=== PATIENT | female | born 1990 | race Caucasian/White ===

== ENCOUNTER 2024-06-03 18:56 | Emergency (ER) | payer OTHER, SELFPAY ==
--- NOTE | 2024-06-03 | US_ITS ---
PROCEDURE: Right upper quadrant ultrasound REASON FOR EXAM: Pain, nausea PROCEDURE: Homogeneous hepatic echotexture. No discrete intrinsic hepatic mass, contour nodularity or perihepatic ascites. Normal appearing gallbladder without calculi, wall thickening or pericholecystic fluid. Normal caliber common bile duct measuring 2.9 mm. Limited views of the pancreas are within normal limits. Right kidney measures 11.2 x 5.2 x 4.8 cm. No significant hydronephrosis or sizable shadowing renal calculi. US/Abdomen Limited IMPRESSION: No acute process. Reading Location: [facility]
[2024-06-03 18:58] VITALS: BP 117/82; PULSE 99; RESP 16; TEMP 36.6; O2SAT 100; BMI 27.8
--- NOTE | 2024-06-03 19:13 | EX.ED.DYSGE1 ---
HPI <ED Montano - Last Filed: 06/03/24 21:51> History of Present Illness Chief Complaint: Abd Pain Narrative Narrative: 33-year-old female is approximately 14 weeks and over the last 4 days has had RUQ abdominal pain. Over the last 2 days she has been scared to eat or drink anything and feels nauseated and has acid regurgitation. She was started on famotidine twice daily earlier in her . She has IBS-C with bowel movements every 2 to 3 days. She took Ex-Lax this morning and did have a large bowel movement but it did not help the pain. She has no urinary symptoms. No fever or chills. She denies vaginal bleeding or discharge. PFSH <ED Montano - Last Filed: 06/03/24 21:51> PFSH Home Medications ?Medication ?Instructions ?Recorded ?Last Taken ?Type cetirizine 10 mg capsule (Zyrtec) 10 mg PO QDAY PRN 03/17/24 Unknown History Allergy/AdvReac Type Severity Reaction Status Date / Time Environmental Allergies: Allergy Other Verified 06/03/24 19:03 Uncoded (seasonal) Social History (Updated 03/17/24 @ 13:36 by Moriah Garcia) Smoking Status: Never smoker alcohol intake: never ROS <ED Montano - Last Filed: 06/03/24 21:51> ROS ED ROS Narrative Constitutional: Negative for fever, chills, malaise. CVS: Negative for chest pain. Respiratory: Negative for shortness of breath, cough. GI: Positive for abdominal pain, nausea. Negative for vomiting, diarrhea, melena, hematochezia. EXAM <ED Montano - Last Filed: 06/03/24 21:51> Physical Exam Narrative Exam Narrative: CONST: Patient sitting in no acute distress. EYES: Normal inspection. NECK: Normal inspection. RESP: No respiratory distress, CTAB. CVS: Regular rate and rhythm, no murmur, no gallop. ABD: Soft with mild RUQ and epigastric tenderness, no guarding or rebound, nondistended, no hepatosplenomegaly. Negative Yoon sign. SKIN: Color normal, no rash, warm, dry, intact. EXTREMITIES: Normal appearance, no pedal edema. NEURO: Alert and answering questions appropriately. PSYCH: Normal affect. Const Vital Signs: 06/03/24 18:58 06/03/24 21:00 06/03/24 21:54 Temperature 97.9 F 98.4 F Temperature Source Temporal Pulse Rate 99 80 80 Respiratory Rate 16 18 18 Blood Pressure 117/82 H 111/78 111/78 Blood Pressure Mean 93 89 89 Pulse Ox 100 100 100 Oxygen Delivery Method Room Air Room Air <Dr. Arturo Donnelly DO - Last Filed: 06/03/24 22:03> Physical Exam Const Vital Signs: 06/03/24 18:58 06/03/24 21:00 06/03/24 21:54 Temperature 97.9 F 98.4 F Temperature Source Temporal Pulse Rate 99 80 80 Respiratory Rate 16 18 18 Blood Pressure 117/82 H 111/78 111/78 Blood Pressure Mean 93 89 89 Pulse Ox 100 100 100 Oxygen Delivery Method Room Air Room Air MDM <ED Montano - Last Filed: 06/03/24 21:51> [facility] MDM Narrative Medical decision making narrative: History gathered from: Patient and her mom Differential includes but not limited to biliary colic, cholecystitis, pancreatitis, GERD/gastritis 33-year-old female approximately 14 weeks presents with 4 days of RUQ abdominal pain. She reports nausea and also acid reflux. She appears well and nontoxic. She is afebrile and hemodynamically stable. Normal cardiopulmonary exam. She has mild RUQ tenderness with negative Yoon signs. There is no abdominal distention. No peritoneal signs. CBC, CMP, and lipase are within normal limits. Abdominal ultrasound shows no acute findings. There is no gallbladder thickening or stones. Since she is reporting symptoms of acid regurgitation I think this could be more GERD/gastritis related. She had IV fluids, Protonix, and Zofran on initial examination and after the results were normal I ordered p.o. Tylenol and a GI cocktail. She is already on famotidine twice daily. I recommended adding omeprazole and discussed dietary changes. She has follow-up scheduled with her [facility] [employer] [facility] this week and was discharged in stable condition. ED attending note: I evaluated the patient in conjunction with the CHRISTIANA. I agree with his/her statements and above findings. I have personally performed a face to face assessment of the patient and have reviewed the [facility]STIANA Note. I performed a substantive portion of the visit including all aspects of the following. I personally saw the patient performed chart review, physical exam, reviewed labs, imaging (if obtained), and formulated a treatment and management plan. This note was generated with [email or web address] dictation software. It may contain incorrect words, spelling, and punctuation that were not noted in review of the chart prior to signing. Lab Data Attestation: I reviewed the patient's lab results. Labs: Laboratory Results - last 24 hr 06/03/24 06/03/24 19:18 20:00 WBC 8.5 RBC 4.60 Hgb 12.9 Hct 38.0 MCV 82.6 MCH 28.0 MCHC 33.9 RDW Std Deviation 37.2 RDW Coeff of Martha 12.5 Plt Count 266 MPV 10.1 Immature Gran % (Auto) 0.400 Neut % (Auto) 62.0 Lymph % (Auto) 29.9 [place] % (Auto) 6.6 Eos % (Auto) 0.6 Baso % (Auto) 0.5 Absolute Neuts (auto) 5.3 Absolute Lymphs (auto) 2.55 Nucleated RBC % 0 Sodium 137 Potassium 3.7 Chloride 106 Carbon Dioxide 24.0 Anion Gap 6 BUN 5 L Creatinine 0.55 Estim Creat Clear Calc 132.38 Est GFR (MDRD) Af Amer 164 Est GFR (MDRD) Non-Af 135 BUN/Creatinine Ratio 9.1 L Glucose 87 Calcium 9.3 Total Bilirubin 0.10 L AST 18 ALT 21 Alkaline Phosphatase 63 Total Protein 7.3 Albumin 3.1 L Globulin 4.2 Albumin/Globulin Ratio 0.7 L Lipase 44 L Urine Color Yellow Urine Clarity Clear Urine pH 6.0 Ur Specific Hazard 1.025 Urine Protein Negative Urine Glucose (UA) Normal Urine Ketones 150 A* Urine Occult Blood Negative Urine Nitrite Negative Urine Bilirubin Negative Urine Urobilinogen Normal Ur Leukocyte Esterase Negative Urine RBC 0 SEEN Urine WBC 0 SEEN Ur Squamous Epith Cells 0-5 SEEN Urine Bacteria RARE Urine Mucus 0 SEEN Radiography Diagnostic Testing: Clinical Impression(s) from Imaging Studies Abdomen Ultrasound 06/03/24 00:00 IMPRESSION: No acute process. Reading Location: [facility] <Dr. Arturo Donnelly, DO - Last Filed: 06/03/24 22:03> [facility] MDM Narrative Medical decision making narrative: History gathered from: Patient and her mom Differential includes but not limited to biliary colic, cholecystitis, pancreatitis, GERD 33-year-old female approximately 14 weeks presents with 4 days of RUQ abdominal pain. She reports nausea and also acid reflux. She appears well and nontoxic. She is afebrile and hemodynamically stable. Normal cardiopulmonary exam. She has mild RUQ tenderness with negative Yoon signs. There is no abdominal distention. No peritoneal signs. CBC, CMP, and lipase are within normal limits. ED attending note: I evaluated the patient in conjunction with the CHRISTIANA. I agree with his/her statements and above findings. I have personally performed a face to face assessment of the patient and have reviewed the [facility]IA[facility] Note. I performed a substantive portion of the visit including all aspects of the following. I personally saw the patient performed chart review, physical exam, reviewed labs, imaging (if obtained), and formulated a treatment and management plan. This note was generated with [email or web address] dictation software. It may contain incorrect words, spelling, and punctuation that were not noted in review of the chart prior to signing. Lab Data Labs: Laboratory Results - last 24 hr 06/03/24 06/03/24 19:18 20:00 WBC 8.5 RBC 4.60 Hgb 12.9 Hct 38.0 MCV 82.6 MCH 28.0 MCHC 33.9 RDW Std Deviation 37.2 RDW Coeff of Martha 12.5 Plt Count 266 MPV 10.1 Immature Gran % (Auto) 0.400 Neut % (Auto) 62.0 Lymph % (Auto) 29.9 [place] % (Auto) 6.6 Eos % (Auto) 0.6 Baso % (Auto) 0.5 Absolute Neuts (auto) 5.3 Absolute Lymphs (auto) 2.55 Nucleated RBC % 0 Sodium 137 Potassium 3.7 Chloride 106 Carbon Dioxide 24.0 Anion Gap 6 BUN 5 L Creatinine 0.55 Estim Creat Clear Calc 132.38 Est GFR (MDRD) Af Amer 164 Est GFR (MDRD) Non-Af 135 BUN/Creatinine Ratio 9.1 L Glucose 87 Calcium 9.3 Total Bilirubin 0.10 L AST 18 ALT 21 Alkaline Phosphatase 63 Total Protein 7.3 Albumin 3.1 L Globulin 4.2 Albumin/Globulin Ratio 0.7 L Lipase 44 L Urine Color Yellow Urine Clarity Clear Urine pH 6.0 Ur Specific Hazard 1.025 Urine Protein Negative Urine Glucose (UA) Normal Urine Ketones 150 A* Urine Occult Blood Negative Urine Nitrite Negative Urine Bilirubin Negative Urine Urobilinogen Normal Ur Leukocyte Esterase Negative Urine RBC 0 SEEN Urine WBC 0 SEEN Ur Squamous Epith Cells 0-5 SEEN Urine Bacteria RARE Urine Mucus 0 SEEN Radiography Diagnostic Testing: Clinical Impression(s) from Imaging Studies Abdomen Ultrasound 06/03/24 00:00 IMPRESSION: No acute process. Reading Location: [facility] Discharge Plan Triage Chief Complaint: Abd Pain ED Midlevel Provider: Sandie Mae ED Provider: Arturo Donnelly Dx/Rx/DC Orders Clinical Impression: Abdominal pain, RUQ, Second trimester , GERD (gastroesophageal reflux disease) Instructions: Abdominal Pain Prescriptions: No Action Zyrtec 10 mg capsule 10 mg PO QDAY PRN Primary Care Provider: Dwaine Russell Referrals: Dwaine Russell MD [Primary Care Provider] - Activity Restrictions/Additional Instructions: Your blood work and ultrasound are normal. You could have -induced GERD/gastritis. Continue your famotidine twice daily and you can take [id number] Tums as needed or start omeprazole every day as well. Avoid spicy or fried foods as this could also potentially be gallbladder issue. Follow-up with your [facility] [employer] [facility] Print Language: Malian Disposition Disposition: Home, Self Care
[2024-06-03] MEDS: 0.9% Normal Saline (1000mL) 1,000 ML 999 ML IV (19:22)
[2024-06-03] MEDS: Ondansetron 4 MG/2 ML Vial IV (19:22)
[2024-06-03] MEDS: Pantoprazole Sodium 40 MG in 0.9% Normal Saline (100mL MB+) 100 ML 330 MG IV (19:23)
[2024-06-03 19:26] LABS: Absolute Lymphocyte Count 2.55 X10^3/uL (0.83-4.51); Absolute Neutrophil Count 5.3 X10^3/uL (2.0-7.7); Basophil# 0.04 X10^3/uL; Basophil% 0.5 % (0-1); Eosinophil# 0.05 X10^3/uL; Eosinophils% 0.6 % (0-5); Hemoglobin 12.9 g/dL (12.0-15.0); Lymphocyte # 2.55 X10^3/ul (0.83-4.51); Lymphocyte % 29.9 % (19-41); Mean Corp Hgb Conc 33.9 g/dL (32-36); Mean Corpuscular Volume 82.6 fL (81-99); Mean Platelet Vol. 10.1 fl (6.2-12.0); Monocyte# 0.56 X10^3/uL; Monocyte% 6.6 % (0-10); NRBC Flagged by Analyzer 0 % (0-5); Neutrophil # 5.31 X10^3/uL (2.7-7.7); Platelet Count 266 K/mm3 (150-450); RBC Distribution Width CV 12.5 % (11.6-14.6); RBC Distribution Width SD 37.2 fl (35.1-43.9); White Blood Count 8.5 K/mm3 (4.4-11.0)
[2024-06-03 20:10] LABS: Mucous, Urine 0 SEEN /hpf (<or=2+)
[2024-06-03 20:11] LABS: Color, Urine Yellow (Yellow); Glucose, Dipstick Normal (Normal); Leukocyte Esterase-Dipstick Negative /ul (Negative); Nitrite-Dipstick Negative (Negative); Occult Blood-Urine Negative /ul (Negative); Protein-Dipstick Negative (Negative); Specific Gravity, Urine 1.025 (1.002-1.030); Urine Bilirubin Dipstick Negative (Negative); Urine Clarity Clear (Clear); Urine Urobilinogen Normal (Normal)
[2024-06-03 20:12] LABS: ALB/GLOB Ratio 0.7 RATIO (0.9-2.4); AST(SGOT) 18 U/L (15-37); Alanine Aminotransfer ALT/SGPT 21 U/L (13-56); Albumin, Serum 3.1 g/dL (3.2-5.0); Alkaline Phosphatase 63 U/L (45-117); Anion Gap 6 (5-15); BUN 5 mg/dL (7-18); BUN/Creat Ratio 9.1 RATIO (10-20); Calcium,Total 9.3 mg/dL (8.5-10.1); Chloride 106 mmol/L (98-107); Creatinine, Serum 0.55 mg/dL (0.55-1.02); EST Glomerular Filtration Rate 135 mL/min (>60); Est Glom Filt Rate - Afr Amer 164 mL/min (>60); Estimated Creatinine Clearance 132.38 ml/min; Globulin 4.2 g/dL (2.2-4.2); Glucose 87 mg/dL (74-106); Lipase 44 U/L (73-393); Potassium 3.7 mmol/L (3.5-5.1); Protein, Total 7.3 g/dL (6.4-8.2); Sodium Level 137 mmol/L (136-145)
[2024-06-03 20:13] LABS: Ketone-Dipstick 150 mg/dl (Negative)
[2024-06-03 20:35] LABS: Bacteria RARE /hpf (None Seen); Red Blood Cells-Urine 0 SEEN /hpf (0-5); Squamous Epithelial Cells - UA 0-5 SEEN /hpf (5-10); White Blood Cells 0 SEEN /hpf (0-5)
[2024-06-03 21:00] VITALS: BP 111/78; PULSE 80; RESP 18; O2SAT 100
[2024-06-03] MEDS: Acetaminophen 500 MG Tablet 1000 MG PO (21:44)
[2024-06-03] MEDS: Mag Hydrox/Al Hydrox/Simeth 30 ML UDC PO (21:48)
[2024-06-03] MEDS: Lidocaine 2% Viscous15 ML UDC 15 ML PO (21:48)
[2024-06-03 21:54] VITALS: BP 111/78; PULSE 80; RESP 18; TEMP 36.9; O2SAT 100
== END 2024-06-03 22:24 | disposition home or self-care (01) ==
PROVIDERS: Physician Assistant; Emergency Provider Emergency Medicine; PCP Family Medicine; Referring Provider Emergency Medicine; Visit Provider Emergency Medicine
DX: O99.612 Diseases of the digestive system complicating pregnancy, second trimester (principal); K21.9 Gastro-esophageal reflux disease without esophagitis; Z3A.14 14 weeks gestation of pregnancy
CPT/HCPCS: 76705; 80053; 81001; 83690; 85025; 96365; 96375; 99282; A4216; J2405

== ENCOUNTER 2024-11-10 07:05 | Inpatient (IN) | payer OTHER, SELFPAY ==
[2024-11-10] VITALS (51 sets, daily range): BP systolic 83–133; BP diastolic 51–83; PULSE 71–109; RESP 16; TEMP 36.2–36.9; O2SAT 82–100; BMI 31.4
--- OUTSIDE RECORDS SUMMARY | 2024-11-10 07:20 | XMS RPT_ITS | CCD ---
Author Organization [facility] Care Team Providers Care Manager Trainee Name Role Phone Unavailable Primary Care Provider Unavailabl e Anika Moore PA-C Primary Care Provider Anika Moore PA-C Primary Care Provider [phone] Rosario Maldonado PA-C Primary Care Provider MARISEL YATES, ISMAEL Admitting Unavailable MARISEL YATES, ISMAEL Referring Unavailable ROSARIO MALDONADO Primary Care Unavailable MARISEL YATES, ISMAEL Attending Unavailable ROSARIO MALDONADO Primary Care Unavailable MARISEL YATES, ISMAEL Admitting Unavailable ROSARIO MALDONADO Primary Care Unavailable JULIET DOWNEY Attending Unavailable JULIET DOWNEY Attending Unavailable MARISEL YATES, ISMAEL Admitting Unavailable ROSARIO MALDONADO Primary Care Unavailable Anika Moore PA-C Primary Care Provider DANIELA CARO DPColleen Admitting Unavailable DAINELA CARO DPM Attending Unavailable DANIELA CARO DPM Primary Care Unavailable ROSARIO MALDONADO Consulting Unavailable PROVIDER, UNKNOWN Consulting Unavailable Rosario Maldonado PA-C J Unavailable Rosario Maldonado PA-C Unavailable Carolyn Nation LPN Unavailable Unavailable Anika Moore PA-C Unavailable Bunny HODGENVee Unavailable Unavailable Eber AIR SHOVEL OPERATOR, Vidya Macias Unavailable Unavailab tc Alicea AIR SHOVEL OPERATOR, Ann Cherry Unavailable Unavailab Vee Aguilar MA Unavailable Unavailable Vess AIR SHOVEL OPERATOR, Linda Monsivais Unavailable Unavailable Wengerd AIR SHOVEL OPERATOR, Dena Unavailable Unavailabl e Unavailable Unavailable Maldonado, Rosario J Primary Care Provider [phone] MALDONADO, ROSARIO J Primary Care Unavailable HAURY, PAT Referring Unavailable ALEX SCHOFIELD Attending Unavailable MALDONADO, ROSARIO J Primary Care Unavailable HAURY, PAT Referring Unavailable MALDONADO, ROSARIO J Primary Care Unavailable HAURY, PAT Referring Unavailable TRUDY ZAPATA Attending Unavailable MALDONADO, ROSARIO J Primary Care Unavailable HAURY, PAT Referring Unavailable DENA CARTER Attending Unavailable MALDONADO, ROSARIO J Primary Care Unavailable HAURY, PAT Referring Unavailable MALDONADO, ROSARIO J Primary Care Unavailable DENA CARTER Attending Unavailable MALDONADO, ROSARIO J Primary Care Unavailable KATRIN CLARK Attending Unavailable MALDONADO, ROSARIO J Primary Care Unavailable DENA CARTER Referring Unavailable MALDONADO, ROSARIO J Primary Care Unavailable DENA CARTER Attending Unavailable MALDONADO, ROSARIO J Primary Care Unavailable DENA CARTER Attending Unavailable MALDONADO, ROSARIO J Primary Care Unavailable HAURY, PAT Referring Unavailable MALDONADO, ROSARIO J Primary Care Unavailable RAQUEL FRENCH Referring Unavailable [facility] Primary Care Unavailable ANABELLE GOLDMAN Attending Unavailable MALDONADO, ROSARIO J Primary Care Unavailable DENA CARTER Attending Unavailable MALDONADO, ROSARIO J Primary Care Unavailable ALEX SCHOFIELD Attending Unavailable MALDONADO, ROSARIO J Primary Care Unavailable FRENCH RAQUEL Attending Unavailable MALDONADO, ROSARIO J Primary Care Unavailable AULTMAN, ANIKA D Primary Care Unavailable ANABELLE GOLDMAN Attending Unavailable [facility] Primary Care Unavailable ANABELLE GOLDMAN Attending Unavailable MALDONADO, ROSARIO J Primary Care Unavailable HAURY, PAT Referring Unavailable MALDONADO, ROSARIO J Primary Care Unavailable SELF Referring Unavailable HAURY, PAT Attending Unavailable MALDONADO, ROSARIO J Primary Care Unavailable TORCHIA, ZULLY Referring Unavailable MALDONADO, ROSARIO J Primary Care Unavailable DENA CARTER Attending Unavailable MALDONADO, ROSARIO J Primary Care Unavailable HAURY, PAT Referring Unavailable KENYATTA GUZMAN Attending Unavailable MALDONADO, ROSARIO J Primary Care Unavailable TORCHIA, ZULLY Referring Unavailable MALDONADO, ROSARIO J Primary Care Unavailable HAURY, PAT Referring Unavailable MALDONADO, ROSARIO J Primary Care Unavailable TORCHIA, ZULLY Referring Unavailable MALDONADO, ROSARIO J Primary Care Unavailable DENA CARTER Attending Unavailable ROSARIO MALDONADO Primary Care Unavailable JENNIFER HADDADILY Referring Unavailable ROSARIO MALDONADO Primary Care Unavailable RAQUEL FRENCH Referring Unavailable Dwaine Russell Primary Care Unavailable Dwaine Russell Referring Unavailable Giovany Thakur Attending Unavailable Farida Kim Admitting Unavail able NeAnna Kim Attending Unavail able Farida, Kim Referring Unavail able Dwaine Russell Primary Care Unavailable Arturo Donnelly Attending Unavailable Arturo Donnelly Referring Unavailable Dwaine Russell Primary Care Unavailable Dwaine Russell Primary Care Unavailable Merlin Moreno Attending Unavailable Allergies Allergy Classification Reported Allergen(s) Allergy Type Date of Onset Reaction(s) Facility (1 source) Environmental Allergies: Uncoded; Translations: [Environmental Allergies: Uncoded] Propensity to adverse reactions (disorder) [facility] Repository Medications Current Medications Medication Drug Class(es) Dates Sig (Normalized) Sig (Original) ascorbic acid 500 mg oral tablet (20 sources) Vitamin C Start: 08-28-2024 take 1 tablet by mouth every other day ascorbic acid, vitamin C, (VITAMIN C) 500 mg tablet Take 1 tablet by mouth every other day. 30 tablet 3 08/28/2024 Active aspirin 81 mg delayed release oral tablet (20 sources) Platelet Aggregation Inhibitor, Nonsteroidal Anti-inflammatory Drug Start: 04-14-2024 take 1 tablet by mouth once daily aspirin, enteric coated (ECOTRIN LOW STRENGTH) 81 mg EC tablet Indications: Encounter for supervision of normal first in first trimester ([facility]) , with uncertain dates in first trimester ([facility]) , History of depression Take 1 tablet by mouth once daily. 90 tablet 3 04/14/2024 Active escitalopram 10 mg oral tablet (8 sources) Serotonin Reuptake Inhibitor Start: 08-17-2022 take 1 tablet by mouth once daily Lexapro 10 MG Oral Tablet ; 1 (one) Tablet daily for 0 days Quantity: 90 {Tablet} Refills: 1 Ordered: 17-Aug-2022 FELIPE Maldonado Start: 17-Aug-2022 famotidine 20 mg oral tablet (20 sources) Histamine-2 Receptor Antagonist Start: 04-14-2024 take 1 tablet by mouth twice daily famotidine (PEPCID) 20 mg tablet Take 1 tablet by mouth two times a day. 60 tablet 4 04/14/2024 Active ferrous sulfate 325 mg oral tablet (20 sources) Start: 08-28-2024 take 1 tablet by mouth every other day ferrous sulfate 325 mg (65 mg iron) tablet Take 1 tablet by mouth every other day. 30 tablet 3 08/28/2024 Active isopropyl alcohol 0.7 ml/ml medicated pad (20 sources) Start: 09-01-2024 alcohol swabs (ALCOHOL PREP PADS) Indications: Diet controlled gestational diabetes mellitus (GDM) in third trimester (HCC) Use as directed to check glucose levels up to seven times daily. 200 each 8 09/01/2024 Active meloxicam 15 mg oral tablet (1 source) Nonsteroidal Anti-inflammatory Drug Start: 06-30-2023 End: 07-10-2023 take 1 tablet by mouth once daily meloxicam (MOBIC) 15 MG tablet Take 1 (one) tablet (15 mg total) by mouth daily for 10 days . 10 tablet 0 06/30/2023 07/10/2023 Active omeprazole 40 mg delayed release oral capsule (20 sources) Proton Pump Inhibitor Start: 08-25-2024 take 1 capsule by mouth once daily omeprazole (PRILOSEC) 40 mg capsule Take 1 capsule by mouth once daily. 30 capsule 3 08/25/2024 Active End: 08-25-2024 OMEPRAZOLE ORAL Take by mout h. 08/25/2024 Discontinued (Course of therapy completed) OMEPRAZOLE ORAL Take by mouth. Active oseltamivir 75 mg oral capsule (9 sources) Neuraminidase Inhibitor Start: 05-29-2024 End: 06-03-2024 take 1 capsule by mouth twice daily oseltamivir (TAMIFLU) 75 mg capsule Take 1 capsule by mouth two times a day for 5 days. 10 capsule 05/29/2024 06/03/2024 Active Start: 06-12-2013 End: 06-01-2014 take 1 capsule by mouth once daily TAMIFLU, 75MG (Oral Capsule) ; 1 (one) Capsule daily for 0 days Quantity: 10 {Capsule} Refills: 0 Ordered: 01-Jun-2014 ESTELA Ovalle Start: 12-Jun-2013 End: 01-Jun-2014 Status: Inactive PNV no.95/ferrous fum/folic ac ( ORAL) (20 sources) PNV no.95/ferrou s fum/folic ac ( ORAL) Take by mouth. Active Completed/Discontinued Medications Medication Drug Class(es) Dates Sig (Normalized) Sig (Original) ALPRAZolam 0.25 mg oral tablet (8 sources) Benzodiazepine Start: 09-06-2019 End: 10-06-2019 take 1 tablet by mouth every eight hours as needed for anxiety Xanax 0.25 MG Oral Tablet ; 1 (one) Tablet every 8 hours as needed for anxiety for 30 days Quantity: 15 {Tablet} Refills: 0 Ordered: 06-Sep-2019 FELIPE Maldonado Start: 06-Sep-2019 End: 06-Oct-2019 Status: Inactive Comments: [facility] Comment on above: Medication taken as needed. [facility] doxycycline hyclate 100 mg oral tablet (8 sources) Tetracycline-class Drug Start: 02-24-2021 End: 03-06-2021 take 1 tablet by mouth twice daily Doxycycline Hyclate 100 MG Oral Tablet ; 1 (one) Tablet BID for 10 days Quantity: 20 {Tablet} Refills: 0 Ordered: 24-Feb-2021 FELIPE Maldonado Start: 24-Feb-2021 End: 06-Mar-2021 Status: Inactive Ethinyl Estradiol / Levonorgestrel (8 sources) Progestin, Estrogen, Progestin-containing Intrauterine Device Start: 08-08-2021 End: 09-08-2022 take 1 tablet by mouth once daily Altavera 0.15-30 MG-MCG Oral Tablet ; 1 (one) Tablet daily for 0 days Quantity: 3 {Packet} Refills: 4 Ordered: 08-Sep-2022 Start: 08-Aug-2021 End: 08-Sep-2022 Status: Inactive Comments: Please confirm that this is what she is currently taking. Comment on above: Please confirm that this is what she is currently taking. 10 ml iron sucrose 20 mg/ml injection (3 sources) Parenteral Iron Replacement Start: 09-18-2024 End: 09-18-2024 200 mg, INTRAVENOUS, DIRECTED, Starting on Wed09/18/24 at 1530, Until Wed09/18/24 at 1753, May administer up to 200 mg via IV push over 5-10 minutes. Start: 09-15-2024 End: 09-15-2024 200 mg, INTRAVENOUS, DIRE CTED, Starting on Wed09/15/24 at 1430, Until Wed09/15/24 at 1652, May administer up to 200 mg via IV push over 5-10 minutes. Start: 09-11-2024 End: 09-11-2024 200 mg, INTRAVENOUS, DIRE CTED, Starting on Wed09/11/24 at 1030, Until Wed09/11/24 at 1302, May administer up to 200 mg via IV push over 5-10 minutes. permethrin 50 mg/ml topical cream (1 source) Pyrethroid Start: 06-10-2006 ELIMITE 5 % TOPICAL CREAM use as per instruction sheet, repeat in 1 week 2 doses 0 06/10/2006 Active Comment on above: use as per instructi on sheet, repeat in 1 week phentermine hydrochloride 37.5 mg oral capsule (16 sources) Sympathomimetic Amine Anorectic Start: 02-29-2024 End: 05-29-2024 take 1 capsule by mouth once daily before breakfast Phentermine HCl 37.5 mg capsule Indications: Low serum HDL , Malaise and fatigue , History of obesity Take 1 capsule by mouth daily before breakfast for 90 days. 90 capsule 02/29/2024 04/14/2024 Discontinued Start: 11-24-2023 End: 02-22-2024 take 1 capsule by mouth once daily before breakfast Phentermine HCl 37.5 mg capsule Indications: Low serum HDL , Malaise and fatigue , History of obesity Take 1 capsule by mouth daily before breakfast for 90 days. 90 capsule 0 11/24/2023 02/22/2024 Active Start: 08-19-2023 End: 11-17-2023 take 1 capsule by mouth once daily before breakfast Phentermine HCl 37.5 mg capsule Indications: Low serum HDL , Malaise and fatigue , History of obesity Take 1 capsule by mouth daily before breakfast for 90 days. 90 capsule 0 08/19/2023 11/17/2023 Active Start: 03-23-2023 End: 08-17-2023 take 1 capsule by mouth once daily before breakfast phentermine 37.5 MG capsule Take 1 (one) capsule (37.5 mg total) by mouth every morning before breakfast . 0 05/19/2023 08/17/2023 Active Start: 03-03-2023 End: 03-23-2023 take 30-30.9 tablets by mouth once daily before breakfast Phentermine HCl 37.5 mg tablet Indications: Low serum HDL , Malaise and fatigue , Class 1 obesity without serious comorbidity with body mass index (BMI) of 30.0 to 30.9 in adult, unspecified obesity type Take 1 tablet by mouth daily before breakfast for 60 days. 30 tablet 1 03/03/2023 03/23/2023 Discontinued Start: 01-05-2023 End: 03-06-2023 take 30-30.9 capsules by mouth once daily before breakfast Phentermine HCl 15 mg capsule Indications: Class 1 obesity without serious comorbidity with body mass index (BMI) of 30.0 to 30.9 in adult, unspecified obesity type Take 1 capsule by mouth daily before breakfast for 30 days. 30 capsule 0 02/04/2023 03/06/2023 Active Comment on above: Take 1 capsule by mo [facility] daily before breakfast for 30 days. Take 1 tablet by [facility] daily before breakfast for 60 days. Take 1 capsule by mo [facility] daily before breakfast for 60 days. Take 1 capsule by mo [facility] daily before breakfast for 90 days. sulfacetamide sodium 100 mg/ml ophthalmic solution (8 sources) Sulfonamide Antibacterial Start: 12-24-19 End: 02-20-20 take 1-2 drop(s) into the eye(s) four times daily Bleph-10 10 % Ophthalmic Solution ; 1-2 drops four times daily for 0 days Quantity: 5 {Milliliter} Refills: 0 Ordered: 23-Dec-2020 ERICA Girard Start: 23-Dec-2020 End: 19-Feb-2022 Status: Discontinued Comments: This order discontinued per [facility]. Comment on above: This order discontin ued per [facility]. Problems Active Problems Problem Classification Problem Date Documented Da te Episodic/Chronic Anxiety disorders (20 sources) Anxiety; Translations: [Anxiety disorder, unspecified] 02-19-2022 Chronic Bacterial infection; unspecified site (8 sources) Bacteria present; Translations: [Streptococcus, group B, as the cause of diseases classified elsewhere] Onset: 10-23-2024 10-27-2024 Episodic Cardiac dysrhythmias (3 sources) Tachycardia; Translations: [Tachycardia, unspecified] Onset: 08-25-2024 08-28-2024 Episodic Conditions associated with dizziness or vertigo (5 sources) Lightheadedness; Translations: [Dizziness and giddiness] Onset: 08-15-2024 08-15-2024 Episodic Contraceptive and procreative management (20 sources) Patient encounter status; Translations: [Encounter for contraceptive management, unspecified] 02-19-2022 Episodic Diabetes or abnormal glucose tolerance complicating ; childbirth; or the puerperium (20 sources) Impaired glucose tolerance in ; Translations: [Abnormal glucose complicating ] Onset: 08-28-2024 08-28-2024 Episodic Diseases of mouth; excluding dental (16 sources) Angular cheilitis; Translations: [Diseases of lips] 09-06-2019 Episodic Immunizations and screening for infectious disease (20 sources) Contact with and (suspected) exposure to other viral communicable diseases; Translations: [Contact with or exposure to other viral diseases] Onset: 08-25-2024 09-06-2019 Episodic Inflammation; infection of eye (except that caused by tuberculosis or sexually transmitteddisease) (16 sources) Conjunctivitis; Translations: [Unspecified conjunctivitis] 12-23-2020 Episodic Other circulatory disease (20 sources) Raynaud's disease; Translations: [Raynaud's syndrome without gangrene] Onset: 08-25-2024 08-25-2024 Chronic Other circulatory disease (1 source) Raynaud's syndrome without gangrene; Translations: [Raynaud's disease without gangrene] Onset: 08-25-2024 Chronic Other complications of (20 sources) Anemia of ; Translations: [Anemia complicating , unspecified trimester] Onset: 08-28-2024 08-28-2024 Chronic Other complications of (1 source) Anemia in mother complicating , childbirth AND/OR puerperium; Translations: [Anemia complicating , third trimester] 09-05-2024 Chronic Other complications of (1 source) Anemia complicating , third trimester; Translations: [Anemia during in third trimester (HCC)] Onset: 08-28-2024 Chronic Other complications of (2 sources) High risk ; Translations: [Supervision of high risk , unspecified, third trimester] 10-27-2024 Episodic Other complications of (1 source) Supervision of high risk , unspecified, third trimester; Translations: [Supervision of high risk in third trimester (HCC)] Onset: 10-27-2024 Episodic Other connective tissue disease (2 sources) Pain in right foot; Translations: [Pain in right foot] Onset: 06-30-2023 Episodic Other connective tissue disease (4 sources) Plantar fascial fibromatosis; Translations: [Plantar fascial fibromatosis] Onset: 06-30-2023 Episodic Other gastrointestinal disorders (20 sources) Malabsorption syndrome; Translations: [Malabsorption due to intolerance, not elsewhere classified] Onset: 09-05-2024 09-05-2024 Chronic Other gastrointestinal disorders (1 source) Malabsorption due to intolerance, not elsewhere classified; Translations: [Malabsorption due to intolerance, not elsewhere classified] Onset: 09-05-2024 Chronic Other gastrointestinal disorders (16 sources) Constipation; Translations: [Constipation, unspecified] 09-06-2019 Episodic Other nutritional; endocrine; and metabolic disorders (9 sources) Obesity; Translations: [Obesity, unspecified] Onset: 08-19-2023 01-29-2023 Chronic Other nutritional; endocrine; and metabolic disorders (3 sources) Body mass index 25-29 - overweight; Translations: [Overweight] 08-19-2023 Episodic Other screening for suspected conditions (not mental disorders or infectious disease) (2 sources) Encounter for other specified screening; Translations: [Encounter for screening for diabetes mellitus] Onset: 08-25-2024 Episodic Other skin disorders (16 sources) Mass of axilla; Translations: [Localized swelling, mass and lump, unspecified upper limb] 09-06-2019 Episodic Residual codes; unclassified (1 source) Gestation period, 9 weeks; Translations: [9 weeks gestation of ] 04-14-2024 Episodic Residual codes; unclassified (2 sources) Gestation period, 12 weeks; Translations: [12 weeks gestation of ] 05-05-2024 Episodic Residual codes; unclassified (1 source) Gestation period, 16 weeks; Translations: [16 weeks gestation of ] 06-08-2024 Episodic Residual codes; unclassified (1 source) Gestation period, 20 weeks; Translations: [20 weeks gestation of ] 06-30-2024 Episodic Residual codes; unclassified (1 source) Gestation period, 24 weeks; Translations: [24 weeks gestation of ] 07-28-2024 Episodic Residual codes; unclassified (1 source) Gestation period, 26 weeks; Translations: [26 weeks gestation of ] 08-15-2024 Episodic Residual codes; unclassified (1 source) Gestation period, 28 weeks; Translations: [28 weeks gestation of ] 08-25-2024 Episodic Residual codes; unclassified (1 source) Gestation period, 30 weeks; Translations: [30 weeks gestation of ] 09-08-2024 Episodic Residual codes; unclassified (1 source) Gestation period, 32 weeks; Translations: [32 weeks gestation of ] 09-22-2024 Episodic Residual codes; unclassified (1 source) Gestation period, 34 weeks; Translations: [34 weeks gestation of ] 10-06-2024 Episodic Residual codes; unclassified (1 source) Gestation period, 36 weeks; Translations: [36 weeks gestation of ] 10-20-2024 Episodic Residual codes; unclassified (2 sources) Gestation period, 37 weeks; Translations: [37 weeks gestation of ] 10-27-2024 Episodic Residual codes; unclassified (1 source) 37 weeks gestation of ; Translations: [37 weeks gestation of (HCC)] Onset: 10-27-2024 Episodic Residual codes; unclassified (1 source) 36 weeks gestation of ; Translations: [36 weeks gestation of (HCC)] Onset: 10-20-2024 Episodic Residual codes; unclassified (1 source) 34 weeks gestation of ; Translations: [34 weeks gestation of (HCC)] Onset: 10-06-2024 Episodic Residual codes; unclassified (1 source) 32 weeks gestation of ; Translations: [32 weeks gestation of (HCC)] Onset: 09-22-2024 Episodic Residual codes; unclassified (1 source) 30 weeks gestation of ; Translations: [30 weeks gestation of (HCC)] Onset: 09-08-2024 Episodic Residual codes; unclassified (1 source) 29 weeks gestation of ; Translations: [29 weeks gestation of (HCC)] Onset: 09-01-2024 Episodic Residual codes; unclassified (1 source) 28 weeks gestation of ; Translations: [28 weeks gestation of (HCC)] Onset: 08-25-2024 Episodic Residual codes; unclassified (1 source) 26 weeks gestation of ; Translations: [26 weeks gestation of (HCC)] Onset: 08-15-2024 Episodic Skin and subcutaneous tissue infections (16 sources) Cellulitis of lower limb; Translations: [Cellulitis of unspecified part of limb] 02-19-2022 Episodic Spondylosis; intervertebral disc disorders; other back problems (16 sources) Low back pain; Translations: [Lumbago] 09-06-2019 Episodic Thyroid disorders (20 sources) Goiter; Translations: [Nontoxic goiter, unspecified] Onset: 04-14-2024 02-19-2022 Chronic Unclassified (8 sources) Follow up for chronic condition - The patient is here for follow-up of anxiety. The patient always takes the prescribed medications. No side effects noted. The patient engages in regular exercise program 1-3 times per week. Note for Chronic condition follow-up: Doing well. Decreased dose of lexapro in the spring and has done well with this. 02-19-2022 Unclassified (8 sources) Follow up for chronic condition - The patient is here for follow-up of anxiety. The patient always takes the prescribed medications. No side effects noted (would like to discuss decreasing Lexapro.). The patient has low activity level and no regular exercise program. The patient states that there is no recent angina or dyspnea, there are no vision changes or weakness and weight has increased (11 pounds). Note for Chronic condition follow-up: Bought a house. 08-08-2021 Unclassified (8 sources) Follow up for chronic condition - The patient is here for follow-up of anxiety. The patient always takes the prescribed medications. No side effects noted. The patient has an active lifestyle but no regular exercise program. The patient states that weight has increased and mood is unchanged (Pt is doing well on her meds). The patient states that the disease has no overall impact. Note for Chronic condition follow-up: Had previously broken up with boyfriend but over the past year they got back together and then got engaged in the fall and then broke up again. Feels she still has stress through circumstances but is handling things better on the medication.Weight is back to her normal range - had lost a lot in the spring of last year before starting medication.She would like to continue the lexapro.Only took benzo once in February. 07-19-2020 Unclassified (8 sources) Follow up for chronic condition - The patient is here for follow-up of anxiety. The patient always takes the prescribed medications. No side effects noted. The patient has an active lifestyle but no regular exercise program. The patient states that weight has decreased (5#), in general mood has improved (has relief from some of her anxiety but continues to have very anxious mornings and sometimes before bed on the 10mg lexapro dose) and they are still having trouble sleeping. 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 09-06-2019 Unclassified (8 sources) Form completion physical - The patient feels well with minor complaints (low back pain that has been intermittent for weeks; no significant change in pain with movements; some days is pain free; no history of injury; really sharp pain at times; no urinary symptoms), has good energy level and is sleeping well. Current symptoms include back pain. The patient exercises weekly. The patient has an appropriate balanced diet and sleeps on average 7 hours per night. Habits include caffeine use. Safety measures include appropriate use of safety belts. There are no behavioral problems. Note for Form completion physical: Last period 07/12/2015 states are regular. Is sexually active. 08-09-2015 Unclassified (20 sources) [facility] Onset: 04-14-2024 04-14-2024 Unclassified (20 sources) Education - [place] Onset: 04-14-2024 04-14-2024 Unclassified (1 source) Low back pain, unspecified; Translations: [Low back pain, unspecified] Onset: 03-17-2024 Past or Other Problems Problem Classification Problem Date Documented Da te Episodic/Chronic Malaise and fatigue (10 sources) Malaise and fatigue; Translations: [Other malaise] Onset: 11-24-2023 01-29-2023 Episodic Other complications of (20 sources) Vomiting of , unspecified; Translations: [Unspecified vomiting of , unspecified as to episode of care or not applicable] Onset: 04-14-2024 04-14-2024 Episodic Other complications of (20 sources) Heartburn; Translations: [Other specified related conditions, first trimester] Onset: 04-14-2024 04-14-2024 Episodic Other complications of (1 source) Other specified related conditions, first trimester; Translations: [Heartburn during in first trimester (HCC)] Onset: 04-14-2024 Episodic Other complications of (1 source) Other specified related conditions, second trimester; Translations: [Other specified related conditions, second trimester] Onset: 06-15-2024 Episodic Other connective tissue disease (20 sources) Plantar fasciitis; Translations: [Plantar fascial fibromatosis] Onset: 07-13-2023 06-30-2023 Episodic Other gastrointestinal disorders (1 source) Heartburn; Translations: [Heartburn during in first trimester (HCC)] Onset: 04-14-2024 Episodic Other liver diseases (20 sources) Decreased lipoprotein; Translations: [Abnormal levels of other serum enzymes] Onset: 08-19-2023 01-29-2023 Episodic Other liver diseases (1 source) Abnormal levels of other serum enzymes; Translations: [Low serum HDL] Onset: 08-19-2023 Episodic Other nutritional; endocrine; and metabolic disorders (20 sources) H/O: obesity; Translations: [Personal history of other endocrine, nutritional and metabolic disease] Onset: 11-24-2023 08-19-2023 Episodic Other nutritional; endocrine; and metabolic disorders (1 source) Personal history of other endocrine, nutritional and metabolic disease; Translations: [History of obesity] Onset: 11-24-2023 Episodic Other nutritional; endocrine; and metabolic disorders (1 source) Overweight; Translations: [Overweight (BMI 25.0-29.9)] Onset: 11-24-2023 Episodic Other and delivery including normal (20 sources) Normal ; Translations: [Encounter for supervision of normal first , first trimester] Onset: 04-14-2024 04-14-2024 Episodic Residual codes; unclassified (1 source) 24 weeks gestation of ; Translations: [24 weeks gestation of (HCC)] Onset: 04-18-2025 Episodic Screening and history of mental health and substance abuse codes (20 sources) H/O: depression; Translations: [Personal history of other mental and behavioral disorders] Onset: 04-14-2024 04-14-2024 Episodic Unclassified (8 sources) infected spot - she thought she had an infected hair on right braxton - started picking it at-- it has now quadrupled in size, red, warm to touch, draining.clear puss coming out, she is squeezing itthen the last 2 days she started with red eyes, crusty, mainly the left one -- wonders if she touched her eye and is spreading it also has a spot on her forehead -- says it feels more like a boil and not like a zit-- she picks it - hurts really bad did take amoxicillin this morning she was cleaning it everyday and triple antibiotic ointment, and hydrogen peroxide No fever. 12-23-2020 Unclassified (8 sources) Depression, Initial - The onset of the depression has been variable and has been occurring in an intermittent pattern for years. The course has been increasing. The depression is described as feeling nervous. The symptoms include loss of interest, depressed mood, trouble concentrating, indecisiveness, loss of appetite, weight loss (7 pounds), insomnia, irritability and anxiety, while the symptoms do not include suicidal thoughts, suicidal attempts, fatigue, sense of failure, increased appetite, excessive sleeping or headaches. Pertinent family history includes depression in first degree relative (mother). Note for Depression: Has had anxiety for a long time but it has been worse x weeks (recent break-up, moving home with parents, off work due to pandemic). Mind racing at bedtime. Sleeps about 5 hours at night. Has a panic feeling at times but says it doesn't develop into a full panic attack. Denies suicidal thoughts. 08-07-2019 Unclassified (8 sources) Mouth pain - Symptoms include mouth lesions (In the cornder of her lips; right side is worse than the left. Seems some better today. Now cracking so painful when opens mouth completely. No history of cold sores. No prodromal symptoms. Has been using hydrogen peroxide on it. ). Onset was day(s) ago. 06-01-2014 Unclassified (8 sources) Form Completion Physicals - The patient feels well with no complaints. There are no current symptoms. The patient exercises 3 - 4 times per week. The patient has an appropriate balanced diet (does not eat breakfast) and takes no supplemental vitamins or iron and sleeps on average 9 hours per night. Habits include caffeine use. Safety measures include appropriate use of car seats/safety belts, appropriate use of safety belts and avoiding exposure to passive smoke. There are no behavioral problems. Note for Form completion physical: needs form completed for [facility] [employer] 08-23-2013 Unclassified (8 sources) Abdominal pain - The onset of the abdominal pain has been gradual and has been occurring in an intermittent pattern for 6 days. The course has been decreasing. The pain is described as a moderate pressure sensation and fullness. The pain is located in the upper abdomen and does not radiate. The symptoms are aggravated by meals (1/2 to 1 hour after eating) but have no relieving factors. The symptoms have been associated with bloating, constipation, dysuria, fever (possibly) and nausea, while the symptoms have not been associated with anorexia, diarrhea (loose stools on Wednesday s/p ex lax) or vomiting. Note for Abdominal pain: Pt has h/o constipation with b.m's q 3-4 days. Pt took ex-lax last Wednesday with good results, but has not had a b.m.since than. Pt. generally does not eat very healthy and drinks lots of soda, per pt. Pt does not drink very much water routinely. Pt has regular menses with no c/o increased cramping or bleeding. LMP-03/23/13 No previous testing has been done concerning abd discomfort. 04-20-2013 NEGATED: Highlighted row has been ruled out!Unclassified (8 sources) No Known / History Onset: 08-09-2015 08-09-2015 Results Test Name Value Interpretation Reference Range Facility Examination level ultrasound on 10-31-2024 [facility] Radiology Study observation (narrative) [facility] URINE OB DIP B/OOrdered By: Kalyan Hi on 10-31-2024 Glucose Ql (U) Negative Neg mg/dL [facility] Work Phone: Interpretation and review of laboratory results Normal [facility] Work Phone: Protein.monoclonal (U) [Mass/Vol] Negative Neg mg/dL [facility] Work Phone: [facility] Work Phone: URINE OB DIP B/Oon Glucose Ql (U) Negative Neg mg/dL [facility] Interpretation and review of laboratory results Normal [facility] Protein.monoclonal (U) [Mass/Vol] Negative Neg mg/dL [facility] CBC W Auto Differential pane l (Bld)on 10-20-2024 Basophils (Bld) [#/Vol] 0.04 10*3/uL Normal <0.11 [facility] Comment on above: Order Comment: Speci men Type: BLOOD SPECIMEN Ordering Facility: [facility] Address: [address] [place] [address] Performed By: #### 5 7021-8 #### [facility] CLIA [id number] [address] [place] [address] [place] Basophils/100 WBC (Bld) 0.3 % Normal [facility] Comment on above: Order Comment: Speci men Type: BLOOD SPECIMEN Ordering Facility: [facility] Address: [address] [place] [address] Performed By: #### 5 7021-8 #### [facility] CLIA [id number] [address] [place] [address] [place] Differential cell count method Nom (Bld) Auto Normal [facility] Comment on above: Order Comment: Speci men Type: BLOOD SPECIMEN Ordering Facility: [facility] Address: [address] [place] [address] Performed By: #### 5 7021-8 #### [facility] CLIA [id number] [address] [place] [address] [place] Eosinophils (Bld) [#/Vol] 0.11 10*3/uL Normal <0.46 [facility] Comment on above: Order Comment: Speci men Type: BLOOD SPECIMEN Ordering Facility: [facility] Address: [address] [place] [address] Performed By: #### 5 7021-8 #### [facility] CLIA [id number] [address] [place] [address] [place] Eosinophils/100 WBC (Bld) 0.8 % Normal [facility] Comment on above: Order Comment: Speci men Type: BLOOD SPECIMEN Ordering Facility: [facility] Address: [address] [place] [address] Performed By: #### 5 7021-8 #### [facility] CLIA [id number] [address] [place] [address] [place] Erythrocyte distribution width (RBC) [Ratio] 15.2 % High 11.5-15.0 [facility] Comment on above: Order Comment: Speci men Type: BLOOD SPECIMEN Ordering Facility: [facility] Address: [address] [place] [address] Performed By: #### 5 7021-8 #### [facility] CLIA [id number] [address] [place] [address] [place] Hematocrit (Bld) [Volume fraction] 36.6 % Normal 36.0-46.0 [facility] Comment on above: Order Comment: Speci men Type: BLOOD SPECIMEN Ordering Facility: [facility] Address: [address] [place] [address] Performed By: #### 5 7021-8 #### [facility] CLIA [id number] [address] [place] [address] [place] Hemoglobin (Bld) [Mass/Vol] 12.2 g/dL Normal 11.5-15.5 [facility] Comment on above: Order Comment: Speci men Type: BLOOD SPECIMEN Ordering Facility: [facility] Address: [address] [place] [address] Performed By: #### 5 7021-8 #### [facility] CLIA [id number] [address] [place] [address] [place] Immature granulocytes (Bld) [#/Vol] 0.14 10*3/uL High <0.10 [facility] Comment on above: Order Comment: Speci men Type: BLOOD SPECIMEN Ordering Facility: [facility] Address: [address] [place] [address] Performed By: #### 5 7021-8 #### [facility] CLIA [id number] [address] [place] [address] [place] Immature granulocytes/100 WBC (Bld) 1.0 % Normal [facility] Comment on above: Order Comment: Speci men Type: BLOOD SPECIMEN Ordering Facility: [facility] Address: [address] [place] [address] Performed By: #### 5 7021-8 #### [facility] CLIA [id number] [address] [place] [address] [place] Lymphocytes (Bld) [#/Vol] 2.17 10*3/uL Normal 1.00-4.00 [facility] Comment on above: Order Comment: Speci men Type: BLOOD SPECIMEN Ordering Facility: [facility] Address: [address] [place] [address] Performed By: #### 5 7021-8 #### [facility] CLIA [id number] [address] [place] [address] [place] Lymphocytes/100 WBC (Bld) 15.8 % Normal [facility] Comment on above: Order Comment: Speci men Type: BLOOD SPECIMEN Ordering Facility: [facility] Address: [address] [place] [address] Performed By: #### 5 7021-8 #### [id number] [address] [place] [address] [place] MCH (RBC) [Entitic mass] 28.1 pg Normal 26.0-34.0 [facility] Comment on above: Order Comment: Speci men Type: BLOOD SPECIMEN Ordering Facility: [facility] Address: [address] [place] [address] Performed By: #### 5 7021-8 #### [facility] CLIA [id number] [address] [place] [address] [place] MCHC (RBC) [Mass/Vol] 33.3 g/dL Normal 30.5-36.0 [facility] Comment on above: Order Comment: Speci men Type: BLOOD SPECIMEN Ordering Facility: [facility] Address: [address] [place] [address] Performed By: #### 5 7021-8 #### [facility] CLIA [id number] [address] [place] [address] [place] MCV (RBC) [Entitic vol] 84.3 fL Normal 80.0-100.0 [facility] Comment on above: Order Comment: Speci men Type: BLOOD SPECIMEN Ordering Facility: [facility] Address: [address] [place] [address] Performed By: #### 5 7021-8 #### [facility] CLIA [id number] [address] [place] [address] [place] Monocytes (Bld) [#/Vol] 1.01 10*3/uL High <0.87 [facility] Comment on above: Order Comment: Speci men Type: BLOOD SPECIMEN Ordering Facility: [facility] Address: [address] [place] [address] Performed By: #### 5 7021-8 #### [facility] CLIA [id number] [address] [place] [address] [place] Monocytes/100 WBC (Bld) 7.4 % Normal [facility] Comment on above: Order Comment: Speci men Type: BLOOD SPECIMEN Ordering Facility: [facility] Address: [address] [place] [address] Performed By: #### 5 7021-8 #### [facility] CLIA [id number] [address] [place], [place] [address] [place] Neutrophils (Bld) [#/Vol] 10.26 10*3/uL High 1.45-7.50 [facility] Comment on above: Order Comment: Speci men Type: BLOOD SPECIMEN Ordering Facility: [facility] Address: [address] [place] [address] Performed By: #### 5 7021-8 #### [facility] CLIA [id number] [address] [place] [address] [place] Neutrophils/100 WBC (Bld) 74.7 % Normal [facility] Comment on above: Order Comment: Speci men Type: BLOOD SPECIMEN Ordering Facility: [facility] Address: [address] [place] [address] Performed By: #### 5 7021-8 #### [facility] CLIA [id number] [address] [place] [address] [place] Nucleated RBC (Bld) [#/Vol] 10*3/uL Normal <0.01 [facility] Comment on above: Order Comment: Speci men Type: BLOOD SPECIMEN Ordering Facility: [facility] Address: [address] [place] [address] Performed By: #### 5 7021-8 #### [facility] CLIA [id number] [address] [place] [address] [place] Nucleated RBC/100 WBC (Bld) [Ratio] 0.0 /100 WBC Normal [facility] Comment on above: Order Comment: Speci men Type: BLOOD SPECIMEN Ordering Facility: [facility] Address: [address] [place] [address] Performed By: #### 5 7021-8 #### [facility] CLIA [id number] [address] [place] [address] [place] Platelet mean volume (Bld) [Entitic vol] 10.3 fL Normal 9.0-12.7 [facility] Comment on above: Order Comment: Speci men Type: BLOOD SPECIMEN Ordering Facility: [facility] Address: [address] [place] [address] Performed By: #### 5 7021-8 #### [facility] CLIA [id number] [address] [place] [address] [place] Platelets (Bld) [#/Vol] 206 10*3/uL Normal 150-400 [facility] Comment on above: Order Comment: Speci men Type: BLOOD SPECIMEN Ordering Facility: [facility] Address: [address] [place], [place] [address] Performed By: #### 5 7021-8 #### [facility] CLIA [id number] [address] [place] [address] [place] RBC (Bld) [#/Vol] 4.34 10*6/uL Normal 3.90-5.20 [facility] Comment on above: Order Comment: Speci men Type: BLOOD SPECIMEN Ordering Facility: [facility] Address: [address] [place] [address] Performed By: #### 5 7021-8 #### [facility] CLIA [id number] [address] [place] [address] [place] WBC (Bld) [#/Vol] 13.73 10*3/uL High 3.70-11.00 [facility] Comment on above: Order Comment: Speci men Type: BLOOD SPECIMEN Ordering Facility: [facility] Address: [address] [place], [place] [address] Performed By: #### 5 7021-8 #### [facility] CLIA [id number] [address] [place] [address] [place] ROUTINE, GROUP B ST REPTOCOCCUS BY PCRon 10-20-2024 ROUTINE, GROUP B STREPTOCOCCUS BY PCR Detected Abnormal [facility] Comment on above: Performed By: #### G BPCR ####[facility] LABCLIA [id number] [place] [address] [place] URINE OB DIP B/Oon 5 Glucose Ql (U) Negative Neg mg/dL [facility] Interpretation and review of laboratory results Normal [facility] Protein.monoclonal (U) [Mass/Vol] Negative Neg mg/dL [facility] URINE OB DIP B/Oon 5 Glucose Ql (U) Negative Neg mg/dL [facility] Interpretation and review of laboratory results Normal [facility] Protein.monoclonal (U) [Mass/Vol] Negative Neg mg/dL [facility] URINE OB DIP B/Oon 5 Glucose Ql (U) Negative Neg mg/dL [facility] Interpretation and review of laboratory results Normal [facility] Protein.monoclonal (U) [Mass/Vol] Negative Neg mg/dL [facility] CNNURSEon 09-13-2024 CNNURSE Nurse Visit (ENDIMT) GEENA PEDRO ([id number]) 1990 F Date Time Provider Department 09/13/24 2:00 PM JODY RODRIGUEZ During your visit today, we recorded the following information about you: Jody Rodriguez RN 09/13/2024 2:20 PM Signed DIABETES CARE AND EDUCATION VISIT Location: [place] Type of visit: In person individual PATIENT'S MAIN CONCERN TODAY: GDM Support person present for education today: none Cognitive ability: Alert and oriented Motivation to learn: Interested Learning barriers identified by educator: none Method of instruction: written, verbal, and demonstration DIABETES FINDINGS: GDM Monitoring: Checking fasting and 1-2 hours post - reports fasting has been in lower 80s and post meal been consistently in target range Meal Plannin g of carb diet reviewed Medications: discussed insulin as possible treatment in if needed Physical Activity: benefits of activity for blood sugars reviewed HANDOUTS: Healthy You: Diabetes and LEARNING RESPONSE: Diabetes pathophysiology: Demonstrated understanding/compet ency today or at previous visit Healthy eating: Demonstrated understanding/compet ency today or at previous visit Being active: Demonstrated understanding/compet ency today or at previous visit Monitoring glucose: Demonstrated understanding/compet ency today or at previous visit POSSIBLE FUTURE TOPICS: 1. DIABETES CARE AND EDUCATION PLAN: Education completed and annual diabetes education follow-up visit recommended Time Spent (Minutes): 30 This visit note will be communicated to the healthcare provider via access to shared medical record. SIGNATURE: Jody Rodriguez RN PATIENT NAME: Geena Pedro DATE: September 13, 2024 TIME: 2:17 PM Referring Provider: PAT HADDAD [[id number]] Allergies As of Date: 09/13/2024 (No Known Allergies) Date Reviewed: 09/11/2024 Reviewed by: Viki Rodríguez RN - Fully Assessed Visit Diagnosis:Diet controlled gestational diabetes mellitus (GDM) in third trimester (HCC) [O24.410] Order(s):CONSULT TO DIABETES EDUCATION DSME [[id number]] Order #: [id number]: 2 Prescriptions as of 09/13/2024 - blood sugar diagnostic test strip Use as directed to check glucose levels up to seven times daily. - Lancets Use as directed to check glucose levels up to seven times daily. - alcohol swabs (ALCOHOL PREP PADS) Use as directed to check glucose levels up to seven times daily. - ascorbic acid, vitamin C, (VITAMIN C) 500 mg tablet Take 1 tablet by mouth every other day. - ferrous sulfate 325 mg (65 mg iron) tablet Take 1 tablet by mouth every other day. - omeprazole (PRILOSEC) 40 mg capsule Take 1 capsule by mouth once daily. - aspirin, enteric coated (ECOTRIN LOW STRENGTH) 81 mg EC tablet Take 1 tablet by mouth once daily. - PNV no.95/ferrous fum/folic ac ( ORAL) Take by mouth. - famotidine (PEPCID) 20 mg tablet Take 1 tablet by mouth two times a day. Problem List As Of Date 09/13/2024 Noted Resolved Plantar fasciitis [M72.2] 07/13/2023 Low serum HDL [R74.8] 08/19/2023 History of obesity [Z86.39] 11/24/2023 Encounter for supervision of normal first pregn*04/14/2024 Nausea and vomiting during [O21.9] 04/14/2024 History of depression [Z86.59] 04/14/2024 Thyroid nodule [E04.1] Heartburn during in first trimester [*04/14/2024 Raynaud's syndrome [I73.00] 08/25/2024 Abnormal glucose in , antepartum (HCC)*08/28/2024 Anemia in (HCC) [O99.019] 08/28/2024 Diet controlled gestational diabetes mellitus (*09/01/2024 Malabsorption due to intolerance, not elsewhere*09/05/2024 Encounter Status:Closed by JODY RODRIGUEZ on 09/13/24 [facility] 09-11-2024 CNPN Telephone ([facility]) GEENA PEDRO ([id number]) 1990 F Date Time Provider Department 09/11/24 ROSARIO TAYLOR During your visit today, we recorded the following information about you: Allergies As of Date: 09/11/2024 (No Known Allergies) Date Reviewed: 09/08/2024 Reviewed by: Dena Carter MD - Fully Assessed Prescriptions as of 09/11/2024 - blood sugar diagnostic test strip Use as directed to check glucose levels up to seven times daily. - Lancets Use as directed to check glucose levels up to seven times daily. - alcohol swabs (ALCOHOL PREP PADS) Use as directed to check glucose levels up to seven times daily. - ascorbic acid, vitamin C, (VITAMIN C) 500 mg tablet Take 1 tablet by mouth every other day. - ferrous sulfate 325 mg (65 mg iron) tablet Take 1 tablet by mouth every other day. - omeprazole (PRILOSEC) 40 mg capsule Take 1 capsule by mouth once daily. - aspirin, enteric coated (ECOTRIN LOW STRENGTH) 81 mg EC tablet Take 1 tablet by mouth once daily. - PNV no.95/ferrous fum/folic ac ( ORAL) Take by mouth. - famotidine (PEPCID) 20 mg tablet Take 1 tablet by mouth two times a day. Problem List As Of Date 09/11/2024 Noted Resolved Plantar fasciitis [M72.2] 07/13/2023 Low serum HDL [R74.8] 08/19/2023 History of obesity [Z86.39] 11/24/2023 Encounter for supervision of normal first pregn*04/14/2024 Nausea and vomiting during [O21.9] 04/14/2024 History of depression [Z86.59] 04/14/2024 Thyroid nodule [E04.1] Heartburn during in first trimester [*04/14/2024 Raynaud's syndrome [I73.00] 08/25/2024 Abnormal glucose in , antepartum (HCC)*08/28/2024 Anemia in (HCC) [O99.019] 08/28/2024 Diet controlled gestational diabetes mellitus (*09/01/2024 Malabsorption due to intolerance, not elsewhere*09/05/2024 Encounter Status:Closed by ROSARIO TAYLOR on 09/11/24 Normal [facility] URINE OB DIP B/Oon Glucose Ql (U) Negative Neg mg/dL [facility] Interpretation and review of laboratory results Normal [facility] Protein.monoclonal (U) [Mass/Vol] Negative Neg mg/dL [facility] CNPI[facility]ona 09-06-2024 CNPN Telephone ([facility]) GEENA PEDRO ([id number]) 1990 F Date Time Provider Department 09/06/24 ERNESTINA GALVEZ During your visit today, we recorded the following information about you: Ernestina Galvez, CARMELITA 09/06/2024 12:15 PM Signed Signed treatment plan for Florencio - PA is pending. Janet Hamm LPN 09/07/2024 11:29 AM Addendum PSS- patient needs to speak with a financial navigator to sign an ABN [place] or we need to get her precert pushed through STAT. Per Erin, if she signs an ABN or we can get her precert pushed through STAT, she can be scheduled 09/11/2024, to start her iron infusions. ESTELA Salas Angela 09/07/2024 12:04 PM Signed Sent email to . Zully Matthew Allergies As of Date: 09/06/2024 (No Known Allergies) Date Reviewed: 09/05/2024 Reviewed by: Zully Mcclure PA-C - Fully Assessed Reason for Visit: Hematology [Other] Prescriptions as of 09/21/2024 - blood sugar diagnostic test strip Use as directed to check glucose levels up to seven times daily. - Lancets Use as directed to check glucose levels up to seven times daily. - alcohol swabs (ALCOHOL PREP PADS) Use as directed to check glucose levels up to seven times daily. - ascorbic acid, vitamin C, (VITAMIN C) 500 mg tablet Take 1 tablet by mouth every other day. - ferrous sulfate 325 mg (65 mg iron) tablet Take 1 tablet by mouth every other day. - omeprazole (PRILOSEC) 40 mg capsule Take 1 capsule by mouth once daily. - aspirin, enteric coated (ECOTRIN LOW STRENGTH) 81 mg EC tablet Take 1 tablet by mouth once daily. - PNV no.95/ferrous fum/folic ac ( ORAL) Take by mouth. - famotidine (PEPCID) 20 mg tablet Take 1 tablet by mouth two times a day. Problem List As Of Date 09/06/2024 Noted Resolved Plantar fasciitis [M72.2] 07/13/2023 Low serum HDL [R74.8] 08/19/2023 History of obesity [Z86.39] 11/24/2023 Encounter for supervision of normal first pregn*04/14/2024 Nausea and vomiting during [O21.9] 04/14/2024 History of depression [Z86.59] 04/14/2024 Thyroid nodule [E04.1] Heartburn during in first trimester [*04/14/2024 Raynaud's syndrome [I73.00] 08/25/2024 Abnormal glucose in , antepartum (HCC)*08/28/2024 Anemia in (HCC) [O99.019] 08/28/2024 Diet controlled gestational diabetes mellitus (*09/01/2024 Malabsorption due to intolerance, not elsewhere*09/05/2024 Encounter Status:Closed by ERNESTINA REYES on 09/06/24 [facility] 09-01-2024 CNPN Telephone (OBGYWM) GEENA PEDRO ([id number]) 1990 F Date Time Provider Department 09/01/24 RAQUEL FRENCH OBFLORECITA During your visit today, we recorded the following information about you: Divya Katz RN 09/01/2024 11:41 AM Signed Patient stopped at supervisor front regarding IV iron. Called lab client services because iron studies were not done as reflex with 08/25/24 Anemia reflex panel when they should have been. Please file orders so patient can get blood work drawn for iron studies if lab until to add them on still (waiting for call back from lab client services). GDM supplies also pended because she had 2 elevated glucose levels already of 3 hour GTT done today. Will notify patient of results when I talk to her too. CARMELITA Chavarria Trisha, RN 09/01/2024 12:11 PM Signed Patient notified. She is getting the blood drawn for iron studies today since she is in office now. Lab client services notified. Divya Katz RN Allergies As of Date: 09/01/2024 (No Known Allergies) Date Reviewed: 08/25/2024 Reviewed by: Fabricio Gallardo MA - Fully Assessed Reason for Visit: Orders [681] Primary Visit Diagnosis:Anemia during in third trimester ([facility]) [O99.013] Other Visit Diagnosis:Diet controlled gestational diabetes mellitus (GDM) in third trimester ([facility]) [O24.410] Order(s):blood sugar diagnostic test stripUse as directed to check glucose levels up to seven times daily.Disp: 200 stripRfl: 8 LancetsUse as directed to check glucose levels up to seven times daily.Disp: 200 eachRfl: 8 alcohol swabs (ALCOHOL PREP PADS)Use as directed to check glucose levels up to seven times daily.Disp: 200 eachRfl: 8 OBSTETRIC ULTRASOUND [facility] [[id number]] Order #: [id number]: 1 STANDING CONSULT TO NUTRITION THERAPY [9020] Order #: [id number]: 4 FUTURE CONSULT TO DIABETES EDUCATION DSME [[id number]] Order #: [id number]: 2 FUTURE IRON AND TIBC [SQIRON] Order #: [id number] FUTURE FERRITIN [SQFERR] Order #: [id number] FUTURE Blood-Glucose Meter (FREESTYLE FREEDOM) monitoring kit1 each as needed for up to 1 day.Disp: 1 kitRfl: 0 Prescriptions as of 09/01/2024 - blood sugar diagnostic test strip Use as directed to check glucose levels up to seven times daily. - Lancets Use as directed to check glucose levels up to seven times daily. - alcohol swabs (ALCOHOL PREP PADS) Use as directed to check glucose levels up to seven times daily. - Blood-Glucose Meter (FREESTYLE FREEDOM) monitoring kit 1 each as needed for up to 1 day. - ascorbic acid, vitamin C, (VITAMIN C) 500 mg tablet Take 1 tablet by mouth every other day. - ferrous sulfate 325 mg (65 mg iron) tablet Take 1 tablet by mouth every other day. - omeprazole (PRILOSEC) 40 mg capsule Take 1 capsule by mouth once daily. - aspirin, enteric coated (ECOTRIN LOW STRENGTH) 81 mg EC tablet Take 1 tablet by mouth once daily. - PNV no.95/ferrous fum/folic ac ( ORAL) Take by mouth. - famotidine (PEPCID) 20 mg tablet Take 1 tablet by mouth two times a day. Problem List As Of Date 09/01/2024 Noted Resolved Plantar fasciitis [M72.2] 07/13/2023 Low serum HDL [R74.8] 08/19/2023 History of obesity [Z86.39] 11/24/2023 Encounter for supervision of normal first pregn*04/14/2024 Nausea and vomiting during [O21.9] 04/14/2024 History of depression [Z86.59] 04/14/2024 Thyroid nodule [E04.1] Heartburn during in first trimester [*04/14/2024 Raynaud's syndrome [I73.00] 08/25/2024 Abnormal glucose in , antepartum (HCC)*08/28/2024 Anemia in (HCC) [O99.019] 08/28/2024 Prescriptions ordered this encounter Disp Refills Start End BLOOD SUGAR DIAGNOSTIC STRIPS 200 * 8 09/01/2024 Cmt: Per Insurance Coverage Sig: Use as directed to check glucose levels up to seven times daily. LANCETS 200 * 8 09/01/2024 Cmt: Per Insurance Coverage Sig: Use as directed to check glucose levels up to seven times daily. ALCOHOL SWABS 200 * 8 09/01/2024 Cmt: Per Insurance Coverage Sig: Use as directed to check glucose levels up to seven times daily. BLOOD-GLUCOSE METER KIT 1 kit 0 09/01/2024 09/02/2024 Route: [facility] each as needed for up to 1 day. Encounter Status:Closed by DIVYA KATZ on 09/01/24 Normal [facility] Ferritin SerPl-mCncon 2024 Ferritin [Mass/Vol] 15.5 ng/mL Normal 14.7-205.1 [facility] Comment on above: Order Comment: Tray lang Type: BLOOD SPECIMEN Ordering Facility: [facility] Address: [address] [place] [address] Performed By: #### 2 276-4, 77258-2 #### [facility] CLIA [id number] [address] [place] [address] [place] GLUCOSE GESTATIONAL, 1 HOURo n 09-01-2024 Glucose 1 Hr post Unsp challenge [Mass/Vol] 181 mg/dL High 74-179 [facility] Comment on above: Order Comment: Tray lang Type: BLOOD SPECIMENOrdering Facility: [facility] Address: [address] [place] [address] Result Comment: [facility] Congress of Obstetricians and Gynecologists (Dane/Irene) guidelines state gestational diabetes mellitus is present when 2 or more of the plasma glucose concentrations meet or exceed the following levels: fastin mg/dl, 1 hr: 180 mg/dl, 2 hr: 155 mg/dl, and 3 hr: 140 mg/dl. Performed By: #### G TGST1 ####[facility] [id number] [place] [address] [place] GLUCOSE GESTATIONAL, 2 HOURo n 09-01-2024 Glucose 2 Hr post Unsp challenge [Mass/Vol] 157 mg/dL High 74-154 [facility] Comment on above: Order Comment: Tray lang Type: BLOOD SPECIMEN Ordering Facility: [facility] Address: [address] [place] [address] Result Comment: [facility] Congress of Obstetricians and Gynecologists (Dane/Irene) guidelines state gestational diabetes mellitus is present when 2 or more of the plasma glucose concentrations meet or exceed the following levels: fastin mg/dl, 1 hr: 180 mg/dl, 2 hr: 155 mg/dl, and 3 hr: 140 mg/dl. Performed By: #### 2 276-4, 65014-2 #### [facility] CLIA [id number] [address] [place] [address] [place] GLUCOSE GESTATIONAL, 3 HOURo n 09-01-2024 Glucose 3 Hr post Unsp challenge [Mass/Vol] 130 mg/dL Normal 74-139 [facility] Comment on above: Order Comment: Tray [facility] Type: BLOOD SPECIMEN Ordering Facility: [facility] Address: [address] [place] [address] Result Comment: [facility] Congress of Obstetricians and Gynecologists (Dane/Irene) guidelines state gestational diabetes mellitus is present when 2 or more of the plasma glucose concentrations meet or exceed the following levels: fastin mg/dl, 1 hr: 180 mg/dl, 2 hr: 155 mg/dl, and 3 hr: 140 mg/dl. Performed By: #### 2 276-4, 09604-9 #### [facility] CLIA [id number] [address] [place] [address] [place] GLUCOSE GESTATIONAL, FASTING on 09-01-2024 Glucose post fast [Mass/Vol] 79 mg/dL Normal 74-94 [facility] Comment on above: Order Comment: Speci men Type: BLOOD SPECIMEN Ordering Facility: [facility] Address: [address] [place] [address] Result Comment: [facility] Congress of Obstetricians and Gynecologists (Dane/Irene) guidelines state gestational diabetes mellitus is present when 2 or more of the plasma glucose concentrations meet or exceed the following levels: fastin mg/dl, 1 hr: 180 mg/dl, 2 hr: 155 mg/dl, and 3 hr: 140 mg/dl. Performed By: #### 2 276-4, 92861-9 #### [facility] CLIA [id number] [address] [place] [address] [place] Iron and Iron binding capaci ty panelon 09-01-2024 Iron [Mass/Vol] 67 ug/dL Normal 41-186 [facility] Comment on above: Order Comment: Tray lang Type: BLOOD SPECIMEN Ordering Facility: [facility] Address: [address] [place] [address] Performed By: #### 2 276-4, 27950-1 #### [facility] CLIA [id number] [address] [place] [address] [place] Iron binding capacity [Mass/Vol] >567 High 232-386 [facility] Comment on above: Order Comment: Tray men Type: BLOOD SPECIMEN Ordering Facility: [facility] Address: [address] [place] [address] Performed By: #### 2 276-4, 69754-0 #### [facility] CLIA [id number] [address] [place] [address] [place] Iron/TIBC [Molar ratio] <11.8 Low 15.0-57.0 [facility] Comment on above: Order Comment: Tray lang Type: BLOOD SPECIMEN Ordering Facility: [facility] Address: [address] [place] [address] Performed By: #### 2 276-4, 43062-4 #### [facility] CLIA [id number] [address] [place] [address] [place] Reagin and Treponema pallidu m IgG and IgM [Interp]on 08-26-2024 T. pallidum IgG+IgM IA Ql (S) Non-Reactive Nonreactive [facility] SYPHILIS TREPONEMAL W/REFLEX on 08-26-2024 Reagin and Treponema pallidum IgG and IgM [Interp] Cannot exclude recent Treponemal infection if specimen collected within 7-10 days after appearance of suspect lesions or 2-3 weeks after an exposure. Clinical correlation is required. [facility] THYROID STIMULATING HORMONEo n 08-26-2024 TSH Qn 0.793 m[IU]/L [facility] Comment on above: If the patient is pr egnant, TSH reference range varies by gestational period: First Trimester (weeks 9-12): 0.180-2.990 mIU/L Second Trimester: 0.110-3.980 mIU/L Third Trimester: 0.480-4.710 mIU/L Mynor Monsivais et al. A Practical Approach for the Verifications and Determination of Site- and Trimester-Specific Reference Intervals for Thyroid Function tests in . Thyroid, 2019:29:3:412-420. Earl Gallardo, et al. 2017 Guidelines of the [place] Thyroid Association for the Diagnosis and Management of Thyroid Disease during and the . Thyroid, 2017:27:3:315-389. TSH Qnon 08-26-2024 Interpretation and review of laboratory results Normal [facility] CBC W Auto Differential pane l (Bld)on 08-25-2024 Basophils (Bld) [#/Vol] 10*3/uL Normal <0.11 [facility] Comment on above: Order Comment: Tray lang Type: BLOOD SPECIMEN Ordering Facility: [facility] Address: [address] [place] [address] Performed By: #### 2 276-4, 32525-5 #### [facility] CLIA [id number] [address] [place] [address] [place] Basophils/100 WBC (Bld) 0.2 % Normal [facility] Comment on above: Order Comment: Speci men Type: BLOOD SPECIMEN Ordering Facility: [facility] Address: [address] [place] [address] Performed By: #### 2 276-4, 53760-9 #### [facility] CLIA [id number] [address] [place] [address] [place] Differential cell count method Nom (Bld) Auto Normal [facility] Comment on above: Order Comment: Speci men Type: BLOOD SPECIMEN Ordering Facility: [facility] Address: [address] [place] [address] Performed By: #### 2 276-4, 68051-0 #### [facility] CLIA [id number] [address] [place] [address] [place] Eosinophils (Bld) [#/Vol] 0.12 10*3/uL Normal <0.46 [facility] Comment on above: Order Comment: Speci men Type: BLOOD SPECIMEN Ordering Facility: [facility] Address: [address] [place] [address] Performed By: #### 2 276-4, 38805-0 #### [facility] CLIA [id number] [address] [place] [address] [place] Eosinophils/100 WBC (Bld) 1.0 % Normal [facility] Comment on above: Order Comment: Speci men Type: BLOOD SPECIMEN Ordering Facility: [facility] Address: [address] [place] [address] Performed By: #### 2 276-4, 71417-7 #### [facility] CLIA [id number] [address] [place] [address] [place] Erythrocyte distribution width (RBC) [Ratio] 12.2 % Normal 11.5-15.0 [facility] Comment on above: Order Comment: Speci men Type: BLOOD SPECIMEN Ordering Facility: [facility] Address: [address] [place] [address] Performed By: #### 2 276-4, 33533-1 #### [facility] CLIA [id number] [address] [place] [address] [place] Hematocrit (Bld) [Volume fraction] 30.5 % Low 36.0-46.0 [facility] Comment on above: Order Comment: Speci men Type: BLOOD SPECIMEN Ordering Facility: [facility] Address: [address] [place] [address] Performed By: #### 2 276-4, 17167-6 #### [facility] CLIA [id number] [address] [place] [address] [place] Hemoglobin (Bld) [Mass/Vol] 9.9 g/dL Low 11.5-15.5 [facility] Comment on above: Order Comment: Speci men Type: BLOOD SPECIMEN Ordering Facility: [facility] Address: [address] [place] [address] Performed By: #### 2 276-4, 81955-3 #### [facility] CLIA [id number] [address] [place] [address] [place] Immature granulocytes (Bld) [#/Vol] 0.04 10*3/uL Normal <0.10 [facility] Comment on above: Order Comment: Speci men Type: BLOOD SPECIMEN Ordering Facility: [facility] Address: [address] [place] [address] Performed By: #### 2 276-4, 56444-1 #### [facility] CLIA [id number] [address] [place] [address] [place] Immature granulocytes/100 WBC (Bld) 0.3 % Normal [facility] Comment on above: Order Comment: Speci men Type: BLOOD SPECIMEN Ordering Facility: [facility] Address: [address] [place] [address] Performed By: #### 2 276-4, 20879-5 #### [facility] CLIA [id number] [address] [place] [address] [place] Lymphocytes (Bld) [#/Vol] 2.14 10*3/uL Normal 1.00-4.00 [facility] Comment on above: Order Comment: Speci men Type: BLOOD SPECIMEN Ordering Facility: [facility] Address: [address] [place] [address] Performed By: #### 2 276-4, 97298-6 #### [facility] CLIA [id number] [address] [place] [address] [place] Lymphocytes/100 WBC (Bld) 18.4 % Normal [facility] Comment on above: Order Comment: Speci men Type: BLOOD SPECIMEN Ordering Facility: [facility] Address: [address] [place] [address] Performed By: #### 2 276-4, 65693-3 #### [facility] CLIA [id number] [address] [place] [address] [place] MCH (RBC) [Entitic mass] 27.3 pg Normal 26.0-34.0 [facility] Comment on above: Order Comment: Speci men Type: BLOOD SPECIMEN Ordering Facility: [facility] Address: [address] [place] [address] Performed By: #### 2 276-4, 46623-2 #### [facility] CLIA [id number] [address] [place] [address] [place] MCHC (RBC) [Mass/Vol] 32.5 g/dL Normal 30.5-36.0 [facility] Comment on above: Order Comment: Speci men Type: BLOOD SPECIMEN Ordering Facility: [facility] Address: [address] [place] [address] Performed By: #### 2 276-4, 73295-9 #### [facility] CLIA [id number] [address] [place] [address] [place] MCV (RBC) [Entitic vol] 84.3 fL Normal 80.0-100.0 [facility] Comment on above: Order Comment: Speci men Type: BLOOD SPECIMEN Ordering Facility: [facility] Address: [address] [place] [address] Performed By: #### 2 276-4, 32122-4 #### [facility] CLIA [id number] [address] [place] [address] [place] Monocytes (Bld) [#/Vol] 0.80 10*3/uL Normal <0.87 [facility] Comment on above: Order Comment: Speci men Type: BLOOD SPECIMEN Ordering Facility: [facility] Address: [address] [place] [address] Performed By: #### 2 276-4, 81610-2 #### [facility] CLIA [id number] [address] [place] [address] [place] Monocytes/100 WBC (Bld) 6.9 % Normal [facility] Comment on above: Order Comment: Speci men Type: BLOOD SPECIMEN Ordering Facility: [facility] Address: [address] [place] [address] Performed By: #### 2 276-4, 15188-8 #### [facility] CLIA [id number] [address] [place] [address] [place] Neutrophils (Bld) [#/Vol] 8.53 10*3/uL High 1.45-7.50 [facility] Comment on above: Order Comment: Speci men Type: BLOOD SPECIMEN Ordering Facility: [facility] Address: [address] [place] [address] Performed By: #### 2 276-4, 96208-9 #### [facility] CLIA [id number] [address] [place] [address] [place] Neutrophils/100 WBC (Bld) 73.2 % Normal [facility] Comment on above: Order Comment: Speci men Type: BLOOD SPECIMEN Ordering Facility: [facility] Address: [address] [place] [address] Performed By: #### 2 276-4, 01178-2 #### [facility] CLIA [id number] [address] [place] [address] [place] Nucleated RBC (Bld) [#/Vol] 10*3/uL Normal <0.01 [facility] Comment on above: Order Comment: Speci men Type: BLOOD SPECIMEN Ordering Facility: [facility] Address: [address] [place] [address] Performed By: #### 2 276-4, 46778-5 #### [facility] CLIA [id number] [address] [place] [address] [place] Nucleated RBC/100 WBC (Bld) [Ratio] 0.0 /100 WBC Normal [facility] Comment on above: Order Comment: Speci men Type: BLOOD SPECIMEN Ordering Facility: [facility] Address: [address] [place] [address] Performed By: #### 2 276-4, 73394-4 #### [facility] CLIA [id number] [address] [place] [address] [place] Platelet mean volume (Bld) [Entitic vol] 11.4 fL Normal 9.0-12.7 [facility] Comment on above: Order Comment: Speci men Type: BLOOD SPECIMEN Ordering Facility: [facility] Address: [address] [place] [address] Performed By: #### 2 276-4, 09271-4 #### [facility] CLIA [id number] [address] [place] [address] [place] Platelets (Bld) [#/Vol] 264 10*3/uL Normal 150-400 [facility] Comment on above: Order Comment: Speci men Type: BLOOD SPECIMEN Ordering Facility: [facility] Address: [address] [place] [address] Performed By: #### 2 276-4, 35275-8 #### [facility] CLIA [id number] [address] [place] [address] [place] RBC (Bld) [#/Vol] 3.62 10*6/uL Low 3.90-5.20 [facility] Comment on above: Order Comment: Speci men Type: BLOOD SPECIMEN Ordering Facility: [facility] Address: [address] [place] [address] Performed By: #### 2 276-4, 90483-8 #### [facility] CLIA [id number] [address] [place] [address] [place] WBC (Bld) [#/Vol] 11.65 10*3/uL High 3.70-11.00 [facility] Comment on above: Order Comment: Speci men Type: BLOOD SPECIMEN Ordering Facility: [facility] Address: [address] [place] [address] Performed By: #### 2 276-4, 76119-4 #### [facility] CLIA [id number] [address] [place] [address] [place] [id number] 08-25-2024 ECG01 Ventricular Rate : 100 BPM Atrial Rate : 100 BPM P-R Interval : 126 ms QRS Duration : 88 ms Q-T Interval : 322 ms QTC Calculation(Bazett) : 415 ms Calculated P [place] : 71 degrees Calculated R [place] : 49 degrees Calculated T [place] : 32 degrees NORMAL SINUS RHYTHM NORMAL ECG Confirmed by MD JOYCELYN, QAB ([id number]) on 08/28/2024 12:01:11 PM NAME : GEENA PEDRO PID : [id number] : 1990 Gender : Female Race : ORD : Procedure Date : Aug 25 2024 16:23:43 Edit Date : Aug 28 2024 12:01:13 Diagnosis: NORMAL SINUS RHYTHM NORMAL ECG Confirmed by MD HIRSCH QARAB ([id number]) on 08/28/2024 12:01:11 PM Test Reason : Location : 636 : [facility] Overread By : MD HIRSCH QARAB Edited By : MD HIRSCH QARAB Referred By : , Acquired by : , Normal [facility] GESTATIONAL GLUCOSE SCREEN, 1-HOUR, 50 GRAM, NON-FASTINGOrdered By: Daniela Golden on 08-25-2024 Glucose [Mass/Vol] 155 mg/dL High 74 - 134 mg/dL [facility] Comment on above: [place] Congress of Obstetricians and Gynecologists (Vela/Margostan) guidelines state a gestational diabetes mellitus positive screen is made, in women not previously diagnosed with overt diabetes, when the 1 hr plasma glucose level is equal to or above 140 mg/dL. [facility] recommends a 135 mg/dL cutoff. Interpretation and review of laboratory results Abnormal [facility] GESTATIONAL GLUCOSE SCREEN, 1-HOUR, 50 GRAM, NON-FASTINGon 08-25-2024 Glucose [Mass/Vol] 155 mg/dL High 74-134 [facility] Comment on above: Order Comment: Speci rickey Type: BLOOD SPECIMEN Ordering Facility: [facility] Address: [address] [place] [address] Result Comment: [facility] Congress of Obstetricians and Gynecologists (Dane/Irene) guidelines state a gestational diabetes mellitus positive screen is made, in women not previously diagnosed with overt diabetes, when the 1 hr plasma glucose level is equal to or above 140 mg/dL. [facility] [place] recommends a 135 mg/dL cutoff. Performed By: #### 2 276-4, 19695-6 #### [facility] CLIA [id number] [address] [place] [address] [place] Reagin and Treponema pallidu m IgG and IgM [Interp]on 08-25-2024 T. pallidum IgG+IgM IA Ql (S) Non-Reactive Normal Nonreactive [facility] Comment on above: Order Comment: Speci men Type: BLOOD SPECIMEN Ordering Facility: [facility] Address: [address] [place] [address] Performed By: #### 2 276-4, 62418-5 #### [facility] CLIA [id number] [address] [place] [address] [place] Reagin+T pallidum IgG+IgM Se rPl-Impon 08-25-2024 Reagin and Treponema pallidum IgG and IgM [Interp] Cannot exclude recent Treponemal infection if specimen collected within 7-10 days after appearance of suspect lesions or 2-3 weeks after an exposure. Clinical correlation is required. Normal [facility] Comment on above: Order Comment: Tray lang Type: BLOOD SPECIMEN Ordering Facility: [facility] Address: [address] [place] [address] Performed By: #### 2 276-4, 04105-6 #### [facility] CLIA [id number] [address] [place] [address] [place] TSH SerPl-aCncon 08-25-2024 TSH Qn 0.793 m[IU]/L Normal 0.270-4.200 [facility] Comment on above: Order Comment: Tray lang Type: BLOOD SPECIMEN Ordering Facility: [facility] Address: [address] [place] [address] Result Comment: If t he patient is , TSH reference range varies by gestational period: First Trimester (weeks 9-12): 0.180-2.990 mIU/L Second Trimester: 0.110-3.980 mIU/L Third Trimester: 0.480-4.710 mIU/L Mynor Monsivais et al. A Practical Approach for the Verifications and Determination of Site- and Trimester-Specific Reference Intervals for Thyroid Function tests in . Thyroid, 2019:29:3:412-420. Earl Gallardo, et al. 2017 Guidelines of the [place] Thy[employer] for the Diagnosis and Management of Thyroid Disease during and the . Thyroid, 2017:27:3:315-389. Performed By: #### 2 276-4, 56254-2 #### [facility] CLIA [id number] [address] [place] [address] [place] Lashay 07-24-2024 CNPN Telephone (OBGYWM) BATSHEVAGEENA Yodit ([id number]) 1990 F Date Time Provider Department 07/24/24 KENYATTA GUZMAN OBGYWM During your visit today, we recorded the following information about you: Dena Lomeli RN 07/24/2024 9:01 AM Signed Received breast pump RX from [employer] To RR to sign. CARMELITA Phillips Lindsey, RN 07/24/2024 11:21 AM Signed Order signed and faxed. Dea Putnam RN Allergies As of Date: 07/24/2024 (No Known Allergies) Date Reviewed: 06/30/2024 Reviewed by: Dena Carter MD - Fully Assessed Reason for Visit: Breast Pump [Other] Prescriptions as of 07/24/2024 - OMEPRAZOLE ORAL Take by mouth. - aspirin, enteric coated (ECOTRIN LOW STRENGTH) 81 mg EC tablet Take 1 tablet by mouth once daily. - PNV no.95/ferrous fum/folic ac ( ORAL) Take by mouth. - famotidine (PEPCID) 20 mg tablet Take 1 tablet by mouth two times a day. Problem List As Of Date 07/24/2024 Noted Resolved Plantar fasciitis [M72.2] 07/13/2023 Low serum HDL [R74.8] 08/19/2023 History of obesity [Z86.39] 11/24/2023 Encounter for supervision of normal first pregn*04/14/2024 Nausea and vomiting during [O21.9] 04/14/2024 History of depression [Z86.59] 04/14/2024 Thyroid nodule [E04.1] Heartburn during in first trimester [*04/14/2024 Encounter Status:Closed by DEA PUTNAM on 07/24/24 [facility] (OBGYWM) GEENA PEDRO ([id number]) 1990 F Date Time Provider Department 07/05/24 KENYATTA GUZMAN OBGYWM During your visit today, we recorded the following information about you: Dena Lomeli RN 07/05/2024 8:29 AM Signed 20w5d Patient had her anatomy US and OB visit on 06/30. JG mentioned to patient that her cervix was a little short and that she may need to have a f/u US. The US report does not state that she needs CL checks. Patient wanting to make sure so that she doesn't for piece of mind. Thank you. CARMELITA Phillips Rebecca L, MD 07/05/2024 8:36 AM Signed Over 25 is normal. Under 20 is when we get the most concerned. Hers is 29 so that is not considered high risk. MD Armani Leon Jennifer, RN 07/05/2024 8:37 AM Signed Left message for patient to call office. CARMELITA Phillips Jennifer, CARMELITA 07/05/2024 8:43 AM Signed Patient notified. Dena Lomeli RN Allergies As of Date: 07/05/2024 (No Known Allergies) Date Reviewed: 06/30/2024 Reviewed by: Dena Carter MD - Fully Assessed Reason for Visit: Patient Question [0727] Prescriptions as of 07/05/2024 - OMEPRAZOLE ORAL Take by mouth. - aspirin, enteric coated (ECOTRIN LOW STRENGTH) 81 mg EC tablet Take 1 tablet by mouth once daily. - PNV no.95/ferrous fum/folic ac ( ORAL) Take by mouth. - famotidine (PEPCID) 20 mg tablet Take 1 tablet by mouth two times a day. Problem List As Of Date 07/05/2024 Noted Resolved Plantar fasciitis [M72.2] 07/13/2023 Low serum HDL [R74.8] 08/19/2023 History of obesity [Z86.39] 11/24/2023 Encounter for supervision of normal first pregn*04/14/2024 Nausea and vomiting during [O21.9] 04/14/2024 History of depression [Z86.59] 04/14/2024 Thyroid nodule [E04.1] Heartburn during in first trimester [*04/14/2024 Encounter Status:Closed by DENA LOMELI on 07/05/24 Normal [facility] Examination level ultrasound on 07-04-2024 Indication Standard anatomic survey Impression REMOTE READ The patient is referred for a detailed anatomic survey. - Single, live, intrauterine . - biometry is consistent with the established gestational age. - No malformations were visualized on a complete detailed anatomic survey. - The amniotic fluid volume is normal amount. - The placenta is posterior, fundal. - The Transvaginal cervical length measures 29.3 mm with no evidence of funneling or other dynamic changes. - Not all structural malformations can be detected by ultrasound examination. Recommendations Additional follow-up as clinically indicated. Maternal Assessment Height 160 cm Height (ft) 5 ft Height (in) 3 in Physical Exam Initial weight (lb) 153 lb Initial BMI 27.10 kg/m Maternal assessment other: 1 Para 0 Method Transabdominal and transvaginal ultrasound examination. View: Adequate visualization Hernandez . Number of fetuses: 1 Dating LMP on: 02/11/2024 GA by LMP 20 w + 0 d DIANE by LMP: 11/17/2024 GA by prior assessment 20 w + 0 d DIANE by prior assessment: 11/17/2024 Ultrasound examination on: 06/30/2024 GA by U/S based upon: AC, BPD, Femur, HC GA by U/S 21 w + 2 d DIANE by U/S: 11/08/2024 Assigned: based on stated DIANE, selected on 06/30/2024 Assigned GA 20 w + 0 d Assigned DIANE: 11/17/2024 General Evaluation Cardiac activity present. FHR 143 bpm. movements: present. Presentation: cephalic Placenta: Placental site: posterior, fundal Umbilical cord: Cord vessels: 3 vessel cord Amniotic fluid: Amount of AF: normal amount. MVP 7.3 cm Growth Overview Exam date GA BPD (mm) HC (mm) AC (mm) FL (mm) HL (mm) EFW (g) 06/30/2024 20w 0d 51.5 96% 187.3 80% 163.6 86% 33.8 82% 32.6 86% 395 93% Biometry Standard BPD 51.5 mm 21w 4d 96% Hadlock OFD 65.0 mm 20w 4d 93% Nicolaides HC 187.3 mm 21w 0d 80% Hill Cerebellum tr 20.6 mm 19w 5d 66% Hill Nuchal fold 4.4 mm AC 163.6 mm 21w 3d 86% Hadlock Femur 33.8 mm 20w 6d 82% Hill Humerus 32.6 mm 21w 0d 86% Hill EFW 395 g 21w 0d 93% Hadlock EFW (lb) 0 lb EFW (oz) 14 oz EFW by: Hadlock (HC-AC-FL) Extended Docketing Specialist 9.3 mm CM 4.7 mm 41% Nicolaides Extremities / Bony Struc FL / HC 0.18 26% Hadlock Other Structures FHR 143 bpm Anatomy Cranium: normal Lateral ventricles: normal Choroid plexus: normal Midline falx: normal Cavum septi pellucidi: normal Cerebellum: normal Cisterna magna: normal Head / Neck Vermis: Normal but not required for a standard anatomy exam Neck: Normal but not required for a standard anatomy exam Nuchal fold: Normal but not required for a standard anatomy exam Lips: normal Profile: Normal but not required for a standard anatomy exam Nose: Normal but not required for a standard anatomy exam Face Maxilla: Normal but not required for a standard anatomy exam Mandible: Normal but not required for a standard anatomy exam Orbits: Normal but not required for a standard anatomy exam Lens: Normal but not required for a standard anatomy exam 4-chamber view: normal RVOT view: normal LVOT view: normal 3-vessel view: normal [id number]-htwcoaq view: normal Heart / Thorax Situs: situs solitus (normal) Aortic arch view: Normal but not required for a standard anatomy exam SVC: Normal but not required for a standard anatomy exam IVC: Normal but not required for a standard anatomy exam Cardiac axis: normal Rt lung: Normal but not required for a standard anatomy exam Lt lung: Normal but not required for a standard anatomy exam Diaphragm: Normal but not required for a standard anatomy exam Cord insertion: normal Stomach: normal Kidneys: normal Bladder: normal Genitals: normal Abdomen Abdom. wall: normal Cervical spine: normal Thoracic spine: normal Lumbar spine: normal Sacral spine: normal Arms: normal Legs: normal Rt upper arm: normal Rt forearm: normal Rt hand: normal Rt fingers: normal Lt upper arm: normal Lt forearm: normal Lt hand: normal Lt fingers: normal Rt upper leg: normal Rt lower leg: normal Rt foot: normal Lt upper leg: normal Lt lower leg: normal Lt foot: normal sex: male Wants to know sex: yes Maternal Structures Uterus / Cervix Uterus: Visualized Cervix: Visualized Approach: Transvaginal Cervical length 29.3 mm Ovaries / Tubes / Adnexa Rt ovary: Visualized Lt ovary: Visualized Performed By: Dea Montes De Oca RDMS, RVT Read By: Maury Mendiola M.D. MATERNAL MEDICINE [facility] Examination level ultrasound on 06-30-2024 Radiology Study observation (narrative) [facility] Abdomen Limitedon 06-03-2024 Abdomen Limited [facility] Imaging Services [address] [place] [id number] Abdomen Limited MR#: [id number] Acct: [id number] Name: GEENA PEDRO Rep #: [id number] : 1990 F 33 From: Gregorio Benjamin PCP: Dr. Dwaine Russell MD Status: REG ER Study: Abdomen Limited Date of Exam: 06/03/24 Exam# [id number] Ordering Dr: Sandie Mae PROCEDURE: Right upper quadrant ultrasound REASON FOR EXAM: Pain, nausea PROCEDURE: Homogeneous hepatic echotexture. No discrete intrinsic hepatic mass, contour nodularity or perihepatic ascites. Normal appearing gallbladder without calculi, wall thickening or pericholecystic fluid. Normal caliber common bile duct measuring 2.9 mm. Limited views of the pancreas are within normal limits. Right kidney measures 11.2 x 5.2 x 4.8 cm. No significant hydronephrosis or sizable shadowing renal calculi. US/Abdomen Limited IMPRESSION: No acute process. Reading Location: [facility] CC: Dr. Dwaine Russell MD; ED [facility] Accounts Receivable Collector: Signed Normal [facility] CBC W/Diff, Automatedon 05-14 Absolute Lymph 2.55 X10 3/uL Normal 0.83-4.51 [facility] Comment on above: Performed By: #### L 100.0100, L501.2450, L500.4050 #### [facility] [address] [place], [address] Absolute Neut 5.3 X10 3/uL Normal 2.0-7.7 [facility] Comment on above: Performed By: #### L 100.0100, L501.2450, L500.4050 #### [facility] [address] [place], [address] Basophils/100 WBC (Bld) 0.5 % Normal 0-1 [facility] Comment on above: Performed By: #### L 100.0100, L501.2450, L500.4050 #### [facility] [address] [place], [address] Eosinophils/100 WBC (Bld) 0.6 % Normal 0-5 [facility] Comment on above: Performed By: #### L 100.0100, L501.2450, L500.4050 #### [facility] [address] [place], [address] Erythrocyte distribution width (RBC) [Ratio] 12.5 % Normal 11.6-14.6 [facility] Comment on above: Performed By: #### L 100.0100, L501.2450, L500.4050 #### [facility] [address] [place], [address] Hematocrit (Bld) [Volume fraction] 38.0 % Normal 37-47 [facility] Comment on above: Performed By: #### L 100.0100, L501.2450, L500.4050 #### [facility] [address] [place], [address] Hemoglobin (Bld) [Mass/Vol] 12.9 g/dL Normal 12.0-15.0 [facility] Comment on above: Performed By: #### L 100.0100, L501.2450, L500.4050 #### [facility] [address] [place], [address] IG% 0.400 Normal 0.0-0.9 [facility] Comment on above: Result Comment: IG% - Immature Granulocytes (promyelocytes, myelocytes and metamyelocytes) > 1% indicates that a LEFT SHIFT is Present. Performed By: #### L 100.0100, L501.2450, L500.4050 #### [facility] [address] [place], [address] Lymphocytes/100 WBC (Bld) 29.9 % Normal 19-41 [facility] Comment on above: Performed By: #### L 100.0100, L501.2450, L500.4050 #### [facility] [address] [place], [address] MCH (RBC) [Entitic mass] 28.0 pg Normal 27.0-32.0 [facility] Comment on above: Performed By: #### L 100.0100, L501.2450, L500.4050 #### [facility] [address] [place], [address] MCHC (RBC) [Mass/Vol] 33.9 g/dL Normal 32-36 [facility] Comment on above: Performed By: #### L 100.0100, L501.2450, L500.4050 #### [facility] [address] [place], [address] MCV (RBC) [Entitic vol] 82.6 fL Normal 81-99 [facility] Comment on above: Performed By: #### L 100.0100, L501.2450, L500.4050 #### [facility] [address] [place], [address] Monocytes/100 WBC (Bld) 6.6 % Normal 0-10 [facility] Comment on above: Performed By: #### L 100.0100, L501.2450, L500.4050 #### [facility] [address] [place], [address] Neutrophils/100 WBC (Bld) 62.0 % Normal 47-70 [facility] Comment on above: Performed By: #### L 100.0100, L501.2450, L500.4050 #### [facility] [address] [place], [address] Nucleated RBC (Bld) [#/Vol] 0 10*3/uL Normal 0-5 [facility] Comment on above: Performed By: #### L 100.0100, L501.2450, L500.4050 #### [facility] [address] [place], [address] Platelet mean volume (Bld) [Entitic vol] 10.1 fL Normal 6.2-12.0 [facility] Comment on above: Performed By: #### L 100.0100, L501.2450, L500.4050 #### [facility] [address] [place], [address] Platelets (Bld) [#/Vol] 266 10*3/uL Normal 150-450 [facility] Comment on above: Performed By: #### L 100.0100, L501.2450, L500.4050 #### [facility] [address] [place], [address] RBC (Bld) [#/Vol] 4.60 10*6/uL Normal 4.2-5.4 [facility] Comment on above: Performed By: #### L 100.0100, L501.2450, L500.4050 #### [facility] [address] [place], [address] RDW SD 37.2 fl Normal 35.1-43.9 [facility] Comment on above: Performed By: #### L 100.0100, L501.2450, L500.4050 #### [facility] [address] [place], [address] WBC (Bld) [#/Vol] 8.5 10*3/uL Normal 4.4-11.0 [facility] Comment on above: Performed By: #### L 100.0100, L501.2450, L500.4050 #### [facility] [address] [place], [address] Comprehensive Metabolic Prof [facility] 06-03-2024 Albumin [Mass/Vol] 3.1 g/dL Low 3.2-5.0 [facility] Comment on above: Performed By: #### L 100.0100, L501.2450, L500.4050 #### [facility] [address] [place], [address] Albumin/Globulin [Mass ratio] 0.7 {ratio} Low 0.9-2.4 [facility] Comment on above: Performed By: #### L 100.0100, L501.2450, L500.4050 #### [facility] [address] [place], [address] ALK P 63 U/L Normal 45-117 [facility] Comment on above: Performed By: #### L 100.0100, L501.2450, L500.4050 #### [facility] [address] [place], [address] ALT [Catalytic activity/Vol] 21 U/L Normal 13-56 [facility] Comment on above: Performed By: #### L 100.0100, L501.2450, L500.4050 #### [facility] [address] [place], [address] AST [Catalytic activity/Vol] 18 U/L Normal 15-37 [facility] Comment on above: Performed By: #### L 100.0100, L501.2450, L500.4050 #### [facility] [address] [place], [address] Bilirubin [Mass/Vol] 0.10 mg/dL Low 0.20-1.00 [facility] Comment on above: Result Comment: For patients on eltrombopag therapy, use of Dimension [place] TBIL is not recommended. Performed By: #### L 100.0100, L501.2450, L500.4050 #### [facility] [address] [place], [address] BUN/CRE 9.1 RATIO Low 10-20 [facility] Comment on above: Performed By: #### L 100.0100, L501.2450, L500.4050 #### [facility] [address] [place], [address] CA,Total 9.3 mg/dL Normal 8.5-10.1 [facility] Comment on above: Performed By: #### L 100.0100, L501.2450, L500.4050 #### [facility] [address] [place], [address] Chloride [Moles/Vol] 106 mmol/L Normal 98-107 [facility] Comment on above: Performed By: #### L 100.0100, L501.2450, L500.4050 #### [facility] [address] [place], [address] CO2 [Moles/Vol] 24.0 mmol/L Normal 21.0-32.0 [facility] Comment on above: Performed By: #### L 100.0100, L501.2450, L500.4050 #### [facility] [address] [place], [address] Creatinine [Mass/Vol] 0.55 mg/dL Normal 0.55-1.02 [facility] Comment on above: Result Comment: The validity of the calculated GFR GFRAA in patients over 70 years has not been determined. Clinical correlation is essential. Performed By: #### L 100.0100, L501.2450, L500.4050 #### [facility] [address] [place], [address] ECRCL 132.38 ml/min Normal [facility] Comment on above: Performed By: #### L 100.0100, L501.2450, L500.4050 #### [facility] [address] [place], [address] EST GFR - AA 164 mL/min Normal >60 [facility] Comment on above: Result Comment: Afri can [place] GFR Calc Performed By: #### L 100.0100, L501.2450, L500.4050 #### [facility] [address] [place], [address] GAP 6 Normal 5-15 [facility] Comment on above: Performed By: #### L 100.0100, L501.2450, L500.4050 #### [facility] [address] [place], [address] GFR/1.73 sq M.predicted among non-blacks MDRD (S/P/Bld) [Vol rate/Area] 135 mL/min/{1.73_m2} Normal >60 [facility] Comment on above: Result Comment: Non- GFR Calc Performed By: #### L 100.0100, L501.2450, L500.4050 #### [facility] [address] [place], [address] Globulin (S) [Mass/Vol] 4.2 g/dL Normal 2.2-4.2 [facility] Comment on above: Performed By: #### L 100.0100, L501.2450, L500.4050 #### [facility] [address] [place], [address] Glucose [Mass/Vol] 87 mg/dL Normal 74-106 [facility] Comment on above: Performed By: #### L 100.0100, L501.2450, L500.4050 #### [facility] [address] [place], [address] Potassium [Moles/Vol] 3.7 mmol/L Normal 3.5-5.1 [facility] Comment on above: Performed By: #### L 100.0100, L501.2450, L500.4050 #### [facility] [address] [place], [address] Sodium [Moles/Vol] 137 mmol/L Normal 136-145 [facility] Comment on above: Performed By: #### L 100.0100, L501.2450, L500.4050 #### [facility] [address] [place], [address] T PROT 7.3 g/dL Normal 6.4-8.2 [facility] Comment on above: Performed By: #### L 100.0100, L501.2450, L500.4050 #### [facility] [address] [place], [address] Urea nitrogen [Mass/Vol] 5 mg/dL Low 7-18 [facility] Comment on above: Performed By: #### L 100.0100, L501.2450, L500.4050 #### [facility] [address] [place], [address] Emergency Department Summary on 06-03-2024 Emergency Department Summary [facility] Medical Records Department [address] [place] [address] Emergency Department Summary 06/03/24 MR#: [id number] Acct: [id number] Name: GEENA PEDRO Rep #: [id number] : 1990 33 From: Sandie WARD PCP: Dr. Dwaine Russell MD Status:REG ER Location: ED HPI History of Present Illness Chief Complaint: Abd Pain Narrative Narrative: 33-year-old female is approximately 14 weeks and over the last 4 days has had RUQ abdominal pain. Over the last 2 days she has been scared to eat or drink anything and feels nauseated and has acid regurgitation. She was started on famotidine twice daily earlier in her . She has IBS-C with bowel movements every 2 to 3 days. She took Ex-Lax this morning and did have a large bowel movement but it did not help the pain. She has no urinary symptoms. No fever or chills. She denies vaginal bleeding or discharge. PFSH PFSH Home Medications ???Medication ???Instructions ???Recorded ???Last Taken ???Type cetirizine 10 mg capsule (Zyrtec) 10 mg PO QDAY PRN 03/17/24 Unknow n History Allergy/AdvReac Type Severity Reaction Status Date / Time Environmental Allergies: Allergy Other Verified 06/03/24 19:03 Uncoded (seasonal) Social History (Updated 03/17/24 @ 13:36 by Moriah Garcia) Smoking Status: Never smoker alcohol intake: never ROS ROS ED ROS Narrative Constitutional: Negative for fever, chills, malaise. CVS: Negative for chest pain. Respiratory: Negative for shortness of breath, cough. GI: Positive for abdominal pain, nausea. Negative for vomiting, diarrhea, melena, hematochezia. EXAM Physical Exam Narrative Exam Narrative: CONST: Patient sitting in no acute distress. EYES: Normal inspection. NECK: Normal inspection. RESP: No respiratory distress, CTAB. CVS: Regular rate and rhythm, no murmur, no gallop. ABD: Soft with mild RUQ and epigastric tenderness, no guarding or rebound, nondistended, no hepatosplenomegaly. Negative Yoon sign. SKIN: Color normal, no rash, warm, dry, intact. EXTREMITIES: Normal appearance, no pedal edema. NEURO: Alert and answering questions appropriately. PSYCH: Normal affect. Const Vital Signs: 06/03/24 18:58 06/03/24 21:00 06/03/24 21:54 Temperature 97.9 F 98.4 F Temperature Source Temporal Pulse Rate 99 80 80 Respiratory Rate 16 18 18 Blood Pressure 117/82 H 111/78 111/78 Blood Pressure Mean 93 89 89 Pulse Ox 100 100 100 Oxygen Delivery Method Room Air Room Air Physical Exam Const Vital Signs: 06/03/24 18:58 06/03/24 21:00 06/03/24 21:54 Temperature 97.9 F 98.4 F Temperature Source Temporal Pulse Rate 99 80 80 Respiratory Rate 16 18 18 Blood Pressure 117/82 H 111/78 111/78 Blood Pressure Mean 93 89 89 Pulse Ox 100 100 100 Oxygen Delivery Method Room Air Room Air MDM MDM MDM Narrative Medical decision making narrative: History gathered from: Patient and her mom Differential includes but not limited to biliary colic, cholecystitis, pancreatitis, GERD/gastritis 33-year-old female approximately 14 weeks presents with 4 days of RUQ abdominal pain. She reports nausea and also acid reflux. She appears well and nontoxic. She is afebrile and hemodynamically stable. Normal cardiopulmonary exam. She has mild RUQ tenderness with negative Yoon signs. There is no abdominal distention. No peritoneal signs. CBC, CMP, and lipase are within normal limits. Abdominal ultrasound shows no acute findings. There is no gallbladder thickening or stones. Since she is reporting symptoms of acid regurgitation I think this could be more GERD/gastritis related. She had IV fluids, Protonix, and Zofran on initial examination and after the results were normal I ordered p.o. Tylenol and a GI cocktail. She is already on famotidine twice daily. I recommended adding omeprazole and discussed dietary changes. 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 ED attending note: I evaluated the patient in conjunction with the CHRISTIANA. I agree with his/her statements and above findings. I have personally performed a face to face assessment of the patient and have reviewed the CHRISTIANA Note. I performed a substantive portion of the visit including all aspects of the following. I personally saw the patient performed chart review, physical exam, reviewed labs, imaging (if obtained), and formulated a treatment and management plan. This note was generated with [employer] dictation software. It may contain incorrect words, spelling, and punctuation that were not noted in review of the chart prior to signing. Lab Data Attestation: I reviewed the patient's lab results. Labs: Laboratory Results - last 24 hr 06/03/24 06/03/24 (more content not included)... Normal [facility] Lipaseon 06-03-2024 Lipase [Catalytic activity/Vol] 44 U/L Low 73-393 [facility] Comment on above: Performed By: #### L 100.0100, L501.2450, L500.4050 #### [facility] [address] [place], [address] Urinalysis, Completeon 06-03 BACTERIA RARE Normal None Seen [facility] Comment on above: Order Comment: CLEAN CATCH Performed By: #### L 400.0001 #### [facility] [address] [place], [address] EPI,SQUAMOUS 0-5 SEEN Normal 5-10 [facility] Comment on above: Order Comment: CLEAN CATCH Performed By: #### L 400.0001 #### [facility] [address] [place], [address] RBC 0 SEEN Normal 0-5 [facility] Comment on above: Order Comment: CLEAN CATCH Performed By: #### L 400.0001 #### [facility] [address] [place], [address] WBC 0 SEEN Normal 0-5 [facility] Comment on above: Order Comment: CLEAN CATCH Performed By: #### L 400.0001 #### [facility] [address] [place], [address] Mucus Ql (Urine sed) 0 SEEN Normal [facility] Comment on above: Order Comment: CLEAN CATCH Performed By: #### L 400.0001 #### [facility] [address] [place], [address] MJIwona 05-29-2024 CNPN Telephone (OBGYWM) TABITHAGEENA SU ([id number]) 1990 F Date Time Provider Department 05/29/24 RAQUEL FRENCH During your visit today, we recorded the following information about you: Benja Reddy RN 05/29/2024 12:26 PM Signed 15w3d Pt's mother calling as Pt took at home test for Flu and tested positive for Flu A+. Sx-fatigue, fever (highest 100.1), chills, headache. Pt's mother went to [facility]-advised on safe medications to take during and Pt has healthy guide. Staying hydrated. Pt's mother asking if Pt should be prescribed Tamiflu since Pt is just feeling miserable? Please advise. Pt has upcoming appt on 06/02/[address] CARMELITA Hopkins Jessica, APRN.CNM 05/29/2024 1:08 PM Signed Can prescribe tamiflu if symptoms started in last 5 days. Let me know and I can send prescription. This will be billed as a visit. ZULEYMA Mcguire Jennifer, RN 05/29/2024 4:49 PM Signed Yes, see [employer] message sent today. She would like Tamiflu sent to [facility] in [place]. Patient has an OB visit on Wednesday. Can she keep this visit? Only need to call patient back if she needs to reschedule her appointment. CARMELITA Phillips Jessica, APRN.CNM 05/29/2024 5:05 PM Signed Prescription sent. If she is ok, please reschedule for next week. Thank you, Raquel French APRN.CNBenja Grove RN 05/29/2024 5:13 PM Signed Pt notified and appt rescheduled to next week. Benja Reddy RN Allergies As of Date: 05/29/2024 (No Known Allergies) Date Reviewed: 05/05/2024 Reviewed by: Alex Schofield MD - Fully Assessed Order(s):oseltamivir (TAMIFLU) 75 mg capsuleTake 1 capsule by mouth two times a day for 5 days.Disp: 10 capsuleRfl: 0 Prescriptions as of 05/29/2024 - oseltamivir (TAMIFLU) 75 mg capsule Take 1 capsule by mouth two times a day for 5 days. - aspirin, enteric coated (ECOTRIN LOW STRENGTH) 81 mg EC tablet Take 1 tablet by mouth once daily. - PNV no.95/ferrous fum/folic ac ( ORAL) Take by mouth. - famotidine (PEPCID) 20 mg tablet Take 1 tablet by mouth two times a day. Problem List As Of Date 05/29/2024 Noted Resolved Plantar fasciitis [M72.2] 07/13/2023 Low serum HDL [R74.8] 08/19/2023 History of obesity [Z86.39] 11/24/2023 Encounter for supervision of normal first pregn*04/14/2024 Nausea and vomiting during [O21.9] 04/14/2024 History of depression [Z86.59] 04/14/2024 Thyroid nodule [E04.1] Heartburn during in first trimester [*04/14/2024 Prescriptions ordered this encounter Disp Refills Start End OSELTAMIVIR 75 MG CAPSULE 10 c* 0 05/29/2024 06/03/2024 Route: ORAL Sig: Take 1 capsule by mouth two times a day for 5 days. Encounter Status:Closed by BENJA REDDY on 05/29/24 [facility] Tele[facility] (WOOB) GEENA PEDRO ([id number]) 1990 F Date Time Provider Department 05/12/24 KATRIN CLARK During your visit today, we recorded the following information about you: Tricia Benitez 05/12/2024 10:12 AM Signed Patient called requesting to speak to nurse about constipation Please advise Divya Katz, CARMELITA 05/12/2024 11:41 AM Signed Left message for patient to call office or check [employer] (ABAM) message for medication list. CARMELITA Chavarria Jennifer, RN 05/12/2024 2:04 PM Signed Patient called in to the office. Advised that a list of medications was sent to her [employer]. States that Wednesday at work she had upper abdominal pressure. Has been constipated and has IBS. Last BM was a small amount today. Was several days without a BM before this. Took a stool softener the last several days. Patient asking is she needs to be concerned because it occurred again today. Feels like everything is getting squished. Denies pelvic pressure, cramping, or vaginal bleeding. Reassurance given. Patient seen on 05/05/24. Patient plans to take Miralax. Recommended she call and schedule if it continues or contact her PCP who manages her IBS. Dena Lomeli RN Allergies As of Date: 05/12/2024 (No Known Allergies) Date Reviewed: 05/05/2024 Reviewed by: Alex Schofield MD - Fully Assessed Reason for Visit: Patient Question [2534] Cmt: constipation Prescriptions as of 05/12/2024 - aspirin, enteric coated (ECOTRIN LOW STRENGTH) 81 mg EC tablet Take 1 tablet by mouth once daily. - PNV no.95/ferrous fum/folic ac ( ORAL) Take by mouth. - famotidine (PEPCID) 20 mg tablet Take 1 tablet by mouth two times a day. Problem List As Of Date 05/12/2024 Noted Resolved Plantar fasciitis [M72.2] 07/13/2023 Low serum HDL [R74.8] 08/19/2023 History of obesity [Z86.39] 11/24/2023 Encounter for supervision of normal first pregn*04/14/2024 Nausea and vomiting during [O21.9] 04/14/2024 History of depression [Z86.59] 04/14/2024 Thyroid nodule [E04.1] Heartburn during in first trimester [*04/14/2024 Encounter Status:Closed by DENA LOMELI on 05/12/24 Normal [facility] nuchal translucency me asured by Carlos 05-05-2024 Indication First trimester anatomic survey Impression REMOTE READ The patient is referred for a first trimester anatomy scan including nuchal translucency measurement as clinically indicated. - Single, live, intrauterine . - Simpson rump length measurement is consistent with the established gestational age. - A qualitative screen of the nuchal translucency and other anatomic structures was unremarkable on an incomplete first trimester anatomic assessment. - Not all structural malformations can be detected by ultrasound examination. Maternal Structures: Right Ovary: Size 34 mm x 26 mm x 24 mm Left Ovary: Size 27 mm x 26 mm x 15 mm Recommendations Return for anatomy ultrasound Maternal Assessment Height 160 cm Height (ft) 5 ft Height (in) 3 in Physical Exam Initial weight (lb) 153 lb Initial BMI 27.10 kg/m Maternal assessment other: 1 Para 0 Method Transabdominal ultrasound examination Hernandez . Number of fetuses: 1 Dating LMP on: 02/11/2024 GA by LMP 12 w + 0 d DIANE by LMP: 11/17/2024 GA by prior assessment 12 w + 0 d DIANE by prior assessment: 11/17/2024 Ultrasound examination on: 05/05/2024 GA by U/S based upon: CRL GA by U/S 12 w + 6 d DIANE by U/S: 11/11/2024 Assigned: based on stated DIANE, selected on 05/05/2024 Assigned GA 12 w + 0 d Assigned DIANE: 11/17/2024 General Evaluation Cardiac activity present Placenta: posterior Cord vessels: 3 vessel cord Amniotic fluid: normal amount Biometry Standard FHR 164 bpm CRL 64.9 mm 12w 6d 93% [facility] First Trimester Anatomy Calvarium: normal Falx cerebri: normal Choroid plexus: normal Profile: normal Nasal bone: normal Retronasal triangle: normal Maxilla: normal Mandible: normal Nuchal translucency: Unremarkable Situs: normal Cardiac position: normal Cardiac axis: normal 4-chamber view: suboptimal 4-chamber view with color: suboptimal 5-[id number]-wwarzoh view: suboptimal Abdominal cord insertion: normal Stomach: normal Kidneys: visualized Bladder: normal Color doppler of perivesical umbilical arteries: normal Vertebral alignment: normal Arms: normal Hands: normal Legs: normal Feet: normal Maternal Structures Uterus / Cervix Uterus: Visualized Uterus length 114 mm Uterus width 101 mm Uterus height 84 mm Uterus Vol 506.2 cm Ovaries / Tubes / Adnexa Rt ovary: Visualized Rt ovary D1 34 mm Rt ovary D2 26 mm Rt ovary D3 24 mm Rt ovary Vol 11.2 cm Lt ovary: Visualized Lt ovary D1 27 mm Lt ovary D2 26 mm Lt ovary D3 15 mm Lt ovary Vol 5.5 cm Performed By: Dea Montes De Oca RDMS, RVT Read By: Brandee Viveros M.D. MATERNAL MEDICINE [facility] Radiology Study observation (narrative) [facility] CARRIER SCREEN, STANDARDon 0 05-01-2024 CARRIER SCREEN RESULTS View results in Scanned Documents link when available. Normal [facility] Comment on above: Order Comment: Speci men Type: BLOOD SPECIMEN Ordering Facility: [facility] Address: [address] [place] [address] Performed By: #### 2 276-4, 31458-7 #### [facility] CLIA [id number] [address] [place] [address] [place] CBC W Auto Differential pane l (Bld)on 05-01-2024 Basophils (Bld) [#/Vol] 0.04 10*3/uL Normal <0.11 [facility] Comment on above: Order Comment: Speci men Type: BLOOD SPECIMENOrdering Facility: [facility] Address: [address] [place] [address] Performed By: #### 5 7021-8 ####[facility] [id number] [place] [address] [place] Basophils/100 WBC (Bld) 0.5 % Normal [facility] Comment on above: Order Comment: Speci men Type: BLOOD SPECIMENOrdering Facility: [facility] Address: [address] [place] [address] Performed By: #### 5 7021-8 ####[facility] MICHJUSTINOA [id number] [place] [address] [place] Differential cell count method Nom (Bld) Auto Normal [facility] Comment on above: Order Comment: Speci men Type: BLOOD SPECIMENOrdering Facility: [facility] Address: [address] [place] [address] Performed By: #### 5 7021-8 ####[facility] AHSANLIZBETA [id number] [place] [address] [place] Eosinophils (Bld) [#/Vol] 0.08 10*3/uL Normal <0.46 [facility] Comment on above: Order Comment: Speci men Type: BLOOD SPECIMENOrdering Facility: [facility] Address: [address] [place] [address] Performed By: #### 5 7021-8 ####[facility] AHSANATTILALIA [id number] [place] [address] [place] Eosinophils/100 WBC (Bld) 1.0 % Normal [facility] Comment on above: Order Comment: Speci men Type: BLOOD SPECIMENOrdering Facility: [facility] Address: [address] [place] [address] Performed By: #### 5 7021-8 ####[facility] MICHYOVANYLIA [id number] [place] [address] [place] Erythrocyte distribution width (RBC) [Ratio] 12.7 % Normal 11.5-15.0 [facility] Comment on above: Order Comment: Speci men Type: BLOOD SPECIMENOrdering Facility: [facility] Address: [address] [place] [address] Performed By: #### 5 7021-8 ####[facility] [id number] [place] [address] [place] Hematocrit (Bld) [Volume fraction] 39.9 % Normal 36.0-46.0 [facility] Comment on above: Order Comment: Speci men Type: BLOOD SPECIMENOrdering Facility: [facility] Address: [address] [place] [address] Performed By: #### 5 7021-8 ####[facility] [id number] [place] [address] [place] Hemoglobin (Bld) [Mass/Vol] 13.3 g/dL Normal 11.5-15.5 [facility] Comment on above: Order Comment: Speci men Type: BLOOD SPECIMENOrdering Facility: [facility] Address: [address] [place] [address] Performed By: #### 5 7021-8 ####[facility] [id number] [place] [address] [place] Immature granulocytes (Bld) [#/Vol] 10*3/uL Normal <0.10 [facility] Comment on above: Order Comment: Speci men Type: BLOOD SPECIMENOrdering Facility: [facility] Address: [address] [place] [address] Performed By: #### 5 7021-8 ####[facility] [id number] [place] [address] [place] Immature granulocytes/100 WBC (Bld) 0.2 % Normal [facility] Comment on above: Order Comment: Speci men Type: BLOOD SPECIMENOrdering Facility: [facility] Address: [address] [place] [address] Performed By: #### 5 7021-8 ####[facility]CL[facility] [id number] [place] [address] [place] Lymphocytes (Bld) [#/Vol] 2.03 10*3/uL Normal 1.00-4.00 [facility] Comment on above: Order Comment: Speci men Type: BLOOD SPECIMENOrdering Facility: [facility] Address: [address] [place] [address] Performed By: #### 5 7021-8 ####[facility] [id number] [place] [address] [place] Lymphocytes/100 WBC (Bld) 24.2 % Normal [facility] Comment on above: Order Comment: Speci men Type: BLOOD SPECIMENOrdering Facility: [facility] Address: [address] [place] [address] Performed By: #### 5 7021-8 ####[facility]NCLI [id number] [place] [address] [place] MCH (RBC) [Entitic mass] 27.6 pg Normal 26.0-34.0 [facility] Comment on above: Order Comment: Speci men Type: BLOOD SPECIMENOrdering Facility: [facility] Address: [address] [place] [address] Performed By: #### 5 7021-8 ####[facility]CL[facility] [id number] [place] [address] [place] MCHC (RBC) [Mass/Vol] 33.3 g/dL Normal 30.5-36.0 [facility] Comment on above: Order Comment: Speci men Type: BLOOD SPECIMENOrdering Facility: [facility] Address: [address] [place] [address] Performed By: #### 5 7021-8 ####[facility] [id number] [place] [address] [place] MCV (RBC) [Entitic vol] 82.8 fL Normal 80.0-100.0 [facility] Comment on above: Order Comment: Speci men Type: BLOOD SPECIMENOrdering Facility: [facility] Address: [address] [place] [address] Performed By: #### 5 7021-8 ####[facility] MILLTOWNCLIA [id number] [place] [address] [place] Monocytes (Bld) [#/Vol] 0.62 10*3/uL Normal <0.87 [facility] Comment on above: Order Comment: Speci men Type: BLOOD SPECIMENOrdering Facility: [facility] Address: [address] [place] [address] Performed By: #### 5 7021-8 ####[facility] MILLWNCLIA [id number] [place] [address] [place] Monocytes/100 WBC (Bld) 7.4 % Normal [facility] Comment on above: Order Comment: Speci men Type: BLOOD SPECIMENOrdering Facility: [facility] Address: [address] [place] [address] Performed By: #### 5 7021-8 ####[facility] AHSANWNCLIA [id number] [place] [address] [place] Neutrophils (Bld) [#/Vol] 5.59 10*3/uL Normal 1.45-7.50 [facility] Comment on above: Order Comment: Speci men Type: BLOOD SPECIMENOrdering Facility: [facility] Address: [address] [place] [address] Performed By: #### 5 7021-8 ####[facility] MILLTOWNCLIA [id number] [place] [address] [place] Neutrophils/100 WBC (Bld) 66.7 % Normal [facility] Comment on above: Order Comment: Speci men Type: BLOOD SPECIMENOrdering Facility: [facility] Address: [address] [place] [address] Performed By: #### 5 7021-8 ####[facility] MILLWNCLIA [id number] [place] [address] [place] Nucleated RBC (Bld) [#/Vol] 10*3/uL Normal <0.01 [facility] Comment on above: Order Comment: Speci men Type: BLOOD SPECIMENOrdering Facility: [facility] Address: [address] [place] [address] Performed By: #### 5 7021-8 ####[facility] [id number] [place] [address] [place] Nucleated RBC/100 WBC (Bld) [Ratio] 0.0 /100 WBC Normal [facility] Comment on above: Order Comment: Speci men Type: BLOOD SPECIMENOrdering Facility: [facility] Address: [address] [place] [address] Performed By: #### 5 7021-8 ####[facility] [id number] [place] [address] [place] Platelet mean volume (Bld) [Entitic vol] 10.0 fL Normal 9.0-12.7 [facility] Comment on above: Order Comment: Speci men Type: BLOOD SPECIMENOrdering Facility: [facility] Address: [address] [place] [address] Performed By: #### 5 7021-8 ####[facility] [id number] [place] [address] [place] Platelets (Bld) [#/Vol] 292 10*3/uL Normal 150-400 [facility] Comment on above: Order Comment: Speci men Type: BLOOD SPECIMENOrdering Facility: [facility] Address: [address] [place] [address] Performed By: #### 5 7021-8 ####[facility]CL[facility] [id number] [place] [address] [place] RBC (Bld) [#/Vol] 4.82 10*6/uL Normal 3.90-5.20 [facility] Comment on above: Order Comment: Speci men Type: BLOOD SPECIMENOrdering Facility: [facility] Address: [address] [place] [address] Performed By: #### 5 7021-8 ####[facility] [id number] [place] [address] [place] WBC (Bld) [#/Vol] 8.38 10*3/uL Normal 3.70-11.00 [facility] Comment on above: Order Comment: Speci men Type: BLOOD SPECIMENOrdering Facility: [facility] Address: [address] [place] [address] Performed By: #### 5 7021-8 ####[facility] [id number] [place] [address] [place] HBV surface Ag Ser Qlon 04-13 HBV surface Ag Ql (S) Negative Normal Negative [facility] Comment on above: Order Comment: Speci men Type: BLOOD SPECIMEN Ordering Facility: [facility] Address: [address] [place] [address] Performed By: #### 2 276-4, 51010-7 #### [facility] CLIA [id number] [address] [place] [address] [place] HCV Ab Ser Qlon 05-01-2024 HCV Ab Ql (S) Negative Normal Negative [facility] Comment on above: Order Comment: Speci men Type: BLOOD SPECIMEN Ordering Facility: [facility] Address: [address] [place] [address] Result Comment: The result suggests no evidence of active infection with Hepatitis C virus. Should recent infection be suspected, repeat testing may be considered 4-6 weeks after this draw. Performed By: #### 2 276-4, 04313-5 #### [facility] CLIA [id number] [address] [place] [address] [place] HIV 1+2 Ab IA Qlon 5 HIV 1 and 2 Ab IA.rapid Nom (S/P/Bld) Normal [facility] Comment on above: Order Comment: Speci men Type: BLOOD SPECIMEN Ordering Facility: [facility] Address: [address] [place] [address] Result Comment: Test not indicated. Performed By: #### 2 276-4, 88706-9 #### [facility] CLIA [id number] [address] [place] [address] [place] HIV 1+2 Ab+HIV1 p24 Ag IA Ql Non-Reactive Normal Nonreactive [facility] Comment on above: Order Comment: Speci men Type: BLOOD SPECIMEN Ordering Facility: [facility] Address: [address] [place] [address] Performed By: #### 2 276-4, 06016-5 #### [facility] CLIA [id number] [address] [place] [address] [place] HIV immunoassay testing algorithm interpretation (S/P/Bld) [Interp] Normal [facility] Comment on above: Order Comment: Speci men Type: BLOOD SPECIMEN Ordering Facility: [facility] Address: [address] [place] [address] Result Comment: No e vidence of HIV-1 or HIV-2 infection. Should recent infection be suspected, repeat testing may be considered 2-3 weeks after this draw. [place] Rev. Code 3701.243(E): This information has been disclosed to you from confidential records protected from disclosure by state law. ???You shall make no further disclosure of this information without the specific, written, and informed release of the individual to whom it pertains or as otherwise permitted by state law. A general authorization for the release of medical or other information is not sufficient for the purpose of the release of HIV test results or diagnoses. Performed By: #### 2 276-4, 43864-5 #### [facility] CLIA [id number] [address] [place] [address] [place] HbA1c (Bld)on 05-01-2024 Average glucose Estimated from glycated hemoglobin (Bld) [Mass/Vol] 108 mg/dL Normal [facility] Comment on above: Order Comment: Speci men Type: BLOOD SPECIMENOrdering Facility: [facility] Address: [address] [place] [address] Result Comment: eAG: (Estimated average glucose) is a calculated value from HgbA1c and is arborist representative of the average blood glucose level in the last 2-3 month period. Performed By: #### 5 5454-3 ####[facility] LABCLIA [id number] [place] [address] [place] HbA1c (Bld) [Mass fraction] 5.4 % Normal 4.3-5.6 [facility] Comment on above: Order Comment: Tray lang Type: BLOOD SPECIMENOrdering Facility: [facility] Address: [address] [place] [address] Result Comment: [place] Diabetes Association guidelines indicate that patients with HgbA1c in the range 5.7-6.4% are at increased risk for development of diabetes, and intervention by lifestyle modification may be beneficial. HgbA1c greater or equal to 6.5% is considered diagnostic of diabetes. Performed By: #### 5 5454-3 ####[facility] LABCLIA [id number] [place] [address] [place] [id number] PLUSon 05-01-2024 Cell-free DNA./Cell-free DNA.total Dosage of chromosome-specific cfDNA (cfDNA) [Molar fraction] 13% Normal [facility] Comment on above: Order Comment: Jesus Manueli men Type: BLOOD SPECIMENOrdering Facility: [facility] Address: [address] [place] [address] Performed By: #### M AT21 ####[facility] LABIA [id number] [place] [address] Chr 13+18+21+X+Y aneuploidy Dosage of chromosome-specific cfDNA Ql (cfDNA) Negative Normal [facility] Comment on above: Order Comment: Speci men Type: BLOOD SPECIMENOrdering Facility: [facility] Address: [address] [place] [address] Performed By: #### M AT21 ####[facility] LABCLIA [id number] [place] [id number] Chr 21 trisomy Dosage of chromosome-specific cfDNA Ql (cfDNA) Negative Normal [facility] Comment on above: Order Comment: Speci men Type: BLOOD SPECIMENOrdering Facility: [facility] Address: [address] [place] [address] Performed By: #### M AT21 ####[facility] LABCLIA [id number] [place] [address] Chr X and Y aneuploidy risk Sequencing Ql (cfDNA) [Interp] Not detected Normal [facility] [facility] Comment on above: Order Comment: Speci men Type: BLOOD SPECIMENOrdering Facility: [facility] Address: [address] [place] [address] Result Comment: Not Detected Not Detected Performed By: #### M AT21 ####[facility] [facility] LABCLIA [id number] [place] [address] Citation Mukesh (Reference lab test) Comment [facility] Comment on above: Order Comment: Speci men Type: BLOOD SPECIMENOrdering Facility: [facility] Address: [address] [place] [address] Result Comment: 1. P antolin GARCIA, et al. Kasie Med. 2012;14(3):296-305. 2. Curt HARTLEY et al. Prenat Diag. 2013;33(6):591-597. 3. Jay C, et al. Clin Chem. 2015 Apr;61(4):608-616. 4. Dayana GARCIA, et al. Kasie Med. 2011;13(11):913-920. 5. ACOG/SMFM Practice Bulletin No. 226, Jan 2020. Performed By: #### M AT21 ####[facility] LABCLIA [id number] [place] [address] Gestational age Estimated from conception date Hernandez [facility] Comment on above: Order Comment: Speci men Type: BLOOD SPECIMENOrdering Facility: [facility] Address: [address] [place] [address] Performed By: #### M AT21 ####[facility] LABCLIA [id number] [place] [address] GESTATIONALAGE AGE > OR = 9W Yes [facility] Comment on above: Order Comment: Speci men Type: BLOOD SPECIMENOrdering Facility: [facility] Address: [address] [place] [address] Performed By: #### M AT21 ####[facility] LABCLIA [id number] [place] [address] Laboratory comment Mukesh (Report) Comment [facility] Comment on above: Order Comment: Speci men Type: BLOOD SPECIMENOrdering Facility: [facility] Address: [address] [place] [address] Result Comment: The MaterniT(R) 21 PLUS laboratory-developed test (LDT) analyzes circulating cell-free DNA from a maternal blood sample. This test is used for screening purposes and not diagnostic. Clinical correlation is recommended. Validation data on twin pregnancies is limited and the ability of this test to detect aneuploidy in higher multiple gestations has not yet been validated. Performed By: #### M AT21 ####[facility] LABCLIA [id number] [place] [address] medical lab director name Nom (Provider) Comment [facility] Comment on above: Order Comment: Speci men Type: BLOOD SPECIMENOrdering Facility: [facility] Address: [address] [place] [address] Result Comment: This specimen showed an expected representation of chromosome 21, 18 and 13 material. Clinical correlation is suggested. Comment Simone Geronimo MD, PhD, Director, [employer] Performed By: #### M AT21 ####[facility] LABCLIA [id number] [place] [address] LIMITATIONS OF THE TEST Comment [facility] Comment on above: Order Comment: Speci men Type: BLOOD SPECIMENOrdering Facility: [facility] Address: [address] [place] [address] Result Comment: Marbella gallardo the results of these tests are highly reliable, discordant results, including inaccurate sex prediction, may occur due to placental, maternal, or mosaicism or neoplasm; vanishing twin; prior maternal organ transplant; or other causes. These tests are screening tests and not diagnostic; they do not replace the accuracy and precision of diagnosis with CVS or amniocentesis. A patient with a positive test result should be referred for genetic counseling and offered invasive diagnosis for confirmation of test results.[5] The results of this testing, including the benefits and limitations, should be discussed with a qualified healthcare provider. management decisions, including termination of the , should not be based on the results of these tests alone. The healthcare provider is responsible for the use of this information in the management of their patient. Sex chromosomal aneuploidies are not reportable for known multiple gestations. A negative result does not ensure an unaffected nor does it exclude the possibility of other chromosomal abnormalities or defects which are not a part of these tests. An uninformative result may be reported, the causes of which may include, but are not limited to, insufficient sequencing coverage, noise or artifacts in the region, amplification or sequencing bias, or insufficient fraction. These tests are not intended to identify pregnancies at risk for neural tube defects or ventral wall defects. Testing for whole chromosome abnormalities (including sex chromosomes) and for subchromosomal abnormalities could lead to the potential discovery of both and maternal genomic abnormalities that could have major, minor, or no, clinical significance. Evaluating the significance of a positive or a non-reportable result may involve both invasive testing and additional studies on the mother. Such investigations may lead to a diagnosis of maternal chromosomal or subchromosomal abnormalities, which on occasion may be associated with benign or malignant maternal neoplasms. These tests may not accurately identify triploidy, balanced rearrangements, or the precise location of subchromosomal duplications or deletions; these may be detected by diagnosis with CVS or amniocentesis. The ability to report results may be impacted by maternal BMI, maternal weight, maternal systemic lupus erythematosus (SLE) and/or by certain pharmaceutical agents such as low molecular weight heparin (for example: Lovenox(R), Xaparin(R), Clexane(R) and Fragmin(R)). Performed By: #### M AT21 ####[facility] LABCLIA [id number] [place] [address] Monosomy X risk Dosage of chromosome-specific cfDNA Ql (Plasma cell-free+WBC DNA) [Interp] Not detected [facility] Comment on above: Order Comment: Speci men Type: BLOOD SPECIMENOrdering Facility: [facility] Address: [address] [place] [address] Performed By: #### M AT21 ####[facility] LABCLIA [id number] [place] [id number] NEGATIVE PREDICTIVE VALUE Note [facility] Comment on above: Order Comment: Speci men Type: BLOOD SPECIMENOrdering Facility: [facility] Address: [address] [place] [address] Result Comment: The Negative Predictive Value (NPV) for trisomy 21, 18, and 13 is greater than 99%. The NPV for SCA and ESS cannot be calculated as SCA and ESS are only reported when an abnormality is detected. Performed By: #### M AT21 ####[facility] LABCLIA [id number] [place] [address] NOTE Comment [facility] Comment on above: Order Comment: Speci men Type: BLOOD SPECIMENOrdering Facility: [facility] Address: [address] [place] [address] Result Comment: See Notes [employer] is a subsidiary of [employer], using the brand [employer]. This test was developed and its performance characteristics determined by [employer]. It has not been cleared or approved by the Food and Drug Administration. This laboratory is certified under the Clinical Laboratory Improvement Amendments (CLIA) as qualified to perform high complexity clinical laboratory testing and accredited by the College of [place] [employer] (CAP). If there is future clinical need for adding MaterniT GENOME testing, this specimen will be available until term. [facility] samples will not be retained beyond 60 days. [facility] patients will have to send a new sample for re-sequencing ([facility] Test Code: 959176). Performed By: #### M AT21 ####[facility] LABCLIA [id number] [place] [address] PERFORMANCE CHARACTERISTICS Note [facility] Comment on above: Order Comment: Jesus Manueli rickey Type: BLOOD SPECIMENOrdering Facility: [facility] Address: [address] [place], [place] [address] Result Comment: ! Sex ! Accuracy: 99.4% ! ! ! ! Region (associated syndrome) ! Est. Sens# ! Est. Spec ! ! ! ! Trisomy 21 (Down Syndrome) ! 99.1% ! 99.9% ! ! ! ! Trisomy 18 (Bunn Syndrome) ! >99.9% ! 99.6% ! ! ! ! Trisomy 13 (Patau Syndrome) ! 91.7% ! 99.7% ! ! ! ! Sex Chromosome Aneuploidies## ! 96.2% ! 99.7% ! ! ! * As reported in ISCA database nstd37 [https://www.ncbi.nlm.nih.gov/dbvar/studies/nstd37/ ] # Estimated Sensitivity. Sensitivity estimated across the observed size distribution of each syndrome [per ISCA database nstd37] and across the range of fractions observed in routine clinical NIPT. Actual sensitivity can also be influenced by other factors such as the size of the event, total sequence counts, amplification bias, or sequence bias. ## Hernandez gestation only. Performed By: #### M AT21 ####[employer] LABCLIA [id number] [place] [address] POSITIVE PREDICTIVE VALUE N/A [facility] Comment on above: Order Comment: Tray lang Type: BLOOD SPECIMENOrdering Facility: [facility] Address: [address] [place] [address] Performed By: #### M AT21 ####[employer] LABCLIA [id number] [place] [address] Reference Lab Test Method Comment [facility] Comment on above: Order Comment: Tray lang Type: BLOOD SPECIMENOrdering Facility: [facility] Address: [address] [place] [address] Result Comment: See Notes Circulating cell-free DNA was purified from the plasma component of maternal blood. The extracted DNA was then converted into a genomic DNA library for aneuploidy analysis of chromosomes 21, 18, and 13 via next generation sequencing.[1] Optional findings based on the test order include sex chromosome aneuploidy (SCA)[2], and enhanced sequencing series (ESS)[3], which will only be reported on as an additional finding when an abnormality is detected. SCA testing includes information on X and Y representation, while ESS testing includes deletions in selected regions (22q, 15q, 11q, 8q, 5p, 4p, 1p) and trisomy of chromosomes 16 and 22. Performed By: #### M AT21 ####[facility] LABCLIA [id number] [place] [address] Sex Dosage of chromosome-specific cfDNA Nom (cfDNA) Comment [facility] Comment on above: Order Comment: Speci men Type: BLOOD SPECIMENOrdering Facility: [facility] Address: [address] [place] [address] Result Comment: Cons istent with Male Performed By: #### M AT21 ####[facility] LABCLIA [id number] [place] [address] Test performance information Mukesh (Unsp spec) Comment [facility] Comment on above: Order Comment: Speci men Type: BLOOD SPECIMENOrdering Facility: [facility] Address: [address] [place] [address] Result Comment: The performance characteristics of the MaterniT(R) 21 PLUS laboratory-developed test (LDT) have been determined in a clinical validation study with women at increased risk for chromosomal aneuploidy.[1-4] Performed By: #### M AT21 ####[facility] LABCLIA [id number] [place] [address] Trisomy 13 risk Dosage of chromosome-specific cfDNA Ql (cfDNA) [Interp] Negative [facility] Comment on above: Order Comment: Speci men Type: BLOOD SPECIMENOrdering Facility: [facility] Address: [address] [place] [address] Performed By: #### M AT21 ####[facility] LABCLIA [id number] [place] [address] Trisomy 18 risk Dosage of chromosome-specific cfDNA Ql (Plasma cell-free+WBC DNA) [Interp] Negative [facility] Comment on above: Order Comment: Speci men Type: BLOOD SPECIMENOrdering Facility: [facility] Address: [address] [place] [address] Performed By: #### M AT21 ####[facility] LABCLIA [id number] [place] [address] RUBELLA IGG ANTIBODYon 05-01 RUBELLA IGG AB, QUAL Positive Normal Positive [facility] Comment on above: Order Comment: Speci men Type: BLOOD SPECIMENOrdering Facility: [facility] Address: [address] [place] [address] Result Comment: The result suggests recent or past exposure to Rubella virus or history of Rubella vaccination. Positive result may also be seen due to presence of passively-transferred antibodies. Please correlate with patient's history. Performed By: #### R UBIGG ####[facility] LABCLIA [id number] [place] [address] [place] Reagin and Treponema pallidu m IgG and IgM [Interp]on 05-01-2024 T. pallidum IgG+IgM IA Ql (S) Non-Reactive Normal Nonreactive [facility] Comment on above: Order Comment: Speci men Type: BLOOD SPECIMEN [facility] Address: [address] [place] [address] Performed By: #### 2 276-4, 65647-6 #### [facility] CLIA [id number] [address] [place] [address] [place] Reagin+T pallidum IgG+IgM Se rPl-Impon 05-01-2024 Reagin and Treponema pallidum IgG and IgM [Interp] Cannot exclude recent Treponemal infection if specimen collected within 7-10 days after appearance of suspect lesions or 2-3 weeks after an exposure. Clinical correlation is required. [facility] Comment on above: Order Comment: Speci men Type: BLOOD SPECIMEN [facility] Address: [address] [place] [address] Performed By: #### 2 276-4, 33034-8 #### [facility] CLIA [id number] [address] [place] [address] [place] TSH SerPl-aCncon 05-01-2024 TSH Qn 0.494 m[IU]/L Normal 0.270-4.200 [facility] Comment on above: Order Comment: Speci rickey Type: BLOOD SPECIMEN [facility] Address: [address] [place] [address] Result Comment: If t he patient is , TSH reference range varies by gestational period: First Trimester (weeks 9-12): 0.180-2.990 mIU/L Second Trimester: 0.110-3.980 mIU/L Third Trimester: 0.480-4.710 mIU/L Mynor Monsivais et al. A Practical Approach for the Verifications and Determination of Site- and Trimester-Specific Reference Intervals for Thyroid Function tests in . Thyroid, 2019:29:3:412-420. Earl E, et al. 2017 Guidelines of the [place] Thyroid Association for the Diagnosis and Management of Thyroid Disease during and the . Thyroid, 2017:27:3:315-389. Performed By: #### 2 276-4, 64523-4 #### [facility] CLIA [id number] [address] [place] [address] [place] TYPE + SCREEN PRENATALon ABO AB [facility] Comment on above: Order Comment: Tray lang Type: BLOOD SPECIMEN [facility] Address: [address] [place] [address] Performed By: #### 2 276-4, 91628-5 #### [facility] CLIA [id number] [address] [place] [address] [place] Rh Nom (Bld) Positive [facility] Comment on above: Order Comment: Speci rickey Type: BLOOD SPECIMEN [facility] Address: [address] [place] [address] Performed By: #### 2 276-4, 33509-8 #### [facility] CLIA [id number] [address] [place] [address] [place] TYPE AND SCREEN EXPIRATION 05/04/2024 23:59 [facility] Comment on above: Order Comment: Speci men Type: BLOOD SPECIMEN [facility] Address: [address] [place] [address] Performed By: #### 2 276-4, 85971-4 #### [facility] CLIA [id number] [address] [place] [address] [place] [address] [place] Lashay 04-28-2024 CNPN Telephone (OBGYWM) GEENA PEDRO ([id number]) 1990 F Date Time Provider Department 04/28/24 PAT HADDAD OBFLORECITA During your visit today, we recorded the following information about you: Zoila Sotelo 04/28/2024 12:56 PM Signed Patient calling to request lab order for carrier screening and genetic testing as was discussed during initial OB visit. Please notify patient when orders are available for scheduling. She is wanting to have labs completed on 05/01/24. Dea Putnam RN 04/28/2024 1:41 PM Signed See [employer] message from 04/28/24. Dea Putnam RN Allergies As of Date: 04/28/2024 (No Known Allergies) Date Reviewed: 04/14/2024 Reviewed by: Pat Haddad APRN.SPORTS PHYSICAL THERAPIST - Fully Assessed Reason for Visit: Lab Orders [1688] Prescriptions as of 04/28/2024 - aspirin, enteric coated (ECOTRIN LOW STRENGTH) 81 mg EC tablet Take 1 tablet by mouth once daily. - PNV no.95/ferrous fum/folic ac ( ORAL) Take by mouth. - famotidine (PEPCID) 20 mg tablet Take 1 tablet by mouth two times a day. Problem List As Of Date 04/28/2024 Noted Resolved Plantar fasciitis [M72.2] 07/13/2023 Low serum HDL [R74.8] 08/19/2023 History of obesity [Z86.39] 11/24/2023 Encounter for supervision of normal first pregn*04/14/2024 Nausea and vomiting during [O21.9] 04/14/2024 History of depression [Z86.59] 04/14/2024 Thyroid nodule [E04.1] Heartburn during in first trimester [*04/14/2024 Encounter Status:Closed by DEA PUTNAM on 04/28/24 [facility] Bacteria Ur Culton Bacteria identified Cx Nom (U) CULTURE, URINE: No growth (<1,000 CFU/ml) [facility] Comment on above: Performed By: #### 6 30-4 ####[facility] LABCLIA [id number] [place] [address] [place] C. trachomatis+N. gonorrhoea e DNA ADELAIDE+probe Ql (Unsp spec)on 04-14-2024 C. trachomatis rRNA ADELAIDE+probe Ql (Unsp spec) Not detected Normal Not detected [facility] Comment on above: Order Comment: Speci men Type: BLOOD SPECIMEN [facility] Address: [address] [place] [address] Performed By: #### 2 276-4, 43569-9 #### [facility] CLIA [id number] [address] [place] [address] [place] N. gonorrhoeae rRNA ADELAIDE+probe Ql (Unsp spec) Not detected Normal Not detected [facility] Comment on above: Order Comment: Speci men Type: BLOOD SPECIMEN [facility] Address: [address] [place] [address] Performed By: #### 2 276-4, 26626-9 #### [facility] CLIA [id number] [address] [place] [address] [place] POC LIVESTOCK FEEDER ULTRASOUNDon 04-14-19 Indication Viability; confirm cardiac activity Impression Single intrauterine gestational sac, CRL is appropriate for clinical dates, corresponding to DIANE 11/17/2024 cardiac activity is visualized Recommendations Follow up for NT scan if desired Method Transabdominal ultrasound examination, Transvaginal ultrasound examination. View: Adequate visualization Hernandez . Number of embryos: 1 Dating LMP on: 02/11/2024 GA by LMP 9 w + 0 d DIANE by LMP: 11/17/2024 Ultrasound examination on: 04/14/2024 GA by U/S based upon: CRL GA by U/S 9 w + 0 d DIANE by U/S: 11/17/2024 Assigned: based on the LMP, selected on 04/14/2024 Assigned GA 9 w + 0 d Assigned DIANE: 11/17/2024 Biometry Standard FHR 170 bpm CRL 23.1 mm 9w 0d 59% Hadlock Assessment Gestational sac: visualized Location: intrauterine Yolk sac: visualized Embryo: visualized CRL 23.1 mm 9w 0d 59% Hadlock Cardiac activity: present FHR 170 bpm General Evaluation Cardiac activity present. FHR 170 bpm Performed By: Pat Haddad NP Read By: Pat Haddad NP MATERNAL MEDICINE [facility] Radiology Study observation (narrative) [facility] L/S Spine Bending Flex/Filer 03-17-2024 L/S Spine Bending Flex/Ext [facility] [address] [place] [address] L/S Spine Bending Flex/Ext MR#: [id number] Acct: [id number] Name: GEENA PEDRO Rep #: [id number] : 1990 F 33 From: Houston Huerta MD PCP: Dr. Dwaine Russell MD Status: DEP AMB Study: L/S Spine Bending Flex/Ext Date of Exam: 03/17 Exam# [id number] Ordering Dr: Concepcion Shaw [id number] STUDY: X-RAY - LUMBAR SPINE REASON FOR EXAM: Female, 33 years old. pain -- flex/ext TECHNIQUE: 2 view(s) of the lumbar spine were obtained. COMPARISON: None FINDINGS: Normal lumbar lordosis. There is no substantial scoliosis. There is a normal alignment of the vertebrae. No subluxation on flexion or extension views to suggest instability. Normal vertebral bodies and endplates. Normal disc space heights. The soft tissue structures are unremarkable. RAD/L/S Spine Bending Flex/Ext IMPRESSION: No instability. Electronically Signed: Houston Huerta MD at 13:37 EST , CC: [facility]; Dr. Dwaine Russell MD Accounts Receivable Collector: Signed Normal [facility] Orthopedic Visit Reporton Orthopedic Visit Report [facility] [address] [place] [address] OFFICE VISIT Date of Service: 03/17/24 MR#: [id number] Acct: [id number] Name: GEENA PEDRO Rep #: [id number] : 1990 Provider: Dr. Giovany Thakur MD Age/Sex: 33/F Location[facility] Status: Signed Intake Vital Signs 03/17/24 13:34 Height 5 ft 2 in Weight: 156 lb 4 oz BMI 28.5 Intake Visit Reasons: LUMBAR SPINE Chief Complaint: Lumbar/sciatic pain Accompanied by: Self Is patient in pain?: Yes (5) Allergies Environmental Allergies: Uncoded (seasonal) Allergy (Verified 03/17/24 13:35) Other Medications ???Medication ???Instructions ???Recorded ???Confirmed ???Type cetirizine 10 mg capsule (Zyrtec) 10 mg PO QDAY PRN 03/17/24 03/17/24 History PFSH Social History (Updated 03/17/24 @ 13:36 by Moriah Garcia) Smoking Status: Never smoker alcohol intake: never HPI LUMBAR SPINE Details: This documentation accurately reflects the service provided and the decisions made by me, Dr. Giovany Thakur MD 03/17/24 1321. Part of today???s visit was documented by Moriah Taylor ATC, acting as scribe. GEENA PEDRO is a 33 year old F here today for lumbar spine pain. Patient states she rarely has pain/tightness in the lumbar spine but it is mostly her sciatic that is bothering her. Patient states this started about April/May 2023. She states she was having some foot issues on the right foot so she started with a pharmacovigilance scientist and then tried child care associate. Patient has been getting massages about every 2 weeks. She states she has had sciatic issues in the past and has bothered her about 2-3 years but very mild. She states the pain has been on and off but was really bad from about July-September. She states since October it has been better and not been flared up all of the time. She is in the most pain at night and has trouble going to sleep and she really notices it when driving in a car. Patient states when she is up walking around the pain is not too bad. Patient states most of the pain is on the right side and not too bad on the left. Patient states she gets shooting pain, numbness and tingling at times. She states if it is flared up she notices it is worse. She applies ice at night to help her sleep and she occasionally takes sleeping pills to try and help her sleep. Patient denies any injections. She has done physical therapy for some foot issues she was having and it did help the pain a little bit. She was given stretches from a chiropractor and she tries to do those on her own. The chiropractor also did traction adjustments. Patient denies any surgeries to the back in the past. Patient states she will take Ibuprofen at times for the pain if it is really bad. Ortho Exam General General: Yes no acute distress Neurologic: Yes alert and Yes oriented x3 Spine SPINE TESTING CERVICAL THORACIC LUMBAR Musculoskeletal Strength 0=absent - 5=normal Details: Neurological exam of the lower extremities shows 5x5 power. Normal sensations across all dermatomes. No hyperreflexia. No midline or paraspinal tenderness. Passive straight leg positive bilaterally. Pain with extension. Coding Level of Care Code Off vis,new,level 4 Diagnoses Other intervertebral disc degeneration, lumbar region with discogenic back pain and lower extremity pain M51.362 Time Spent (min) 45 Assessment and Plan Assessment and Plan (1) Other intervertebral disc degeneration, lumbar region with discogenic back pain and lower extremity pain: Status: Acute Orders: Orders L/S Spine Bending Flex/Ext Today ED [facility] M54.50 - Low back pain, unspecified Spine Lumbar (Routine) Today Dr. Giovany Thakur MD M54.16 - Radiculopathy, lumbar region Plan Obtained and reviewed flexion/extension xrays today with the patient and reviewed prior xrays. Xrays shows an extra lumbar vertebrae. Lowermost mobile segment L5-S1 shows reduced disc height. No obvious instability on flexion-extension. Explained imaging findings in detail. She seems to have developed radiculopathy related to the lowermost segment. She also has transitional lumbosacral anatomy. She has had almost a year of this radicular back pain and has tried multiple different treatments such physical therapy at the beginning of the year and has seen the chiropractor who gave her at home stretches to complete on her own which she has done daily for the last several months. At this time, recommend that she get an MRI to further assess. She will follow up after the MRI to review the results. Patient is in agreement. 03/17/24 1556 Date Giovany Thakur MD [facility] Signature: Date (if applicable) (more content not included)... Normal [facility] CV [facility] CV ARTERIAL BILAT LOWER [place] [id number] Patient: GEENA PEDRO Phone#: : 1990 Age: 33 Gender: F Pt. Type: Out Account: [id number] Location: Ordering: DANIELA CARO Exam Date: 12/20/2023/8:49 Family Phys: ROSARIO MALDONADO Charge Code: 113679 Physician: Haines Order #: [id number] Dose#: PROCEDURE: ARTERIAL BILAT LOWER MULTIPLE PHYSIOLOGY COMPARISON: None. INDICATIONS: RAYNAUDS EVALUATION TECHNIQUE: Resting continuous-wave Doppler recordings were obtained from the femoral, popliteal, tibial and dorsalis pedis arteries. Resting volume pulse recordings and segmental limb pressures were obtained at the upper thigh, lower thigh, upper calf and ankle levels. CONTINUOUS-WAVE DOPPLER RIGHT LEFT Femoral Artery Triphasic Triphasic Popliteal Artery Triphasic Triphasic Posterior Tibial Artery Triphasic Triphasic Dorsalis Pedis Triphasic Triphasic VOLUME PULSE RECORDINGS RIGHT LEFT Upper Thigh Normal Normal Lower Thigh Normal Normal Calf Normal Normal Ankle Normal Normal Toe (PPG) Normal Normal SEGMENTAL SYSTOLIC LIMB PRESSURES RIGHT (mmHg) LEFT (mmHg) Brachial: 143 143 Lower thigh: 165 167 Calf: 168 162 Ankle (DPA): 178 175 Ankle (PLASTICS FITTER): 190 172 ANKLE BRACHIAL INDEX RIGHT LEFT Continued Report - Page 2 of 2 Patient: GEENA PEDRO Phone#: : 1990 Age: 33 Gender: F Pt. Type: Out Account: [id number] Location: Ordering: DANIELA CARO Exam Date: 12/20/2023/8:49 Family Phys: ROSARIO MALDONADO Charge Code: 222846 Physician: Haines Order #: [id number] Dose#: [id number] 1.22 Dial Brusher: DENA RATLIFF RVT RCS FINDINGS: Right Lower Extremity: The right lower extremity demonstrates normal triphasic Doppler signals at the common femoral, proximal femoral, popliteal, posterior tibial, and dorsalis pedis arteries. Volume pulse recordings are normal throughout the extremity demonstrating a sharp systolic peak and prominent dicrotic notch. There are no significant pressure differentials in the segmental limb pressures when comparing side to side or from level to level. PPG waveform from the great digit was normal. Left Lower Extremity: The left lower extremity demonstrates normal triphasic Doppler signals at the common femoral, proximal femoral, popliteal, posterior tibial, and dorsalis pedis arteries. Volume pulse recordings are normal throughout the extremity demonstrating a sharp systolic peak and prominent dicrotic notch. There are no significant pressure differentials in the segmental limb pressures when comparing side to side or from level to level. PPG waveform from the great digit was normal. Waveform is diminished at the 2nd, 3rd and 4th digits bilaterally head rest. Immediately post cold water bat there is diminished waveform at all digits. At 3 minutes waveform is present at the right 5th digit. At 5 minutes there is waveform present at the right 1st and 5th digit. At 10 minutes returned waveform is present at the right 1st and 5th digit and left 5th digit. CONCLUSION: 1. Prior to cold bath or margin triphasic waveform is present. PAWAN is normal bilaterally. 2. Following cold water bath there is reduced absent waveform at all levels. At 10 minutes waveform is present at the right 1st and 5th digit and left 5th digit. Dictated by: Billie Patel MD on 12/20/2023 at 12:43 Approved by: Billie Patel MD on 12/20/2023 at 12:47 Normal [facility] XR FOOT RIGHT 3+ VIEWS (GENE DARD)on 06-30-2023 XR FOOT RIGHT 3+ VIEWS (STANDARD) No fractures no dislocations no subluxations patient is with a midline none cavus none pes planovalgus foot structure. TN joint is intact with appropriate calcaneal inclination angle. Dictated by: ISMAEL JOINER on WedJun 30, 2023 5:13:32 PM EDT Transcribed by: ISMAEL JOINER on WedJun 30, 2023 5:13:32 PM EDT Finalized by: ISMAEL JOINER on WedJun 30, 2023 5:13:32 PM EDT Normal [facility] Comment on above: Order Comment: Injur y/Trauma or Illness?:Illness/Other How long have you had these symptoms (acute/chronic)?:Chronic Reason for exam?:pain History of cancer?:no Surgeries, chemotherapy, or radiation?:no Type of Exam?:Initial Additional signs and symptoms?:no T4, FREEon 02-21-2022 Free T4 [Mass/Vol] 0.9 ng/dL Normal 0.8-1.8 [facility] Comment on above: Performed By: #### 8 38, 126 #### [facility] [address], [address] [place] [id number] Administrative Assistant Front Desk: Kevin Amaro MD TSHon 02-21-2022 TSH Qn 1.09 m[IU]/L Normal [facility] Comment on above: Result Comment: Refe rence Range > or = 20 Years 0.40-4.50 Ranges First trimester 0.26-2.66 Second trimester 0.55-2.73 Third trimester 0.43-2.91 Performed By: #### 8 66, 217 #### [facility] [address], [address] [place] [address] Administrative Assistant Front Desk: Kevin Amaro MD Laboratory - Chemistry and C hemistry - challengeon 02-19-2022 Free T4 [Mass/Vol] 0.9 ng/dL Normal 0.8 - 1.8 ng/dL [facility] TSH Qn 1.09 m[IU]/L Normal [facility], [facility] Hep Bs Abon 10-04-2018 Hep Bs Ab Reactive Normal [facility] Comment on above: Result Comment: Non Reactive: Inconsistent with immunity, less than 10 mIU/mL Reactive: Consistent with immunity, greater than 9.9 mIU/mL Performed At: [facility] [id number] Aneglique Velasquez PhD Ph:[phone] Performed By: #### 2 [id number] #### [facility] Send Outs Subsection [address] [place] [address] Hep C Abon 10-04-2018 Hep C Ab <0.1 Normal 0.0-0.9 [facility] Comment on above: Result Comment: Nega tive: < 0.8 Indeterminate: 0.8 - 0.9 Positive: > 0.9 The CDC recommends that a positive HCV antibody result be followed up with a HCV Nucleic Acid Amplification test (957569). Performed At: [facility] [address] [place], [place] [id number] Angelique Velasquez PhD Ph:[phone] Performed By: #### 2 [id number] #### JACOB Send Outs Subsection [address] [place] [address] HIV-1/2 Ag/Abon 10-03-2018 HIV Combo Internal Control Line Reactive Normal Reactive [facility] Comment on above: Performed By: #### 6 [id number] #### JACOB Chemistry Manual Subsection [address] [place] [address] HIV-1 & HIV-2 Antibodies Non-Reactive Normal Non-Reactive [facility] Comment on above: Performed By: #### 6 [id number] #### JACOB Chemistry Manual Subsection [facility] [place] [address] HIV-1 p-24 Antigen Non-Reactive Normal Non-Reactive [facility] Comment on above: Performed By: #### 6 [id number] #### JACOB Chemistry Manual Subsection [address] [place] [address] HIV-1/2 Ag/Ab Interp Negative Normal Negative [facility] Comment on above: Performed By: #### 6 [id number] #### JACOB Chemistry Manual Subsection [facility] [place] [address] Laboratory - Chemistry and C hemistry - challengeon 08-09-2015 Bilirubin Ql (U) Negative Normal [facility] [employer]. Ketones Ql (U) Negative Normal May [facility] [employer].; [employer], [employer]. pH (U) 6.5 [pH] Normal [employer]. Specific gravity (U) [Rel density] 1.020 Normal [employer]. Urobilinogen Qn (U) 0.2 mg/dL Normal [facility].; [employer]. Laboratory - Hematology and Cell countson 08-09-2015 Hemoglobin Ql (U) trace, hemolyzed Abnormal [facility].; [employer]. Laboratory - Microbiology an d Antimicrobial susceptibilityon 08-09-2015 Bacteria identified Cx Nom (U) Normal [employer]. Laboratory - Specimen inform ationon 08-09-2015 Appearance (U) clear Normal [place] [facility] [employer].; [employer], [employer]. Color (U) yellow Normal [employer]. Specimen source Nom (Unsp spec) [id number] Normal [employer]. Laboratory - Urinalysison Glucose Test strip (U) [Mass/Vol] Negative Normal [facility] May [facility]. Leukocyte esterase Test strip Ql (U) small Abnormal [facility].; May [facility]. Nitrite Ql (U) - Normal [facility] [employer]. Protein Ql (U) Negative Normal [facility] [employer]. Laboratory - Microbiology an d Antimicrobial susceptibilityon 01-12-2014 HBV surface Ab IA Qn 684 m[IU]/mL Normal [facility] [employer]. No Panel Informationon 09-06 SKIN TEST INTRADERMAL TB Negative Normal [facility].; May [facility]. Laboratory - Microbiology an d Antimicrobial susceptibilityon 08-23-2013 MeV IgG IA Qn (S) {index_val} Normal [facility] [employer]. MuV IgG IA Qn (S) 4.56 {INDEX} Normal [facility] [place].; [employer]. Rubella virus IgG Qn (S) 3.61 [IU]/mL Normal [facility].; [employer]. VZV IgG IA Qn (S) 1.63 {INDEX} Normal [facility] [employer]. No Panel InformationOrdered By: Ann Alicea on 08-23-2013 SKIN TEST INTRADERMAL TB Negative Normal [facility].; [employer] Vital Signs Date Time Vital Sign Value Performing Clinician Facility 10-31-2024 14:02-0400 Body mass index (BMI) [Ratio] 30.02 kg/m2 Kenyatta Guzman MD Work Phone: [facility] 10-31-2024 14:02040 Body weight 77.84 kg Kenyatta Guzman MD Work Phone: [facility] 10-31-2024 14:020400 Diastolic blood pressure 70 mm[Hg] Kenyatta Guzman MD Work Phone: [facility] 10-31-2024 14:02-0400 Systolic blood pressure 110 mm[Hg] Kenyatta Guzman MD Work Phone: [facility] 10-27-2024 15:41-0400 Body mass index (BMI) [Ratio] 29.92 kg/m2 Dena Carter MD Work Phone: [facility] 10-27-2024 15:41-0400 Body weight 77.56 kg Dena Carter MD Work Phone: [facility] 10-27-2024 15:41-0400 Diastolic blood pressure 72 mm[Hg] Dena Carter MD Work Phone: [facility] 10-27-2024 15:41-0400 Systolic blood pressure 118 mm[Hg] Dena Carter MD Work Phone: [facility] 10-20-2024 13:27-0400 Body mass index (BMI) [Ratio] 29.64 kg/m2 Katrin Clark MD Work Phone: [facility] 10-20-2024 13:27-0400 Body weight 76.84 kg Katrin Clark MD Work Phone: [facility] 10-20-2024 13:27-0400 Diastolic blood pressure 80 mm[Hg] Katrin Clark MD Work Phone: [facility] 10-20-2024 13:27-0400 Systolic blood pressure 118 mm[Hg] Katrin Clark MD Work Phone: [facility] 10-06-2024 13:07-0400 Body mass index (BMI) [Ratio] 29.6 kg/m2 Dena Carter MD Work Phone: [facility] 10-06-2024 13:07-0400 Body weight 76.75 kg Dena Carter MD Work Phone: [facility] 10-06-2024 13:07-0400 Diastolic blood pressure 70 mm[Hg] Dena Carter MD Work Phone: [facility] 10-06-2024 13:07-0400 Systolic blood pressure 110 mm[Hg] Dena Carter MD Work Phone: [facility] 09-22-2024 15:25-0400 Body mass index (BMI) [Ratio] 29.43 kg/m2 Dena Carter MD Work Phone: [facility] 09-22-2024 15:25-0400 Body weight 76.3 kg Dena Carter MD Work Phone: [facility] 09-22-2024 15:25-0400 Diastolic blood pressure 70 mm[Hg] Dena Carter MD Work Phone: [facility] 09-22-2024 15:25-0400 Systolic blood pressure 110 mm[Hg] Dena Carter MD Work Phone: [facility] 09-18-2024 15:25-0400 Body temperature 98.4 [degF] Treatment Wstr Work Phone: [facility] 09-18-2024 15:25-0400 Diastolic blood pressure 72 mm[Hg] Treatment Wstr Work Phone: [facility] 09-18-2024 15:25-0400 Heart rate 91 /min Treatment Wstr Work Phone: [facility] 09-18-2024 15:25-0400 SaO2% (BldA) [Mass fraction] 100 % Treatment Wstr Work Phone: [facility] 09-18-2024 15:25-0400 Systolic blood pressure 114 mm[Hg] Treatment Wstr Work Phone: [facility] 09-15-2024 14:00-0400 Body temperature 98.2 [degF] Treatment Wstr Work Phone: [facility] 09-15-2024 14:00-0400 Diastolic blood pressure 80 mm[Hg] Treatment Wstr Work Phone: [facility] 09-15-2024 14:00-0400 Heart rate 96 /min Treatment Wstr Work Phone: [facility] 09-15-2024 14:00-0400 Respiratory rate 18 /min Treatment Wstr Work Phone: [facility] 09-15-2024 14:00-0400 SaO2% (BldA) [Mass fraction] 100 % Treatment Wstr Work Phone: [facility] 09-15-2024 14:00-0400 Systolic blood pressure 118 mm[Hg] Treatment Wstr Work Phone: [facility] 09-11-2024 10:57-0400 Body temperature 98.29 [degF] Treatment Wstr Work Phone: [facility] 09-11-2024 10:57-0400 Diastolic blood pressure 80 mm[Hg] Treatment Wstr Work Phone: [facility] 09-11-2024 10:57-0400 Heart rate 85 /min Treatment Wstr Work Phone: [facility] 09-11-2024 10:57-0400 Respiratory rate 16 /min Treatment Wstr Work Phone: [facility] 09-11-2024 10:57-0400 SaO2% (BldA) [Mass fraction] 97 % Treatment Wstr Work Phone: [facility] 09-11-2024 10:57-0400 Systolic blood pressure 115 mm[Hg] Treatment Wstr Work Phone: [facility] 09-08-2024 14:49-0400 Body mass index (BMI) [Ratio] 29.08 kg/m2 Dena Carter MD Work Phone: [facility] 09-08-2024 14:49-0400 Body weight 75.39 kg Dena Carter MD Work Phone: [facility] 09-08-2024 14:49-0400 Diastolic blood pressure 70 mm[Hg] Dena Carter MD Work Phone: [facility] 09-08-2024 14:49-0400 Systolic blood pressure 120 mm[Hg] Dena Carter MD Work Phone: [facility] 09-05-2024 08:01-0400 Body height 161 cm Trudy Zapata CHANEL [facility] 09-05-2024 08:01-0400 Body mass index (BMI) [Ratio] 28.87 kg/m2 Trudy Zapata CHANEL [facility] 09-05-2024 08:010400 Body weight 74.84 kg Trudy Zapata CHANEL [facility] 08-25-2024 15:29-0400 Body mass index (BMI) [Ratio] 28.87 kg/m2 Raquel French NET APPLICATION ARCHITECT.CNM Work Phone: [facility] 08-25-2024 15:29-0400 Body weight 74.84 kg Raquel French NET APPLICATION ARCHITECT.CNM Work Phone: [facility] 08-25-2024 15:29-0400 Diastolic blood pressure 72 mm[Hg] Raquel French NET APPLICATION ARCHITECT.CNM Work Phone: [facility] 08-25-2024 15:29-0400 Heart rate 100 /min Raquel French NET APPLICATION ARCHITECT.CNM Work Phone: [facility] 08-25-2024 15:29-0400 Systolic blood pressure 116 mm[Hg] Raquel French NET APPLICATION ARCHITECT.CNM Work Phone: [facility] 08-15-2024 13:55-0400 Body mass index (BMI) [Ratio] 28.49 kg/m2 Alex Schofield MD Work Phone: [facility] 08-15-2024 13:55-0400 Body weight 73.85 kg Alex Schofield MD Work Phone: [facility] 08-15-2024 13:55-0400 Diastolic blood pressure 72 mm[Hg] Alex Schofield MD Work Phone: [facility] 08-15-2024 13:55-0400 Systolic blood pressure 120 mm[Hg] Alex Schofield MD Work Phone: [facility] 07-28-2024 14:49-0400 Body mass index (BMI) [Ratio] 28.24 kg/m2 Dena Carter MD Work Phone: [facility] 07-28-2024 14:49-0400 Body weight 73.21 kg Dena Carter MD Work Phone: [facility] 07-28-2024 14:49-0400 Diastolic blood pressure 70 mm[Hg] Dena Carter MD Work Phone: [facility] 07-28-2024 14:49-0400 Systolic blood pressure 122 mm[Hg] Dena Carter MD Work Phone: [facility] 06-30-2024 16:10-0400 Body mass index (BMI) [Ratio] 27.12 kg/m2 Dena Carter MD Work Phone: [facility] 06-30-2024 16:10-0400 Body weight 70.31 kg Dena Carter MD Work Phone: [facility] 06-30-2024 16:10-0400 Diastolic blood pressure 64 mm[Hg] Dena Carter MD Work Phone: [facility] 06-30-2024 16:10-0400 Systolic blood pressure 104 mm[Hg] Dena Carter MD Work Phone: [facility] 06-08-2024 15:46-0500 Body mass index (BMI) [Ratio] 26.63 kg/m2 Dena Carter MD Work Phone: [facility] 06-08-2024 15:46-0500 Body weight 69.04 kg Dena Carter MD Work Phone: [facility] 06-08-2024 15:46-0500 Diastolic blood pressure 70 mm[Hg] Dena Carter MD Work Phone: [facility] 06-08-2024 15:46-0500 Systolic blood pressure 110 mm[Hg] Dena Carter MD Work Phone: [facility] 05-05-2024 08:57-0500 Body mass index (BMI) [Ratio] 26.6 kg/m2 Alex Schofield MD Work Phone: [facility] 05-05-2024 08:57-0500 Body weight 68.95 kg Alex Schofield MD Work Phone: [facility] 05-05-2024 08:57-0500 Diastolic blood pressure 76 mm[Hg] Alex Schofield MD Work Phone: [facility] 05-05-2024 08:57-0500 Systolic blood pressure 122 mm[Hg] Alex Schofield MD Work Phone: [facility] 04-14-2024 14:06-0500 Body height 161 cm Pat Hagary NET APPLICATION ARCHITECT.SPORTS PHYSICAL THERAPIST Work Phone: [facility] 04-14-2024 14:06-0500 Body mass index (BMI) [Ratio] 26.77 kg/m2 Pat Haury NET APPLICATION ARCHITECT.SPORTS PHYSICAL THERAPIST Work Phone: [facility] 04-14-2024 14:06-0500 Body weight 69.4 kg Pat Hagary NET APPLICATION ARCHITECT.SPORTS PHYSICAL THERAPIST Work Phone: [facility] 04-14-2024 14:06-0500 Diastolic blood pressure 60 mm[Hg] Pat Haury NET APPLICATION ARCHITECT.SPORTS PHYSICAL THERAPIST Work Phone: [facility] 04-14-2024 14:06-0500 Systolic blood pressure 122 mm[Hg] Pat Haury NET APPLICATION ARCHITECT.SPORTS PHYSICAL THERAPIST Work Phone: [facility] 02-29-2024 16:03-0500 Body mass index (BMI) [Ratio] 25.74 kg/m2 Anabelle Goldman APRN.SPORTS PHYSICAL THERAPIST Work Phone: [facility] 02-29-2024 16:03-0500 Body weight 64.86 kg Anabelle Goldman APRN.SPORTS PHYSICAL THERAPIST Work Phone: [facility] 02-29-2024 16:03-0500 Diastolic blood pressure 83 mm[Hg] Anabelle Goldman APRN.SPORTS PHYSICAL THERAPIST Work Phone: [facility] 02-29-2024 16:03-0500 Heart rate 97 /min Anabelle Goldman APRN.SPORTS PHYSICAL THERAPIST Work Phone: [facility] 02-29-2024 16:03-0500 Systolic blood pressure 132 mm[Hg] Anabelle Goldman APRN.SPORTS PHYSICAL THERAPIST Work Phone: [facility] 11-24-2023 16:35-0400 Body mass index (BMI) [Ratio] 25.56 kg/m2 Anabelle Goldman APRN.SPORTS PHYSICAL THERAPIST Work Phone: [facility] 11-24-2023 16:35-0400 Body weight 64.41 kg Anabelle Goldman APRN.SPORTS PHYSICAL THERAPIST Work Phone: [facility] 11-24-2023 16:35-0400 Diastolic blood pressure 88 mm[Hg] Anabelle Goldman APRN.SPORTS PHYSICAL THERAPIST Work Phone: [facility] 11-24-2023 16:35-0400 Heart rate 82 /min Anabelle Goldman APRN.SPORTS PHYSICAL THERAPIST Work Phone: [facility] 11-24-2023 16:35-0400 Systolic blood pressure 138 mm[Hg] Anabelle Goldman APRN.SPORTS PHYSICAL THERAPIST Work Phone: [facility] 08-19-2023 16:04-0400 Body mass index (BMI) [Ratio] 26.46 kg/m2 Anabelle Goldman APRN.SPORTS PHYSICAL THERAPIST Work Phone: [facility] 08-19-2023 16:04-0400 Body weight 66.68 kg Anabelle Goldman APRN.SPORTS PHYSICAL THERAPIST Work Phone: [facility] 08-19-2023 16:04-0400 Diastolic blood pressure 80 mm[Hg] Anabelle Goldman APRN.SPORTS PHYSICAL THERAPIST Work Phone: [facility] 08-19-2023 16:04-0400 Heart rate 90 /min Anabelle Goldman APRN.SPORTS PHYSICAL THERAPIST Work Phone: [facility] 08-19-2023 16:04-0400 SaO2% (BldA) [Mass fraction] 100 % Anabelle Goldman APRN.SPORTS PHYSICAL THERAPIST Work Phone: [facility] 08-19-2023 16:04-0400 Systolic blood pressure 112 mm[Hg] Anabelle Goldman APRN.SPORTS PHYSICAL THERAPIST Work Phone: [facility] 06-30-2023 15:33-0400 Body temperature 98.6 [degF] Ismael Marisel Patterson., DPM Work Phone: [facility] 06-30-2023 15:33-0400 Diastolic blood pressure 90 mm[Hg] Ismael Marisel Patterson., DPM Work Phone: [facility] 06-30-2023 15:33-0400 Heart rate 83 /min Ismael Marisel Patterson., DPM Work Phone: [facility] 06-30-2023 15:33-0400 Systolic blood pressure 131 mm[Hg] Ismael Marisel Patterson., DPM Work Phone: [facility] 05-19-2023 15:35-0500 Body weight 70.22 kg Anabelle Goldman APRN.SPORTS PHYSICAL THERAPIST Work Phone: [facility] 05-19-2023 15:35-0500 Diastolic blood pressure 78 mm[Hg] Anabelle Goldman APRN.SPORTS PHYSICAL THERAPIST Work Phone: [facility] 05-19-2023 15:35-0500 Heart rate 89 /min Anabelle Goldman APRN.SPORTS PHYSICAL THERAPIST Work Phone: [facility] 05-19-2023 15:35-0500 SaO2% (BldA) [Mass fraction] 100 % Anabelle Goldman APRN.SPORTS PHYSICAL THERAPIST Work Phone: [facility] 05-19-2023 15:35-0500 Systolic blood pressure 110 mm[Hg] Anabelle Goldman APRN.SPORTS PHYSICAL THERAPIST Work Phone: [facility] 02-02-2023 15:19-0400 Body weight 75.39 kg Anabelle Goldman APRN.SPORTS PHYSICAL THERAPIST Work Phone: [facility] 02-02-2023 15:19-0400 Diastolic blood pressure 70 mm[Hg] Anabelle Goldman APRN.SPORTS PHYSICAL THERAPIST Work Phone: [facility] 02-02-2023 15:19-0400 Heart rate 83 /min Anabelle Goldman APRN.SPORTS PHYSICAL THERAPIST Work Phone: [facility] 02-02-2023 15:19-0400 SaO2% (BldA) [Mass fraction] 99 % Anabelle Goldman APRN.SPORTS PHYSICAL THERAPIST Work Phone: [facility] 02-02-2023 15:19-0400 Systolic blood pressure 108 mm[Hg] Anabelle Goldman APRN.SPORTS PHYSICAL THERAPIST Work Phone: [facility] 02-19-2022 10:44-0500 Body height 159.38 cm Vee Girard [facility].; [employer] [facility]. 02-19-2022 10:44-0500 Body mass index (BMI) [Ratio] 30 kg/m2 Vee Girard [facility].; [facility]. 02-19-2022 10:44-0500 Body surface area Derived from formula 1.79 m2 Vee Girard MA [facility].; [facility] [facility] [place] [facility]. 02-19-2022 10:44-0500 Body weight 76.2 kg Vee Girard [facility].; [employer] [facility]. 02-19-2022 10:44-0500 Diastolic blood pressure 83 mm[Hg] Vee Girard MA [facility].; [employer]. Comment on above: Patient Position: Sitting; Cuff Location : Left Arm; Cuff Size: Standard 02-19-2022 10:44-0500 Heart rate 73 /min Vee Girard MA [facility].; [employer]. Comment on above: Pattern: Regular 02-19-2022 10:44-0500 Systolic blood pressure 119 mm[Hg] Vee Girard MA [facility].; [employer]. Comment on above: Patient Position: Sitting; Cuff Location : Left Arm; Cuff Size: Standard 08-08-2021 15:03-0400 Body height 159.38 cm Rosario Maldonado PA-C Work Phone: [employer].; [employer]. 08-08-2021 15:03-0400 Body mass index (BMI) [Ratio] 29.1 kg/m2 Rosario Maldonado PA-C Work Phone: [employer]; [employer]. 08-08-2021 15:03-0400 Body surface area Derived from formula 1.77 m2 Rosario Maldonado PA-C Work Phone: [employer]; [employer]. 08-08-2021 15:03-0400 Body temperature 98 [degF] Rosario Maldonado PA-C Work Phone: [employer]; [employer] [facility]. 08-08-2021 15:03-0400 Body weight 73.94 kg Rosario Maldonado PA-C Work Phone: [employer]; [employer]. 08-08-2021 15:03-0400 Diastolic blood pressure 79 mm[Hg] Rosario Maldonado PA-C Work Phone: [employer]; [employer]. Comment on above: Patient Position: Sitting; Cuff Location : Right Arm; Cuff Size: Standard 08-08-2021 15:03-0400 Heart rate 78 /min Rosario Maldonado PA-C Work Phone: [employer]; [employer]. Comment on above: Pattern: Regular 08-08-2021 15:03-0400 Systolic blood pressure 123 mm[Hg] Rosario Maldonado PA-C Work Phone: [employer]; [employer]. Comment on above: Patient Position: Sitting; Cuff Location : Right Arm; Cuff Size: Standard 12-23-2020 15:28-0400 Body height 159.38 cm Vee Hollis LPN [facility].; [employer] [facility]. 12-23-2020 15:28-0400 Body mass index (BMI) [Ratio] 27.14 kg/m2 Vee Hollis LPN [employer] [facility].; [employer]. 12-23-2020 15:28-0400 Body surface area Derived from formula 1.72 m2 Vee Hollis LPN [facility], [facility].; [facility], [facility]. 12-23-2020 15:28-0400 Body temperature 99.4 [degF] Vee Hollis LPN [facility], [facility].; [facility] Comment on above: Method: Tympanic 12-23-2020 15:28-0400 Body weight 68.95 kg Vee Hollis LPN [facility], [facility].; [facility], [facility]. 12-23-2020 15:28-0400 Diastolic blood pressure 70 mm[Hg] Vee Hollis LPN [facility], [facility].; [employer], [employer]. Comment on above: Patient Position: Sitting; Cuff Location : Left Arm; Cuff Size: Standard 12-23-2020 15:28-0400 Heart rate 107 /min Vee Hollis LPN [facility], [facility].; [facility] [employer], [employer]. Comment on above: Pattern: Regular 12-23-2020 15:28-0400 Systolic blood pressure 123 mm[Hg] Vee Hollis LPN [facility], [facility].; [facility], [employer]. Comment on above: Patient Position: Sitting; Cuff Location : Left Arm; Cuff Size: Standard 07-19-2020 09:140400 Body height 159.38 cm Vidya Velázquez LPN [facility], [facility].; [facility] 07-19-2020 09:14-0400 Body mass index (BMI) [Ratio] 26.25 kg/m2 Vidya Velázquez LPN [facility], [facility].; [facility], [facility]. 07-19-2020 09:140400 Body surface area Derived from formula 1.69 m2 Vidya Velázquez LPN [facility], [facility].; [facility], [facility]. 07-19-2020 09:140400 Body weight 66.68 kg Vidya Velázquez LPN [facility], [facility].; [employer] 07-19-2020 09:14-0400 Diastolic blood pressure 86 mm[Hg] Vidya Velázquez LPN [facility], [facility].; [employer], [employer]. Comment on above: Patient Position: Sitting; Cuff Location : Left Arm; Cuff Size: Standard 07-19-2020 09:14-0400 Heart rate 78 /min Vidya Macias Eber [facility], [facility].; [employer], [employer]. Comment on above: Pattern: Regular 07-19-2020 09:14-0400 Systolic blood pressure 126 mm[Hg] Vidya Crumplabach AIR SHOVEL OPERATOR [employer] [facility], [facility].; [employer] Comment on above: Patient Position: Sitting; Cuff Location : Left Arm; Cuff Size: Standard 09-06-2019 13:59-0400 Body height 159.38 cm Neilee L Vess AIR SHOVEL OPERATOR [employer] [facility], [employer].; [employer], [employer]. 09-06-2019 13:59-0400 Body mass index (BMI) [Ratio] 22.85 kg/m2 Neilee L Vess AIR SHOVEL OPERATOR [employer] [facility], [facility].; [employer] 09-06-2019 13:59-0400 Body surface area Derived from formula 1.6 m2 Neilee L Vess AIR SHOVEL OPERATOR [employer] [facility], [facility].; [employer] 09-06-2019 13:59-0400 Body weight 58.06 kg Neilee L Vess AIR SHOVEL OPERATOR [employer] [facility], [facility].; [employer], [employer]. 09-06-2019 13:59-0400 Diastolic blood pressure 90 mm[Hg] Neilee L Vess AIR SHOVEL OPERATOR [employer] [facility], [facility].; [employer], [employer]. Comment on above: Patient Position: Sitting; Cuff Location : Left Arm; Cuff Size: Standard 09-06-2019 13:59-0400 Heart rate 89 /min Neilee L Vess AIR SHOVEL OPERATOR [employer], [employer]. Comment on above: Pattern: Regular 09-06-2019 13:59-0400 Systolic blood pressure 132 mm[Hg] Neilee L Vess AIR SHOVEL OPERATOR [employer], [employer]. Comment on above: Patient Position: Sitting; Cuff Location : Left Arm; Cuff Size: Standard 08-07-2019 08:27-0400 Body height 159.38 cm Ann Alicea [facility] [employer], [employer]. 08-07-2019 08:27-0400 Body mass index (BMI) [Ratio] 23.75 kg/m2 Ann Alicea ESTELA [facility].; [employer] 08-07-2019 08:27-0400 Body surface area Derived from formula 1.62 m2 Ann Alicea ESTELA [facility].; [employer] 08-07-2019 08:27-0400 Body weight 60.33 kg Ann Alicea ESTELA [facility].; [employer] 08-07-2019 08:27-0400 Diastolic blood pressure 77 mm[Hg] Ann Alicea AIR SHOVEL OPERATOR [employer] [facility], [facility].; [employer] Comment on above: Patient Position: Sitting; Cuff Location : Left Arm; Cuff Size: Large 08-07-2019 08:27-0400 Heart rate 97 /min Ann Alicea ESTELA [facility], [facility].; [employer] Comment on above: Pattern: Regular 08-07-2019 08:27-0400 Systolic blood pressure 128 mm[Hg] Ann Alicea ESTELA May [employer] [facility], [facility].; [employer] Comment on above: Patient Position: Sitting; Cuff Location : Left Arm; Cuff Size: Large 08-09-2015 11:12-0400 Body height 159.38 cm Dena Ovalle LPN [employer] [facility], [facility].; [employer] 08-09-2015 11:12-0400 Body mass index (BMI) [Ratio] 26.78 kg/m2 Dena Ovalle LPN [employer] [facility], [facility].; [employer] 08-09-2015 11:12-0400 Body surface area Derived from formula 1.71 m2 Dena Ovalle LPN May [employer] [facility], Inc.; [employer] 08-09-2015 11:12-0400 Body weight 68.04 kg Dena Ovalle LPN May [employer] [facility], [facility].; [employer] 08-09-2015 11:12-0400 Diastolic blood pressure 88 mm[Hg] Dena Ovalle LPN [facility] May [employer] [facility], [employer]. Comment on above: Patient Position: Sitting; Cuff Location : Left Arm; Cuff Size: Standard 08-09-2015 11:12-0400 Heart rate 65 /min Dena Yamile PALMER [facility], [facility].; [employer] Comment on above: Pattern: Regular 08-09-2015 11:12-0400 Systolic blood pressure 128 mm[Hg] Dena Jacquesdaniel PALMER [facility].; [employer] Comment on above: Patient Position: Sitting; Cuff Location : Left Arm; Cuff Size: Standard 06-01-2014 09:53-0500 Body height 159.38 cm Dena Ovalle LPN [facility].; [employer] [facility], [facility] 06-01-2014 09:53-0500 Body mass index (BMI) [Ratio] 25.89 kg/m2 Dena Ovalle LPN [facility].; [employer] [facility], [facility] 06-01-2014 09:53-0500 Body surface area Derived from formula 1.68 m2 Denagalen Ovalle LPN [facility], [facility].; [employer] [facility], [employer] 06-01-2014 09:53-0500 Body weight 65.77 kg Dena Wedaniel PALMER [facility].; [employer] [facility], [facility] 06-01-2014 09:53-0500 Diastolic blood pressure 80 mm[Hg] Dena Yamile PALMER [facility].; May [employer], [employer]. Comment on above: Patient Position: Sitting; Cuff Location : Left Arm; Cuff Size: Standard 06-01-2014 09:53-0500 Heart rate 72 /min Dena Yamile PALMER [facility], [facility].; [employer], [employer]. Comment on above: Pattern: Regular 06-01-2014 09:53-0500 Systolic blood pressure 115 mm[Hg] Dena Yamile PALMER [facility].; [employer] Comment on above: Patient Position: Sitting; Cuff Location : Left Arm; Cuff Size: Standard 08-23-2013 13:05-0400 Body height 159.38 cm Mira Andrews RN [employer] [facility].; [employer]. 08-23-2013 13:05-0400 Body mass index (BMI) [Ratio] 24.16 kg/m2 Mira Andrews RN [employer] [facility].; [employer]. 08-23-2013 13:05-0400 Body surface area Derived from formula 1.63 m2 Mira Andrews RN [employer] [facility].; [employer]. 08-23-2013 13:05-0400 Body temperature 98.3 [degF] Mira Andrews RN [employer].; [employer]. Comment on above: Method: Tympanic 08-23-2013 13:05-0400 Body weight 61.37 kg Mira Andrews RN [employer]. 08-23-2013 13:05-0400 Diastolic blood pressure 81 mm[Hg] Mira Andrews RN [employer]. Comment on above: Patient Position: Sitting; Cuff Location : Left Arm; Cuff Size: Standard 08-23-2013 13:05-0400 Heart rate 74 /min Mira Andrews RN [employer]. Comment on above: Pattern: Regular 08-23-2013 13:05-0400 Systolic blood pressure 123 mm[Hg] Mira Andrews RN [employer]. Comment on above: Patient Position: Sitting; Cuff Location : Left Arm; Cuff Size: Standard 04-20-2013 13:55-0500 Body height 157.48 cm Mira Andrews RN May [employer]. 04-20-2013 13:55-0500 Body mass index (BMI) [Ratio] 23.81 kg/m2 Mira Andrews RN [employer]. 04-20-2013 13:55-0500 Body surface area Derived from formula 1.59 m2 Mira Andrews RN [employer]. 04-20-2013 13:55-0500 Body temperature 97.6 [degF] Mira Andrews RN [facility].; [employer] [facility]. Comment on above: Method: Tympanic 04-20-2013 13:55-0500 Body weight 59.06 kg Mira Andrews RN [facility].; [employer]. 04-20-2013 13:55-0500 Diastolic blood pressure 74 mm[Hg] Mira Andrews RN [facility].; May [employer]. Comment on above: Patient Position: Sitting; Cuff Location : Left Arm; Cuff Size: Standard 04-20-2013 13:55-0500 Heart rate 88 /min Mira Andrews RN [facility].; [employer]. Comment on above: Pattern: Regular 04-20-2013 13:55-0500 Systolic blood pressure 111 mm[Hg] Mira Andrews RN [facility].; [employer]. Comment on above: Patient Position: Sitting; Cuff Location : Left Arm; Cuff Size: Standard Encounters Encounter Date Encounter Type Care Provider Facility Start: 11-10-2024 ambulatory Kim Iqbal Facility:[facility] Start: 11-08-2024 End: 11-08-2024 ambulatory Kadie Diana MA [facility] Start: 11-08-2024 End: 11-08-2024 Patient encounter procedure Kadiemegan Diana MA [facility] Comment on above: Population Health Na vigation Outreach (Ob/peds) Start: 10-31-2024 End: 10-31-2024 Patient encounter procedure [employer] Quality Assurance Engineer [facility] [facility] Comment on above: Diet controlled gest ational diabetes mellitus (GDM) in third trimester (HCC) 37 weeks gestation o f (HCC) (Primary Dx); Diet controlled gestational diabetes mellitus (GDM) in third trimester (HCC); Supervision of high risk in third trimester (HCC) Start: 10-31-2024 End: 10-31-2024 ambulatory ROSARIO Michael MALDONADO Facility:[facility] Start: 10-27-2024 End: 10-27-2024 Patient encounter procedure Dena Carter MD Work Phone: OB/Gynecology Comment on above: Supervision of high risk in third trimester (HCC) (Primary Dx); Positive GBS test; Diet controlled gestational diabetes mellitus (GDM) in third trimester (HCC); Anemia during in third trimester (HCC); 37 weeks gestation of (HCC) Start: 10-27-2024 End: 10-27-2024 [facility] Facility:[facility] Start: 10-20-2024 End: 10-20-2024 Patient encounter procedure Katrin Clark MD Work Phone: OB/Gynecology Comment on above: Diet controlled gest ational diabetes mellitus (GDM) in third trimester (HCC) (Primary Dx); 36 weeks gestation of (HCC); Anemia during in third trimester (HCC) Start: 10-20-2024 End: 10-20-2024 [facility] Facility:[facility] Start: 10-06-2024 End: 10-06-2024 Patient encounter procedure Dena Carter MD Work Phone: OB/Gynecology Comment on above: 34 weeks gestation o f (HCC) (Primary Dx); Diet controlled gestational diabetes mellitus (GDM) in third trimester (HCC); Anemia during in third trimester (HCC); Encounter for supervision of normal first in third trimester ([facility]) Start: 10-06-2024 End: 10-06-2024 [facility] Facility:[facility] Start: 09-22-2024 End: 09-22-2024 Patient encounter procedure Dena Carter MD Work Phone: OB/Gynecology Comment on above: 32 weeks gestation o f (HCC) (Primary Dx); Diet controlled gestational diabetes mellitus (GDM) in third trimester (HCC); Anemia during in third trimester (HCC); Encounter for supervision of normal first in third trimester (HCC) Start: 09-22-2024 End: 09-22-2024 [facility] Start: 09-18-2024 End: 09-18-2024 ambulatory Treatment [facility] Work Phone: Hematology/Oncology Comment on above: Malabsorption due to intolerance, not elsewhere classified (Primary Dx); Anemia during in third trimester (HCC) Start: 09-15-2024 End: 09-15-2024 ambulatory Treatment Rm [facility] Work Phone: Hematology/Oncology Comment on above: Malabsorption due to intolerance, not elsewhere classified (Primary Dx); Anemia during in third trimester (HCC) Start: 09-13-2024 End: 09-13-2024 Nursing evaluation of patient and report Jody Rodriguez RN Work Phone: Endocrinology Comment on above: Diet controlled gest ational diabetes mellitus (GDM) in third trimester ([facility]) Start: 09-13-2024 End: 09-13-2024 ambulatory [facility] Facility:[facility] Start: 09-11-2024 End: 09-11-2024 [facility]phone encounter [facility] Start: 09-11-2024 End: 09-11-2024 ambulatory Treatment Rm [facility] Work Phone: Hematology/Oncology Comment on above: Malabsorption due to intolerance, not elsewhere classified (Primary Dx); Anemia during in third trimester ([facility]) Start: 09-08-2024 End: 09-08-2024 Patient encounter procedure Dena Carter MD Work Phone: OB/Gynecology Comment on above: 30 weeks gestation o f ([facility]) (Primary Dx); Anemia during in third trimester ([facility]); Diet controlled gestational diabetes mellitus (GDM) in third trimester ([facility]); Encounter for supervision of normal first in third trimester ([facility]) Start: 09-08-2024 End: 09-08-2024 ambulatory [facility] Facility:[facility] Start: 09-07-2024 End: 09-07-2024 ambulatory Dena Carter MD Work Phone: OB/Gynecology Comment on above: Iron Infusions Start: 09-07-2024 End: 09-07-2024 E-mail encounter from caregiver Dena Carter MD Work Phone: OB/Gynecology Start: 09-06-2024 End: 09-06-2024 Telephone encounter Ernestina Galvez RNcrib tender Ma in [facility] Comment on above: Hematology Start: 09-05-2024 End: 09-05-2024 Orders Only Rachel Chaudhari RN BLOOD MANAGEMENT Comment on above: Malabsorption due to intolerance, not elsewhere classified (Primary Dx) Dietary counseling ( Primary Dx); Diet controlled gestational diabetes mellitus (GDM) in third trimester ([facility]) Maternal iron defici ency anemia complicating , third trimester ([facility]) (Primary Dx) Start: 09-01-2024 End: 09-01-2024 ambulatory [facility] Facility:[facility] Start: 09-01-2024 End: 11-01-2024 Follow-up encounter Pat Haddad APRN.CNP Work Phone: OB/Gynecology Start: 09-01-2024 End: 09-01-2024 [facility] Facility:[facility] Start: 08-25-2024 End: 08-25-2024 [facility] Facility:[facility] Start: 08-25-2024 End: 08-25-2024 Patient encounter procedure Raquel French APRN.CNM Work Phone: OB/Gynecology Comment on above: Encounter for superv ision of normal first in first trimester ([facility]) (Primary Dx); 28 weeks gestation of ([facility]); Heartburn during in first trimester ([facility]); Thyroid nodule; History of depression; Screening for diabetes mellitus; Need for vaccination; Raynaud's disease without gangrene; Dizziness; Racing heart beat Start: 08-25-2024 End: 08-25-2024 ambulatory [facility] Facility:[facility] Start: 08-15-2024 End: 08-15-2024 Patient encounter procedure Alex Schofield MD Work Phone: OB/Gynecology Comment on above: 26 weeks gestation o f ([facility]) (Primary Dx); Light-headedness Start: 08-15-2024 End: 08-15-2024 ambulatory [facility] Facility:[facility] Start: 07-28-2024 End: 07-28-2024 Patient encounter procedure Dena Carter MD Work Phone: OB/Gynecology Comment on above: 24 weeks gestation o f (HCC) (Primary Dx); Encounter for supervision of normal first in second trimester (HCC) Start: 07-28-2024 End: 07-28-2024 ambulatory [facility] Facility:[facility] Start: 07-24-2024 End: 07-24-2024 Telephone encounter Kenyatta Guzman MD Work Phone: OB/Gynecology Comment on above: Breast Pump Start: 07-05-2024 End: 07-05-2024 Telephone encounter Kenyatta Guzman MD Work Phone: OB/Gynecology Comment on above: Patient Question Start: 07-04-2024 End: 07-05-2024 Follow-up encounter Kenyatta Guzman MD Work Phone: OB/Gynecology Start: 06-30-2024 End: 06-30-2024 ambulatory [facility] Facility:[facility] Start: 06-30-2024 End: 06-30-2024 Patient encounter procedure Dena Carter MD Work Phone: OB/Gynecology Comment on above: Encounter for superv ision of normal first in second trimester (Primary Dx); 20 weeks gestation of Encounter for anatomic survey (Primary Dx); Encounter for supervision of normal first in first trimester; with uncertain dates in first trimester; History of depression Start: 06-08-2024 End: 06-08-2024 ambulatory [facility] Facility:[facility] Start: 06-08-2024 End: 06-08-2024 Patient encounter procedure Dena Carter MD Work Phone: OB/Gynecology Comment on above: 16 weeks gestation o f (Primary Dx); Encounter for supervision of normal first in first trimester Start: 06-03-2024 End: 06-03-2024 Emergency department patient visit Arturo Donnelly Facility:[facility] Start: 05-29-2024 End: 05-29-2024 ambulatory Pat Haddad APRN.CNP Work Phone: OB/Gynecology Comment on above: Hello Start: 05-29-2024 End: 05-29-2024 Telephone encounter Raquel French APRN.CNM Work Phone: OB/Gynecology Start: 05-12-2024 End: 05-12-2024 Telephone encounter Katrin Clark MD Work Phone: OB/Gynecology Comment on above: Patient Question (co nstipation ) Start: 05-05-2024 End: 05-05-2024 ambulatory [facility] Facility:[facility] Start: 05-05-2024 End: 05-05-2024 Patient encounter procedure Alex Schofield MD Work Phone: OB/Gynecology Comment on above: Encounter for superv ision of normal first in first trimester (Primary Dx); 12 weeks gestation of Encounter for rosetta dawson screening for malformation using ultrasound (Primary Dx); 12 weeks gestation of Start: 05-01-2024 End: 05-01-2024 ambulatory [facility] Facility:[facility] Start: 04-28-2024 End: 04-28-2024 Telephone encounter Pat Haddad APRN.SPORTS PHYSICAL THERAPIST Work Phone: OB/Gynecology Comment on above: Lab Orders Start: 04-14-2024 End: 04-14-2024 ambulatory [facility] Facility:[facility] Start: 04-14-2024 End: 04-14-2024 Patient encounter procedure Pat Haddad APRN.CNP Work Phone: OB/Gynecology Comment on above: Encounter for superv ision of normal first in first trimester (Primary Dx); 9 weeks gestation of ; with uncertain dates in first trimester; History of depression; Nausea and vomiting during ; Thyroid nodule; Heartburn during in first trimester Start: 03-17-2024 End: 03-17-2024 ambulatory [facility] Start: 02-29-2024 End: 02-29-2024 ambulatory Anabelle Goldman APRN.CNP Work Phone: OB/Gynecology Comment on above: Low serum HDL (Prima ry Dx); Malaise and fatigue; History of obesity Start: 02-29-2024 End: 02-29-2024 Telemedicine consultation with patient Anabelle Goldman APRN.CNP Work Phone: OB/Gynecology Start: 12-20-2023 End: 12-20-2023 ambulatory DANIELA DPM [facility] Start: 11-24-2023 End: 11-24-2023 Telemedicine consultation with patient Anabelle Goldman APRN.SPORTS PHYSICAL THERAPIST Work Phone: OB/Gynecology Start: 11-24-2023 End: 11-24-2023 ambulatory Anabelle Goldman APRN.SPORTS PHYSICAL THERAPIST Work Phone: OB/Gynecology Comment on above: Appt at 4:00 Low serum HDL (Prima ry Dx); Malaise and fatigue; History of obesity; Overweight (BMI 25.0-29.9) Start: 08-31-2023 Refill Anabelle YANCEY RN.SPORTS PHYSICAL THERAPIST Work Phone: OB/Gynecology Comment on above: Refill Request Start: 08-19-2023 End: 08-19-2023 Office outpatient visit 25 minutes Anabelle Goldman APRN.SPORTS PHYSICAL THERAPIST Work Phone: OB/Gynecology Comment on above: Low serum HDL (Prima ry Dx); Malaise and fatigue; History of obesity; Overweight (BMI 25.0-29.9) Start: 08-03-2023 End: 08-07-2023 ambulatory [facility] Start: 08-03-2023 End: 08-03-2023 ambulatory Ismael Marisel DPM Work Phone: [facility] Comment on above: Plantar fasciitis (P rimary Dx) Start: 07-13-2023 End: 07-17-2023 ambulatory ISMAEL MARISEL [facility] Start: 07-13-2023 End: 07-13-2023 ambulatory Ismael Marisel DPM Work Phone: [facility] Comment on above: Plantar fasciitis (P rimary Dx) Start: 06-30-2023 End: 07-04-2023 ambulatory ISMAEL MARISEL [facility] Start: 06-30-2023 End: 06-30-2023 Office outpatient new 30 minutes Ismael Marisel DPM Work Phone: [facility] Comment on above: Plantar fasciitis (P rimary Dx) Start: 05-19-2023 End: 05-19-2023 Patient encounter procedure Anabelle Goldman APRN.SPORTS PHYSICAL THERAPIST Work Phone: OB/Gynecology Comment on above: Low serum HDL (Prima ry Dx); Malaise and fatigue; Class 1 obesity without serious comorbidity with body mass index (BMI) of 30.0 to 30.9 in adult, unspecified obesity type Start: 03-18-2023 ambulatory Anabelle YANCEY RN.SPORTS PHYSICAL THERAPIST Work Phone: OB/Gynecology Comment on above: Medication Start: 03-01-2023 Telephone encounter Anabelle gallardo APRN.SPORTS PHYSICAL THERAPIST Work Phone: OB/Gynecology Comment on above: Patient Update ([facility] Nutrition Services) Start: 02-02-2023 End: 02-02-2023 Patient encounter procedure Anabelle Goldman APRN.SPORTS PHYSICAL THERAPIST Work Phone: OB/Gynecology Comment on above: Low serum HDL (Prima ry Dx); Malaise and fatigue; Class 1 obesity without serious comorbidity with body mass index (BMI) of 30.0 to 30.9 in adult, unspecified obesity type Start: 02-19-2022 End: 02-19-2022 Office outpatient visit 15 minutes Rosario Maldonado PA-C Work Phone: [facility] Start: 01-15-2022 Telephone encounter [facility] DO [facility] Comment on above: Patient Question Start: 08-08-2021 End: 08-08-2021 Office outpatient visit 15 minutes Rosario Maldonado PA-C Work Phone: [facility] Start: 12-23-2020 End: 12-23-2020 Office outpatient visit 15 minutes Rosario Maldonado PA-C Work Phone: [facility] Start: 07-19-2020 End: 07-19-2020 Office outpatient visit 15 minutes Rosario Maldonado PA-C Work Phone: [facility] Start: 09-06-2019 End: 09-06-2019 Office outpatient visit 15 minutes Rosario Maldonado PA-C Work Phone: [employer]. Start: 08-07-2019 End: 08-07-2019 Office outpatient new 30 minutes Rosario Maldonado PA-C Work Phone: [employer]. Start: 08-09-2015 End: 08-09-2015 Patient encounter procedure Rosario Maldonado PA-C Work Phone: [facility] Start: 06-01-2014 End: 06-01-2014 Patient encounter procedure Rosario Maldonado PA-C Work Phone: [facility] Start: 01-12-2014 End: 01-12-2014 Nursing evaluation of patient and report Rosario Maldonado PA-C Work Phone: [employer]. Start: 01-12-2014 End: 01-12-2014 Patient encounter status Rosario Maldonado PA-C Work Phone: [facility]; [employer]. Start: 12-22-2013 End: 12-22-2013 Nursing evaluation of patient and report Rosario Maldonado PA-C Work Phone: [facility] Start: 09-20-2013 End: 09-24-2013 Orders Rosario Maldonado PA-C Work Phone: [employer]. Start: 09-06-2013 End: 09-06-2013 Nursing evaluation of patient and report Rosario Maldonado PA-C Work Phone: [facility] Start: 08-23-2013 End: 08-23-2013 Patient encounter procedure Rosario Maldonado PA-C Work Phone: [facility] Start: 08-23-2013 End: 08-23-2013 Patient encounter status Rosario Maldonado PA-C Work Phone: [facility]; [employer]. Start: 06-12-2013 End: 06-12-2013 Medication Rosario Joel WANG [facility] Start: 04-20-2013 End: 04-20-2013 Patient encounter procedure Rosario Amosjeana WANG Work Phone: [facility] Patient encounter status Aishwaryagenevievepaulina Armas LP N [facility].; [facility]. Procedures Date Procedure Procedure Detail Performing Clinician Start: 10-31-2024 Urnls dip stick/tabl et rgnt non-auto w/o micrscp Kenyatta Guzman MD Work Phone: Start: 10-31-2024 Us preg uterus after 1st trimest 04/12 gestation Pat Haddad APRN.SPORTS PHYSICAL THERAPIST Work Phone: Start: 10-27-2024 Urnls dip stick/tabl et rgnt non-auto w/o micrscp Dena Carter MD Work Phone: Start: 10-20-2024 Urnls dip stick/tabl et rgnt non-auto w/o micrscp Katrin Clark MD Work Phone: Start: 10-06-2024 Urnls dip stick/tabl et rgnt non-auto w/o micrscp Dena Carter MD Work Phone: Start: 09-22-2024 Urnls dip stick/tabl et rgnt non-auto w/o micrscp Dena Carter MD Work Phone: Start: 09-08-2024 Urnls dip stick/tabl et rgnt non-auto w/o micrscp Dena Carter MD Work Phone: Start: 06-30-2024 Us preg uterus after 1st trimest 04/12 gestation Pat Haddad APRN.SPORTS PHYSICAL THERAPIST Work Phone: Start: 05-05-2024 Us nuchal translucency 1st gestation Pat Haddad APRN.SPORTS PHYSICAL THERAPIST Work Phone: Start: 05-01-2024 Antibody screen ROSARIO MALDONADO Comment on above: Order Comment: Speci men Type: BLOOD SPECIMEN Ordering Facility: [facility] Address: [address] [place] [address] Performed By: #### 2 [id number], [id number] #### [facility] CLIA [id number] [address] [place] [address] [place] [address] [place] Start: 04-14-2024 Us uterus l imited fetuses Pat Haddad NET APPLICATION ARCHITECT.SPORTS PHYSICAL THERAPIST Work Phone: Start: 12-01-2022 Microscopic observat ion [Identifier] in Cervix by Cyto stain Ismael Joiner Jr., NELDA Work Phone: Start: 02-19-2022 End: 03-09-2022 soft tissue head & neck real time imge docm Rosario Maldonado PA-C Work Phone: Start: 08-09-2015 End: 08-09-2015 No Known Past Surgical History Rosario Maldonado PA-C Work Phone: Start: 08-23-2013 End: 08-23-2013 Screening test visual acuity quantitative bilat Anika Moore PA-C Work Phone: Plan of Treatment Date Care Activity Detail Author Start: 08-25-2034 Urine microalbumin profile DTaP,Tdap,Td Vaccine (9 - Td or Tdap) [facility] Start: 12-02-2027 HPV Testing HPV Testing [facility] Start: 12-02-2027 Pap Testing Pap Testing [facility] Start: 12-02-2027 Screening for malignant neoplasm of cervix [facility] Start: 12-01-2025 Screening for malignant neoplasm of cervix Pap Smear [facility] Start: 12-22-2024 End: 12-22-2024 Patient encounter procedure 12/22/2024 11:30 AM EDT Office Visit OB/Gynecology [address] [place] [address] Kenyatta Guzman MD [address] [place] [id number] PP OB/Gynecology Comment on above: PP Start: 12-11-2024 Influenza vaccination C [facility] Start: 11-20-2024 End: 11-20-2024 Patient encounter procedure 11/20/2024 3:40 PM EDT Office Visit OB/Gynecology [address] [place] [address] Dena Carter MD [address] [place] [address] (Fax) PP OB/Gynecology Comment on above: PP Start: 11-16-2024 End: 11-16-2024 Patient encounter procedure 11/16/2024 4:20 PM EDT Routine Office Visit OB/Gynecology [address] [place] [address] Katrin Clark MD [address] [place] [address] (Fax) ob OB/Gynecology Comment on above: ob Start: 11-10-2024 End: 11-10-2024 Patient encounter procedure 11/10/2024 4:00 PM EDT Routine Office Visit OB/Gynecology [address] [place] [address] Dena Carter MD [address] [place] [address] (Fax) Ob OB/Gynecology Comment on above: Ob Start: 11-03-2024 End: 11-03-2024 Patient encounter procedure 11/03/2024 3:15 PM EDT Routine Office Visit OB/Gynecology [address] [place] [address] Elaine Diehl APRN.[facility] [address] [place] [address] (Fax) OB OB/Gynecology Comment on above: OB Start: 10-31-2024 End: 10-31-2024 Patient encounter procedure Maternal Medicine Comment on above: Growth OB Start: 10-27-2024 End: 10-27-2024 Patient encounter procedure OB/Gynecology Comment on above: OB OB Needs growth US t his week. If something opens up while she is here she will take it Start: 10-23-2024 End: 10-23-2024 ambulatory 10/23/2024 8:15 AM EDT Results Only [place] [facility] [address] [place] [address] [place] [place] [facility] Start: 10-22-2024 End: 01-21-2025 CBC W Auto Differential panel - Blood COMPLETE BLOOD COUNT AND DIFFERENTIAL Lab Routine Anemia during in third trimester (HCC) Expected: 10/22/2024, Expires: 01/21/2025 [facility] Work Phone: Comment on above: Expected: 10/22/2024 , Expires: 01/21/2025 Start: 10-20-2024 End: 10-20-2024 Patient encounter procedure 10/20/2024 1:30 PM EDT Routine Office Visit OB/Gynecology [address] [address] Katrin Clark MD [address] [place] [address] OB OB/Gynecology Comment on above: OB Start: 10-06-2024 End: 10-06-2024 Patient encounter procedure 10/06/2024 1:10 PM EDT Routine Office Visit OB/Gynecology [address] [place] [address] Dena Carter MD [address] [place] [address] OB OB/Gynecology Comment on above: OB Start: 09-26-2024 End: 09-26-2024 ambulatory Hematology/Oncology Comment on above: 2ND FLOOR Start: 09-22-2024 End: 09-22-2024 Patient encounter procedure 09/22/2024 3:20 PM EDT Routine Office Visit OB/Gynecology [address] [place] [address] Dena Carter MD [address] [place] [address] Ob OB/Gynecology Comment on above: Ob Start: 09-22-2024 End: 09-22-2024 ambulatory 09/22/2024 10:30 AM EDT Infusion Center Hematology/Oncology [address] [place] [address] 2ND FLOOR Hematology/Oncology Comment on above: 2ND FLOOR Start: 09-18-2024 End: 09-18-2024 ambulatory 09/18/2024 3:30 PM EDT Infusion Center Hematology/Oncology [address] [place] [address] 2ND FLOOR Hematology/Oncology Comment on above: 2ND FLOOR Start: 09-15-2024 End: 09-15-2024 ambulatory 09/15/2024 2:00 PM EDT Infusion Center Hematology/Oncology [address] [place] [address] 2ND FLOOR Hematology/Oncology Comment on above: 2ND FLOOR Start: 09-14-2024 End: 09-14-2024 ambulatory 09/14/2024 3:30 PM EDT Infusion Center Hematology/Oncology [address] [place] [address] 2ND FLOOR Hematology/Oncology Comment on above: 2ND FLOOR Start: 09-13-2024 End: 09-13-2024 Nursing evaluation of patient and report 09/13/2024 2:00 PM EDT Nurse Visit Endocrinology [address] [place] [address] Jody Rodriguez, RN [address] [id number] Diet controlled gestational diabetes mellitus (GDM) in third trimester (HCC) [O24.410 Endocrinology Comment on above: Diet controlled gest ational diabetes mellitus (GDM) in third trimester (HCC) [O24.410 Start: 09-11-2024 End: 09-11-2024 ambulatory 09/11/2024 10:00 AM EDT Infusion Center Hematology/Oncology [address] [place] [address] SIGN ABN PRIOR TO INFUSION Hematology/Oncology Comment on above: SIGN ABN PRIOR TO IN FUSION Start: 09-08-2024 End: 09-08-2024 Patient encounter procedure 09/08/2024 2:50 PM EDT Routine Office Visit OB/Gynecology [address] [place] [address] Dena Carter MD [address] [place] [address] OB OB/Gynecology Comment on above: OB Start: 08-25-2024 End: 08-25-2024 Patient encounter procedure 08/25/2024 3:15 PM EDT Routine Office Visit OB/Gynecology [address] [place] [address] Raquel French APRN.CNM [address] [place] [address] OB OB/Gynecology Comment on above: OB Start: 08-25-2024 End: 08-25-2024 ambulatory 08/25/2024 3:00 PM EDT Results Only [place] [facility] [address] [place] [address] [facility] Comment on above: Glucose Test Start: 08-25-2024 End: 11-24-2024 ANEMIA REFLEX PANEL [facility] Work Phone: Comment on above: Expected: 08/25/2024 , Expires: 11/24/2024 Start: 08-22-2024 End: 08-22-2024 Patient encounter procedure 08/22/2024 4:00 PM EDT Office Visit OB/Gynecology [address] [place] [address] Anabelle Goldman, NET APPLICATION ARCHITECT.SPORTS PHYSICAL THERAPIST [address] [place] [address] wt mgmt f/up OB/Gynecology Comment on above: wt mgmt f/up Start: 08-04-2024 End: 08-04-2024 Patient encounter procedure 08/04/2024 4:30 PM EDT Routine Office Visit OB/Gynecology [address] [place] [address] Raquel French APRN.CN [address] [place] [address] OB Routine OB/Gynecology Comment on above: OB Routine Start: 07-28-2024 End: 07-28-2024 Patient encounter procedure 07/28/2024 2:50 PM EDT Routine Office Visit OB/Gynecology [address] [place] [address] Dena Carter MD [address] [place] [address] OB Routine OB/Gynecology Comment on above: OB Routine Start: 06-30-2024 End: 06-30-2024 Patient encounter procedure Maternal Medicine Comment on above: Anatomy OB Start: 06-08-2024 End: 06-08-2024 Patient encounter procedure 06/08/2024 3:40 PM EST Routine Office Visit OB/Gynecology [address] [place] [address] Dena Carter MD [address] [place] [address] (Fax) OB Routine OB/Gynecology Comment on above: OB Routine Start: 06-02-2024 End: 06-02-2024 Patient encounter procedure 06/02/2024 4:20 PM EST Routine Office Visit OB/Gynecology [address] [place] [address] Katrin Clark MD [address] [place] [address] OB Routine OB/Gynecology Comment on above: OB Routine Start: 05-31-2024 End: 05-31-2024 Patient encounter procedure 05/31/2024 3:30 PM EST Office Visit OB/Gynecology [address] [place] [address] Anabelle Goldman APRN.SPORTS PHYSICAL THERAPIST [address] [place] [address] wt mgmt f/up OB/Gynecology Comment on above: wt mgmt f/up Start: 05-05-2024 End: 05-05-2024 Patient encounter procedure Maternal Medicine Comment on above: Nuchal OB Routine Start: 05-01-2024 End: 05-01-2024 ambulatory 05/01/2024 7:45 AM EST Results Only [place] [facility] [address] [place] [address] [place] [facility] Start: 04-14-2024 End: 07-14-2024 ANEMIA REFLEX PANEL ANEMIA REFLEX PANEL Lab Routine Encounter for supervision of normal first in first trimester with uncertain dates in first trimester History of depression Expected: 04/14/2024, Expires: 07/14/2024 [facility] Work Phone: Comment on above: Expected: 04/14/2024 , Expires: 07/14/2024 Start: 04-14-2024 End: 07-14-2024 Hemoglobin A1c in Blood HEMOGLOBIN A1C Lab Routine Encounter for supervision of normal first in first trimester with uncertain dates in first trimester History of depression Expected: 04/14/2024, Expires: 07/14/2024 [facility] Comment on above: Expected: 04/14/2024 , Expires: 07/14/2024 Start: 04-14-2024 End: 07-14-2024 Hepatitis B virus surface Ag [Presence] in Serum HEPATITIS B SURFACE ANTIGEN Lab Routine Encounter for supervision of normal first in first trimester with uncertain dates in first trimester History of depression Expected: 04/14/2024, Expires: 07/14/2024 [facility] Comment on above: Expected: 04/14/2024 , Expires: 07/14/2024 Start: 04-14-2024 End: 07-14-2024 Hepatitis C virus Ab [Presence] in Serum HEPATITIS C ANTIBODY IA WITH CONFIRMATION Lab Routine Encounter for supervision of normal first in first trimester with uncertain dates in first trimester History of depression Expected: 04/14/2024, Expires: 07/14/2024 [facility] Comment on above: Expected: 04/14/2024 , Expires: 07/14/2024 Start: 04-14-2024 End: 07-14-2024 HIV 1+2 Ab [Presence] in Serum or Plasma by Immunoassay HIV 1/2 COMBO WITH REFLEX TO DIFFERENTIATION Lab Routine Encounter for supervision of normal first in first trimester with uncertain dates in first trimester History of depression Expected: 04/14/2024, Expires: 07/14/2024 [facility] Comment on above: Expected: 04/14/2024 , Expires: 07/14/2024 Start: 04-14-2024 End: 04-14-2025 NUCHAL TRANSLUCENCY WHI NUCHAL TRANSLUCENCY WHI Anc Imaging Routine Encounter for supervision of normal first in first trimester with uncertain dates in first trimester History of depression Expected: 04/14/2024, Expires: 04/14/2025 [facility] Comment on above: Expected: 04/14/2024 , Expires: 04/14/2025 Start: 04-14-2024 End: 04-14-2025 OBSTETRIC ULTRASOUND WHI OBSTETRIC ULTRASOUND WHI Anc Imaging Routine Encounter for supervision of normal first in first trimester with uncertain dates in first trimester History of depression Expected: 04/14/2024, Expires: 04/14/2025 [facility] Comment on above: Expected: 04/14/2024 , Expires: 04/14/2025 Start: 04-14-2024 End: 07-14-2024 RUBELLA IGG ANTIBODY RUBELLA IGG ANTIBODY Lab Routine Encounter for supervision of normal first in first trimester with uncertain dates in first trimester History of depression Expected: 04/14/2024, Expires: 07/14/2024 [facility] Comment on above: Expected: 04/14/2024 , Expires: 07/14/2024 Start: 04-14-2024 End: 07-14-2024 SYPHILIS TREPONEMAL W/REFLEX SYPHILIS TREPONEMAL W/REFLEX Lab Routine Encounter for supervision of normal first in first trimester with uncertain dates in first trimester History of depression Expected: 04/14/2024, Expires: 07/14/2024 [facility] Comment on above: Expected: 04/14/2024 , Expires: 07/14/2024 Start: 04-14-2024 End: 07-14-2024 Thyrotropin [Units/volume] in Serum or Plasma THYROID STIMULATING HORMONE Lab Routine Thyroid nodule Expected: 04/14/2024, Expires: 07/14/2024 [facility] Comment on above: Expected: 04/14/2024 , Expires: 07/14/2024 Start: 04-14-2024 End: 07-14-2024 TYPE + SCREEN TYPE + SCREEN Blood Bank Routine Encounter for supervision of normal first in first trimester with uncertain dates in first trimester History of depression Expected: 04/14/2024, Expires: 07/14/2024 [facility] Comment on above: Expected: 04/14/2024 , Expires: 07/14/2024 Start: 02-29-2024 End: 02-29-2024 ambulatory 02/29/2024 4:00 PM EST [facility] OB/Gynecology [address] [place] [address] Anabelle Goldman, NET APPLICATION ARCHITECT.SPORTS PHYSICAL THERAPIST [address] [place] [address] WT Management f/u OB/Gynecology Comment on above: WT Management f/u Start: 12-12-2023 Covid-19 Vaccine ( season) Covid-19 Vaccine ( season) [facility] Start: 12-12-2023 Influenza vaccination [facility] Start: 11-24-2023 End: 11-24-2023 ambulatory 11/24/2023 4:00 PM EDT [facility] OB/Gynecology [address] [place] [address] Anabelle Goldman, NET APPLICATION ARCHITECT.SPORTS PHYSICAL THERAPIST [address] [place] [address] 3 month wt mgmt OB/Gynecology Comment on above: 3 month wt mgmt Start: 08-25-2023 End: 08-25-2023 ambulatory 08/25/2023 4:45 PM EDT Treatment [facility] [address] [place] [address] Ismael Joiner Jr., DPColleen [address] [place] [address] Juliet Downey, PT Discharge Disposition: Home [facility] Start: 08-24-2023 Tetanus vaccination Tetanus: Every 1 0yrs [facility] Start: 08-24-2023 Urine microalbumin profile [facility] Start: 08-03-2023 End: 08-03-2023 ambulatory 08/03/2023 4:45 PM EDT Treatment [facility] [address] [place] [address] Ismael Joiner Jr., DPM [address] [place] [address] Juliet Downey, PT Discharge Disposition: Home [facility] Start: 07-28-2023 End: 07-28-2023 Patient encounter procedure 07/28/2023 4:00 PM EDT Office Visit [facility] [address] [place] [address] Ismael Joiner Jr., DPM [address] [place] [address] [facility] Start: 04-12-2023 Behavioral Health Screening Behavioral Health Screening [facility] Start: 04-12-2023 Depression Assessment Depression Ass essment [facility] Start: 12-11-2022 COVID-19 Vaccine ( season) COVID-19 Vaccine () [facility] Start: 12-11-2022 Influenza vaccination C [facility] Start: 04-12-2022 Depression Assessment Depression Ass [facility] Start: 12-11-2021 Influenza vaccination INFLUENZA (#1) [facility] Start: 04-12-2021 DEPRESSION ASSESSMENT DEPRESSION ASS [facility] Start: 2020 HPV TESTING HPV TESTING [facility] Start: 11-13-2011 PAP TESTING PAP TESTING [facility] Start: 2009 Urine microalbumin profile DTAP,TDAP,TD (1 - Tdap) [facility] Start: 2008 Anxiety Screening Anxiety Screening [facility] Start: 2008 Depression Screening Depression Scre ening [facility] Start: 2008 HEPATITIS C SCREENING HEPATITIS C [facility] Start: 2008 Hepatitis C screening Hepatitis C [facility] Start: 2008 HIV SCREENING HIV SCREENING [facility] Start: 2008 HIV screening HIV Screening [facility] Start: 2005 HIV screening HIV Screening [facility] Start: 2002 Depression screening using PHQ-9 (Patient Health Questionnaire 9) score Depression Screening (PHQ-2/9) [facility] Start: 1993 History and physical examination, annual for health maintenance Wellness Visit [facility] Start: 05-15-1991 COVID-19 VACCINE (#1) COVID-19 VACCI NE (#1) [facility] Start: 1990 HEPATITIS B (1 of 3 - 3-dose series) HEPATITIS B (1 of 3 - 3-dose series) [facility] Bacteria identified in Urine by Culture URINE CULTURE Microbiology Routine Encounter for supervision of normal first in first trimester with uncertain dates in first trimester History of depression 04/14/2024 2:42 PM [facility] Chlamydia trachomatis+Neisseria gonorrhoeae DNA [Presence] in Unspecified specimen by ADELAIDE with probe detection GONORRHEA/CHLAMYDIA NAAT Lab Routine Encounter for supervision of normal first in first trimester with uncertain dates in first trimester History of depression 04/14/2024 2:42 PM [facility] ECG COMPLETE ECG COMPLETE ECG Routine Dizziness Racing heart beat Ordered: 08/25/2024 [facility] Comment on above: Ordered: 08/25/2024 OUTSIDE VENDOR CARDI AC OUTPATIENT EXTENDED RHYTHM RECORDING (WITHOUT TELEMETRY) OUTSIDE VENDOR CARDIAC OUTPATIENT EXTENDED RHYTHM RECORDING (WITHOUT TELEMETRY) Holter Routine 28 weeks gestation of ([facility]) Dizziness Racing heart beat Ordered: 08/25/2024 [facility] Comment on above: Ordered: 08/25/2024 ROUTINE, GROUP B STREPTOCOCCUS BY PCR ROUTINE, GROUP B STREPTOCOCCUS BY PCR Microbiology Routine 36 weeks gestation of ([facility]) Diet controlled gestational diabetes mellitus (GDM) in third trimester ([facility]) Anemia during in third trimester ([facility]) 10/20/2024 1:51 PM EDT [facility] Work Phone: [facility] Immunizations Immunization Date Immunization Notes Care Provider Fa clmeencia 08-25-2024 tetanus toxoid, redu rachna diphtheria toxoid, and acellular pertussis vaccine, adsorbed Raquel French NET APPLICATION ARCHITECT.CNM Work Phone: [facility] 12-22-2013 hepatitis B vaccine, adult dosage Rosario Maldonado PA-C Work Phone: [facility] [employer]; [facility] Comment on above: Site: Deltoid (Left) VIS Given: * Hepatitis B (05/14/11) 09-20-2013 hepatitis B vaccine, adult dosage Rosario Maldonado PA-C Work Phone: [employer]; [employer] Comment on above: Site: Deltoid (Left) VIS Given: * Hepatitis B (10/27/06) * Hepatitis B (05/14/11) 08-23-2013 hepatitis B vaccine, adult dosage Rosario Maldonado PA-C Work Phone: [employer]; [employer] Comment on above: Site: Deltoid (Right )VIS Given: * Hepatitis B (10/27/06) * Hepatitis B (05/14/11) 08-23-2013 tetanus toxoid, redu rachna diphtheria toxoid, and acellular pertussis vaccine, adsorbed Rosario Maldonado PA-C Work Phone: [employer]; [employer] Comment on above: Site: Deltoid (Left) VIS Given: * TDAP, Td (08/18/2012) * Tetanus/Diphtheria/(Pertussis) (Td/Tdap) (02/28/08) * Tetanus/Diptheria/Pertussis (Tdap/Td) 05/05/11 11-09-1995 diphtheria, tetanus toxoids and acellular pertussis vaccine Rosario Maldonado PA-C Work Phone: [facility] 11-09-1995 trivalent poliovirus vaccine, live, oral Rosario Maldonado PA-C Work Phone: [facility] 03-08-1995 measles, mumps and rubella virus vaccine Rosario Maldonado PA-C Work Phone: [facility] 03-08-1995 trivalent poliovirus vaccine, live, oral Rosario Maldonado PA-C Work Phone: [facility] 12-16-1994 diphtheria, tetanus toxoids and acellular pertussis vaccine Rosario Maldonado PA-C Work Phone: [facility] 05-15-1991 diphtheria, tetanus toxoids and pertussis vaccine Rosario Maldonado PA-C Work Phone: [facility] 05-15-1991 haemophilus influenz ae type b vaccine, HbOC conjugate Rosario Maldonado PA-C Work Phone: [facility] 03-06-1991 diphtheria, tetanus toxoids and pertussis vaccine Rosario Maldonado PA-C Work Phone: [facility] 03-06-1991 haemophilus influenz ae type b vaccine, HbOC conjugate Rosario Maldonado PA-C Work Phone: [facility] 03-06-1991 trivalent poliovirus vaccine, live, oral Rosario Maldonado PA-C Work Phone: [facility] 01-09-1991 diphtheria, tetanus toxoids and pertussis vaccine Rosario Maldonado FELIPE Work Phone: [facility] 01-09-1991 trivalent poliovirus vaccine, live, oral Rosario Amosjeana WANG Work Phone: [facility] Payers Date Payer Category Payer Self-pay 2023 Unknown [id number] 2022 Private Health Insurance [id number] 2022 Unknown [id number] 1990 Unknown [id number] 2.16. [id number] 1990 Unknown [id number] 2.16. [id number] 1990 Unknown [id number] 2.16. [id number] 1990 Unknown [id number] 2.16. [id number] 1990 Unknown [id number] 2.16.8 [id number] Unknown [id number] 2.16.8 [id number] Unknown [id number] 2.16.8 [id number] Unknown [id number] 2.16.8 [id number] Unknown [id number] 2.16.8 [id number] Social History Date Type Detail Facility Tobacco smoking status IAIS Tobacco smoking consumption unknown [facility] Work Phone: Start: 1990 Sex Assigned At Not on file C [facility] Start: 12-01-2022 End: 06-30-2023 Tobacco smoking status IAIS Never smoked tobacco [facility] Start: 12-01-2022 End: 06-30-2023 Tobacco use and exposure Smokeless tobacco non-user [facility] Start: 02-02-2023 End: 10-31-2024 Alcohol intake Lifetime non-drinker (finding) [facility] Start: 12-01-2022 End: 02-02-2023 History of Social function [employer]. Start: 12-01-2022 End: 02-02-2023 Tobacco use panel [facility] National Score (1-100), lower number is lower risk 57 [facility] Start: 06-30-2023 End: 08-03-2023 Alcohol intake Current drinker of alcohol (finding) [facility] Tobacco Use: Tobacco Use: ; N ever smoker. [employer]. Female [facility] [employer] Work Phone: Start: 02-25-2024 [facility] (I/We) worried whether (my/our) food would run out before (I/we) got money to buy more. Never true [facility] Medical Equipment Procedure Code Equipment Code Equipment Origin al Text Equipment Identifier Dates Use as directed to check glucose levels up to seven times daily. [id number] Start: 09-01-2024 Use as directed to check glucose levels up to seven times daily. [id number] Start: 09-01-2024 Goals Date Patient Goal Desired Activity /State Personal health goal Clinical Notes 01-21-2022 to 11-08-2024 Kadie Diana MA - 11/08/2024 3:46 PM EDTPrenatal Quick Neymar - Kenyatta Guzman MD - 10/31/2024 3:36 PM EDTPrenatal Quick Notes - Kenyatta Guzman MD - 10/31/2024 3:36 PM EDT Note Date & Type Note Facility 11-08-2024 History of Present illness Narrative POPULATION HEALTH NAVIGATION OUTREACH Action/FYI 1st attempt: Called and left message to call back to discuss roll cutter. message sent. Reason for Outreach Medicaid OB/Peds Care Gaps due: N/A Patient Contacted: Unable or unnecessary to reach patient: Unable to reach patient Left message MyChart message sent Navigation Signature: Kadie Peters MA November 08, 2024 3:46 PM documented in this encounter [facility] 10-31-2024 Progress note Formatting of t his note might be different from the original. RR- VB No. LOF No. CTXS Yes irreg. Movement: present. Other c/o: No. Medication list reviewed. SENSITIVE EXAM: The sensitive examination was discussed with the Patient or Patient's Authorized Remote Ruby On Rails Developer. As applicable, any other physician, advance practice provider, medical student, or other health professional student that will be observing or involved in the sensitive examination for educational or training purposes was discussed with the Patient or Authorized Remote Ruby On Rails Developer. The Patient or Authorized Remote Ruby On Rails Developer has agreed to proceed with the sensitive examination. (Sensitive examination includes inspection and/or palpation of the breasts, pelvis, prostate and anorectal regions). Physical Exam See Flow Sheet Abd: soft, nontender, gravid Ext: edema: Trace A/P 37w4d Estimated Date of Delivery: 11/17/24 Assessment & Plan 37 weeks gestation of (HCC) Orders: URINE OB DIP B/O Diet controlled gestational diabetes mellitus (GDM) in third trimester ([facility]) BS well cotnrolled Orders: URINE OB DIP B/O Supervision of high risk in third trimester ([facility]) Orders: URINE OB DIP B/O d/w her r/ba to iinduction at 39 + weeks vs waiting until 40+ weeks. Desires 39 weeks. Consent reviewed and signed. Kenyatta Guzman M.D. [facility] 10-31-2024 Miscellaneous Notes RR- VB No. LOF No. CTXS Yes irreg. Movement: present. Other c/o: No. Medication list reviewed. SENSITIVE EXAM: The sensitive examination was discussed with the Patient or Patient's Authorized Remote Ruby On Rails Developer. As applicable, any other physician, advance practice provider, medical student, or other health professional student that will be observing or involved in the sensitive examination for educational or training purposes was discussed with the Patient or Authorized Remote Ruby On Rails Developer. The Patient or Authorized Remote Ruby On Rails Developer has agreed to proceed with the sensitive examination. (Sensitive examination includes inspection and/or palpation of the breasts, pelvis, prostate and anorectal regions). Physical Exam See Flow Sheet Abd: soft, nontender, gravid Ext: edema: Trace A/P 37w4d Estimated Date of Delivery: 11/17/24 Assessment & Plan 37 weeks gestation of ([facility]) Orders: URINE OB DIP B/O Diet controlled gestational diabetes mellitus (GDM) in third trimester ([facility]) BS well cotnrolled Orders: URINE OB DIP B/O Supervision of high risk in third trimester ([facility]) Orders: URINE OB DIP B/O d/w her r/ba to iinduction at 39 + weeks vs waiting until 40+ weeks. Desires 39 weeks. Consent reviewed and signed. Kenyatta Guzman M.D. documented in this encounter [facility] 10-31-2024 Instructions Kadie Rodriguez MA - 10/31/2024 1:58 PM EDT SEQUENTIAL SCREENINGS The [facility] offers sequential screenings for women who are interested in screenings for chromosomal abnormalities and certain defects during a . The sequential screen combines ultrasound and blood tests to determine the risk of chromosomal abnormalities, including Down's Syndrome (Trisomy 21) and Trisomy 18, as well as open neural tube defects including spina bifida. Ultrasound examination is performed between 11 weeks and 13 weeks gestational age. Blood tests are drawn after the ultrasound and again later in the between 15 and 21 weeks gestational age. Please let your physician know if you are interested in this testing. It will require an appointment with our autocad technician. This is not an ultrasound performed by a physician in our office during a routine visit. SIGNS AND SYMPTOMS OF LABOR 1. Contractions every 10 minutes or more often 2. Clear, pink, or brownish fluid (water) leaking from vagina 3. Feeling that baby is pushing down, pressure 4. Low, dull backache 5. Cramps that feel like a period 6. Cramps with or without diarrhea If you notice any of the above symptoms, contact our office at [phone] and ask to speak with a nurse. After hours, you can call doctors registry at [phone] OR call [facility] at [phone] and ask to have the doctor bottom ironer paged. If you consider this an emergency, dial 9-1-4 or go to your nearest emergency department. NEED HELP? Are you dealing with a violent or abusive relationship? Are you a victim of rape or sexual assult? Call [facility] ([place]) 24 hour Crisis Hotline: 874.196.4153 or 069-953-7962. MANUAL Your Guide to a Healthy manual is now on-line. Visit [email or web address] to download your free copy documented in this encounter [facility] 10-31-2024 Note Indication Evaluation of growth. Gestational diabetes - diet controlled Impression REMOTE READ - Single, live, intrauterine . - presentation is cephalic. - The biometry is consistent with the assigned gestational dating. - The EFW is 3464 g, at the 78%. AC is at the 88%. - Amniotic fluid volume is normal amount with an MVP of 6 cm and VICKY of 20.4 cm. - The placenta is left lateral, fundal. - No malformations visualized on a limited survey as detailed below. Recommendations Additional follow-up as clinically indicated. Maternal Assessment Height 160 cm Height (ft) 5 ft Height (in) 3 in Physical Exam Initial weight (lb) 153 lb Initial BMI 27.10 kg/m Method Transabdominal ultrasound examination Hernandez . Number of fetuses: 1 Dating LMP on: 02/11/2024 GA by LMP 37 w + 4 d DIANE by LMP: 11/17/2024 GA by prior assessment 37 w + 4 d DIANE by prior assessment: 11/17/2024 Ultrasound examination on: 10/31/2024 GA by U/S based upon: AC, BPD, Femur GA by U/S 37 w + 6 d DIANE by U/S: 11/15/2024 Assigned: based on stated DIANE, selected on 09/01/2024 Assigned GA 37 w + 4 d Assigned DIANE: 11/17/2024 General Evaluation Cardiac activity present. FHR 119 bpm. movements: present. Presentation: cephalic Placenta: Placental site: left lateral, fundal Umbilical cord: Cord vessels: 3 vessel cord. Insertion site: normal insertion Amniotic fluid: Amount of AF: normal amount. MVP 6.0 cm. VICKY 20.4 cm. Q1 5.1 cm, Q2 4.9 cm, Q3 4.3 cm, Q4 6.0 cm Growth Overview Exam date GA BPD (mm) HC (mm) AC (mm) FL (mm) HL (mm) EFW (g) 06/30/2024 20w 0d 51.5 96% 187.3 80% 163.6 86% 33.8 82% 32.6 86% 395 93% 09/01/2024 29w 0d 79.8 99% 288.2 87% 253.4 60% 59.8 97% 1567 85% 10/31/2024 37w 4d 95.5 94% 350.7 89% 346.7 88% 71.1 58% 3464 78% Biometry Standard BPD 95.5 mm 39w 0d 94% Hadlock OFD 124.1 mm -/- 93% Nicolaides HC 350.7 mm -/- 89% Hill AC 346.7 mm 38w 4d 88% Hadlock Femur 71.1 mm 36w 0d 58% Hill EFW 3,464 g 39w 1d 78% Hadlock EFW (lb) 7 lb EFW (oz) 10 oz EFW by: Hadlock (HC-AC-FL) Extended Docketing Specialist 4.7 mm Extremities / Bony Struc FL / HC 0.20 Other Structures FHR 119 bpm Anatomy Lateral ventricles: normal Cavum septi pellucidi: normal Cerebellum: normal Cisterna magna: normal 4-chamber view: normal RVOT view: normal LVOT view: normal 3-vessel view: normal Heart / Thorax Situs: situs solitus (normal) Diaphragm: normal Stomach: normal Kidneys: normal Bladder: normal sex: male Wants to know sex: yes Performed By: Eir Miranda RDMS Read By: Rosario Martino M.D. [facility] 10-27-2024 Progress note Formatting of t his note might be different from the original. S: Geena Pedro is a 33 year old female who presents at 11/17/2024, by Last Menstrual Period for a routine visit. Denies headache, visual changes, chest pain, shortness of breath, vaginal bleeding, leakage of fluid, or dysuria. Feeling well, no complaints. Good movement, No contractions O: See flow sheet Gen: No apparent distress Abd: Gravid, nontender Growth next week GBS positive ASSESSMENT/PLAN: 1. Supervision of high risk in third trimester ([facility]) - ICD9: V23.9, ICD10: O09.93 (primary diagnosis) - URINE OB DIP B/O 2. Positive GBS test - ICD9: 041.02, ICD10: B95.1 - URINE OB DIP B/O 3. Diet controlled gestational diabetes mellitus (GDM) in third trimester ([facility]) - ICD9: 648.83, ICD10: O24.410 Controlled - URINE OB DIP B/O 4. Anemia during in third trimester ([facility]) - ICD9: 648.23, ICD10: O99.013 - URINE OB DIP B/O 5. 37 weeks gestation of ([facility]) - ICD9: V22.2, ICD10: Z3A.37 - URINE OB DIP B/O Dena Carter MD [facility] 10-27-2024 Miscellaneous Notes S: Geena Pedro is a 33 year old female who presents at 11/17/2024, by Last Menstrual Period for a routine visit. Denies headache, visual changes, chest pain, shortness of breath, vaginal bleeding, leakage of fluid, or dysuria. Feeling well, no complaints. Good movement, No contractions O: See flow sheet Gen: No apparent distress Abd: Gravid, nontender Growth next week GBS positive ASSESSMENT/PLAN: 1. Supervision of high risk in third trimester ([facility]) - ICD9: V23.9, ICD10: O09.93 (primary diagnosis) - URINE OB DIP B/O 2. Positive GBS test - ICD9: 041.02, ICD10: B95.1 - URINE OB DIP B/O 3. Diet controlled gestational diabetes mellitus (GDM) in third trimester ([facility]) - ICD9: 648.83, ICD10: O24.410 Controlled - URINE OB DIP B/O 4. Anemia during in third trimester ([facility]) - ICD9: 648.23, ICD10: O99.013 - URINE OB DIP B/O 5. 37 weeks gestation of ([facility]) - ICD9: V22.2, ICD10: Z3A.37 - URINE OB DIP B/O Dena Carter MD documented in this encounter [facility] 10-27-2024 Instructions Gregoria Mccullough MA - 10/27/2024 3:41 PM EDT SEQUENTIAL SCREENINGS The [facility] offers sequential screenings for women who are interested in screenings for chromosomal abnormalities and certain defects during a . The sequential screen combines ultrasound and blood tests to determine the risk of chromosomal abnormalities, including Down's Syndrome (Trisomy 21) and Trisomy 18, as well as open neural tube defects including spina bifida. Ultrasound examination is performed between 11 weeks and 13 weeks gestational age. Blood tests are drawn after the ultrasound and again later in the between 15 and 21 weeks gestational age. Please let your physician know if you are interested in this testing. It will require an appointment with our autocad technician. This is not an ultrasound performed by a physician in our office during a routine visit. SIGNS AND SYMPTOMS OF LABOR 1. Contractions every 10 minutes or more often 2. Clear, pink, or brownish fluid (water) leaking from vagina 3. Feeling that baby is pushing down, pressure 4. Low, dull backache 5. Cramps that feel like a period 6. Cramps with or without diarrhea If you notice any of the above symptoms, contact our office at [phone] and ask to speak with a nurse. After hours, you can call doctors registry at [phone] OR call [facility] at [phone] and ask to have the doctor bottom ironer paged. If you consider this an emergency, dial 9-1-1 or go to your nearest emergency department. NEED HELP? Are you dealing with a violent or abusive relationship? Are you a victim of rape or sexual assult? Call [facility] ([place]) 24 hour Crisis Hotline: 740.928.8325 or 274-125-3105. MANUAL Your Guide to a Healthy manual is now on-line. Visit [email or web address] to download your free copy documented in this encounter [facility] 10-20-2024 Progress note Formatting of t his note might be different from the original. SW- No regular ctx's. No vb, lof. Good FM PE: Gen- NAD, well appearing Abd- Soft, gravid, NT See flowsheet A/p 36 wk gestation - A1GDM: Fasting 70's. 1 hour postprandial 110-120's. Schedule repeat growth US - GBS today - TAUS vertex presentation - Labor precautions reviewed - RTO 1 wk Katrin Clark DO [facility] 10-20-2024 Miscellaneous Notes SW- No regular ctx's. No vb, lof. Good FM PE: Gen- NAD, well appearing Abd- Soft, gravid, NT See flowsheet A/p 36 wk gestation - A1GDM: Fasting 70's. 1 hour postprandial 110-120's. Schedule repeat growth US - GBS today - TAUS vertex presentation - Labor precautions reviewed - RTO 1 wk Katrin Clark DO documented in this encounter [facility] 10-20-2024 Instructions Kadie Rodriguez MA - 10/20/2024 1:25 PM EDT SEQUENTIAL SCREENINGS The [facility] offers sequential screenings for women who are interested in screenings for chromosomal abnormalities and certain defects during a . The sequential screen combines ultrasound and blood tests to determine the risk of chromosomal abnormalities, including Down's Syndrome (Trisomy 21) and Trisomy 18, as well as open neural tube defects including spina bifida. Ultrasound examination is performed between 11 weeks and 13 weeks gestational age. Blood tests are drawn after the ultrasound and again later in the between 15 and 21 weeks gestational age. Please let your physician know if you are interested in this testing. It will require an appointment with our autocad technician. This is not an ultrasound performed by a physician in our office during a routine visit. SIGNS AND SYMPTOMS OF LABOR 1. Contractions every 10 minutes or more often 2. Clear, pink, or brownish fluid (water) leaking from vagina 3. Feeling that baby is pushing down, pressure 4. Low, dull backache 5. Cramps that feel like a period 6. Cramps with or without diarrhea If you notice any of the above symptoms, contact our office at [phone] and ask to speak with a nurse. After hours, you can call doctors registry at [phone] OR call [facility] at [phone] and ask to have the doctor bottom ironer paged. If you consider this an emergency, dial 7-6- or go to your nearest emergency department. NEED HELP? Are you dealing with a violent or abusive relationship? Are you a victim of rape or sexual assult? Call [facility] ([place]) 24 hour Crisis Hotline: 471.805.3129 or 566-358-2529. MANUAL Your Guide to a Healthy manual is now on-line. Visit [email or web address] to download your free copy documented in this encounter [facility] 10-06-2024 Progress note Formatting of t his note might be different from the original. S: Geena Pedro is a 33 year old female who presents at 11/17/2024, by Last Menstrual Period for a routine visit. Denies headache, visual changes, chest pain, shortness of breath, vaginal bleeding, leakage of fluid, or dysuria. Feeling well, no complaints. Good movement, No contractions O: See flow sheet Gen: No apparent distress Abd: Gravid, nontender ASSESSMENT/PLAN: 1. 34 weeks gestation of (HCC) - ICD9: V22.2, ICD10: Z3A.34 (primary diagnosis) - URINE OB DIP B/O 2. Diet controlled gestational diabetes mellitus (GDM) in third trimester ([facility]) - ICD9: 648.83, ICD10: O24.410 - URINE OB DIP B/O 3. Anemia during in third trimester ([facility]) - ICD9: 648.23, ICD10: O99.013 - URINE OB DIP B/O 4. Encounter for supervision of normal first in third trimester ([facility]) - ICD9: V22.0, ICD10: Z34.03 - URINE OB DIP B/O Dena Carter MD [facility] 10-06-2024 Miscellaneous Notes S: Geena Pedro is a 33 year old female who presents at 11/17/2024, by Last Menstrual Period for a routine visit. Denies headache, visual changes, chest pain, shortness of breath, vaginal bleeding, leakage of fluid, or dysuria. Feeling well, no complaints. Good movement, No contractions O: See flow sheet Gen: No apparent distress Abd: Gravid, nontender ASSESSMENT/PLAN: 1. 34 weeks gestation of ([facility]) - ICD9: V22.2, ICD10: Z3A.34 (primary diagnosis) - URINE OB DIP B/O 2. Diet controlled gestational diabetes mellitus (GDM) in third trimester ([facility]) - ICD9: 648.83, ICD10: O24.410 - URINE OB DIP B/O 3. Anemia during in third trimester ([facility]) - ICD9: 648.23, ICD10: O99.013 - URINE OB DIP B/O 4. Encounter for supervision of normal first in third trimester ([facility]) - ICD9: V22.0, ICD10: Z34.03 - URINE OB DIP B/O Dena Carter MD documented in this encounter [facility] 10-06-2024 Instructions Kadie Rodriguez MA - 10/06/2024 1:01 PM EDT SEQUENTIAL SCREENINGS The [facility] offers sequential screenings for women who are interested in screenings for chromosomal abnormalities and certain defects during a . The sequential screen combines ultrasound and blood tests to determine the risk of chromosomal abnormalities, including Down's Syndrome (Trisomy 21) and Trisomy 18, as well as open neural tube defects including spina bifida. Ultrasound examination is performed between 11 weeks and 13 weeks gestational age. Blood tests are drawn after the ultrasound and again later in the between 15 and 21 weeks gestational age. Please let your physician know if you are interested in this testing. It will require an appointment with our autocad technician. This is not an ultrasound performed by a physician in our office during a routine visit. SIGNS AND SYMPTOMS OF LABOR 1. Contractions every 10 minutes or more often 2. Clear, pink, or brownish fluid (water) leaking from vagina 3. Feeling that baby is pushing down, pressure 4. Low, dull backache 5. Cramps that feel like a period 6. Cramps with or without diarrhea If you notice any of the above symptoms, contact our office at [phone] and ask to speak with a nurse. After hours, you can call doctors registry at [phone] OR call [facility] at [phone] and ask to have the doctor bottom ironer paged. If you consider this an emergency, dial -2 or go to your nearest emergency department. NEED HELP? Are you dealing with a violent or abusive relationship? Are you a victim of rape or sexual assult? Call [facility] [place] ([facility] 24 hour Crisis Hotline: 256.941.4746 or 894-813-3635. MANUAL Your Guide to a Healthy manual is now on-line. Visit [email or web address] to download your free copy documented in this encounter [facility] 09-22-2024 Progress note Formatting of t his note might be different from the original. S: Geena Pedro is a 33 year old female who presents at 11/17/2024, by Last Menstrual Period for a routine visit. Denies headache, visual changes, chest pain, shortness of breath, vaginal bleeding, leakage of fluid, or dysuria. Feeling well, no complaints. Good movement, No contractions O: See flow sheet Gen: No apparent distress Abd: Gravid, nontender CBC in 4 week BG in good control ASSESSMENT/PLAN: 1. 32 weeks gestation of ([facility]) - ICD9: V22.2, ICD10: Z3A.32 (primary diagnosis) - URINE OB DIP B/O 2. Diet controlled gestational diabetes mellitus (GDM) in third trimester ([facility]) - ICD9: 648.83, ICD10: O24.410 controlled - URINE OB DIP B/O 3. Anemia during in third trimester ([facility]) - ICD9: 648.23, ICD10: O99.013 - URINE OB DIP B/O - COMPLETE BLOOD COUNT AND DIFFERENTIAL 4. Encounter for supervision of normal first in third trimester ([facility]) - ICD9: V22.0, ICD10: Z34.03 - URINE OB DIP B/O Dena Carter MD [facility] 09-22-2024 Miscellaneous Notes S: Geena Pedro is a 33 year old female who presents at 11/17/2024, by Last Menstrual Period for a routine visit. Denies headache, visual changes, chest pain, shortness of breath, vaginal bleeding, leakage of fluid, or dysuria. Feeling well, no complaints. Good movement, No contractions O: See flow sheet Gen: No apparent distress Abd: Gravid, nontender CBC in 4 week BG in good control ASSESSMENT/PLAN: 1. 32 weeks gestation of ([facility]) - ICD9: V22.2, ICD10: Z3A.32 (primary diagnosis) - URINE OB DIP B/O 2. Diet controlled gestational diabetes mellitus (GDM) in third trimester ([facility]) - ICD9: 648.83, ICD10: O24.410 controlled - URINE OB DIP B/O 3. Anemia during in third trimester ([facility]) - ICD9: 648.23, ICD10: O99.013 - URINE OB DIP B/O - COMPLETE BLOOD COUNT AND DIFFERENTIAL 4. Encounter for supervision of normal first in third trimester ([facility]) - ICD9: V22.0, ICD10: Z34.03 - URINE OB DIP B/O Dena Carter MD documented in this encounter [facility] 09-22-2024 Instructions Kadie Rodriguez MA - 09/22/2024 3:20 PM EDT SEQUENTIAL SCREENINGS The [facility] offers sequential screenings for women who are interested in screenings for chromosomal abnormalities and certain defects during a . The sequential screen combines ultrasound and blood tests to determine the risk of chromosomal abnormalities, including Down's Syndrome (Trisomy 21) and Trisomy 18, as well as open neural tube defects including spina bifida. Ultrasound examination is performed between 11 weeks and 13 weeks gestational age. Blood tests are drawn after the ultrasound and again later in the between 15 and 21 weeks gestational age. Please let your physician know if you are interested in this testing. It will require an appointment with our autocad technician. This is not an ultrasound performed by a physician in our office during a routine visit. SIGNS AND SYMPTOMS OF LABOR 1. Contractions every 10 minutes or more often 2. Clear, pink, or brownish fluid (water) leaking from vagina 3. Feeling that baby is pushing down, pressure 4. Low, dull backache 5. Cramps that feel like a period 6. Cramps with or without diarrhea If you notice any of the above symptoms, contact our office at [phone] and ask to speak with a nurse. After hours, you can call doctors registry at [phone] OR call [facility] at [phone] and ask to have the doctor bottom ironer paged. If you consider this an emergency, dial 9-1-0 or go to your nearest emergency department. NEED HELP? Are you dealing with a violent or abusive relationship? Are you a victim of rape or sexual assult? Call [facility] ([place]) 24 hour Crisis Hotline: 865.716.1430 or 899-227-7174. MANUAL Your Guide to a Healthy manual is now on-line. Visit [email or web address] to download your free copy documented in this encounter [facility] 09-13-2024 Note HNO ID: [id number] Author: JODY RODRIGUEZ RN Service: ? Author Type: Registered Nurse Type: Progress Notes Filed: 09/13/2024 14:20 Note Text: DIABETES CARE AND EDUCATION VISIT Location: [place] Type of visit: In person individual PATIENT'S MAIN CONCERN TODAY: GDM Support person present for education today: none Cognitive ability: Alert and oriented Motivation to learn: Interested Learning barriers identified by educator: none Method of instruction: written, verbal, and demonstration DIABETES FINDINGS: GDM Monitoring: Checking fasting and 1-2 hours post - reports fasting has been in lower 80s and post meal been consistently in target range Meal Plannin g of carb diet reviewed Medications: discussed insulin as possible treatment in if needed Physical Activity: benefits of activity for blood sugars reviewed HANDOUTS: Healthy You: Diabetes and LEARNING RESPONSE: Diabetes pathophysiology: Demonstrated understanding/competency today or at previous visit Healthy eating: Demonstrated understanding/competency today or at previous visit Being active: Demonstrated understanding/competency today or at previous visit Monitoring glucose: Demonstrated understanding/competency today or at previous visit POSSIBLE FUTURE TOPICS: 1. DIABETES CARE AND EDUCATION PLAN: Education completed and annual diabetes education follow-up visit recommended Time Spent (Minutes): 30 This visit note will be communicated to the healthcare provider via access to shared medical record. SIGNATURE: Jody Rodriguez RN PATIENT NAME: Geena Pedro DATE: September 13, 2024 TIME: 2:17 PM [facility] 09-13-2024 History of Present illness Narrative DIABETES CARE AND EDUCATION VISIT Location: [place] Type of visit: In person individual PATIENT'S MAIN CONCERN TODAY: GDM Support person present for education today: none Cognitive ability: Alert and oriented Motivation to learn: Interested Learning barriers identified by educator: none Method of instruction: written, verbal, and demonstration DIABETES FINDINGS: GDM Monitoring: Checking fasting and 1-2 hours post - reports fasting has been in lower 80s and post meal been consistently in target range Meal Plannin g of carb diet reviewed Medications: discussed insulin as possible treatment in if needed Physical Activity: benefits of activity for blood sugars reviewed HANDOUTS: Healthy You: Diabetes and LEARNING RESPONSE: Diabetes pathophysiology: Demonstrated understanding/competency today or at previous visit Healthy eating: Demonstrated understanding/competency today or at previous visit Being active: Demonstrated understanding/competency today or at previous visit Monitoring glucose: Demonstrated understanding/competency today or at previous visit POSSIBLE FUTURE TOPICS: 1. DIABETES CARE AND EDUCATION PLAN: Education completed and annual diabetes education follow-up visit recommended Time Spent (Minutes): 30 This visit note will be communicated to the healthcare provider via access to shared medical record. SIGNATURE: Jody Rodriguez RN PATIENT NAME: Geena Pedro DATE: September 13, 2024 TIME: 2:17 PM documented in this encounter [facility] 09-08-2024 Progress note Formatting of t his note might be different from the original. S: Geena Pedro is a 33 year old female who presents at 11/17/2024, by Last Menstrual Period for a routine visit. Denies headache, visual changes, chest pain, shortness of breath, vaginal bleeding, leakage of fluid, or dysuria. Feeling well, no complaints. Good movement, No contractions O: See flow sheet Gen: No apparent distress Abd: Gravid, nontender Doing well with BG. All fasting normal. One or 2 PP elevation after eating sweets Iron infusion scheduled for Wednesday ASSESSMENT/PLAN: 1. 30 weeks gestation of ([facility]) - ICD9: V22.2, ICD10: Z3A.30 (primary diagnosis) - URINE OB DIP B/O - URINE OB DIP B/O 2. Anemia during in third trimester ([facility]) - ICD9: 648.23, ICD10: O99.013 - URINE OB DIP B/O - URINE OB DIP B/O 3. Diet controlled gestational diabetes mellitus (GDM) in third trimester ([facility]) - ICD9: 648.83, ICD10: O24.410 controlled - URINE OB DIP B/O - URINE OB DIP B/O 4. Encounter for supervision of normal first in third trimester ([facility]) - ICD9: V22.0, ICD10: Z34.03 - URINE OB DIP B/O - URINE OB DIP B/O Dena Carter MD [facility] 09-08-2024 Miscellaneous Notes S: Geena Pedro is a 33 year old female who presents at 11/17/2024, by Last Menstrual Period for a routine visit. Denies headache, visual changes, chest pain, shortness of breath, vaginal bleeding, leakage of fluid, or dysuria. Feeling well, no complaints. Good movement, No contractions O: See flow sheet Gen: No apparent distress Abd: Gravid, nontender Doing well with BG. All fasting normal. One or 2 PP elevation after eating sweets Iron infusion scheduled for Wednesday ASSESSMENT/PLAN: 1. 30 weeks gestation of ([facility]) - ICD9: V22.2, ICD10: Z3A.30 (primary diagnosis) - URINE OB DIP B/O - URINE OB DIP B/O 2. Anemia during in third trimester ([facility]) - ICD9: 648.23, ICD10: O99.013 - URINE OB DIP B/O - URINE OB DIP B/O 3. Diet controlled gestational diabetes mellitus (GDM) in third trimester ([facility]) - ICD9: 648.83, ICD10: O24.410 controlled - URINE OB DIP B/O - URINE OB DIP B/O 4. Encounter for supervision of normal first in third trimester ([facility]) - ICD9: V22.0, ICD10: Z34.03 - URINE OB DIP B/O - URINE OB DIP B/O Dena Carter MD documented in this encounter [facility] 09-08-2024 Instructions Kadie Rodriguez MA - 09/08/2024 2:47 PM EDT SEQUENTIAL SCREENINGS The [facility] offers sequential screenings for women who are interested in screenings for chromosomal abnormalities and certain defects during a . The sequential screen combines ultrasound and blood tests to determine the risk of chromosomal abnormalities, including Down's Syndrome (Trisomy 21) and Trisomy 18, as well as open neural tube defects including spina bifida. Ultrasound examination is performed between 11 weeks and 13 weeks gestational age. Blood tests are drawn after the ultrasound and again later in the between 15 and 21 weeks gestational age. Please let your physician know if you are interested in this testing. It will require an appointment with our autocad technician. This is not an ultrasound performed by a physician in our office during a routine visit. SIGNS AND SYMPTOMS OF LABOR 1. Contractions every 10 minutes or more often 2. Clear, pink, or brownish fluid (water) leaking from vagina 3. Feeling that baby is pushing down, pressure 4. Low, dull backache 5. Cramps that feel like a period 6. Cramps with or without diarrhea If you notice any of the above symptoms, contact our office at [phone] and ask to speak with a nurse. After hours, you can call doctors registry at [phone] OR call [facility] at [phone] and ask to have the doctor bottom ironer paged. If you consider this an emergency, dial 9--1 or go to your nearest emergency department. NEED HELP? Are you dealing with a violent or abusive relationship? Are you a victim of rape or sexual assult? Call [facility] ([place]) 24 hour Crisis Hotline: 239.961.9255 or 483-925-0401. MANUAL Your Guide to a Healthy manual is now on-line. Visit [email or web address] to download your free copy documented in this encounter [facility] 09-07-2024 Telephone encounter Note Patient is returning call to arrange Iron Infusions, Please advise the patient. [facility] 09-07-2024 Miscellaneous Notes Patient is returning call to arrange Iron Infusions, Please advise the patient. documented in this encounter [facility] 09-06-2024 Telephone encounter Note Signed treatment plan for Florencio - PA is pending. [facility] 09-06-2024 Miscellaneous Notes Signed treatment plan for Florencio - PA is pending. documented in this encounter [facility] 09-05-2024 Note HNO ID: [id number] Author: ZULLY MCCLURE PA-C Service: ? Author Type: Physician Administrative Representative Type: Progress Notes Filed: 09/05/2024 12:27 Note Text: [facility] OF PATHOLOGY AND LABORATORY MEDICINE DEPARTMENT OF BLOOD MANAGEMENT ORDERS ONLY ENCOUNTER PATIENT NAME: Geena Pedro DATE OF SERVICE: September 05, 2024 REFERRING PROVIDER: Raquel French APRN.CNM Subjective Patient referred to Blood Management for evaluation and treatment of anemia in and iron deficiency anemia. Patient's relevant history, recent diagnostic data, and treatment plan as entered by Rachel Chaudhari RN were reviewed. Medical/Surgical History: PAST MEDICAL HISTORY Diagnosis Date Low serum high density lipoprotein (HDL) Situational depression Lexapro 1.5 years Thyroid nodule US showed left thryroid cyst 02/2022 [facility] PAST SURGICAL HISTORY Procedure Laterality Date NONE Other significant Medical/Surgical history: - None CURRENT MEDICATIONS: Current Outpatient Medications Medication Instructions alcohol swabs (ALCOHOL PREP PADS) Use as directed to check glucose levels up to seven times daily. ascorbic acid (vitamin C) (VITAMIN C) 500 mg, ORAL, EVERY OTHER DAY-AMB aspirin, enteric coated (ECOTRIN LOW STRENGTH) 81 mg, ORAL, DAILY blood sugar diagnostic test strip Use as directed to check glucose levels up to seven times daily. famotidine (PEPCID) 20 mg, ORAL, 2 TIMES DAILY ferrous sulfate 325 mg, ORAL, EVERY OTHER DAY-AMB Lancets Use as directed to check glucose levels up to seven times daily. omeprazole (PRILOSEC) 40 mg, ORAL, DAILY PNV no.95/ferrous fum/folic ac ( ORAL) Take by mouth. Current medications that may affect iron absorption and/or blood loss: - Antacids (H2 receptor blockers, PPI) - Aspirin Objective Data Reviewed: WBC (k/uL) Date Value 08/25/2024 11.65 (H) RBC (m/uL) Date Value 08/25/2024 3.62 (L) Hemoglobin (g/dL) Date Value 08/25/2024 9.9 (L) Hematocrit (%) Date Value 08/25/2024 30.5 (L) MCV (fL) Date Value 08/25/2024 84.3 MCH (pg) Date Value 08/25/2024 27.3 MCHC (g/dL) Date Value 08/25/2024 32.5 RDW-CV (%) Date Value 08/25/2024 12.2 Platelet Count (k/uL) Date Value 08/25/2024 264 MPV (fL) Date Value 08/25/2024 11.4 Iron Date Value Ref Range Status 09/01/2024 67 41 - 186 ug/dL Final TIBC Date Value Ref Range Status 09/01/2024 >567 (H) 232 - 386 ug/dL Final Ferritin Date Value Ref Range Status 09/01/2024 15.5 14.7 - 205.1 ng/mL Final Transferrin Saturation Date Value Ref Range Status 09/01/2024 <11.8 (L) 15.0 - 57.0 % Final Assessment AND Plan Maternal iron deficiency anemia complicating , third trimester (HCC) - Patient referred to blood management for anemia in and iron deficiency anemia - Previously prescribed Ferrous sulfate 325 mg tablet (65 mg elemental iron) PO every other day, Vitamin C 500 mg PO every other day, and pre-betty vitamin including iron supplement PO daily - Patient with treatment failure from oral iron supplementation and ongoing iron deficiency anemia noted on most recent labs from 09/01/2024: - Ferritin 15.5, Iron 67, TIBC >567, TSAT <11.8%, and Hgb 9.9 g/dL - Per Ganzoni equation, 643 mg iron deficient utilizing pre- weight (54 kg) and goal Hgb 11 g/dL. - Therapy plan for Venofer (iron sucrose) 200 mg IV infusion x 3 doses was reviewed and signed. - Recommend ongoing monitoring of iron deficiency anemia by referring provider to ensure adequate response to IV iron supplementation. Zully Mcclure PA-C Department of Blood Management September 05, 2024 CC: Referring Provider: Raquel French APRN.CNM [facility] 09-05-2024 History of Present illness Narrative [facility] DEPARTMENT OF BLOOD MANAGEMENT ORDERS ONLY ENCOUNTER PATIENT NAME: Geena Pedro DATE OF SERVICE: September 05, 2024 REFERRING PROVIDER: Raquel French APRN.CNM Subjective Patient referred to Blood Management for evaluation and treatment of anemia in and iron deficiency anemia. Patient's relevant history, recent diagnostic data, and treatment plan as entered by Rachel Chaudhari RN were reviewed. Medical/Surgical History: PAST MEDICAL HISTORY Diagnosis Date Low serum high density lipoprotein (HDL) Situational depression Lexapro 1.5 years Thyroid nodule US showed left thryroid cyst 02/2022 [facility] PAST SURGICAL HISTORY Procedure Laterality Date NONE Other significant Medical/Surgical history: - None CURRENT MEDICATIONS: Current Outpatient Medications Medication Instructions alcohol swabs (ALCOHOL PREP PADS) Use as directed to check glucose levels up to seven times daily. ascorbic acid (vitamin C) (VITAMIN C) 500 mg, ORAL, EVERY OTHER DAY-AMB aspirin, enteric coated (ECOTRIN LOW STRENGTH) 81 mg, ORAL, DAILY blood sugar diagnostic test strip Use as directed to check glucose levels up to seven times daily. famotidine (PEPCID) 20 mg, ORAL, 2 TIMES DAILY ferrous sulfate 325 mg, ORAL, EVERY OTHER DAY-AMB Lancets Use as directed to check glucose levels up to seven times daily. omeprazole (PRILOSEC) 40 mg, ORAL, DAILY PNV no.95/ferrous fum/folic ac ( ORAL) Take by mouth. Current medications that may affect iron absorption and/or blood loss: - Antacids (H2 receptor blockers, PPI) - Aspirin Objective Data Reviewed: WBC (k/uL) Date Value 08/25/2024 11.65 (H) RBC (m/uL) Date Value 08/25/2024 3.62 (L) Hemoglobin (g/dL) Date Value 08/25/2024 9.9 (L) Hematocrit (%) Date Value 08/25/2024 30.5 (L) MCV (fL) Date Value 08/25/2024 84.3 MCH (pg) Date Value 08/25/2024 27.3 MCHC (g/dL) Date Value 08/25/2024 32.5 RDW-CV (%) Date Value 08/25/2024 12.2 Platelet Count (k/uL) Date Value 08/25/2024 264 MPV (fL) Date Value 08/25/2024 11.4 Iron Date Value Ref Range Status 09/01/2024 67 41 - 186 ug/dL Final TIBC Date Value Ref Range Status 09/01/2024 >567 (H) 232 - 386 ug/dL Final Ferritin Date Value Ref Range Status 09/01/2024 15.5 14.7 - 205.1 ng/mL Final Transferrin Saturation Date Value Ref Range Status 09/01/2024 <11.8 (L) 15.0 - 57.0 % Final Assessment & Plan Maternal iron deficiency anemia complicating , third trimester (HCC) - Patient referred to blood management for anemia in and iron deficiency anemia - Previously prescribed Ferrous sulfate 325 mg tablet (65 mg elemental iron) PO every other day, Vitamin C 500 mg PO every other day, and pre- vitamin including iron supplement PO daily - Patient with treatment failure from oral iron supplementation and ongoing iron deficiency anemia noted on most recent labs from 09/01/2024: - Ferritin 15.5, Iron 67, TIBC >567, TSAT <11.8%, and Hgb 9.9 g/dL - Per Ganzoni equation, 643 mg iron deficient utilizing pre- weight (54 kg) and goal Hgb 11 g/dL. - Therapy plan for Venofer (iron sucrose) 200 mg IV infusion x 3 doses was reviewed and signed. - Recommend ongoing monitoring of iron deficiency anemia by referring provider to ensure adequate response to IV iron supplementation. Zully Mcclure PA-C Department of Blood Management September 05, 2024 CC: Referring Provider: Raquel French APRN.CNM documented in this encounter [facility] 09-05-[address] - 09/05/2024 9:36 AM EDT Goals: Fasting glucose <95 mg/dL; 1 hr glucose ,140 mg/dL, 2 hr glucose ,120 mg/dL; mean glucose of 86 mg/dL. 1. Distribute carbohydrate evening throught out the day, Choose whole grain starches and grains, avoid white and refined grains and sources of concentration sugars . Carbohydrates are the starches, fruits and milk group and is defined as 15 grams per serving/choice. 2. Keep breakfast at 15-30 grams carbohydrate; meals 30-45 grams and snacks 15-grams of carbohydrate, include healthy protein in meals and snacks. Snacks can also be protein based or healthy fats such as nuts/nut butters; Raw veggies with Polish yogurt ranch dip 3. Avoid longer than 4-5 hours without eating 4. Aim for 20-35 grams of fiber. 5. Limit saturated fat, choose lean proteins, healthy fast such as olive oil, canola oil, avocados, nuts/seeds, etc. 6. Daily exercise of 30-60 minutes; if post meal blood sugar elevated add short walk 7. Ensure good sources of magnesium from a variety of seeds and dark greens such as spinach and ivorian chard; soybeans and nuts almonds and chashews. Ensure good sources of zinc from lean beef, pumpkin and squash seeds, dark chocolate and cocoa powder, and peanuts Ensure good sources of Folic Acid from a variety of dark greens and seeds; soy beans and amaya sprouts. Beans such as Go, garbonzo and mung; asparagus and peanuts Ensure adequate vit D-fatty fish, fortified cereal and soy products, meats, dairy products, eggs and mushrooms Ensure adequate C69-[id number] fatty fish, seafood and meats; cheese and eggs Ensure adequate sources of omega 3 fatty acids from fatty fish, mae and flax seeds and eggs Ensure adequate calcium-aim for 3-4 servings of low fat/fat free dairy daily. Aim for moderate exercise regularly-continue to do regular activities. May need to change activities during avoiding high impact and higher stress activities. documented in this encounter [facility] 09-05-2024 Note HNO ID: [id number] Author: TRUDY ZAPATA RD Service: ? Author Type: Registered Dietitian Type: Progress Notes Filed: 09/05/2024 09:37 Note Text: 8:00 AM [facility] Nutrition Therapy: Virtual Consult - Initial Assessment I have communicated my name and active licensure. The patient?s identity and physical location were verified at the time of this visit. Either the patient or their legal arborist representative has been informed of the risks and benefits of -- and alternatives to -- treatment through a remote evaluation and consents to proceed with the evaluation remotely. Nutrition Diagnosis: Altered nutrition-related lab values, related to, and endocrine dysfunction, as evidenced by elevated glucose tolerance test. RECOMMENDED MALNUTRITION DIAGNOSIS: NO MALNUTRITION IDENTIFIED NUTRITION CARE PLAN Nutrition Intervention 09/05/2024: modify type and amount of food or beverage Goals: Fasting glucose <95 mg/dL; 1 hr glucose ,140 mg/dL, 2 hr glucose ,120 mg/dL; mean glucose of 86 mg/dL. 1. Distribute carbohydrate evening throught out the day, Choose whole grain starches and grains, avoid white and refined grains and sources of concentration sugars . Carbohydrates are the starches, fruits and milk group and is defined as 15 grams per serving/choice. 2. Keep breakfast at 15-30 grams carbohydrate; meals 30-45 grams and snacks 15-grams of carbohydrate, include healthy protein in meals and snacks. Snacks can also be protein based or healthy fats such as nuts/nut butters; Raw veggies with Polish yogurt ranch dip 3. Avoid longer than 4-5 hours without eating 4. Aim for 20-35 grams of fiber. 5. Limit saturated fat, choose lean proteins, healthy fast such as olive oil, canola oil, avocados, nuts/seeds, etc. 6. Daily exercise of 30-60 minutes; if post meal blood sugar elevated add short walk 7. Ensure good sources of magnesium from a variety of seeds and dark greens such as spinach and ivorian chard; soybeans and nuts almonds and chashews. Ensure good sources of zinc from lean beef, pumpkin and squash seeds, dark chocolate and cocoa powder, and peanuts Ensure good sources of Folic Acid from a variety of dark greens and seeds; soy beans and amaya sprouts. Beans such as Go, garbonzo and mung; asparagus and peanuts Ensure adequate vit D-fatty fish, fortified cereal and soy products, meats, dairy products, eggs and mushrooms Ensure adequate [id number] fatty fish, seafood and meats; cheese and eggs Ensure adequate sources of omega 3 fatty acids from fatty fish, mae and flax seeds and eggs Ensure adequate calcium-aim for 3-4 servings of low fat/fat free dairy daily. Aim for moderate exercise regularly-continue to do regular activities. May need to change activities during avoiding high impact and higher stress activities. Nutrition Monitoring AND Evaluation: blood sugars in normal range, Need for Follow up: ~3 weeks Patient presents for initial MNT as relates to GDM, first at 29 weeks. Will case picker meter today. weight 147 lbs. Has made changes to diet, stopped regular soda, less fruit. Intake generally of heatlhy choices, Tends toward more nausea in the morning. On additional iron for iron deficiency. Typically eats three regular meals and 1-2 snacks. No regular exercise but active at work. Patient's symptoms are: elevated glucose tolerance test Diet History: Breakfast - this morning feeling ill; cheerios/milk, o juice and banana; feel better with eggs. Snack - yes- lately fruit: strawberries, blueberries; occ Polish yogurt Snack - occ beef stick, fruit, kid apple sauce (no sugar), occ raw veggies Lunch - 1- spinach salad with steak; left overs, chicken on salads; before was having a reg mini soda - now a zero soda. Snack - not usually Dinner - 6 -6:30-at parents: steak and veggies, or stir thomas, water Snack - limited: may have fruit or yogurt or string cheese; may have chips, rare cookie occ cereal Beverages - water, o juice, diet soda, Alcohol- no Vitamins/Supplements - vitamin, additional iron, vit C Stool softener Activity: Activities of Daily Living: varies Additional Activity: Sedentary (Little or no exercise: <1x/week) No regular, active at work Occ stretching on yoga ball Anthropometrics: Height: Last Ht 09/05/24 : 161 cm (5' 3.39) Current weight: Last Wt 09/05/24 : 74.8 kg (165 lb) Body mass index is 28.87 kg/m?. Resting Metabolic Rate: 1430 Malnutrition Screening Significant unintentional weight loss? No Eating less than 75% of usual intake for more than 2 weeks? No Potential Signs of Inflammation: no identifiable sources Food Insecurity: No Food Insecurity (09/05/2024) Hunger Vital Sign Worried About Running Out of Food in the Last Year: Never true Ran Out of Food in the Last Year: Never true Education Materials Provided: Healthy You - Planning Healthy Meals; Healthy you Pre (more content not included)... [facility] 09-05-2024 History of Present illness Narrative 8:00 AM [facility] Nutrition Therapy: Virtual Consult - Initial Assessment I have communicated my name and active licensure. The patient s identity and physical location were verified at the time of this visit. Either the patient or their legal arborist representative has been informed of the risks and benefits of -- and alternatives to -- treatment through a remote evaluation and consents to proceed with the evaluation remotely. Nutrition Diagnosis: Altered nutrition-related lab values, related to, and endocrine dysfunction, as evidenced by elevated glucose tolerance test. RECOMMENDED MALNUTRITION DIAGNOSIS: NO MALNUTRITION IDENTIFIED NUTRITION CARE PLAN Nutrition Intervention 09/05/2024: modify type and amount of food or beverage Goals: Fasting glucose <95 mg/dL; 1 hr glucose ,140 mg/dL, 2 hr glucose ,120 mg/dL; mean glucose of 86 mg/dL. 1. Distribute carbohydrate evening throught out the day, Choose whole grain starches and grains, avoid white and refined grains and sources of concentration sugars . Carbohydrates are the starches, fruits and milk group and is defined as 15 grams per serving/choice. 2. Keep breakfast at 15-30 grams carbohydrate; meals 30-45 grams and snacks 15-grams of carbohydrate, include healthy protein in meals and snacks. Snacks can also be protein based or healthy fats such as nuts/nut butters; Raw veggies with Polish yogurt ranch dip 3. Avoid longer than 4-5 hours without eating 4. Aim for 20-35 grams of fiber. 5. Limit saturated fat, choose lean proteins, healthy fast such as olive oil, canola oil, avocados, nuts/seeds, etc. 6. Daily exercise of 30-60 minutes; if post meal blood sugar elevated add short walk 7. Ensure good sources of magnesium from a variety of seeds and dark greens such as spinach and ivorian chard; soybeans and nuts almonds and chashews. Ensure good sources of zinc from lean beef, pumpkin and squash seeds, dark chocolate and cocoa powder, and peanuts Ensure good sources of Folic Acid from a variety of dark greens and seeds; soy beans and amaya sprouts. Beans such as Go, garbonzo and mung; asparagus and peanuts Ensure adequate vit D-fatty fish, fortified cereal and soy products, meats, dairy products, eggs and mushrooms Ensure adequate [id number] fatty fish, seafood and meats; cheese and eggs Ensure adequate sources of omega 3 fatty acids from fatty fish, mae and flax seeds and eggs Ensure adequate calcium-aim for 3-4 servings of low fat/fat free dairy daily. Aim for moderate exercise regularly-continue to do regular activities. May need to change activities during avoiding high impact and higher stress activities. Nutrition Monitoring & Evaluation: blood sugars in normal range, Need for Follow up: ~3 weeks Patient presents for initial MNT as relates to GDM, first at 29 weeks. Will case picker meter today. weight 147 lbs. Has made changes to diet, stopped regular soda, less fruit. Intake generally of heatlhy choices, Tends toward more nausea in the morning. On additional iron for iron deficiency. Typically eats three regular meals and 1-2 snacks. No regular exercise but active at work. Patient's symptoms are: elevated glucose tolerance test Diet History: Breakfast - this morning feeling ill; cheerios/milk, o juice and banana; feel better with eggs. Snack - yes- lately fruit: strawberries, blueberries; occ Polish yogurt Snack - occ beef stick, fruit, kid apple sauce (no sugar), occ raw veggies Lunch - 1- spinach salad with steak; left overs, chicken on salads; before was having a reg mini soda - now a zero soda. Snack - not usually Dinner - 6 -6:30-at parents: steak and veggies, or stir thomas, water Snack - limited: may have fruit or yogurt or string cheese; may have chips, rare cookie occ cereal Beverages - water, o juice, diet soda, Alcohol- no Vitamins/Supplements - vitamin, additional iron, vit C Stool softener Activity: Activities of Daily Living: varies Additional Activity: Sedentary (Little or no exercise: <1x/week) No regular, active at work Occ stretching on yoga ball Anthropometrics: Height: Last Ht 09/05/24 : 161 cm (5' 3.39) Current weight: Last Wt 09/05/24 : 74.8 kg (165 lb) Body mass index is 28.87 kg/m . Resting Metabolic Rate: 1430 Malnutrition Screening Significant unintentional weight loss? No Eating less than 75% of usual intake for more than 2 weeks? No Potential Signs of Inflammation: no identifiable sources Food Insecurity: No Food Insecurity (09/05/2024) Hunger Vital Sign Worried About Running Out of Food in the Last Year: Never true Ran Out of Food in the Last Year: Never true Education Materials Provided: Healthy You - Planning Healthy Meals; Healthy you READINESS TO LEARN Cognitive ability: Alert and oriented Motivation to learn: Interested Family support: Unable to assess - Family not present Instruction provided to: Patient Patient learns best by: Individual Instruction Factors affecting learning: None Physical limitations affecting learning: None Referred by: Boo RAZO Billing Type: Initial Assess 2 units 8:37 AM Total Time (mins): 37 SIGNATURE: Trudy Zapata RD PATIENT NAME: Geena Pedro DATE: September 05, 2024 TIME: 8:04 AM documented in this encounter [facility] 09-05-2024 Note HNO ID: [id number] Author: RACHEL CHAUDHARI RN Service: ? Author Type: Registered Nurse Type: Progress Notes Filed: 09/05/2024 07:44 Note Text: Referral to blood management for anemia in third trimester. Pended orders for IV iron based upon blood management protocols. Sent to Zully Mcclure PA-C for review and chart assessment. [facility] 09-05-2024 History of Present illness Narrative Referral to blood management for anemia in third trimester. Pended orders for IV iron based upon blood management protocols. Sent to Zully Mcclure PA-C for review and chart assessment. documented in this encounter [facility] 08-25-2024 Note HNO ID: [id number] Author: FABRICIO GALLARDO MA Service: ? Author Type: Digital Director Type: Progress Notes Filed: 08/28/2024 08:01 Note Text: Patient identified by name and date of . Geena Pedro presents today for a vaccination of Tdap. Patient denies an allergy to latex: yes Patient denies a severe (life-threatening) allergy to a previous dose of Tdap, DTP, DTaP, DT or Td vaccine. Yes Patient denies history of epilepsy or neurological problems: Yes Patient is afebrile and denies being moderately or severely ill: Yes Patient denies history of Guillain-[place] Syndrome (a severe paralytic illness): Yes Tdap Adacel injection was given without incident. See immunizations for details of immunizations administered today. VIS sheet provided: Yes Provider Raquel French APRN CNM was present in office at time of injection. Fabricio Gallardo MA [facility] 08-25-2024 History of Present illness Narrative Patient identified by name and date of . Geena Pedro presents today for a vaccination of Tdap. Patient denies an allergy to latex: yes Patient denies a severe (life-threatening) allergy to a previous dose of Tdap, DTP, DTaP, DT or Td vaccine. Yes Patient denies history of epilepsy or neurological problems: Yes Patient is afebrile and denies being moderately or severely ill: Yes Patient denies history of Guillain-[place] Syndrome (a severe paralytic illness): Yes Tdap Adacel injection was given without incident. See immunizations for details of immunizations administered today. VIS sheet provided: Yes Provider Raquel French APRN CNM was present in office at time of injection. Fabricio Gallardo MA documented in this encounter [facility] 08-25-2024 Miscellaneous Notes EZEQUIEL-S: Geena Pedro is a 33 year old female who presents at 28w0d with DIANE:11/17/2024, by Last Menstrual Period for a routine visit. Denies headache, visual changes, chest pain, shortness of breath, vaginal bleeding, leakage of fluid, or dysuria. Feeling dizzy spells, lightheaded, winded, heart racing to 155. O: See flow sheet Gen: No apparent distress Abd: Gravid, nontender ASSESSMENT/PLAN: 1. Encounter for supervision of normal first in first trimester - 1 hour GCT, CBC, and RPR today - AB Positive - LARC form reviewed and signed. Patient declines - Depression screen negative - Opioid screen negative - plan form discussed and given to patient. CBE tomorrow 2. 28 weeks gestation of -Continue PNV -Continue ASA 3. Heartburn during in first trimester -Continue Omeprazole 4. Thyroid nodule -TSH normal at 12 weeks. Will repeat TSH today 5. History of depression -Coping well, no medication at this time. 6. Screening for diabetes mellitus - GESTATIONAL GLUCOSE SCREEN, 1-HOUR, 50 GRAM, NON-FASTING 7. Need for vaccination - TDAP VACCINE, AGE 7+ YR (ADACEL, BOOSTRIX) 8. Raynaud's disease without gangrene 9. Dizziness - EMELIA KNEE HI 20-30WT - EKG NSR -Zio Patch ordered -Discussed slow positional changes, increased hydration, electrolyte powder and referral to cardiology if continues 10. Racing heart beat - EMELIA KNEE HI 20-30WT - PTL precautions and kick counts reviewed - RTO- 2 weeks or sooner if needed Raquel French APRN.CNM documented in this encounter [facility] 08-25-2024 Progress note Formatting of t his note might be different from the original. EZEQUIEL-S: Geena Pedro is a 33 year old female who presents at 28w0d with DIANE:11/17/2024, by Last Menstrual Period for a routine visit. Denies headache, visual changes, chest pain, shortness of breath, vaginal bleeding, leakage of fluid, or dysuria. Feeling dizzy spells, lightheaded, winded, heart racing to 155. O: See flow sheet Gen: No apparent distress Abd: Gravid, nontender ASSESSMENT/PLAN: 1. Encounter for supervision of normal first in first trimester - 1 hour GCT, CBC, and RPR today - AB Positive - LARC form reviewed and signed. Patient declines - Depression screen negative - Opioid screen negative - plan form discussed and given to patient. CBE tomorrow 2. 28 weeks gestation of -Continue PNV -Continue ASA 3. Heartburn during in first trimester -Continue Omeprazole 4. Thyroid nodule -TSH normal at 12 weeks. Will repeat TSH today 5. History of depression -Coping well, no medication at this time. 6. Screening for diabetes mellitus - GESTATIONAL GLUCOSE SCREEN, 1-HOUR, 50 GRAM, NON-FASTING 7. Need for vaccination - TDAP VACCINE, AGE 7+ YR (ADACEL, BOOSTRIX) 8. Raynaud's disease without gangrene 9. Dizziness - EMELIA KNEE HI 20-30WT - EKG NSR -Zio Patch ordered -Discussed slow positional changes, increased hydration, electrolyte powder and referral to cardiology if continues 10. Racing heart beat - EMELIA KNEE HI 20-30WT - PTL precautions and kick counts reviewed - RTO- 2 weeks or sooner if needed Raquel French APRN.CNM [facility] 08-25-2024 Instructions Fabricio Gallardo MA - 08/25/2024 2:58 PM EDT SEQUENTIAL SCREENINGS [facility] offers sequential screenings for women who are interested in screenings for chromosomal abnormalities and certain defects during a . The sequential screen combines ultrasound and blood tests to determine the risk of chromosomal abnormalities, including Down's Syndrome (Trisomy 21) and Trisomy 18, as well as open neural tube defects including spina bifida. Ultrasound examination is performed between 11 weeks and 13 weeks gestational age. Blood tests are drawn after the ultrasound and again later in the between 15 and 21 weeks gestational age. Please let your physician know if you are interested in this testing. It will require an appointment with our autocad technician. This is not an ultrasound performed by a physician in our office during a routine visit. SIGNS AND SYMPTOMS OF LABOR 1. Contractions every 10 minutes or more often 2. Clear, pink, or brownish fluid (water) leaking from vagina 3. Feeling that baby is pushing down, pressure 4. Low, dull backache 5. Cramps that feel like a period 6. Cramps with or without diarrhea If you notice any of the above symptoms, contact our office at [phone] and ask to speak with a nurse. After hours, you can call doctors registry at [phone] OR call [facility] at [phone] and ask to have the doctor bottom ironer paged. If you consider this an emergency, dial 9--1 or go to your nearest emergency department. NEED HELP? Are you dealing with a violent or abusive relationship? Are you a victim of rape or sexual assult? Call [facility] ([place]) 24 hour Crisis Hotline: 654.917.3310 or 740-099-0742. MANUAL Your Guide to a Healthy manual is now on-line. Visit [email or web address] to download your free copy documented in this encounter [facility] 08-25-2024 Note HNO ID: [id number] Author: KYM SPANGLER MD Service: ? Author Type: Physician Type: Procedures Filed: 09/25/2024 07:28 Note Text: Patient Name: Geena Pedro : 1990 Ordering Provider: RAQUEL FRENCH Indication: Z3A.28 28 weeks gestation of Type of Monitor: Extended Monitoring-Zio Patch Enrollment Dates: 08/28/2024-09/01/2024 IRHYTHM FINDINGS: Patient had a min HR of 65 bpm, max HR of 155 bpm, and avg HR of 97 bpm. Predominant underlying rhythm was Sinus Rhythm. Isolated SVEs were rare (<1.0%), SVE Couplets were rare (<1.0%), and no SVE Triplets were present. Isolated VEs were rare (<1.0%), and no VE Couplets or VE Triplets were present. [facility] 08-15-2024 Progress note Formatting of t his note might be different from the original. KJ - S: Geena denies LOF, contractions or vaginal bleeding. Patient seen urgently for 2 episodes of feeling light headed. She felt nauseated and hot.. Patient had to sit down to feel better. Denies syncope/CP. She wears a mask at work and had a little SOB until taking it off today. O: 26w4d, see flow sheet SENSITIVE EXAM: Sensitive exam not performed. A/P: Assessment & Plan 26 weeks gestation of (HCC) Light-headedness Advised on hydration, snacks & staying cool. Would consider pcp eval for possible vertigo if seems to be related to head movements. Follow up as scheduled for 28wk labs. Reviewed PTL & FM precautions Alex Schofield MD [facility] 08-15-2024 Miscellaneous Notes KJ - S: Geena denies LOF, contractions or vaginal bleeding. Patient seen urgently for 2 episodes of feeling light headed. She felt nauseated and hot.. Patient had to sit down to feel better. Denies syncope/CP. She wears a mask at work and had a little SOB until taking it off today. O: 26w4d, see flow sheet SENSITIVE EXAM: Sensitive exam not performed. A/P: Assessment & Plan 26 weeks gestation of (HCC) Light-headedness Advised on hydration, snacks & staying cool. Would consider pcp eval for possible vertigo if seems to be related to head movements. Follow up as scheduled for 28wk labs. Reviewed PTL & FM precautions Alex Schofield MD documented in this encounter [facility] 08-15-2024 Instructions Kadie Rodriguez MA - 08/15/2024 1:52 PM EDT SEQUENTIAL SCREENINGS [facility] offers sequential screenings for women who are interested in screenings for chromosomal abnormalities and certain defects during a . The sequential screen combines ultrasound and blood tests to determine the risk of chromosomal abnormalities, including Down's Syndrome (Trisomy 21) and Trisomy 18, as well as open neural tube defects including spina bifida. Ultrasound examination is performed between 11 weeks and 13 weeks gestational age. Blood tests are drawn after the ultrasound and again later in the between 15 and 21 weeks gestational age. Please let your physician know if you are interested in this testing. It will require an appointment with our autocad technician. This is not an ultrasound performed by a physician in our office during a routine visit. SIGNS AND SYMPTOMS OF LABOR 1. Contractions every 10 minutes or more often 2. Clear, pink, or brownish fluid (water) leaking from vagina 3. Feeling that baby is pushing down, pressure 4. Low, dull backache 5. Cramps that feel like a period 6. Cramps with or without diarrhea If you notice any of the above symptoms, contact our office at [phone] and ask to speak with a nurse. After hours, you can call doctors registry at [phone] OR call [facility] at [phone] and ask to have the doctor bottom ironer paged. If you consider this an emergency, dial 3-9-2 or go to your nearest emergency department. NEED HELP? Are you dealing with a violent or abusive relationship? Are you a victim of rape or sexual assult? Call [facility] ([place]) 24 hour Crisis Hotline: 990.803.1183 or 439-042-0616. MANUAL Your Guide to a Healthy manual is now on-line. Visit [email or web address] to download your free copy documented in this encounter [facility] 07-28-2024 Progress note Formatting of t his note might be different from the original. S: Geena Pedro is a 33 year old female who presents at 11/17/2024, by Last Menstrual Period for a routine visit. Denies headache, visual changes, chest pain, shortness of breath, vaginal bleeding, leakage of fluid, or dysuria. Feeling well, no complaints. Good movement, No contractions O: See flow sheet Gen: No apparent distress Abd: Gravid, nontender Glucose next visit Moving to [facility]. Still planning to deliver in [place] ASSESSMENT/PLAN: 1. 24 weeks gestation of (HCC) - ICD9: V22.2, ICD10: Z3A.24 (primary diagnosis) 2. Encounter for supervision of normal first in second trimester ([facility]) - ICD9: V22.0, ICD10: Z34.02 Dena Carter MD [facility] 07-28-2024 Miscellaneous Notes S: Geena Pedro is a 33 year old female who presents at 11/17/2024, by Last Menstrual Period for a routine visit. Denies headache, visual changes, chest pain, shortness of breath, vaginal bleeding, leakage of fluid, or dysuria. Feeling well, no complaints. Good movement, No contractions O: See flow sheet Gen: No apparent distress Abd: Gravid, nontender Glucose next visit Moving to [facility]. Still planning to deliver in [place] ASSESSMENT/PLAN: 1. 24 weeks gestation of (HCC) - ICD9: V22.2, ICD10: Z3A.24 (primary diagnosis) 2. Encounter for supervision of normal first in second trimester ([facility]) - ICD9: V22.0, ICD10: Z34.02 Dena Carter MD documented in this encounter [facility] 07-28-2024 Instructions Bhavna Cotto LPN - 07/28/2024 2:45 PM EDT SEQUENTIAL SCREENINGS [facility] offers sequential screenings for women who are interested in screenings for chromosomal abnormalities and certain defects during a . The sequential screen combines ultrasound and blood tests to determine the risk of chromosomal abnormalities, including Down's Syndrome (Trisomy 21) and Trisomy 18, as well as open neural tube defects including spina bifida. Ultrasound examination is performed between 11 weeks and 13 weeks gestational age. Blood tests are drawn after the ultrasound and again later in the between 15 and 21 weeks gestational age. Please let your physician know if you are interested in this testing. It will require an appointment with our autocad technician. This is not an ultrasound performed by a physician in our office during a routine visit. SIGNS AND SYMPTOMS OF LABOR 1. Contractions every 10 minutes or more often 2. Clear, pink, or brownish fluid (water) leaking from vagina 3. Feeling that baby is pushing down, pressure 4. Low, dull backache 5. Cramps that feel like a period 6. Cramps with or without diarrhea If you notice any of the above symptoms, contact our office at [phone] and ask to speak with a nurse. After hours, you can call doctors registry at [phone] OR call [facility] at [phone] and ask to have the doctor bottom ironer paged. If you consider this an emergency, dial 12-11- or go to your nearest emergency department. NEED HELP? Are you dealing with a violent or abusive relationship? Are you a victim of rape or sexual assult? Call [facility] ([place]) 24 hour Crisis Hotline: 366.534.5467 or 374-197-7733. MANUAL Your Guide to a Healthy manual is now on-line. Visit [email or web address] to download your free copy documented in this encounter [facility] 07-24-2024 Telephone encounter Note Order signed and faxed. Dea Putnam RN [facility] 07-24-2024 Miscellaneous Notes Order signed and faxed. Dea Putnam RN Received breast pump RX from [employer]. To RR to sign. Dena Lomeli RN documented in this encounter [facility] 07-24-2024 Telephone encounter Note Received breast pump RX from [employer]. To RR to sign. Dena Lomeli, RN [facility] 07-05-2024 Telephone encounter Note Patient notified. Dena Lomeli RN [facility] 07-05-2024 Miscellaneous Notes Patient notified. Dena Lomeli RN Left message for patient to call office. Dena Lomeli RN Over 25 is normal. Under 20 is when we get the most concerned. Hers is 29 so that is not considered high risk. Kenyatta Guzman MD 20w5d Patient had her anatomy US and OB visit on 06/30. JG mentioned to patient that her cervix was a little short and that she may need to have a f/u US. The US report does not state that she needs CL checks. Patient wanting to make sure so that she doesn't for piece of mind. Thank you. Dena Lomeli RN documented in this encounter [facility] 07-05-2024 Telephone encounter Note Left message for patient to call office. Dena Lomeli RN [facility] 07-05-2024 Telephone encounter Note Over 25 is normal. Under 20 is when we get the most concerned. Hers is 29 so that is not considered high risk. Kenyatta Guzman MD [facility] [place] [facility] Work Phone: 07-05-2024 Telephone encounter Note 20w5d Patient had her anatomy US and OB visit on 06/30. JG mentioned to patient that her cervix was a little short and that she may need to have a f/u US. The US report does not state that she needs CL checks. Patient wanting to make sure so that she doesn't for piece of mind. Thank you. Dena Lomeli, RN [facility] [place] [facility] 07-04-2024 Progress note Formatting of t his note might be different from the original. Anatomy ultrasound reviewed. No abnormalities identified. Follow up as clinically indicated. Please place copy in ob chart. Kenyatta Guzman MD [facility] [place] [facility] Work Phone: 07-04-2024 Miscellaneous Notes Anatomy ultrasound reviewed. No abnormalities identified. Follow up as clinically indicated. Please place copy in ob chart. Kenyatta Guzman MD documented in this encounter [facility] [place] [facility] 06-30-2024 Progress note Formatting of t his note might be different from the original. S: Geena Pedro is a 33 year old female who presents at 11/17/2024, by Last Menstrual Period for a routine visit. Denies headache, visual changes, chest pain, shortness of breath, vaginal bleeding, leakage of fluid, or dysuria. Feeling well, no complaints. O: See flow sheet Gen: No apparent distress Anatomy us completed today. Results pending. Improvement with Prilosec. ASSESSMENT/PLAN: 1. Encounter for supervision of normal first in second trimester - ICD9: V22.0, ICD10: Z34.02 (primary diagnosis) 2. 20 weeks gestation of - ICD9: V22.2, ICD10: Z3A.20 Dena Carter MD [facility] [place] [facility] 06-30-2024 Miscellaneous Notes S: Geena Pedro is a 33 year old female who presents at 11/17/2024, by Last Menstrual Period for a routine visit. Denies headache, visual changes, chest pain, shortness of breath, vaginal bleeding, leakage of fluid, or dysuria. Feeling well, no complaints. O: See flow sheet Gen: No apparent distress Anatomy us completed today. Results pending. Improvement with Prilosec. ASSESSMENT/PLAN: 1. Encounter for supervision of normal first in second trimester - ICD9: V22.0, ICD10: Z34.02 (primary diagnosis) 2. 20 weeks gestation of - ICD9: V22.2, ICD10: Z3A.20 Dena Carter MD documented in this encounter [facility] [place] [facility] 06-30-2024 Instructions Suzette Tran MA - 06/30/2024 3:54 PM EDT SEQUENTIAL SCREENINGS The [facility] [place] [facility] offers sequential screenings for women who are interested in screenings for chromosomal abnormalities and certain defects during a . The sequential screen combines ultrasound and blood tests to determine the risk of chromosomal abnormalities, including Down's Syndrome (Trisomy 21) and Trisomy 18, as well as open neural tube defects including spina bifida. Ultrasound examination is performed between 11 weeks and 13 weeks gestational age. Blood tests are drawn after the ultrasound and again later in the between 15 and 21 weeks gestational age. Please let your physician know if you are interested in this testing. It will require an appointment with our autocad technician. This is not an ultrasound performed by a physician in our office during a routine visit. SIGNS AND SYMPTOMS OF LABOR 1. Contractions every 10 minutes or more often 2. Clear, pink, or brownish fluid (water) leaking from vagina 3. Feeling that baby is pushing down, pressure 4. Low, dull backache 5. Cramps that feel like a period 6. Cramps with or without diarrhea If you notice any of the above symptoms, contact our office at [phone] and ask to speak with a nurse. After hours, you can call doctors registry at [phone] OR call [facility] at [phone] and ask to have the doctor bottom ironer paged. If you consider this an emergency, dial 9--6 or go to your nearest emergency department. NEED HELP? Are you dealing with a violent or abusive relationship? Are you a victim of rape or sexual assult? Call [facility] ([place]) 24 hour Crisis Hotline: 652.712.8302 or 619-612-1922. MANUAL Your Guide to a Healthy manual is now on-line. Visit [facility]org/HealthyPregna ncyGuide to download your free copy documented in this encounter [facility] [place] [facility] 06-08-2024 Progress note Formatting of t his note might be different from the original. S: Geena Pedro is a 33 year old female who presents at 11/17/2024, by Last Menstrual Period for a routine visit. Denies headache, visual changes, chest pain, shortness of breath, vaginal bleeding, leakage of fluid, or dysuria. Feeling well, no complaints. O: See flow sheet Gen: No apparent distress Recent ED visit for epigastric pain. No stones seen. A few days prior was diagnosed with influenza A. Is recovered from flu. Abd pain slowly improving. Diagnosed with gastritis and given Prilosec in addition to Pepcid. US scheduled next visit ASSESSMENT/PLAN: 1. 16 weeks gestation of - ICD9: V22.2, ICD10: Z3A.16 (primary diagnosis) 2. Encounter for supervision of normal first in first trimester - ICD9: V22.0, ICD10: Z34.01 Dena Carter MD [facility] [place] [facility] 06-08-2024 Miscellaneous Notes S: Geena Pedro is a 33 year old female who presents at 11/17/2024, by Last Menstrual Period for a routine visit. Denies headache, visual changes, chest pain, shortness of breath, vaginal bleeding, leakage of fluid, or dysuria. Feeling well, no complaints. O: See flow sheet Gen: No apparent distress Recent ED visit for epigastric pain. No stones seen. A few days prior was diagnosed with influenza A. Is recovered from flu. Abd pain slowly improving. Diagnosed with gastritis and given Prilosec in addition to Pepcid. US scheduled next visit ASSESSMENT/PLAN: 1. 16 weeks gestation of - ICD9: V22.2, ICD10: Z3A.16 (primary diagnosis) 2. Encounter for supervision of normal first in first trimester - ICD9: V22.0, ICD10: Z34.01 Dena Carter MD documented in this encounter [facility] [place] [facility] 06-08-2024 Instructions Kadie Rodriguez MA - 06/08/2024 3:43 PM EST SEQUENTIAL SCREENINGS The [facility] [place] [facility] offers sequential screenings for women who are interested in screenings for chromosomal abnormalities and certain defects during a . The sequential screen combines ultrasound and blood tests to determine the risk of chromosomal abnormalities, including Down's Syndrome (Trisomy 21) and Trisomy 18, as well as open neural tube defects including spina bifida. Ultrasound examination is performed between 11 weeks and 13 weeks gestational age. Blood tests are drawn after the ultrasound and again later in the between 15 and 21 weeks gestational age. Please let your physician know if you are interested in this testing. It will require an appointment with our autocad technician. This is not an ultrasound performed by a physician in our office during a routine visit. SIGNS AND SYMPTOMS OF LABOR 1. Contractions every 10 minutes or more often 2. Clear, pink, or brownish fluid (water) leaking from vagina 3. Feeling that baby is pushing down, pressure 4. Low, dull backache 5. Cramps that feel like a period 6. Cramps with or without diarrhea If you notice any of the above symptoms, contact our office at [phone] and ask to speak with a nurse. After hours, you can [facility] at [phone] OR call [facility] at [phone] and ask to have the doctor bottom ironer paged. If you consider this an emergency, dial 9-1-1 or go to your nearest emergency department. NEED HELP? Are you dealing with a violent or abusive relationship? Are you a victim of rape or sexual assult? Call [facility] ([place]) 24 hour Crisis Hotline: 558.319.1891 or 862-129-6840. MANUAL Your Guide to a Healthy manual is now on-line. Visit [facility]org/HealthyPregna ncyGuide to download your free copy documented in this encounter [facility] 05-29-2024 Telephone encounter Note Pt notified and appt rescheduled to next week. Benja Reddy RN [facility] 05-29-2024 Miscellaneous Notes Pt notified and appt rescheduled to next week. Benja Reddy RN Prescription sent. If she is ok, please reschedule for next week. Thank you, Raquel French APRN.CNM Yes, see LendLayer message sent today. She would like Tamiflu sent to [facility] in [place]. Patient has an OB visit on Wednesday. Can she keep this visit? Only need to call patient back if she needs to reschedule her appointment. Dena Lomeli RN Can prescribe tamiflu if symptoms started in last 5 days. Let me know and I can send prescription. This will be billed as a visit. Raquel French APRN.CNM 15w3d Pt's mother calling as Pt took at home test for Flu and tested positive for Flu A+. Sx-fatigue, fever (highest 100.1), chills, headache. Pt's mother went to [facility]-advised on safe medications to take during and Pt has healthy guide. Staying hydrated. Pt's mother asking if Pt should be prescribed Tamiflu since Pt is just feeling miserable? Please advise. Pt has upcoming appt on 06/02/24 with SW. Benja Reddy RN documented in this encounter [facility] 05-29-2024 Telephone encounter Note Prescription sent. If she is ok, please reschedule for next week. Thank you, Raquel French APRN.CNM [facility] 05-29-2024 Telephone encounter Note See 05/29/24 phone note. Dena Lomeli RN [facility] [place] [facility] 05-29-2024 Miscellaneous Notes See 05/29/24 phone note. Dena Lomeli RN 15w3d Patient has an OB visit on Friday 06/02 documented in this encounter [facility] 05-29-2024 Telephone encounter Note Yes, see Mychart message sent today. She would like Tamiflu sent to [facility] in [place]. Patient has an OB visit on Wednesday. Can she keep this visit? Only need to call patient back if she needs to reschedule her appointment. Dena Lomeli RN [facility] 05-29-2024 Telephone encounter Note 15w3d Patient has an OB visit on Friday 06/02 [facility] 05-29-2024 Telephone encounter Note Can prescribe tamiflu if symptoms started in last 5 days. Let me know and I can send prescription. This will be billed as a visit. Raquel French APRN.CNM [facility] 05-29-2024 Telephone encounter Note 15w3d Pt's mother calling as Pt took at home test for Flu and tested positive for Flu A+. Sx-fatigue, fever (highest 100.1), chills, headache. Pt's mother went to [facility]-advised on safe medications to take during and Pt has healthy guide. Staying hydrated. Pt's mother asking if Pt should be prescribed Tamiflu since Pt is just feeling miserable? Please advise. Pt has upcoming appt on 06/02/24 with SW. Benja Reddy RN [facility] 05-12-2024 Telephone encounter Note Patient called in to the office. Advised that a list of medications was sent to her Mychart. States that Wednesday at work she had upper abdominal pressure. Has been constipated and has IBS. Last BM was a small amount today. Was several days without a BM before this. Took a stool softener the last several days. Patient asking is she needs to be concerned because it occurred again today. Feels like everything is getting squished. Denies pelvic pressure, cramping, or vaginal bleeding. Reassurance given. Patient seen on 05/05/24. Patient plans to take Miralax. Recommended she call and schedule if it continues or contact her PCP who manages her IBS. Dena Lomeli RN [facility] 05-12-2024 Miscellaneous Notes Patient called in to the office. Advised that a list of medications was sent to her [employer]. States that Wednesday at work she had upper abdominal pressure. Has been constipated and has IBS. Last BM was a small amount today. Was several days without a BM before this. Took a stool softener the last several days. Patient asking is she needs to be concerned because it occurred again today. Feels like everything is getting squished. Denies pelvic pressure, cramping, or vaginal bleeding. Reassurance given. Patient seen on 05/05/24. Patient plans to take Miralax. Recommended she call and schedule if it continues or contact her PCP who manages her IBS. Dena Lomeli RN Left message for patient to call office or check American Board of Addiction Medicine (ABAM) message for medication list. Divya Katz RN Patient called requesting to speak to nurse about constipation Please advise documented in this encounter [facility] 05-12-2024 Telephone encounter Note Left message for patient to call office or check American Board of Addiction Medicine (ABAM) message for medication list. Divya Katz RN [facility] [place] [facility] 05-12-2024 Telephone encounter Note Patient called requesting to speak to nurse about constipation Please advise [facility] Work Phone: 05-05-2024 Progress note Formatting of t his note might be different from the original. KJ - VB No. LOF No. CTXS No. Movement: absent. Other c/o: heartburn Medication list reviewed. Physical Exam See Flow Sheet Gen: no accute distress, well appearing A/P 12w0d Estimated Date of Delivery: 11/17/24 NT today Heartburn - continue pepcid Schedule Anatomy US Alex Schofield MD [facility] 05-05-2024 Miscellaneous Notes KJ - VB No. LOF No. CTXS No. Movement: absent. Other c/o: heartburn Medication list reviewed. Physical Exam See Flow Sheet Gen: no accute distress, well appearing A/P 12w0d Estimated Date of Delivery: 11/17/24 NT today Heartburn - continue pepcid Schedule Anatomy US Alex Schofield MD documented in this encounter [facility] 05-05-2024 Instructions Suzette Tran MA - 05/05/2024 8:27 AM EST SEQUENTIAL SCREENINGS The [facility] [place] [facility] offers sequential screenings for women who are interested in screenings for chromosomal abnormalities and certain defects during a . The sequential screen combines ultrasound and blood tests to determine the risk of chromosomal abnormalities, including Down's Syndrome (Trisomy 21) and Trisomy 18, as well as open neural tube defects including spina bifida. Ultrasound examination is performed between 11 weeks and 13 weeks gestational age. Blood tests are drawn after the ultrasound and again later in the between 15 and 21 weeks gestational age. Please let your physician know if you are interested in this testing. It will require an appointment with our autocad technician. This is not an ultrasound performed by a physician in our office during a routine visit. SIGNS AND SYMPTOMS OF LABOR 1. Contractions every 10 minutes or more often 2. Clear, pink, or brownish fluid (water) leaking from vagina 3. Feeling that baby is pushing down, pressure 4. Low, dull backache 5. Cramps that feel like a period 6. Cramps with or without diarrhea If you notice any of the above symptoms, contact our office at [phone] and ask to speak with a nurse. After hours, you can call doctors registry at [phone] OR call [facility] at [phone] and ask to have the doctor bottom ironer paged. If you consider this an emergency, dial 9--6 or go to your nearest emergency department. NEED HELP? Are you dealing with a violent or abusive relationship? Are you a victim of rape or sexual assult? Call [facility] ([place]) 24 hour Crisis Hotline: 368.618.6853 or 423-329-2683. MANUAL Your Guide to a Healthy manual is now on-line. Visit [facility]org/HealthyPregna ncyGuide to download your free copy documented in this encounter [facility] [place] [facility] 04-28-2024 Telephone encounter Note See CyVekt message from 04/28/24. Dea Putnam RN [facility] [place] [facility] 04-28-2024 Miscellaneous Notes See Pointstic message from 04/28/24. Dea Putnam RN Patient calling to request lab order for carrier screening and genetic testing as was discussed during initial OB visit. Please notify patient when orders are available for scheduling. She is wanting to have labs completed on 05/01/24. documented in this encounter [facility] [place] [facility] 04-28-2024 Telephone encounter Note Patient calling to request lab order for carrier screening and genetic testing as was discussed during initial OB visit. Please notify patient when orders are available for scheduling. She is wanting to have labs completed on 05/01/24. [facility] [place] [facility] 04-14-2024 Instructions Pat Haddad APRN.SPORTS PHYSICAL THERAPIST - 04/14/2024 1:55 PM EST Images from the original note were not included. Please select the following link to access the [facility] [place] [facility] Your Guide to a Healthy . www.Ccf.org/healthypregnancyguide Psychotherapy Services at [facility] [place] [facility] Call Behavioral Health Access Line at [phone] to schedule Individual psychotherapy In-person or virtual Wait time for first evaluation may be 12 or more weeks. Wait list spots may be available. Due to the high volume of patients this option is recommended if you are looking for short term acute symptom coping strategies. 5-056-6-DSOY8YKOK - [place] Maternal Mental Health Hotline If you are in suicidal crisis, please call or text 5-683-035-TALK ( ) or visit the National Suicide Prevention Lifeline website. mchb.[facility].gov If you are in crisis, call 331 or go to your nearest Emergency Department Here are some links for wonderful Providers here in the community and surrounding areas. Do not hesitate to contact their offices, many are offering virtual visits during this time. Psychotherapy Services outside of [facility] [place] [facility] Support International Online Provider Directory https://Bigvest.Unitrio Technology/ - can assist in finding providers in your area that might be more extensive then the list below. [facility] [place], [place] [address] [place] [address] [facility] [address] [place] [address] [facility] [address] [place], [place] [id number] [facility] [address] [place], [place] [id number] Juliann Lisa MD [address] [place] [address] [facility] [address] [place] [address], [address] [place] [address] [facility] [address] [place] [address] [facility] [place] [phone]/ [phone] Bernadette Rees [address] [facility] [phone] [facility] [place] [phone] [facility] [address] [place] [address]/ [place] [phone] Holli Leach, METROLOGY TECHNICIAN, CLC [facility] Workshops, telehealth and at home visits. [phone] Humanistic counseling brandon 20 locations [place], [place], [place], [place], [place], [place], [place], [facility], [place], [place], [place], [place], [place], [place], [facility], [place], [place] ,[facility], [place], [place],[facility], [facility], [place], [facility], [facility], [place] www.[facility] [phone] Psychotherapy resources outside of [facility] [place] [facility] are listed below [facility] Web: https://www.Collegebound Bus/ Support International Online Provider Directory https://Zoom/ [facility] https://Weeks Communications/ Partners for Behavioral Health and Wellness Web: https://Countdown/ Center for Effective Living Web: https://www.effectiveGazemetrixliving.Unitrio Technology/ LifeStance Web: https://Oxsensis.Unitrio Technology/location/[place]/ [facility] Web: https://www.River Vision Developmentinc.or g/ [facility] Web: https://YapStone.org/ Recovery Resources Mental health and substance abuse help Web: https://www.OurStays.org & RESOURCES Support International Direct peer support and connection to professional resources Non-Emergency Helpline Phone: / Text: [phone] Web: https://www..net/ Online Provider Directory: https://Zoom/ Online Support Meetings: https://www..net/get-he lp/iwj-cfzvyz-abumdcx-meetings/ TRINI Baby and Linking Machine Operator Services Web: https://wwwHedge Community/ MotherToBaby Expert information on medication use during and Text: 685.670.8238 Web: https://Shutter Guardian/ NATIONAL REGISTRY FOR PSYCHIATRIC MEDICATIONS Currently studying the safety of antidepressants, ADHD medications and atypical antipsychotics taken during TO PARTICIPATE CALL TOLL-FREE: Web: https://womenentalhealth.org/re search/pregnancyregistry/ Support Groups: [facility]- Follow on facebook Baby Bistro support group led by [facility] department [facility] - Support Group [facility].org The POEM support group [phone] Www.poemonline.org Follow on facebook - MAAME abdalla Online support meetings PSI https://www..net/get-he lp/frw-xutoce-teblhrn-meetings/ [facility] mommy and me virtual support group 11:30-1pm Support for mothers and new babies and toddlers [place] childbirth education: Childbirth @[facility].org or call [phone] CRISIS: CRISIS HOTLINE [phone], 911 or go to the nearest ER. [facility] [phone] / [facility] [phone] https://www.[facility].org Crisis text line text the word HOME to [phone] Andrade Pinon [address] [place] [address] [facility] [address] www.Kloudco Jo Ann Schwartz clinical counseling [address] [facility] [address] [place] [address] www.MyFeelBack [phone] [facility] psychotherapy Candi Zamorano EXECUTIVE DIRECTOR CONTRACT SHOP BRIM STRETCHER-S [address] [facility] www.Backchat [phone]/ [place] [phone] They all offer virtual. All work with trauma Support groups Online support meetings PSI https://www..net/get-he lp/rmu-zaybav-dwycxqu-meetings/ Here are the support groups they offer: Support of parents of 1 to 4 years old children POEM ( Outreach and Encouragement for Moms) offers free support for mothers experiencing depression, anxiety, and other mood and anxiety disorders. Masks are recommended but not required. No pre-registration required. Babies in arms welcome. meetings now take place on the and Wednesday of each month Location: [facility] [address] [place] [address] Room 122 (library room) 7-8:00 p.m. When you enter the [facility] parking lot off of [address] the entrance door closest to our meeting room is on the front of the building toward the right. For those who are more comfortable with a virtual platform, POEM offers online support group options several days of the week. To register for an online group or to find out more about POEM, website at: https://[place].org/get-help/neponsit beach hospitalvlpw-nfctwt-irednt/poem-services/ offer a confidential helpline: private Facebook group is called MAAME - Ballardbarry Abdalla Here are the groups they offer: Traumatic childbirth resources: Http://pattch.org/ https://www.felixGazemetrixpiper Green Revolution Cooling.Unitrio Technology/ Name Location (s) Phone # (s) Services Website [facility] [address] [facility], [place], [place] - [phone]; [address] [facility] [address] [facility] [phone] In-Person GROUPS INDIVIDUAL THERAPY MATERNAL-INFANT MENTAL HEALTH MEDICATION MANAGEMENT PLAY AND ART THERAPY TELETHERAPY https://www.Collegebound Bus/s ira/ Kiah miranda [facility]? [address] [place], [place] [address] ? [place] [address] [facility], [facility] [address] [place], [place] [address] ? WOOD [address] [place], [place] [address]? Grief Support Groups Individual Grief Counseling Spiritual Care Memorial Events https://ballard.[facility].org/grief-services [facility] [address] [place], [place] [address]; ; Email: [email or web address] Women's Mental Health; Couples Counseling; Trauma (EMDR); Stress Management; Mood and Anxiety Related Disorders- and much more [email or web address]/ LifeStance Numerous as they have contract providers: access website to find specific providers near you Counseling including CBT and EMDR as well as many more modalities; Medication Management; Telehealth and In-Person https://Naked Wines/ [facility] [address] [place] [address]; [phone] Personal, Family and Group Therapy; Psychological Testing and Diagnosis; Medication Management; Life and Career Coaching; Psychoanalysis; Literacy Testing; Yoga and Meditation https://Countdown/ Fit [facility] [address] [facility] [address] [facility] [address], [place] [address] [address] ; [address] [facility] [address] [facility] [address] [place] [address]; Office # for both sites: Individual and Couples Counseling https://www.Card Capture Services.Unitrio Technology/ paymentinsurance.html OCD & Anxiety [facility] [address], [place] [address]; Specialize in Cognitive-Behavioral Therapy (CBT) for the treatment of anxiety disorders across the lifespan. TELEHEALTH ONLY. [email or web address] CrowdOptic/faqs [facility] [address] [facility] 6th [place], [address] [place] [address] [place], [address] [place] [address] [facility] [address] [place], [place], [id number] [place] [address] [place], [address], [address] [place] [address] [place], [address] [place] [address] [place], [place], [id number] Transportation Services To minimize patient barriers, [facility] provides transportation services to patients who qualify. If you are unable to get to your appointment at any of our facilities, please let us know. Need help now? Stop by one of our walk-in clinics to establish behavioral health care. Counseling Indvidual, Group, Couples and Family Counseling and EMDR. Medication Management Case Management benefits applications housing assistance Substance abuse treatment Medication assisted treatment https://www.[facility].or g/mental-health/ [facility] OFFICE AT [facility] [address] [place] [address] [facility] OFFICE [address] [place] [address] [facility] OFFICE [address] [place] [address] [place] [facility] (at [facility]) [address] [place] [address] [facility] EXCHANGE PROGRAM & HIV SCREENING [address] [place] [address] [place] [facility] EXCHANGE PROGRAM [address] [place] [address] Behavioral Health Urgent Care: [facility] Sites Counseling Indvidual and Group Medication Management Case Management benefits applications housing assistance Substance abuse treatment Medication assisted treatment Employment Services/ Job Training https://theCamera Service & Integrationio.org/ [facility] [address] [place], [place] [address]: P: [phone] [address] [facility], [address] [address] P: [phone] Our services include: Addiction Mental Health Treatment Assessment Psychiatry Medical Care Employment Housing Drug and Alcohol Prevention HIV/AIDS Prevention https://www.[facility].org/ [facility] [place] [address] [place] [address] [place] [address] [place], [place] [address] [place] [address] [place] [address] [place] [address] [facility] [address] [place] [address] [place] [address] [place] [address] TMS Therapy/ Counseling Psychocological Testing for ADHD Medication Management In-Person/ Telemedicine https://www.Drill Map/deisy ents-depression [facility] services [address], [place] [address] Neuropsychological Testing For ADHD https://www.[email or web address]/ [facility] Office [facility] [place], [place] [id number] [address] [id number] [address] [id number] Providing aopk-go-zzhw and telehealth services. Adult Case Management Community Education and Prevention Employment Outpatient Treatment - Counseling & Psychotherapy Psychiatric Services [email or web address]/ [facility] [place] [address] [place] [address] [facility] [address] [place] [address] Virtual Appointments! Now offering safe and convenient virtual client appointments to anyone in [place]! Individual Therapy Couples/Relationship Therapy Trauma/EMDR Therapy Art Therapy Play Therapy Health Support Specialist Support: Parenting Skills, Parent Child Interaction Therapy, Parent Infant Interaction Therapy Meditation Dietitian/Core Winding Operator Services Group Therapy Yoga [email or web address].[email or web address]. Unitrio Technology/ Vidya Mathew [phone] Private Practice: Telehealth Only Specializes in EMDR for Trauma None MORNING SICKNESS IN by Darlene Sosa M.D. for s0cket As you may already know, morning sickness can often be more appropriately called evening sickness or xtlaj-rhvrsm-ex-the-day sickness. While there are the susan few, most women (50-90%) experience some degree of nausea, some have vomiting, and a few develop a severe form of vomiting during called hyperemesis gravidarum. What causes the nausea and vomiting of ? We can't explain why some people feel fine and others are green for months. Even the same woman may feel vastly different in each . There is some relationship between nausea and the level of the hormone hCG. In twin pregnancies, and in other situations where the hCG is greater than expected, nausea and vomiting tend to be worse. In a destined for miscarriage, hCG levels tend to be low, and nausea is often less severe. This being said, a lack of nausea doesn't guarantee that the is destined for miscarriage. The fact that nausea and vomiting are often signs of a healthy can offer a silver lining in the dark cloud of miserable nausea. How long will the nausea last? Fortunately, for most women, nausea and vomiting are a first trimester event, peaking at week 9-10 and waning by week 14-16. When you are feeling bad the weeks can go by slowly but most moms do feel tremendously better by the middle of the . Whether morning sickness is a brief experience or lasts through most of the , there are treatments that can make the weeks or months more tolerable. What can you do about it? Diet: See what works for you. Try eating bland dry foods, and avoid fatty or spicy foods. It is okay to eat a less than perfectly balanced diet in the first trimester. Have your liquids separately from dry foods. Try sports drinks, water, clear juices, Cr-aid, or non-caffeinated tea. Avoid carbonated beverages that fill up your stomach. Try eating lots of little meals. If you tend to feel sick when you first wake up, leave crackers next to the bed for a quick snack before rising. Keeping healthy snacks with you all day to nibble when you feel queasy can sometimes even prevent nausea from starting. vitamins and nausea: Pre-betty vitamins can sometimes worsen nausea in . While folate is necessary, especially early in the , it comes as a smaller pill that many people find more tolerable than the complete vitamin pill. Ask your practitioner if it is okay to temporarily replace vitamins and iron with just a folate pill if you find a significant worsening in the level of your nausea from the vitamins. Alternative therapies: Acupressure may be used to treat nausea in , and is not known to have any risks for the fetus. Wristbands (marketed for seasickness) that put pressure on an acupressure point at the wrist are often available at drugstores or travel stores. Freda root is used for nausea in many traditional cultures. Some women take fresh grated freda or freda tablets. It is possible that the pill form contains other ingredients or contaminants, so you may want to try fresh freda first. Medications: Emetrol is the only nausea medication approved for use in . It is available over the counter and is soothing to the stomach. A prescription medication called Bendectin was available in the 1970s-1979's and was shown to be safe in , but the company stopped marketing it in the [place] due to the costs of liability coverage. Bendectin contained 10 milligrams of vitamin B6 and 10 milligrams of Doxylamine. Two tablets were given at bedtime and a total of up to 4 tablets could be used in a 24-hour period. Interestingly, Unisom , which contains a higher dose (25 mg.) of the same medication, Doxylamine, is currently marketed as an rlsg-hmi-bwteinf sleeping pill. Ask your practitioner if creating a vitamin B6/Doxylamine combination with nxtn-wql-honnppv medications would be safe for you. Prescription medications like Compazine and Phenergan can be used if the benefits outweigh possible risks, but these have not been clearly shown to be safe in . Zofran , an expensive anti-nausea medication often used to treat nausea from chemotherapy, can also be used. Can I throw up so much it harms the baby? The act of vomiting cannot hurt your fetus, which is protected inside the uterus. If you get dehydrated or develop a metabolic imbalance, this can be unhealthy. As long as you can keep down liquids, you and your baby will generally do all right. Eat when you feel able. If you are unable to keep anything down, or if you notice potential signs of dehydration such as lightheadedness, or concentrated and/or infrequent urination, call your practitioner. Some women need brief hospital admission for intravenous fluids and anti-nausea medications if their condition becomes severe. This severe form of nausea and vomiting is called Hyperemesis Gravidarum. As with many symptoms of , remind yourself that this, too, shall pass, and you'll have a wonderful baby to show for it! TREATMENT OPTIONS, SHORT VERSION: Frequent small meals Hydrate throughout day Sea-Bands wrist pressure point applicators Freda root (powdered, in capsules) 250mg four times a day Vitamin B6 25 mg tablet three times a day Also may be taken with half a tablet of Unisom three times a day (Doxylamine 12.5 mg) If severe (weight loss, dehydration), call us and come in for IV hydration and possible medication in the form of injections. Prescription medications such as Phenergan, Compazine, Reglan documented in this encounter [facility] [place] [facility] 04-14-2024 Note HNO ID: [id number] Author: PAT HADDAD APRN.SPORTS PHYSICAL THERAPIST Service: ? Author Type: Nurse Practitioner Type: Progress Notes Filed: 04/14/2024 14:36 Note Text: Workplace Rehabilitation Officer offered: Patient declines. INITIAL OB ASSESSMENT HPI: Geena is a 33 year old White here to establish Obstetrical Care. Patient's last menstrual period was 02/11/2024. from OB Dating Form. was unplanned but accepted Complaints: (!) nausea/vomiting OB History T0 L0 SAB0 IAB0 Ectopic0 Multiple0 Live Births0 Previous history: Prior : never History of 4th degree laceration: no History of shoulder dystocia: no History of Hypertensive disorders including pre-eclampsia or gestational hypertension: no History of gestational diabetes: no Patient's Risk Screening for delivery: Have you had a prior hernandez between 20w and 36w6d? No How many pregnancies have you had before? 0 Did you have a previous baby with a GBS Infection? No Please select all that apply for any prior : N/A MEDICAL/PSYCHOSOCIAL HISTORY: Severe Bleeding with Delivery: Thyroid Disease: Gestational Hypertension or Preeclampsia: Diabetes in : No results found for: ABORHD BMI 26.77 kg/(m2) Last Pap: 12/11/2022 History of abnormal pap: NO Prior treatment for cervical dysplasia: none. Last HPV: 12/04/2022 History of STDs: HPV Partner History of STDs: None Did you have a partner with Herpes? No Tobacco use: No E-Cigarette/Vaping Use: No Caffeine use: Yes Drug use: No Alcohol use: No Multivitamin with Folic acid: Yes Would refuse blood transfusion if medically necessary: No Social Needs: How often does this describe you? I don't have enough money to pay my bills: Never Within the past 12 months, have you worried that your food would run out before you had money to buy more? Never In the past 12 months, has lack of reliable transportation kept you from going to medical appointments or work, or from getting things needed for daily living? Never In the past 12 months, have you had any concerns about having a place to live, or about the condition or quality of your housing? Never Would you like more information on any of the following (please check all that apply)? Not interested Social History: Do you have any history of depression, anxiety, PTSD, or other mood problems? Yes Do you have a history of abuse or trauma that may impact your experience? No Are you currently employed? Yes Depression/Anxiety Screening: denies symptoms of depression. OB Depression and Anxiety Screening- This Encounter (since 04/13/2024) Over the past 2 weeks have you felt down, depressed, or hopeless? Negative Over the past two weeks, have you felt little interest or pleasure in doing things?? Negative Feeling nervous, anxious or on edge 0-Not at all Not being able to stop or control worrying 0-Not al all Anxiety Pre-Screening Total (If >/= 3 additional questions will be reviewed) 0 Genetic Screening: Partner present: Yes Patient verbalized knowledge of partner family health history: Yes Do you or your partner have any personal or family history of defects not previously discussed: No Do you have history of a complicated by anomaly, genetic condition, or demise: No Preeclampsia Risk Screening: Screening for prevention of preeclampsia: High risk factors: None Moderate risk ractors: None OB Risk Screening: Completed, no positive findings documented. Marital Status:Committed relationship Partner: Name: Giovani Age: 30 Occupation: [employer] Gender: Male PAST MEDICAL HISTORY Diagnosis Date Low serum high density lipoprotein (HDL) Situational depression Lexapro 1.5 years Thyroid nodule US showed left thryroid cyst 02/2022 [facility] PAST SURGICAL HISTORY Procedure Laterality Date NONE Current Outpatient Medications Medication Sig Dispense Refill PNV no.95/ferrous fum/folic ac ( ORAL) Take by mouth. No current facility-administered medications for this visit. Allergies As of Date: 04/14/2024 (No Known Allergies) Fully Assessed 04/14/2024 Does patient have penicillin allergy: No REVIEW OF SYSTEMS: GENERAL: Negative for: Fever or Chills HEENT: Negative for: Headache, Impaired Vision, Ringing in Ears, Nosebleeds NECK: Negative for: Swelling, Pain, Stiffness RESPIRATORY: Negative for: Cough, Shortness of breath, Wheezing GASTROINTESTINAL: Negative for: Heartburn, Constipation, Diarrhea, Blood in stool + nausea MUSCULOSKELETAL: Negative for: Muscle or joint pain, stiffness, Joint swelling NEUROLOGIC/PSYCHIATRIC: Negative for: Weakness, Paralysis, Numbness, Tingling, Tremor, Anxiety, Depression, Memory loss SKIN: Negative for: Rash, Itching GENITOURINARY: Negative for: vaginal itching, vaginal discharge, hematuria or dysuria SENSITIVE EXAM: The sensitive examina (more content not included)... [facility] 04-14-2024 History of Present illness Narrative Workplace Rehabilitation Officer offered: Patient declines. INITIAL OB ASSESSMENT HPI: Geena is a 33 year old White here to establish Obstetrical Care. Patient's last menstrual period was 02/11/2024. from OB Dating Form. was unplanned but accepted Complaints: (!) nausea/vomiting OB History T0 L0 SAB0 IAB0 Ectopic0 Multiple0 Live Births0 Previous history: Prior : never History of 4th degree laceration: no History of shoulder dystocia: no History of Hypertensive disorders including pre-eclampsia or gestational hypertension: no History of gestational diabetes: no Patient's Risk Screening for delivery: Have you had a prior hernandez between 20w and 36w6d? No How many pregnancies have you had before? 0 Did you have a previous baby with a GBS Infection? No Please select all that apply for any prior : N/A MEDICAL/PSYCHOSOCIAL HISTORY: Severe Bleeding with Delivery: Thyroid Disease: Gestational Hypertension or Preeclampsia: Diabetes in : No results found for: ABORHD BMI 26.77 kg/(m^2) Last Pap: 12/11/2022 History of abnormal pap: NO Prior treatment for cervical dysplasia: none. Last HPV: 12/04/2022 History of STDs: HPV Partner History of STDs: None Did you have a partner with Herpes? No Tobacco use: No E-Cigarette/Vaping Use: No Caffeine use: Yes Drug use: No Alcohol use: No Multivitamin with Folic acid: Yes Would refuse blood transfusion if medically necessary: No Social Needs: How often does this describe you? I don't have enough money to pay my bills: Never Within the past 12 months, have you worried that your food would run out before you had money to buy more? Never In the past 12 months, has lack of reliable transportation kept you from going to medical appointments or work, or from getting things needed for daily living? Never In the past 12 months, have you had any concerns about having a place to live, or about the condition or quality of your housing? Never Would you like more information on any of the following (please check all that apply)? Not interested Social History: Do you have any history of depression, anxiety, PTSD, or other mood problems? Yes Do you have a history of abuse or trauma that may impact your experience? No Are you currently employed? Yes Depression/Anxiety Screening: denies symptoms of depression. OB Depression and Anxiety Screening- This Encounter (since 04/13/2024) Over the past 2 weeks have you felt down, depressed, or hopeless? Negative Over the past two weeks, have you felt little interest or pleasure in doing things? Negative Feeling nervous, anxious or on edge 0-Not at all Not being able to stop or control worrying 0-Not al all Anxiety Pre-Screening Total (If >/= 3 additional questions will be reviewed) 0 Genetic Screening: Partner present: Yes Patient verbalized knowledge of partner family health history: Yes Do you or your partner have any personal or family history of defects not previously discussed: No Do you have history of a complicated by anomaly, genetic condition, or demise: No Preeclampsia Risk Screening: Screening for prevention of preeclampsia: High risk factors: None Moderate risk ractors: None OB Risk Screening: Completed, no positive findings documented. Marital Status:Committed relationship Partner: Name: Morrilton Age: 30 Occupation: [employer] Gender: Male PAST MEDICAL HISTORY Diagnosis Date Low serum high density lipoprotein (HDL) Situational depression Lexapro 1.5 years Thyroid nodule US showed left thryroid cyst 02/2022 [facility] PAST SURGICAL HISTORY Procedure Laterality Date NONE Current Outpatient Medications Medication Sig Dispense Refill PNV no.95/ferrous fum/folic ac ( ORAL) Take by mouth. No current facility-administered medications for this visit. Allergies As of Date: 04/14/2024 (No Known Allergies) Fully Assessed 04/14/2024 Does patient have penicillin allergy: No REVIEW OF SYSTEMS: GENERAL: Negative for: Fever or Chills HEENT: Negative for: Headache, Impaired Vision, Ringing in Ears, Nosebleeds NECK: Negative for: Swelling, Pain, Stiffness RESPIRATORY: Negative for: Cough, Shortness of breath, Wheezing GASTROINTESTINAL: Negative for: Heartburn, Constipation, Diarrhea, Blood in stool + nausea MUSCULOSKELETAL: Negative for: Muscle or joint pain, stiffness, Joint swelling NEUROLOGIC/PSYCHIATRIC: Negative for: Weakness, Paralysis, Numbness, Tingling, Tremor, Anxiety, Depression, Memory loss SKIN: Negative for: Rash, Itching GENITOURINARY: Negative for: vaginal itching, vaginal discharge, hematuria or dysuria SENSITIVE EXAM: The sensitive examination was discussed with the Patient or Patient's Authorized Remote Ruby On Rails Developer. As applicable, any other physician, advance practice provider, medical student, or other health professional student that will be observing or involved in the sensitive examination for educational or training purposes was discussed with the Patient or Authorized Remote Ruby On Rails Developer. The Patient or Authorized Remote Ruby On Rails Developer has agreed to proceed with the sensitive examination. (Sensitive examination includes inspection and/or palpation of the breasts, pelvis, prostate and anorectal regions). PHYSICAL EXAM: BP 122/60 Ht 5' 3.386 (1.61m) Wt 153 lb (69.4kg) LMP 02/11/2024 BMI 26.77 kg/(m^2). GENERAL: pleasant in no apparent distress DERMATOLOGY: Normal, without lesions, non-icteric, and non-hirsute NECK: Supple, full range of motion, no adenopathy, and thyroid normal CHEST: Normal inspiratory effort BREAST: soft, non-tender, symmetric, no dominant mass, normal nipple-areolar complex, no lymphadenopathy, and no nipple discharge ABDOMEN: soft, non-tender, and no masses NEURO: alert and oriented x3,exam grossly non-focal PELVIS: External genitalia normal without lesions. Perineal body intact. No vaginal or cervical lesions. Cervix closed. Uterus 9 week size. No adnexal masses or tenderness. Clinical Pelvimetry: Pelvimetry clinically assessed as adequate Limited OB ultrasound exam: single intrauterine and positive cardiac activity ASSESSMENT: 33 year old at 9w0d wks gestational age PLAN: 1) Patient oriented to practice. Patient given new OB orientation folder. Discussed nutrition, folic acid supplementation, dietary guidelines, exercise, smoking, alcohol, caffeine, and drug use. Discussed gestational weight gain guidelines. Discussed routine OB labs including STD/HIV. Discussed how to access Your guide to a health and the Fashion Editor. Discussed hemoglobin electrophoresis. Patient: Declines Reviewed midwifery and risk assessment analyst services that are available. 2) Screening: Hemoglobin A1C: ordered Baby Aspirin: The patient has been counseled about the potential benefits of low dose aspirin in and our recommendation that this be offered to all patients, regardless of whether they meet the high risk criteria specified above. She Accepts Aneuploidy Screening: Discussed aneuploidy screening, nuchal translucency/first trimester early anatomy ultrasound and NIPT. The risks/benefits and limitations of NIPT/aneuploidy screening were reviewed including the potential for false negative and false positive results. The availability of genetic counseling was reviewed. Information on aneuploidy screening was provided. The patient chooses to proceed with First trimester early anatomy ultrasound (12-13w6d) Myriad Carrier Screening: Discussed myriad carrier screening. We discussed the availability of professional-society guided carrier screening and reviewed the conditions screened and limitations of screening. The availability of genetic counseling was reviewed. Information on carrier screening was provided. The patient is considering 3) Patient offered option of Virtual Visits. Patient unsure. May consider in future. ACTIVE PROBLEM LIST Encounter for Supervision of Normal First in First Trimester - 04/14/2024 Comment: Care Checklist Vaccines: [] Flu vaccine [] declined [] RSV vaccine 32 0/7 - 36 6/ (Dec - May) [] declined [] COVID vaccine [] declined [] TDaP 27-36 [] declined First trimester: [x] Dating US [] 1st tri labs [x] Pap smear [] Carrier screening - considering [] declined [] NIPT screening - considering [] declined [x] First trimester anatomy scan [] declined [x] universal ASA ordered (start 12w-16w) [] declined [] M Power Consult [x] not indicated [] declined Second trimester: [] Anatomy scan [] Mode of Delivery - [] Feeding - [] Pump ordered [] Diabetes screen [] CBC, RPR [] Behavioral Health Screening Third trimester (28-30 weeks): [] Consent [] Contraception [] Director Of Residential Services [] TeamBirth handout Third trimester (36-40 weeks): [] GBS [] Presentation - [] Scheduled [] yes - Hibiclens, pre-op instructions, CBC, T&S ordered [] no [] H&P [] Preferences works Nausea and Vomiting During - 04/14/2024 Comment: 04/14/24 Vitamin B6 and Unisom doses reviewed. To notify if prescription is needed. Pat Haddad APRN.CNP History of Depression - 04/14/2024 Comment: April 14, 2024 Denies concerns at this time. Mental health resources provided. To update throughout . Pat Haddad APRN.CNP Heartburn During in First Trimester - 04/14/2024 Comment: April 14, 2024 Rx for Pepcid sent. Pat Haddad APRN.CNP Thyroid Nodule Comment: April 14, 2024 TSH ordered. Pat Haddad APRN.CNP US showed left thryroid cyst 02/2022 [facility] Follow up in 3 weeks or sooner prn. Plan for NT scan between 12w0d and 13w6d gestation. Pat Haddad APRN.CNP documented in this encounter [facility] 02-29-2024 Instructions Anabelle Goldman APRN.CNP - 02/29/2024 4:10 PM EST - Whole food balanced protein, controlled carbohydrate nutrition plan - 30 g of protein 3 times a day and up to 30 g of carbs at lunch and dinner only. Breakfast - 30 gm protein with limit of 2 gm carbohydrates. Options include: Premier Protein or generic 30 gm protein 1 gm sugar or 5 eggs or 2-3 eggs and some unbreaded meat and/or cheese. No fruit, vegetables, bread, grain, yogurt, Smoothies, etc. Lunch and dinner - 30 gm protein is the goal with less than 30 gm carbohydrates Snacks - all protein or more protein than carbs Protein - no carbs Egg 1 large - 6g Egg white 1 large 3.6g 3 oz is approximately the size of a deck of cards and equals 21 g protein so 4 oz is 28 gm protein Beef, Chicken, [place], Pork, Larios 1 oz 7g Fish, Tuna Fish 1 oz 7g (Starkist tuna packet 2.6 oz 17 gm protein) Seafood (Crabmeat, Shrimp, Lobster) 1 oz 6g Protein shakes (read labels) Premier Protein or generic [employer] Equate, [employer] High Performance- 30g protein & 1g carb - meal replacement Premier Protein powder or generic- 30 gm protein, 1g carb Premier Protein plant protein powder - 25 gm protein, 0 sugar/2 carb Vanilla and chocolate (not a meal replacement) Fairlife 30 gram protein - 30g protein & 3g carb BOOST Glucose Control Max 30g Protein Nutritional Drink - 30g protein & 1 carb - meal replacement Slimfast High Protein - 20g protein & 1g carb Ensure Max Protein Nutrition Shake 30g protein & 2 carb Protein AND carbs Beef/[place] Jerky 1 oz dried 10-15g protein - check carb count, can be high if sugar added Slim Dieudonne - 6 gm protein and 4 net carb Great Value original turkey sausage sticks - 7 gm protein and 2 gm carb Connor & Trey (at [employer]) Original smoked sausage sticks - 8 gm protein and 0 carb Imitation Crab Meat 1 oz - 2g protein & 4g carb Milk, skim 2% or 1% 8 oz - 8g protein & 12g carb Polish yogurt Full Fat Polish Yogurt 1 cup - 20.4g protein & 9.1g carb 2% Polish Yogurt 1 cup - 22.7g protein & 9.1g carb 0% (fat-free) Polish Yogurt - 1 cup 24g protein & 9.3g carb Aldi Protein Polish yogurt single svg - 15g protein & 7g carb Chobani Zero Sugar single svg: - 12g protein & 5g carb Dannon Polish Light + Fit 1 single svg - 12g protein & 9g carb Oikos Pro single svg - 20g protein & 8g carb Oikos Triple Zero Polish Nonfat Yogurt 1 single svg - 15g protein & 7g carb :ratio, KETO Friendly Dairy Snack 1 single svg - 15g protein & 2g carb :ratio Protein 1 single svg - 25g protein & 8g carb Two Good Lowfat Polish Yogurt, [place], Lower Sugar - 12g protein & 2g carb Yoplait Protein 1 single svg 15gm protein & 5gm carb Dairy Free - [place] unsweetened Polish almond/soy 15 gm protein & 3 gm carb Dairy Free - True Goodness by [employer] coconut-based yogurt alternative 1 gm protein 1 gm net carb 180 casi Cheese each oz Brie 5.9g protein & 0.1g carb Cheddar 7g protein & 0.4g carb Ihsan 6.7g protein & 0.7g carb Cream Cheese 1.7g protein & 1.2g carb Feta 4g protein & 1.2g carb Mozzarella 6.3g protein & 0.6g carb Parmesan 10g protein & 0.9g carb Indonesian 7.6g protein & 1.5g carb Cottage Cheese 1/2 c Breakstone 2% 13g protein 7g carb Cydney 2% 13g protein 5 g carb Good Culture 2% 14g protein 3g carb Barker s Low Fat 12g protein & 4g carb Legumes Lentils cup 9g protein & 20g carb Wood beans cup 7g protein & 20g carb Kidney, Black, [place], Cannellini beans cup 8g protein & 20g carb Soybeans 1/2 c 14g complete protein & 8.5g carb [place] milk, unsweetened 8 oz 1g protein & 2g carb Soy milk 8 oz 3.5g protein & 1.6g carb Tofu 1/2 cup 10g protein & 2.3g carb Peanut butter, natural 2 Tbsp 7-8g protein & 4g net carbs, 190 calories PB2 powder 2 Tbsp 6g protein & 5g carb Nuts and Seeds per oz Almonds - 5.9g protein & 6.1g carb [place] Nuts - 4.0g protein & 3.4g carb Cashews - 5.1g protein & 9.2g carb Hazelnuts - 4.2g protein & 4.7g carb Hemp seeds/hearts 3 T/30 gms - 9.5 gm complete protein and 2.5 gm carb Peanuts - 7g protein & 4.6g carb Pecans - 2.6g protein & 3.9g carb Pistachios - 5.8g protein & 7.8g carb Pumpkin Seeds - 6.9g protein & 5g carb [place] Seeds - 5.8g protein & 5.6g carb Walnuts - 4.3g protein & 3.8g carb Edamame Beans (soybean) snack 1 pack 11 gm complete protein 2 carb 5 (FIVE) gram carb vegetable options 1 cup raw OR cup cooked: Asparagus Amaya sprouts Beets Broccoli Brussel sprouts Cabbage Carrots Cauliflower Celery [place] Eggplant Green beans Lettuce Peppers Snap peas Spaghetti squash Spinach Tomato Turnips Zucchini 15 gram carb vegetable options cup cooked corn or hominy corn on the cob, large (5 oz) cup cooked green peas 4.3 gm complete protein cup cooked wood beans 1 small potato or sweet potato cup cooked potato, plain cup cooked sweet potato, plain 1 cup winter squash (pumpkin, acorn, butternut) 1 cup marinara or pasta sauce - check label cup tomato juice cup tomato puree Beans, Seeds, Nuts cup cooked beans (kidney, go, red, green, etc.) cup cooked lentils cup baked beans 4 tablespoons nut butter <15 gram carb fruit options Berries have the lowest sugar content 1/2 medium apple - 12.5 carbs 1/2 medium avocado - 6.5 gm carbs 1/2 medium banana - 15 carbs 1/2 cup blueberries - 11 carbs - may actually help you lose weight 1/2 cup fresh cherries -11 carbs 1 medium Fiona -9 carbs 1/2 cup fresh cranberries - 6.5 carbs 1/2 c grapes - 15 carbs 1/2 medium grapefruit - 10.5 carbs 1/2 cup diced honeydew melon - 8 carbs 1 medium kiwi without skin - 11 carbs 1/2 cup sliced lee ann -14 carbs 1 medium nectarine - 15 carbs 1 medium orange -15.5 carbs 1 medium peach -14.5 carbs 1/2 cup fresh pineapple -11 carbs 1 medium plum -7.5 carbs 1 prune - 6 carbs 1/4 c raisins - 31.25 carbs 1/2 cup raspberries -7.5 carbs 1/2 c strawberries - 12.7 carbs 1 medium tangerine -12 carbs 1/2 cup diced watermelon - 6 carbs Grains Brown rice 1/2 c 5.5g protein 24 carb White long-grain rice 1/2 c 2g protein 22.5 carb Quinoa 1/2 c 4 gm complete protein 25 carb Oatmeal, old fashioned 1/2 c 5g protein 27g carb High Protein Snack Ideas 1. Jerky 2. [place] mix without dried fruit 3. [place] roll-ups 4. Polish yogurt 5. Veggies and yogurt dip 6. Tuna 7. Hard-boiled eggs 8. Peanut butter with celery 9. Cheese slices/ Cheese Stick 10. Handful of almonds, peanuts or walnuts 11. Cottage Cheese 12. Beef sticks 13. Protein bars 14. Canned [place] 15. Pumpkin seeds 16. Nut butter 17. Protein shakes 18. Avocado and chicken salad 19. Egg muffins 20. Leftover protein or lunch meat 21. 1/2 c blended cottage cheese or Polish yogurt with dry ranch/Mrs. Dash/herb seasoning mix to make protein dip 22. 1/2 c blended cottage cheese with 1 Tbsp sugar-free dry cheesecake pudding mix 12g protein 10 carb 23. Pudding - 1 30 gm protein shake with 1/2 pkg sugar-free pudding 4 svgs - 7.8 gm protein, 5 carb each svg 24. SF Sunkist or Root Beer with 1-2 Tablespoons heavy whipping cream 25. Mini frozen dessert bites - layer protein yogurt, skinny syrup and crushed nuts and freeze documented in this encounter [facility] 02-29-2024 History of Present illness Narrative Images from the original note were not included. Some documentation from previous visit of 11/24/2023 was copied and pasted, documentation has been reviewed and edited as necessary for today's visit. Patient Summary: Geena is a 33 year old Female who presents for follow-up evaluation of obesity/weight management to treat low HDL and prevent related co-morbidities. In our previous visits we have discussed lifestyle intervention including a nutrition recommendations and physical activity optimization. Her last office visit was 3 months ago. Assessment/plan from last visit: Phentermine 37.5 mg at 5163-7233 on empty stomach Interval History B - Protein shake 30 gm S - none rare string cheese maybe a bite of a pretzel L - Healthy Choice frozen meal 15-20 gm protein and TwoGood Yogurt and sometimes GoldFish/pretzels/nuts S - none D - grilled meat and vegetables - peppers/green beans/potatoes. Soups - veg beef or chili. S - none - rarely cottage cheese or string cheese Fluids - water, Propel She feels the medication is helping to decrease hunger and cravings. SE - dry mouth treated with increased fluid intake and sugar free gum. Constipation - treating with docusate sodium 100 mg at bedtime BM every 1-2 days which is her normal. Exercise: decreased has bands but not using much Stress: stable personal, work Sleep: stable 6.5-7 hrs/ 8 hours on the WE Occasional Unisom Weight loss since last vist: 1 lb for total of 24 lbs Date: Weight: BMI: Medications: 02/29/2024 143 lb 11/24/2023 142 lb 25.56 08/19/2023 147 lb 26.46 05/19/2023 154 lb 27.86 03/03/2023 162 lb Phentermine 37.5 mg 02/02/2023 166 lb 29.91 01/05/2023 172 lb 30.96 WC 37in Phentermine 15 mg 5% weight loss = 162 lbs, 10% weight loss = 153 lbs [place] body weight: 112 lb 15.8 oz (51.3 kg) Adjusted ideal body weight: 126 lb 9.5 oz (57.4 kg) Phentermine Start date: ?01/05/2023 Start weight: ?172 lbs. Dose: 15mg capsule, increased to 37.5 mg -- Patient reports suppression of her appetite and increase in satiety since starting -- Patient reports headaches, no side effects after initial mild insomnia. Dry mouth - drinks more water. Chronic constipation treated with Colon Broom daily CrCl cannot be calculated (Patient's most recent lab result is older than the maximum 180 days allowed.). PAST MEDICAL HISTORY No date: Low serum high density lipoprotein (HDL) No date: Situational depression Comment: Lexapro 1.5 years No date: Thyroid nodule Comment: US showed left thryroid cyst 02/2022 [facility] Current Outpatient Medications on File Prior to Visit Medication Sig Phentermine HCl 37.5 mg capsule Take 1 capsule by mouth daily before breakfast for 90 days. 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 Obesity ROS/ FHx GEN: Fatigue:yes GI: GERD:intermittent if red sauce or late eating BP 132/83 Pulse 97 Wt 64.9 kg (143 lb) LMP 04/23/2023 BMI 25.74 kg/m Anti-Obesity Medications >Phentermine: No uncontrolled HTN, No CVD Hx or hx of seizure disorder. No MAOI inhibitor use. No drug abuse hx. Crcl > 15. >Topiramate/zonisamide: No seizure or kidney stone hx. No hx of migraines, No hx of poor sleep. Is of Child bearing age. >Qsymia: see above >Contrave: No uncontrolled HTN or hx of seizure disorder. No MAOI inhibitor use. No opiate use. >Saxenda/Wegovy/Ozempic: Cost. Ins coverage? >Metformin: eGFR > 30. No contraindications or medication interactions. Latest Ref Rng & Units 01/11/2023 CBC WBC 3.70 - 11.00 k/uL 6.62 RBC 3.90 - 5.20 m/uL 4.91 Hemoglobin 11.5 - 15.5 g/dL 13.2 Hematocrit 36.0 - 46.0 % 39.5 MCV 80.0 - 100.0 fL 80.4 MCH 26.0 - 34.0 pg 26.9 MCHC 30.5 - 36.0 g/dL 33.4 RDW-CV 11.5 - 15.0 % 12.6 Platelet Count 150 - 400 k/uL 302 MPV 9.0 - 12.7 fL 10.6 Latest Ref Rng & Units 01/11/2023 CMP Sodium 136 - 144 mmol/L 137 Potassium 3.7 - 5.1 mmol/L 4.1 Chloride 97 - 105 mmol/L 102 CO2 22 - 30 mmol/L 19 Glucose 74 - 99 mg/dL 86 BUN 7 - 21 mg/dL 11 Creatinine 0.58 - 0.96 mg/dL 0.81 EGFR >=60 mL/min/1.73m 99 Protein, Total 6.3 - 8.0 g/dL 7.1 Albumin 3.9 - 4.9 g/dL 4.4 Calcium 8.5 - 10.2 mg/dL 9.1 Bilirubin, Total 0.2 - 1.3 mg/dL 0.3 AST 13 - 35 U/L 18 ALT 7 - 38 U/L 25 Alkaline Phosphatase 34 - 123 U/L 100 Hemoglobin A1C (%) Date Value 01/11/2023 5.4 Cholesterol, Total (mg/dL) Date Value 01/11/2023 148 HDL Cholesterol (mg/dL) Date Value 01/11/2023 41 LDL Cholesterol (mg/dL) Date Value 01/11/2023 91 Triglyceride (mg/dL) Date Value 01/11/2023 82 Vitamin D 25 Hydroxy (ng/mL) Date Value 01/11/2023 36.8 Assessment/Plan: Geena Pedro is a 33 year old yo with Class I obesity who presented today for follow up for supervised weight loss to treat and prevent related co-morbidities. 1. Low serum HDL - ICD9: 272.9, ICD10: R74.8 (primary diagnosis) - Whole food balanced protein low-carb nutrition - PHENTERMINE 37.5 MG CAPSULE 2. Malaise and fatigue - ICD9: 780.79, ICD10: R53.81, R53.83 - PHENTERMINE 37.5 MG CAPSULE 3. History of obesity - ICD9: V12.29, ICD10: Z86.39 - History of Class I obesity - Weight decreasing - PHENTERMINE 37.5 capsule Patient has met the weight loss requirement of 5% TBW in initial 3 months using phentermine without any adverse side effects. Pt has responded well and would like to continue use for weight management. 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 The patient is currently enrolled in a diet and exercise program The patient has no known history of contraindications The patient is free from drug or ETHO abuse The patient is not or and is aware not to become while using this medication [place] was reviewed. PDMP website checked and validated. All prescriptions have been APPROPRIATELY filled. No suspicious activity was identified. - Side effect of constipation - given information - Continue whole food low-carb diet with 30 g of protein 3 times a day and 30 g of carbs at lunch and dinner only. Given updated protein list. Prescription instructions reviewed with patient as applicable. Potential red flag symptoms discussed with the patient. Reviewed appropriate action plan to take if red flag symptoms occur. Patient agreeable to treatment plan. Follow up in 3 months Anabelle Goldman APRN.CNP Advanced Education from the [employer] Medical Decision Making: Problems: Moderate: 1+ chronic illnesses with change and 2+ stable chronic illnesses Risk: Moderate: Drug management and Moderate risk from testing/treatment Medical Decision Making Level: 4 - Moderate documented in this encounter [facility] 02-29-2024 Note HNO ID: [id number] Author: ANABELLE GOLDMAN APRN.CNP Service: ? Author Type: Nurse Practitioner Type: Progress Notes Filed: 02/29/2024 20:48 Note Text: Some documentation from previous visit of 11/24/2023 was copied and pasted, documentation has been reviewed and edited as necessary for today's visit. Patient Summary: Geena is a 33 year old Female who presents for follow-up evaluation of obesity/weight management to treat low HDL and prevent related co-morbidities. In our previous visits we have discussed lifestyle intervention including a nutrition recommendations and physical activity optimization. Her last office visit was 3 months ago. Assessment/plan from last visit: Phentermine 37.5 mg at 4822-7097 on empty stomach Interval History B - Protein shake 30 gm S - none rare string cheese maybe a bite of a pretzel L - Healthy Choice frozen meal 15-20 gm protein and TwoGood Yogurt and sometimes GoldFish/pretzels/nuts S - none D - grilled meat and vegetables - peppers/green beans/potatoes. Soups - veg beef or chili. S - none - rarely cottage cheese or string cheese Fluids - water, Propel She feels the medication is helping to decrease hunger and cravings. SE - dry mouth treated with increased fluid intake and sugar free gum. Constipation - treating with docusate sodium 100 mg at bedtime BM every 1-2 days which is her normal. Exercise: decreased has bands but not using much Stress: stable personal, work Sleep: stable 6.5-7 hrs/ 8 hours on the WE Occasional Unisom Weight loss since last vist: 1 lb for total of 24 lbs Date: Weight: BMI: Medications: 02/29/2024 143 lb 11/24/2023 142 lb 25.56 08/19/2023 147 lb 26.46 05/19/2023 154 lb 27.86 03/03/2023 162 lb Phentermine 37.5 mg 02/02/2023 166 lb 29.91 01/05/2023 172 lb 30.96 WC 37in Phentermine 15 mg 5% weight loss = 162 lbs, 10% weight loss = 153 lbs [place] body weight: 112 lb 15.8 oz (51.3 kg) Adjusted ideal body weight: 126 lb 9.5 oz (57.4 kg) Phentermine Start date: ?01/05/2023 Start weight: ?172 lbs. Dose: 15mg capsule, increased to 37.5 mg -- Patient reports suppression of her appetite and increase in satiety since starting -- Patient reports headaches, no side effects after initial mild insomnia. Dry mouth - drinks more water. Chronic constipation treated with Colon Broom daily CrCl cannot be calculated (Patient's most recent lab result is older than the maximum 180 days allowed.). PAST MEDICAL HISTORY No date: Low serum high density lipoprotein (HDL) No date: Situational depression Comment: Lexapro 1.5 years No date: Thyroid nodule Comment: US showed left thryroid cyst 02/2022 [facility] Current Outpatient Medications on File Prior to Visit Medication Sig Phentermine HCl 37.5 mg capsule Take 1 capsule by mouth daily before breakfast for 90 days. 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 Obesity ROS/ FHx GEN: Fatigue:yes GI: GERD:intermittent if red sauce or late eating BP 132/83 Pulse 97 Wt 64.9 kg (143 lb) LMP 04/23/2023 BMI 25.74 kg/m? Anti-Obesity Medications >Phentermine: No uncontrolled HTN, No CVD Hx or hx of seizure disorder. No MAOI inhibitor use. No drug abuse hx. Crcl > 15. >Topiramate/zonisamide: No seizure or kidney stone hx. No hx of migraines, No hx of poor sleep. Is of Child bearing age. >Qsymia: see above >Contrave: No uncontrolled HTN or hx of seizure disorder. No MAOI inhibitor use. No opiate use. >Saxenda/Wegovy/Ozempic: Cost. Ins coverage? >Metformin: eGFR > 30. No contraindications or medication interactions. Latest Ref Rng AND Units 01/11/2023 CBC WBC 3.70 - 11.00 k/uL 6.62 RBC 3.90 - 5.20 m/uL 4.91 Hemoglobin 11.5 - 15.5 g/dL 13.2 Hematocrit 36.0 - 46.0 % 39.5 MCV 80.0 - 100.0 fL 80.4 MCH 26.0 - 34.0 pg 26.9 MCHC 30.5 - 36.0 g/dL 33.4 RDW-CV 11.5 - 15.0 % 12.6 Platelet Count 150 - 400 k/uL 302 MPV 9.0 - 12.7 fL 10.6 Latest Ref Rng AND Units 01/11/2023 CMP Sodium 136 - 144 mmol/L 137 Potassium 3.7 - 5.1 mmol/L 4.1 Chloride 97 - 105 mmol/L 102 CO2 22 - 30 mmol/L 19 Glucose 74 - 99 mg/dL 86 BUN 7 - 21 mg/dL 11 Creatinine 0.58 - 0.96 mg/dL 0.81 EGFR >=60 mL/min/1.73m? 99 Protein, Total 6.3 - 8.0 g/dL 7.1 Albumin 3.9 - 4.9 g/dL 4.4 Calcium 8.5 - 10.2 mg/dL 9.1 Bilirubin, Total 0.2 - 1.3 mg/dL 0.3 AST 13 - 35 U/L 18 ALT 7 - 38 U/L 25 Alkaline Phosphatase 34 - 123 U/L 100 Hemoglobin A1C (%) Date Value 01/11/2023 5.4 Cholesterol, Total (mg/dL) Date Value 01/11/2023 148 HDL Cholesterol (mg/dL) Date Value 01/11/2023 41 LDL Cholesterol (mg/dL) Date Value 01/11/2023 91 Triglyceride (mg/dL) Date Value 01/11/2023 82 Vitamin D 25 Hydroxy (ng/mL) Date Value 01/11/2023 36.8 Assessment/Plan: Geena Pedro is a 33 year old yo with Class I obesity who presented today for follow up for supervised weight loss to (more content not included)... [facility] 11-24-2023 Instructions Anabelle Goldman APRN.[facility] - 11/24/2023 4:38 PM EDT Protein - no carbs Egg 1 large - 6g Egg white 1 large 3.6g 3 oz is approximately the size of a deck of cards and equals 21 g protein so 4 oz is 28 gm protein Beef, Chicken, [place], Pork, Larios 1 oz 7g Fish, Tuna Fish 1 oz 7g (Starkist tuna packet 2.6 oz 17 gm protein) Seafood (Crabmeat, Shrimp, Lobster) 1 oz 6g Protein shakes (read labels) Premier Protein or generic [employer] Equate, [employer] High Performance- 30g protein & 1g carb - meal replacement Premier Protein powder or generic- 30 gm protein, 1g carb Premier Protein plant protein powder - 25 gm protein, 0 suger/2 carb Vanilla and chocolate (not a meal replacement) Fairlife 30 gram protein - 30g protein & 3g carb BOOST Glucose Control Max 30g Protein Nutritional Drink - 30g protein & 1 carb - meal replacement Slimfast High Protein - 20g protein & 1g carb Ensure Max Protein Nutrition Shake 30g protein & 2 carb Protein AND carbs Beef/[place] Jerky 1 oz dried 10-15g protein - check carb count, can be high if sugar added Slim Dieudonne - 6 gm protein and 4 net carb Great Value original turkey sausage sticks - 7 gm protein and 2 gm carb Connor & Trey (at [employer]) Original smoked sausage sticks - 8 gm protein and 0 carb Imitation Crab Meat 1 oz - 2g protein & 4g carb Milk, skim 2% or 1% 8 oz - 8g protein & 12g carb Polish yogurt Full Fat Polish Yogurt 1 cup - 20.4g protein & 9.1g carb 2% Polish Yogurt 1 cup - 22.7g protein & 9.1g carb 0% (fat-free) Polish Yogurt - 1 cup 24g protein & 9.3g carb Aldi Protein Polish yogurt single svg - 15g protein & 7g carb Chobani Zero Sugar single svg: - 11g protein & 5g carb Dannon Light + Fit 1 single svg - 12g protein & 9g carb Oikos Pro single svg - 20g protein & 8g carb Oikos Triple Zero Polish Nonfat Yogurt 1 single svg - 15g protein & 7g carb :ratio, KETO Friendly Dairy Snack 1 single svg - 15g protein & 2g carb :ratio Protein 1 single svg - 25g protein & 8g carb Two Good Lowfat Polish Yogurt, [place], Lower Sugar - 12g protein & 2g carb Yoplait Protein 1 single svg 15gm protein & 5gm carb Cheese each oz Brie 5.9g protein & 0.1g carb Cheddar Cheese 7g protein & 0.4g carb Mozzarella Cheese 6.3g protein & 0.6g carb Ihsan Cheese 6.7g protein & 0.7g carb Parmesan Cheese 10g protein & 0.9g carb Cream Cheese 1.7g protein & 1.2g carb Feta 4g protein & 1.2g carb Indonesian Cheese 7.6g protein & 1.5g carb Barker s Low Fat Cottage Cheese 1/2cup 12g protein & 4g carb Legumes Lentils cup 9g protein & 20g carb Wood beans cup 7g protein & 20g carb Kidney, Black, [place], Cannellini beans cup 8g protein & 20g carb Soybeans 1/2 c 14g complete protein & 8.5g carb [place] milk, unsweetened 8 oz 1g protein & 2g carb Soy milk 8 oz 3.5g protein & 1.6g carb Tofu 1/2 cup 10g protein & 2.3g carb Peanut butter, natural 2 Tbsp 7-8g protein & 4g net carbs, 190 calories PB2 powder 2 Tbsp 6g protein & 5g carb Nuts and Seeds per oz Almonds - 5.9g protein & 6.1g carb [place] Nuts - 4.0g protein & 3.4g carb Cashews - 5.1g protein & 9.2g carb Hazelnuts - 4.2g protein & 4.7g carb Hemp seeds 3 T/30 gms - 9.5 gm complete protein and 2.5 gm carb Peanuts - 7g protein & 4.6g carb Pecans - 2.6g protein & 3.9g carb Pistachios - 5.8g protein & 7.8g carb Pumpkin Seeds - 6.9g protein & 5g carb [place] Seeds - 5.8g protein & 5.6g carb Walnuts - 4.3g protein & 3.8g carb documented in this encounter [facility] 11-24-2023 Note HNO ID: [id number] Author: ANABELLE GOLDMAN APRN.MJ Service: ? Author Type: Nurse Practitioner Type: Progress Notes Filed: 11/24/2023 18:18 Note Text: Some documentation from previous visit of 08/19/2023 was copied and pasted, documentation has been reviewed and edited as necessary for today's visit. Patient Summary: Geena is a 33 year old Female who presents for follow-up evaluation of obesity/weight management to treat low HDL and prevent related co-morbidities. In our previous visits we have discussed lifestyle intervention including a nutrition recommendations and physical activity optimization. Her last office visit was 3 months ago. Assessment/plan from last visit: Phentermine 37.5 mg at 0600 Interval History B - Protein shake 30 gm S - none rare pretzels/bit of donut at work L - Frozen meal 15-20 gm protein and Oui strawberry yogurt 5 gm protein 22 gm carb S - none D - grilled meat and vegetables - peppers/green beans/potatoes. S - none - rarely cottage cheese or string cheese or Nutella bite Fluids - water, Propel She feels the medication is helping to decrease hunger and cravings. SE - dry mouth treated with increased fluid intake and sugar free gum. Constipation - treating with docusate sodium at bedtime BM every 2 days which is her normal. Exercise: stable bike Stress: increased personal, work Sleep: stable 6.5-7 hrs/ 8 hours on the WE Weight loss since last vist: 7 lbs for total of 25 lbs Date: Weight: BMI: Medications: 11/24/2023 142 lb 25.56 08/19/2023 147 lb 26.46 05/19/2023 154 lb 27.86 03/03/2023 162 lbs Phentermine 37.5 mg 02/02/2023 166 lb 29.91 01/05/2023 172 lb 30.96 WC 37in Phentermine 15 mg 5% weight loss = 162 lbs, 10% weight loss = 153 lbs [place] body weight: 112 lb 15.8 oz (51.3 kg) Adjusted ideal body weight: 126 lb 9.5 oz (57.4 kg) Phentermine Start date: ?01/05/2023 Start weight: ?172 lbs. Dose: 15mg capsule, increased to 37.5 mg -- Patient reports suppression of her appetite and increase in satiety since starting -- Patient reports headaches, no side effects after initial mild insomnia. Dry mouth - drinks more water. Chronic constipation treated with Colon Broom daily CrCl cannot be calculated (Patient's most recent lab result is older than the maximum 180 days allowed.). PAST MEDICAL HISTORY No date: Low serum high density lipoprotein (HDL) No date: Situational depression Comment: Lexapro 1.5 years No date: Thyroid nodule Comment: US showed left thryroid cyst 02/2022 [facility] Current Outpatient Medications on File Prior to Visit Medication Sig Phentermine HCl 37.5 mg capsule Take 1 capsule by mouth daily before breakfast for 90 days. 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 Obesity ROS/ FHx GEN: Fatigue:yes GI: GERD:intermittent if red sauce or late eating BP 138/88 Pulse 82 Wt 64.4 kg (142 lb) LMP 04/23/2023 BMI 25.56 kg/m? Anti-Obesity Medications >Phentermine: No uncontrolled HTN, No CVD Hx or hx of seizure disorder. No MAOI inhibitor use. No drug abuse hx. Crcl > 15. >Topiramate/zonisamide: No seizure or kidney stone hx. No hx of migraines, No hx of poor sleep. Is of Child bearing age. >Qsymia: see above >Contrave: No uncontrolled HTN or hx of seizure disorder. No MAOI inhibitor use. No opiate use. >Saxenda/Wegovy/Ozempic: Cost. Ins coverage? >Metformin: eGFR > 30. No contraindications or medication interactions. Latest Ref Rng AND Units 01/11/2023 CBC WBC 3.70 - 11.00 k/uL 6.62 RBC 3.90 - 5.20 m/uL 4.91 Hemoglobin 11.5 - 15.5 g/dL 13.2 Hematocrit 36.0 - 46.0 % 39.5 MCV 80.0 - 100.0 fL 80.4 MCH 26.0 - 34.0 pg 26.9 MCHC 30.5 - 36.0 g/dL 33.4 RDW-CV 11.5 - 15.0 % 12.6 Platelet Count 150 - 400 k/uL 302 MPV 9.0 - 12.7 fL 10.6 Latest Ref Rng AND Units 01/11/2023 CMP Sodium 136 - 144 mmol/L 137 Potassium 3.7 - 5.1 mmol/L 4.1 Chloride 97 - 105 mmol/L 102 CO2 22 - 30 mmol/L 19 Glucose 74 - 99 mg/dL 86 BUN 7 - 21 mg/dL 11 Creatinine 0.58 - 0.96 mg/dL 0.81 EGFR >=60 mL/min/1.73m? 99 Protein, Total 6.3 - 8.0 g/dL 7.1 Albumin 3.9 - 4.9 g/dL 4.4 Calcium 8.5 - 10.2 mg/dL 9.1 Bilirubin, Total 0.2 - 1.3 mg/dL 0.3 AST 13 - 35 U/L 18 ALT 7 - 38 U/L 25 Alkaline Phosphatase 34 - 123 U/L 100 Hemoglobin A1C (%) Date Value 01/11/2023 5.4 Cholesterol, Total (mg/dL) Date Value 01/11/2023 148 HDL Cholesterol (mg/dL) Date Value 01/11/2023 41 LDL Cholesterol (mg/dL) Date Value 01/11/2023 91 Triglyceride (mg/dL) Date Value 01/11/2023 82 Vitamin D 25 Hydroxy (ng/mL) Date Value 01/11/2023 36.8 ] Assessment/Plan: Geena Pedro is a 33 year old yo with Class I obesity who presented today for follow up for supervised weight loss to treat and prevent related co-morbidities. 1. Low serum HDL - ICD9: 272.9, ICD10: R74.8 (primary diagnosis) - Whole food balanced p (more content not included)... [facility] 11-24-2023 History of Present illness Narrative Images from the original note were not included. Some documentation from previous visit of 08/19/2023 was copied and pasted, documentation has been reviewed and edited as necessary for today's visit. Patient Summary: Geena is a 33 year old Female who presents for follow-up evaluation of obesity/weight management to treat low HDL and prevent related co-morbidities. In our previous visits we have discussed lifestyle intervention including a nutrition recommendations and physical activity optimization. Her last office visit was 3 months ago. Assessment/plan from last visit: Phentermine 37.5 mg at 0600 Interval History B - Protein shake 30 gm S - none rare pretzels/bit of donut at work L - Frozen meal 15-20 gm protein and Oui strawberry yogurt 5 gm protein 22 gm carb S - none D - grilled meat and vegetables - peppers/green beans/potatoes. S - none - rarely cottage cheese or string cheese or Nutella bite Fluids - water, Propel She feels the medication is helping to decrease hunger and cravings. SE - dry mouth treated with increased fluid intake and sugar free gum. Constipation - treating with docusate sodium at bedtime BM every 2 days which is her normal. Exercise: stable bike Stress: increased personal, work Sleep: stable 6.5-7 hrs/ 8 hours on the WE Weight loss since last vist: 7 lbs for total of 25 lbs Date: Weight: BMI: Medications: 11/24/2023 142 lb 25.56 08/19/2023 147 lb 26.46 05/19/2023 154 lb 27.86 03/03/2023 162 lbs Phentermine 37.5 mg 02/02/2023 166 lb 29.91 01/05/2023 172 lb 30.96 WC 37in Phentermine 15 mg 5% weight loss = 162 lbs, 10% weight loss = 153 lbs [place] body weight: 112 lb 15.8 oz (51.3 kg) Adjusted ideal body weight: 126 lb 9.5 oz (57.4 kg) Phentermine Start date: ?01/05/2023 Start weight: ?172 lbs. Dose: 15mg capsule, increased to 37.5 mg -- Patient reports suppression of her appetite and increase in satiety since starting -- Patient reports headaches, no side effects after initial mild insomnia. Dry mouth - drinks more water. Chronic constipation treated with Colon Broom daily CrCl cannot be calculated (Patient's most recent lab result is older than the maximum 180 days allowed.). PAST MEDICAL HISTORY No date: Low serum high density lipoprotein (HDL) No date: Situational depression Comment: Lexapro 1.5 years No date: Thyroid nodule Comment: US showed left thryroid cyst 02/2022 [facility] Current Outpatient Medications on File Prior to Visit Medication Sig Phentermine HCl 37.5 mg capsule Take 1 capsule by mouth daily before breakfast for 90 days. 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 Obesity ROS/ FHx GEN: Fatigue:yes GI: GERD:intermittent if red sauce or late eating BP 138/88 Pulse 82 Wt 64.4 kg (142 lb) LMP 04/23/2023 BMI 25.56 kg/m Anti-Obesity Medications >Phentermine: No uncontrolled HTN, No CVD Hx or hx of seizure disorder. No MAOI inhibitor use. No drug abuse hx. Crcl > 15. >Topiramate/zonisamide: No seizure or kidney stone hx. No hx of migraines, No hx of poor sleep. Is of Child bearing age. >Qsymia: see above >Contrave: No uncontrolled HTN or hx of seizure disorder. No MAOI inhibitor use. No opiate use. >Saxenda/Wegovy/Ozempic: Cost. Ins coverage? >Metformin: eGFR > 30. No contraindications or medication interactions. Latest Ref Rng & Units 01/11/2023 CBC WBC 3.70 - 11.00 k/uL 6.62 RBC 3.90 - 5.20 m/uL 4.91 Hemoglobin 11.5 - 15.5 g/dL 13.2 Hematocrit 36.0 - 46.0 % 39.5 MCV 80.0 - 100.0 fL 80.4 MCH 26.0 - 34.0 pg 26.9 MCHC 30.5 - 36.0 g/dL 33.4 RDW-CV 11.5 - 15.0 % 12.6 Platelet Count 150 - 400 k/uL 302 MPV 9.0 - 12.7 fL 10.6 Latest Ref Rng & Units 01/11/2023 CMP Sodium 136 - 144 mmol/L 137 Potassium 3.7 - 5.1 mmol/L 4.1 Chloride 97 - 105 mmol/L 102 CO2 22 - 30 mmol/L 19 Glucose 74 - 99 mg/dL 86 BUN 7 - 21 mg/dL 11 Creatinine 0.58 - 0.96 mg/dL 0.81 EGFR >=60 mL/min/1.73m 99 Protein, Total 6.3 - 8.0 g/dL 7.1 Albumin 3.9 - 4.9 g/dL 4.4 Calcium 8.5 - 10.2 mg/dL 9.1 Bilirubin, Total 0.2 - 1.3 mg/dL 0.3 AST 13 - 35 U/L 18 ALT 7 - 38 U/L 25 Alkaline Phosphatase 34 - 123 U/L 100 Hemoglobin A1C (%) Date Value 01/11/2023 5.4 Cholesterol, Total (mg/dL) Date Value 01/11/2023 148 HDL Cholesterol (mg/dL) Date Value 01/11/2023 41 LDL Cholesterol (mg/dL) Date Value 01/11/2023 91 Triglyceride (mg/dL) Date Value 01/11/2023 82 Vitamin D 25 Hydroxy (ng/mL) Date Value 01/11/2023 36.8 ] Assessment/Plan: Geena Pedro is a 33 year old yo with Class I obesity who presented today for follow up for supervised weight loss to treat and prevent related co-morbidities. 1. Low serum HDL - ICD9: 272.9, ICD10: R74.8 (primary diagnosis) - Whole food balanced protein low-carb nutrition - PHENTERMINE 37.5 MG CAPSULE 2. Malaise and fatigue - ICD9: 780.79, ICD10: R53.81, R53.83 - PHENTERMINE 37.5 MG CAPSULE 3. History of obesity - ICD9: V12.29, ICD10: Z86.39 - PHENTERMINE 37.5 MG CAPSULE 4. Overweight (BMI 25.0-29.9) - ICD9: 278.02, ICD10: E66.3 - History of obesity, currently overweight (Pre-obesity) - Weight decreasing - PHENTERMINE 37.5 capsule Patient has met the weight loss requirement of 5% TBW in initial 3 months using phentermine without any adverse side effects. Pt has responded well and would like to continue use for weight management. 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 The patient is currently enrolled in a diet and exercise program The patient has no known history of contraindications The patient is free from drug or ETHO abuse The patient is not or and is aware not to become while using this medication OARS was reviewed. PDMP website checked and validated. All prescriptions have been APPROPRIATELY filled. No suspicious activity was identified. - Side effect of constipation - given information - Continue whole food low-carb diet with 30 g of protein 3 times a day and 30 g of carbs at lunch and dinner only. Given updated protein list. Prescription instructions reviewed with patient as applicable. Potential red flag symptoms discussed with the patient. Reviewed appropriate action plan to take if red flag symptoms occur. Patient agreeable to treatment plan. Follow up in 3 months Anabelle Goldman APRN.CNP Advanced Education from the [employer] Medical Decision Making: Problems: Moderate: 1+ chronic illnesses with change and 2+ stable chronic illnesses Risk: Moderate: Drug management and Moderate risk from testing/treatment Medical Decision Making Level: 4 - Moderate documented in this encounter [facility] 11-24-2023 History of Present illness Narrative - No charge - issues with virtual visit. Anabelle Goldman APRN.CNP documented in this encounter [facility] 11-24-2023 Note HNO ID: [id number] Author: ANABELLE GOLDMAN APRN.CNP Service: ? Author Type: Nurse Practitioner Type: Progress Notes Filed: 11/26/2023 06:41 Note Text: - No charge - issues with virtual visit. Anabelle Goldman APRN.CNP [facility] 08-19-2023 Instructions Anabelle Goldman APRN.CNP - 08/19/2023 4:18 PM EDT Constipation - Docusate sodium 200 mg or Berenice-colace 2 tablets at bedtime. Add Miralax in the morning as needed. Increase fluid intake. Sugar free chocolate or candy Protein - no carbs Egg 1 large - 6g Egg white 1 large 3.6g 3 oz is approximately the size of a deck of cards and equals 21 g protein so 4 oz is 28 gm protein Beef, Chicken, [place], Pork, Larios 1 oz 7g Fish, Tuna Fish 1 oz 7g (Starkist tuna packet 2.6 oz 17 gm protein) Seafood (Crabmeat, Shrimp, Lobster) 1 oz 6g Protein shakes (read labels) Premier Protein or generic [employer] Equate, [employer] High Performance- 30g protein & 1g carb - meal replacement Premier Protein plant protein powder - 25 gm protein, 0 suger/2 carb Vanilla and chocolate (not a meal replacement) Fairlife 30 gram protein - 30g protein & 3g carb BOOST Glucose Control Max 30g Protein Nutritional Drink - 30g protein & 1 carb - meal replacement Slimfast High Protein - 20g protein & 1g carb Ensure Max Protein Nutrition Shake 30g protein & 2 carb Protein AND carbs Beef/[place] Jerky 1 oz dried 10-15g protein - check carb count, can be high if sugar added Slim Dieudonne - 6 gm protein and 4 net carb Great Value original turkey sausage sticks - 7 gm protein and 2 gm carb Renetta (at [employer]) Original smoked sausage sticks - 8 gm protein and 0 carb Imitation Crab Meat 1 oz - 2g protein & 4g carb Milk, skim 2% or 1% 8 oz - 8g protein & 12g carb Polish yogurt Full Fat Polish Yogurt 1 cup - 20.4g protein & 9.1g carb 2% Polish Yogurt 1 cup - 22.7g protein & 9.1g carb 0% (fat-free) Polish Yogurt - 1 cup 24g protein & 9.3g carb Aldi Protein Polish yogurt single svg - 15g protein & 7g carb Chobani Zero Sugar single svg: - 11g protein & 5g carb Dannon Light + Fit 1 single svg - 12g protein & 9g carb Oikos Pro single svg - 20g protein & 8g carb Oikos Triple Zero Polish Nonfat Yogurt 1 single svg - 15g protein & 7g carb :ratio, KETO Friendly Dairy Snack 1 single svg - 15g protein & 2g carb :ratio Protein 1 single svg - 25g protein & 8g carb Two Good Lowfat Polish Yogurt, [place], Lower Sugar - 12g protein & 2g carb Cheese each oz Brie 5.9g protein & 0.1g carb Cheddar Cheese 7g protein & 0.4g carb Mozzarella Cheese 6.3g protein & 0.6g carb Ihsan Cheese 6.7g protein & 0.7g carb Parmesan Cheese 10g protein & 0.9g carb Cream Cheese 1.7g protein & 1.2g carb Feta 4g protein & 1.2g carb Indonesian Cheese 7.6g protein & 1.5g carb Barker s Low Fat Cottage Cheese 1/2cup 12g protein & 4g carb Legumes Lentils cup 9g protein & 20g carb Wood beans cup 7g protein & 20g carb Kidney, Black, [place], Cannellini beans cup 8g protein & 20g carb Soybeans 1/2 c 14g complete protein & 8.5g carb Peanut butter, natural 2 Tbsp 7-8g protein & 4g net carbs, 190 calories PB2 powder 2 Tbsp 6g protein & 5g carb [place] milk, unsweetened 8 oz 1g protein & 2g carb Soy milk 8 oz 3.5g protein & 1.6g carb Tofu 1/2 cup 10g protein & 2.3g carb Nuts and Seeds per oz Pumpkin Seeds - 6.9g protein & 5g carb Almonds - 5.9g protein & 6.1g carb [place] Seeds - 5.8g protein & 5.6g carb Pistachios - 5.8g protein & 7.8g carb Cashews - 5.1g protein & 9.2g carb Walnuts - 4.3g protein & 3.8g carb Hazelnuts - 4.2g protein & 4.7g carb [place] Nuts - 4.0g protein & 3.4g carb Pecans - 2.6g protein & 3.9g carb Peanuts - 7g protein & 4.6g carb Hemp seeds 3 T/30 gms - 9.5 gm complete protein and 2.5 gm carb <15 gram carb fruit options Berries have the lowest sugar content 1/2 medium apple - 12.5 carbs 1/2 medium avocado - 6.5 gm carbs 1/2 medium banana - 15 carbs 1/2 cup blueberries - 11 carbs - may actually help you lose weight 1/2 cup fresh cherries -11 carbs 1 medium Fiona -9 carbs 1/2 cup fresh cranberries - 6.5 carbs 1/2 c grapes - 15 carbs 1/2 medium grapefruit - 10.5 carbs 1/2 cup diced honeydew melon - 8 carbs 1 medium kiwi without skin - 11 carbs 1/2 cup sliced lee ann -14 carbs 1 medium nectarine - 15 carbs 1 medium orange -15.5 carbs 1 medium peach -14.5 carbs 1/2 cup fresh pineapple -11 carbs 1 medium plum -7.5 carbs 1 prune - 6 carbs 1/2 cup raspberries -7.5 carbs 1/2 c strawberries - 12.7 carbs 1 medium tangerine -12 carbs 1/2 cup diced watermelon - 6 carbs 5 (FIVE) gram carb vegetable options 1 cup raw OR cup cooked: Asparagus Amaya sprouts Broccoli Brussel sprouts Cabbage Carrots Cauliflower Celery [place] Eggplant Green beans Lettuce Peppers Snap peas Spaghetti squash Spinach Tomato Turnips Zucchini 15 gram carb vegetable options cup cooked corn or hominy corn on the cob, large (5 oz) cup cooked green peas 1 small potato or sweet potato cup cooked potato, plain cup cooked sweet potato, plain 1 cup winter squash (pumpkin, acorn, butternut) 1 cup marinara or pasta sauce - check label cup tomato juice cup tomato puree Beans, Seeds, Nuts cup cooked beans (kidney, go, red, green, etc.) cup cooked lentils cup baked beans 4 tablespoons nut butter Grains Brown rice 1/2 c 5.5g protein 24 carb White long-grain rice 1/2 c 2g protein 22.5 carb Quinoa 1/2 c 4 gm complete protein 25 carb Oatmeal, old fashioned 1/2 c 5g protein 27g carb High Protein Snack Ideas 1. Jerky 2. [place] mix without dried fruit 3. [place] roll-ups 4. Polish yogurt 5. Veggies and yogurt dip 6. Tuna 7. Hard-boiled eggs 8. Peanut butter with celery 9. Cheese slices/ Cheese Stick 10. Handful of almonds, peanuts or walnuts 11. Cottage Cheese 12. Beef sticks 13. Protein bars 14. Canned [place] 15. Pumpkin seeds 16. Nut butter 17. Protein shakes 18. Avocado and chicken salad 19. Egg muffins 20. Leftover protein or lunch meat 21. 1/2 c blended cottage cheese with 1 Tbsp sugar-free dry cheesecake pudding mix 12g protein 10 carb 22. Pudding - 1 30 gm protein shake with 1/2 pkg sugar-free pudding 4 svgs - 7.8 gm protein, 5 carb each svg documented in this encounter [facility] 08-19-2023 History of Present illness Narrative Images from the original note were not included. Some documentation from previous visit of 05/19/2023 was copied and pasted, documentation has been reviewed and edited as necessary for today's visit. Patient Summary: Geena is a 32 year old Female who presents for follow-up evaluation of obesity/weight management to treat low HDL and prevent related co-morbidities. In our previous visits we have discussed lifestyle intervention including a nutrition recommendations and physical activity optimization. Her last office visit was 3 months ago. Assessment/plan from last visit: Phentermine 37.5 mg at 0600 Interval History B - Protein shake 30 gm S - none L - Frozen meal and Oui strawberry yogurt 5 gm protein 22 gm carb D - grilled meat and vegetables - peppers/green beans/potatoes. S - none - rarely cottage cheese or string cheese Fluids - water, Propel She feels the medication is helping to decrease hunger and cravings. SE - dry mouth treated with increased fluid intake and sugar free gum. Constipation - treating with oral Dulcolax every 1-2 days with BM every 2 days Exercise: decreased bike Stress: increased personal, work Sleep: stable 6.5-7 hrs/ 8 hours on the WE Weight loss since last vist: 7 lbs for total of 25 lbs 08/19/2023 147 lb BMI 26.46 05/19/2023 154 lb BMI 27.86 03/03/2023 162 lbs Phentermine 37.5 mg 02/02/2023 166 lb BMI 29.91 01/05/2023 172 lb BMI 30.96 WC 37 in Phentermine 15 mg 5% weight loss = 162 lbs, 10% weight loss = 153 lbs [place] body weight: 112 lb 15.8 oz (51.3 kg) Adjusted ideal body weight: 126 lb 9.5 oz (57.4 kg) Phentermine Start date: ?01/05/2023 Start weight: ?172 lbs. Dose: 15mg capsule, increased to 37.5 mg -- Patient reports suppression of her appetite and increase in satiety since starting -- Patient reports headaches, no side effects after initial mild insomnia. Dry mouth - drinks more water. Chronic constipation treated with Colon Broom daily CrCl cannot be calculated (Patient's most recent lab result is older than the maximum 180 days allowed.). PAST MEDICAL HISTORY Diagnosis Date Low serum high density lipoprotein (HDL) Situational depression Lexapro 1.5 years Thyroid nodule US showed left thryroid cyst 02/2022 [facility] No current outpatient medications on file. No current facility-administered medications for this visit. 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 Obesity ROS/ FHx GEN: Fatigue:yes GI: GERD:intermittent if red sauce or late eating BP 112/80 Pulse 90 Wt 147 lb (66.7 kg) LMP 04/23/2023 SpO2 100% BMI 26.46 kg/m Anti-Obesity Medications >Phentermine: No uncontrolled HTN, No CVD Hx or hx of seizure disorder. No MAOI inhibitor use. No drug abuse hx. Crcl > 15. >Topiramate/zonisamide: No seizure or kidney stone hx. No hx of migraines, No hx of poor sleep. Is of Child bearing age. >Qsymia: see above >Contrave: No uncontrolled HTN or hx of seizure disorder. No MAOI inhibitor use. No opiate use. >Saxenda/Wegovy/Ozempic: Cost. Ins coverage? >Metformin: eGFR > 30. No contraindications or medication interactions. Latest Ref Rng & Units 01/11/2023 CBC WBC 3.70 - 11.00 k/uL 6.62 RBC 3.90 - 5.20 m/uL 4.91 Hemoglobin 11.5 - 15.5 g/dL 13.2 Hematocrit 36.0 - 46.0 % 39.5 MCV 80.0 - 100.0 fL 80.4 MCH 26.0 - 34.0 pg 26.9 MCHC 30.5 - 36.0 g/dL 33.4 RDW-CV 11.5 - 15.0 % 12.6 Platelet Count 150 - 400 k/uL 302 MPV 9.0 - 12.7 fL 10.6 Latest Ref Rng & Units 01/11/2023 CMP Sodium 136 - 144 mmol/L 137 Potassium 3.7 - 5.1 mmol/L 4.1 Chloride 97 - 105 mmol/L 102 CO2 22 - 30 mmol/L 19 Glucose 74 - 99 mg/dL 86 BUN 7 - 21 mg/dL 11 Creatinine 0.58 - 0.96 mg/dL 0.81 EGFR >=60 mL/min/1.73m 99 Protein, Total 6.3 - 8.0 g/dL 7.1 Albumin 3.9 - 4.9 g/dL 4.4 Calcium 8.5 - 10.2 mg/dL 9.1 Bilirubin, Total 0.2 - 1.3 mg/dL 0.3 AST 13 - 35 U/L 18 ALT 7 - 38 U/L 25 Alkaline Phosphatase 34 - 123 U/L 100 Hemoglobin A1C (%) Date Value 01/11/2023 5.4 Vitamin D 25 Hydroxy (ng/mL) Date Value 01/11/2023 36.8 ] Cholesterol, Total (mg/dL) Date Value 01/11/2023 148 HDL Cholesterol (mg/dL) Date Value 01/11/2023 41 LDL Cholesterol (mg/dL) Date Value 01/11/2023 91 Triglyceride (mg/dL) Date Value 01/11/2023 82 Assessment/Plan: Geena Pedro is a 32 year old yo with Class I obesity who presented today for follow up for supervised weight loss to treat and prevent related co-morbidities. ASSESSMENT/PLAN: 1. Low serum HDL - ICD9: 272.9, ICD10: R74.8 (primary diagnosis) - Whole food balanced protein low-carb nutrition - PHENTERMINE 37.5 MG CAPSULE 2. Malaise and fatigue - ICD9: 780.79, ICD10: R53.81, R53.83 - PHENTERMINE 37.5 MG CAPSULE 3. History of obesity - ICD9: V12.29, ICD10: Z86.39 - PHENTERMINE 37.5 MG CAPSULE 4. Overweight (BMI 25.0-29.9) - ICD9: 278.02, ICD10: E66.3 - History of obesity, currently overweight (Pre-obesity) - Weight decreasing - PHENTERMINE 37.5 capsule Patient has met the weight loss requirement of 5% TBW in initial 3 months using phentermine without any adverse side effects. Pt has responded well and would like to continue use for weight management. 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 The patient is currently enrolled in a diet and exercise program The patient has no known history of contraindications The patient is free from drug or ETHO abuse The patient is not or and is aware not to become while using this medication OARS was reviewed. PDMP website checked and validated. All prescriptions have been APPROPRIATELY filled. No suspicious activity was identified. - Side effect of constipation - given information - Continue whole food low-carb diet with 30 g of protein 3 times a day and 30 g of carbs at lunch and dinner only. - Encouraged to increase physical activity and exercise add strength training. Given information regarding the role of exercise and weight management. Prescription instructions reviewed with patient as applicable. Potential red flag symptoms discussed with the patient. Reviewed appropriate action plan to take if red flag symptoms occur. Patient agreeable to treatment plan. Follow up in 3 months Anabelle Goldman APRN.CNP Advanced Education from the [employer]esity [employer] Association Medical Decision Making: Problems: Moderate: 1+ chronic illnesses with change Risk: Moderate: Drug management and Moderate risk from testing/treatment Medical Decision Making Level: 4 - Moderate documented in this encounter [facility] 08-03-2023 History of Present illness Narrative [facility] DAILY TREATMENT NOTE Today's Date 08/03/2023 Patient Name: Geena Pedro Date of : 1990 Current Visit #: Authorized Visits: Case Name: Plantar fasciitis History: Pre-Treatment Pain Scale: 3 Symptoms: stabilized Functional Diagnosis: 1. Plantar fasciitis Clinical Information: Subjective: patient reports she was doing good last week and pain level was 1/10 but today she was very busy at work and she did 2 miles walking yesterday and that might have increased her pain level. She did some exercises. Objective Treatments: Physical Therapy Exercise Log - 08/03/23 1643 OTHER Vitals 4:45 5:30 Therapeutic Exercise (18587) Intervention Nustep L3 5 mins Parameters manual Intervention gastroc, soleus , plantar fascia stretching 30 x3 Parameters ankle 3 ways 20 Intervention heel raises seated 10# 3x10 Parameters standing heel raises 2x10 Intervention towel scrunches 20 Parameters Access Code: [email or web address] URL: [email or web address] Date: 07/13/2023 Prepared by: Juliet Downey Exercises - Long Sitting Calf Stretch with Strap - 1-2 x daily - 3 reps - 30 seconds hold - Long Sitting Soleus Stretch on Bolster with Strap - 1-2 x daily - 3 reps - 30 seconds hold - Long Sitting Plantar Fascia Stretch with Towel - 2 x daily - 1 sets - 3-5 reps - 30 hold - Long Sitting Ankle Plantar Flexion with Resistance - 1 x daily - 1-3 sets - 10 reps - Long Sitting Ankle Inversion with Resistance - 1 x daily - 1-3 sets - 10 reps - Long Sitting Ankle Eversion with Resistance - 1 x daily - 1-3 sets - 10 reps - Towel Scrunches - 1-2 x daily - 20 reps - Seated Heel Raise - 1 x daily - 1-3 sets - 10-20 reps - Standing Heel Raise with Support - 1 x daily - 1-3 sets - 10 reps - Seated Arch Lifts - 1 x daily - 1-2 sets - 10 reps - 5sec hold - Seated Self Great Toe Stretch - 1 x daily - 1 sets - 3 reps - 20 sec hold Manual Therapy (40976) Intervention STM and IASTM in both feet (plantar fascia) 15 mins total PT Treatment Times Therex Total Time 30 Manual Therapy Total Time 15 Direct Treatment Time 45 Goals: Physical Therapy Ortho Goals: Patient will safely, correctly and independently demonstrate the ability to perform a progressive HEP to achieve maximal rehabilitation potential and prevent this condition from recurring. 2 weeks Patient will demonstrate decreased tenderness on plantar fascia to tolerate first few steps out off bed in the morning and able to walk in community for 30 mins. 4 weeks Patient will improve pain level 2 points from 5-8 /10 to tolerate standing to do ADLs/IADLs. 4 weeks Patient will improve flexibility of soleus and gastroc to negotiate stairs with ease and proper mechanics. 4 weeks Patient will improve FOTO score to at least 71 (predicted) from 42 to show MDC/MCII and expected functional outcome. 4 weeks Patient Education: Quality of movement, Verbal HEP, and Diagnosis and recovery specific education with patient demonstrated understanding. Post-Treatment Pain Scale: 2 Assessment: Patient had an expected response to treatment. Skilled Intervention demonstrated by modifications of treatment per exercise log including increased load, increased rate, increased mobility, and assessment of patient's response and safety interventions per exercise log. Progress towards goals as expected. Plan for Next Visit: Treatment Visit with focus on continue Juliet Downey PT STATE LICENSE, [id number] documented in this encounter [facility] 07-13-2023 History of Present illness Narrative [facility] Evaluation Today's Date 07/13/2023 Patient Name: Geena Pedro Date of : 1990 Case Name: Plantar fasciitis Functional Diagnosis: 1. Plantar fasciitis Clinical Information: Subjective Referring Diagnosis: Plantar fasciitis , BL R>L History of Present Illness Subjective History: Patient reports arch pain R>L started 1.5 months ago. She was active and doing a lot as her grandma was in hospice and . 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 Pain is located on medial side of plantar fasciatis.She has been doing massage (every 2xweeks since she has sciatica issue). She reports pain varies and mornings are worst and as the day goes by with more staying on feet bothers her more. She was on Meloxicam for 10 days. Patches OTC helped a lot in the past. Denies any T+N in foot. Pain Scale Pain location: ankle/foot Average Pain: 5/10 Pain at highest: 8/10 Aggravating factors: staying on feet a lot Easing factors: meloxicame, stretches, STM Sleep Assessment Average Sleep: was affected before she started taking medication. Ankle/Foot Right Ankle/Foot Range of Motion: WFL Dorsiflexion Active: 20 Plantar Flexion Active: 60 Muscle Strength: DorsiFlexion: 5 Plantar Flexion: 4 (8 reps SL heel raises) Inversion: 5 Eversion: 5 1st ray flexion: 5 Special Tests Tinel's: Positive Tibial nerve: +ve neural tension, Slump +ve for neural tension L>R Left Ankle/Foot Range of Motion: WFL Dorsiflexion Active: 20 Plantar Flexion Active: 50 Muscle Strength: DorsiFlexion: 5 Plantar Flexion: 4 (8 reps SL heel raises) Inversion: 5 Eversion: 5 1st ray flexion: 5 1st ray extension: 5 Soleus flexibility: knee to wall lunge test: L 10 cm, R 12 cm Sl heel raise: 8 reps SL heel raises Posture: standing talus adduction and eversion and decrease arch Treatments: Physical Therapy Exercise Log - 07/13/23 1527 Therapeutic Exercise (84215) Parameters Access Code: [email or web address] URL: [email or web address] Date: 07/13/2023 Prepared by: Juliet Downey Exercises - Long Sitting Calf Stretch with Strap - 1-2 x daily - 3 reps - 30 seconds hold - Long Sitting Soleus Stretch on Bolster with Strap - 1-2 x daily - 3 reps - 30 seconds hold - Long Sitting Plantar Fascia Stretch with Towel - 2 x daily - 1 sets - 3-5 reps - 30 hold - Long Sitting Ankle Plantar Flexion with Resistance - 1 x daily - 1-3 sets - 10 reps - Long Sitting Ankle Inversion with Resistance - 1 x daily - 1-3 sets - 10 reps - Long Sitting Ankle Eversion with Resistance - 1 x daily - 1-3 sets - 10 reps - Towel Scrunches - 1-2 x daily - 20 reps - Seated Heel Raise - 1 x daily - 1-3 sets - 10-20 reps - Standing Heel Raise with Support - 1 x daily - 1-3 sets - 10 reps - Seated Arch Lifts - 1 x daily - 1-2 sets - 10 reps - 5sec hold - Seated Self Great Toe Stretch - 1 x daily - 1 sets - 3 reps - 20 sec hold Treatment Plan: Frequency of Visits: once per week Duration: 4 weeks Interventions: Therapeutic Exercise (71983), Manual Therapy (34495), Gait Training (52372), Hot/Cold Pack (46866), and Vasopneumatic (62215) Rehab Potential: fair Goals: Physical Therapy Ortho Goals: Patient will safely, correctly and independently demonstrate the ability to perform a progressive HEP to achieve maximal rehabilitation potential and prevent this condition from recurring. 2 weeks Patient will demonstrate decreased tenderness on plantar fascia to tolerate first few steps out off bed in the morning and able to walk in community for 30 mins. 4 weeks Patient will improve pain level 2 points from 5-8 /10 to tolerate standing to do ADLs/IADLs. 4 weeks Patient will improve flexibility of soleus and gastroc to negotiate stairs with ease and proper mechanics. 4 weeks Patient will improve FOTO score to at least 71 (predicted) from 42 to show MDC/MCII and expected functional outcome. 4 weeks Patient Education provided: Patient was educated about the condition, precautions, and physical therapy plan of care. Clinical Impression: Pt is a 32 y.o. year old female who presented to the clinic with Bl plantar fascia. Upon assessment, pt has been found with the following impairments: Pain, tenderness, tightness in calf, decreased strength, endurance; impaired tolerance to do activities. The documented impairments result in the following functional limitations: standing, walking, stairs, regular PA/exercise, functional mobility, ADLs/IADLs, recreational activities, quality of life.The pt would benefit from skilled PT services focused on the above listed impairments and limitations in order to safely progress pt to their desired level of function. Pt to be discharged from OP PT services if/when goals are met, if they fail to make progress with conservative management in PT, if their level of progress plateaus, or if they do not maintain compliance with attendance or HEP. At this time, it is my clinical judgment that services are medically necessary. Juliet Downey, PT STATE LICENSE, [id number] documented in this encounter [facility] 06-30-2023 History of Present illness Narrative HPI Chief Complaint Patient presents with Foot Pain Patient presents for right foot pain, mostly arch, but also some down the outside side of foot. Duration on and off 2-3 weeks Patient is a pleasant 32-year-old female who comes in today with right midfoot arch pain and heel pain. 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 Recently, her grandmother was becoming ill, transitioned her to hospice and ultimately underwent her and calling our office. She states that she was staying quite busy and active during this time and thinks this may be worsened her heel pain. No trauma otherwise. History reviewed. No pertinent past medical history. History reviewed. No pertinent surgical history. Social History Socioeconomic History Marital status: Single Tobacco Use Smoking status: Never Smokeless tobacco: Never Substance and Sexual Activity Alcohol use: Yes Drug use: Never Review of Systems Physical Exam Patient is AOx3. Linear and appropriate humor and thought process. Vascular: DP PT pulses are easily palpable 2 out of 4. CFT is fair no edema. Derm: No open wounds no ulcers no rashes no deep nodules. Neuro: Light touch is normal. Musculoskeletal: Muscle strength is 5-5. Mild pain to the fascial origin, no posterior tibial tendon pain. Ankle subtalar midtarsal are full and pain-free. Radiographs reviewed. Impression/Plan Problem List Items Addressed This Visit None Visit Diagnoses Plantar fasciitis - Primary Relevant Orders Ambulatory Ref to Alex/Padmini (PT/OT/ST) Patient is a pleasant 32-year-old female with mild Planter fasciitis right heel. -At this time, did start her on dual therapy including meloxicam 15 mg for the next 2 weeks. No refills. Additionally start physical therapy to help rehab heel as well as strengthen her surrounding musculature. Lastly did recommend she get a set of power steps put into her tennis shoes. If these do well or not well enough, could consider up titration of custom orthotics though ideally this would not be required. Low medical complexity decision making based on chronicity. documented in this encounter [facility] 06-30-2023 Instructions Ismael Joiner Jr., DPM - 06/30/2023 4:05 PM EDT Powerstep orthotics Birkenstocks--sandals Vionics--sandals documented in this encounter [facility] 05-19-2023 Instructions Anabelle Goldman APRN.SPORTS PHYSICAL THERAPIST - 05/19/2023 3:57 PM EST Virtual visit - current weight, BP and pulse Increase activity and exercise. Add strength training. The Role of Exercise in Weight Management No one can deny the psychological and physical benefits of exercise. Regular physical exercise aids in stress reduction, blood sugar control, cholesterol reduction, and improved sleep. It s also beneficial for weight control. both aerobic and strength training is beneficial for weight control. The ACSM ([place] [employer]) advises 200-300 minutes of moderate-intensity exercise to lose weight and sustain the loss. Aerobic exercise (walking, jogging, swimming, cycling) uses glucose (from glycogen) and triglycerides (from fat in storage) for energy. Strength or resistance training helps build muscle, which is more metabolic at rest than fat tissue. Both are beneficial to weight management. According to the 2018 Physical Activity Guidelines for Americans, Americans are advised to do a minimum of 30 minutes of physical activity most days of the week. This equates to 150 minutes of moderate activity or 75 minutes of vigorous exercise per week for general health. This should include both aerobic and strength training exercises. However, without calorie restriction, this isn t enough for weight loss or weight maintenance in most people. Currently, 53 % of Americans over 18 do adequate aerobic exercise while only 23% get both aerobic and muscle-strengthening activity. Most [place] adults are still too sedentary. A sedentary lifestyle is associated with cardiovascular disease, type 2 diabetes, and certain types of cancer including endometrial, colon, and lung cancer. Which types of exercise aid in weight control? How much should I do? In addition to caloric restriction, both aerobic and strength training is beneficial for weight control. The ACSM ([place] [employer]) advises 200-300 minutes of moderate-intensity exercise to lose weight and sustain the loss.Moderate-intensity exercises include brisk walking, jogging, using a rowing machine, or doing a 50-60 minute dance class. To skidder operator the level of intensity you should aim for, think of it this way: a person should be able to carry a conversation but not be able to sing. HIIT (high-intensity interval training) is one method of exercise that may be beneficial to those who are trying to lose weight and are short on time. One way to do HIIT involves doing high-intensity exercise (such as sprinting) for 60 seconds followed by 60 seconds of low-intensity exercise (walking) or rest. Exercises are repeated 8 times with rest for a few minutes, then repeated until 30 minutes of exercise is completed. A meta-analysis of 39 studies with 671 participants showed that HIIT reduced total, abdominal, and visceral fat mass in both men and women aged 38.8 +/- 14.4. Running was more effective than cycling in lowering total and visceral fat mass while low-intensity exercise (like walking) also resulted in abdominal and visceral fat loss. The latter took more time. HIIT training is typically done a few days a week. Individuals are advised to choose less intense exercises in between HIIT training days. More muscle matters! One of the biggest reasons (no pun intended) that adults gain weight over time is due to muscle loss. A comparison study of various methods of exercise was performed with older subjects with obesity. Subjects got randomly assigned to a weight control program along with one of four programs: aerobic training, resistance training, combined aerobic and resistance training, or a control group (no treatment). The initial outcome was the change in Physical Performance Test Scores from the start to 6 months after the study began, while secondary outcomes included changes in body composition, bone mineral density, and physical function. There were 141 total subjects that finished the study. Physical Performance Test score was higher in the combination group than in the aerobic and resistance groups. Bodyweight decreased in all exercise groups (9%) but not in the control group. Lean mass and bone density were maintained the most in the combination and resistance groups. Strength also increased in the resistance training and combination training groups. As muscle is more metabolic than fat, maintaining muscle mass is important to long-term weight control. It s important for individuals who have been sedentary to check with their doctors before embarking on a new exercise program. While HIIT training may be appropriate for younger individuals and/or those without comorbidities like cardiovascular disease, it s important to find an exercise that s enjoyable. Physical activities could include: Multiple bouts of moderately paced walking a few times per day. Use of an elliptical or rowing machine or a water aerobics class A walking video to use at home Playing tennis or pickleball Trying a regular or stationary bike or a spin class Joining a kickboxing or Familia class at a gym or rec center Resistance training may include: Use of stretch bands Multiple reps of small hand weights Use of nautilus machines A pilates class (in person or at home) Work on getting 7-8 hours a sleep. General Sleep Recommendations: The following are general sleep hygiene practices that can assist with falling/staying asleep: Regular physical activity in the morning and/or afternoon. Avoid exercise within 3 hours of bedtime. Increase exposure to bright light during the day and reduce exposure to bright light within a few hours of bedtime. Avoid heavy meals, limit fluid intake, and avoid alcohol/nicotine within 3 hours of bedtime. Limit caffeine intake and especially avoid caffeine consumption at least 4 hours before bedtime. Enhance sleep environment (dark, quiet room; comfortable temperature_ Set aside a worry time before bedtime. Avoid looking at the clock when awake during the night. Maintain a regular bedtime and wake time every day. If necessary, limit to one short 30 minutes or less nap per day. Turn off electronics & light-emitting sources at bedtime. Associate bedroom as a place for sleep or sexual activity only. Use relaxation techniques such as deep breathing, meditation, and yoga. documented in this encounter [facility] 05-19-2023 History of Present illness Narrative Some documentation from previous visit of 03/03/2023 was copied and pasted, documentation has been reviewed and edited as necessary for today's visit. Patient Summary: Geena is a 32 year old Female who presents for follow-up evaluation of obesity/weight management to treat ;ow HDL and prevent related co-morbidities. In our previous visits we have discussed lifestyle intervention including a nutrition recommendations and physical activity optimization. Her last office visit was 2.5 months ago. Assessment/plan from last visit: Phentermine 37.5 mg at 0615 Nutrition - poor insurance coverage so did not make appointment Interval History B - Protein shake 30 gm S - none L - Factor 75 - low calorie meals with 3-4 oz protein. Sometimes Oikos or Two Good yogurt S - none D - grilled meat and vegetables - peppers/green beans/potatoes. S - none - rarely cottage cheese or string cheese Fluids - water, Propel She feels the medication is helping to decrease hunger and cravings. SE - dry mouth treated with increased fluid intake and sugar free gum Exercise: decreased 2 hrs volleyball Sundays Stress: stable personal, work Sleep: stable 6.5-7 hrs/ 8 hours on the WE Weight loss since last vist: 8 lbs for total of 18 lbs 05/19/2023 154 lb 12.8 oz BMI 27.86 03/03/2023 162 lbs Phentermine 37.5 mg 02/02/2023 166 lb BMI 29.91 01/05/2023 172 lb BMI 30.96 WC 37 in Phentermine 15 mg 5% weight loss = 162 lbs, 10% weight loss = 153 lbs Phentermine Start date: ?01/05/2023 Start weight: ?172 lbs. Dose: 15mg capsule, increased to 37.5 mg -- Patient reports suppression of her appetite and increase in satiety since starting -- Patient reports headaches, no side effects after initial mild insomnia. Dry mouth - drinks more water. Chronic constipation treated with Colon Broom daily Estimated Creatinine Clearance: 92.7 mL/min (based on SCr of 0.81 mg/dL). PAST MEDICAL HISTORY Diagnosis Date Low serum high density lipoprotein (HDL) Situational depression Lexapro 1.5 years Thyroid nodule US showed left thryroid cyst 02/2022 [facility] Current Outpatient Medications Medication Sig Dispense Refill Phentermine HCl 37.5 mg capsule Take 1 capsule by mouth daily before breakfast for 30 days. 30 capsule 0 No current facility-administered medications for this visit. 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 Obesity ROS/ FHx GEN: Fatigue:yes GI: GERD:intermittent if red sauce or late eating BP 110/78 Pulse 89 Wt 154 lb 12.8 oz (70.2 kg) LMP 04/23/2023 SpO2 100% BMI 27.86 kg/m Anti-Obesity Medications >Phentermine: No uncontrolled HTN, No CVD Hx or hx of seizure disorder. No MAOI inhibitor use. No drug abuse hx. Crcl > 15. >Topiramate/zonisamide: No seizure or kidney stone hx. No hx of migraines, No hx of poor sleep. Is of Child bearing age. >Qsymia: see above >Contrave: No uncontrolled HTN or hx of seizure disorder. No MAOI inhibitor use. No opiate use. >Saxenda/Wegovy/Ozempic: Cost. Ins coverage? >Metformin: eGFR > 30. No contraindications or medication interactions. Appointment on 01/11/2023 Component Date Value Ref Range Status Vitamin D 25 Hydroxy 01/11/2023 36.8 31.0 - 80.0 ng/mL Final Insulin 01/11/2023 12.7 3.0 - 25.0 mU/L Final Hemoglobin A1C 01/11/2023 5.4 4.3 - 5.6 % Final Estimated Average Glucose 01/11/2023 108 mg/dL Final WBC 01/11/2023 6.62 3.70 - 11.00 k/uL Final RBC 01/11/2023 4.91 3.90 - 5.20 m/uL Final Hemoglobin 01/11/2023 13.2 11.5 - 15.5 g/dL Final Hematocrit 01/11/2023 39.5 36.0 - 46.0 % Final MCV 01/11/2023 80.4 80.0 - 100.0 fL Final MCH 01/11/2023 26.9 26.0 - 34.0 pg Final MCHC 01/11/2023 33.4 30.5 - 36.0 g/dL Final RDW-CV 01/11/2023 12.6 11.5 - 15.0 % Final Platelet Count 01/11/2023 302 150 - 400 k/uL Final MPV 01/11/2023 10.6 9.0 - 12.7 fL Final Absolute nRBC 01/11/2023 <0.01 <0.01 k/uL Final Cholesterol, Total 01/11/2023 148 <200 mg/dL Final Triglyceride 01/11/2023 82 <150 mg/dL Final HDL Cholesterol 01/11/2023 41 >39 mg/dL Final Non HDL Cholesterol 01/11/2023 107 <130 mg/dL Final Fasting Time 01/11/2023 13.5 hrs Final VLDL Cholesterol 01/11/2023 16 <30 mg/dL Final TC:HDL Ratio 01/11/2023 3.61 <5.10 Final LDL Cholesterol 01/11/2023 91 <100 mg/dL Final LDL:HDL Ratio 01/11/2023 2.22 <2.54 Final Protein, Total 01/11/2023 7.1 6.3 - 8.0 g/dL Final Albumin 01/11/2023 4.4 3.9 - 4.9 g/dL Final Calcium, Total 01/11/2023 9.1 8.5 - 10.2 mg/dL Final Bilirubin, Total 01/11/2023 0.3 0.2 - 1.3 mg/dL Final Alkaline Phosphatase 01/11/2023 100 34 - 123 U/L Final AST 01/11/2023 18 13 - 35 U/L Final ALT 01/11/2023 25 7 - 38 U/L Final Glucose 01/11/2023 86 74 - 99 mg/dL Final BUN 01/11/2023 11 7 - 21 mg/dL Final Creatinine 01/11/2023 0.81 0.58 - 0.96 mg/dL Final Sodium 01/11/2023 137 136 - 144 mmol/L Final Potassium 01/11/2023 4.1 3.7 - 5.1 mmol/L Final Chloride 01/11/2023 102 97 - 105 mmol/L Final CO2 01/11/2023 19 (L) 22 - 30 mmol/L Final Anion Gap 01/11/2023 16 9 - 18 mmol/L Final Estimated Glomerular Filtration Ra* 01/11/2023 99 >=60 mL/min/1.73m Final Assessment/Plan: Geena Pedro is a 32 year old yo with Class I obesity who presented today for follow up for supervised weight loss to treat and prevent related co-morbidities. ASSESSMENT/PLAN: 1. Low serum HDL - ICD9: 272.9, ICD10: R74.8 (primary diagnosis) - benefits of weight loss discussed - Whole food balanced protein low-carb nutrition 2. Malaise and fatigue - ICD9: 780.79, ICD10: R53.81, R53.83 3. Class 1 obesity without serious comorbidity with body mass index (BMI) of 30.0 to 30.9 in adult, unspecified obesity type - ICD9: 278.00, V85.30, ICD10: E66.9, Z68.30 Weight decreasing - PHENTERMINE 37.5 tablet Patient has met the weight loss requirement of 5% TBW in initial 3 months using phentermine without any adverse side effects. Pt has responded well and would like to continue use for weight management. She understands that continued use is off label for penitentiary management of weight control. The patient is currently enrolled in a diet and exercise program The patient has no known history of contraindications The patient is free from drug or ETHO abuse The patient is not or and is aware not to become while using this medication [place] was reviewed. PDMP website checked and validated. All prescriptions have been APPROPRIATELY filled. No suspicious activity was identified. - Continue whole food low-carb diet with 30 g of protein 3 times a day and 30 g of carbs at lunch and dinner only. Given tracking log. - Encouraged to increase physical activity and exercise add strength training. Given information regarding the role of exercise and weight management. -Information given on general sleep hygiene with recommendations of increasing sleep to 7-8 hours a night Prescription instructions reviewed with patient as applicable. Potential red flag symptoms discussed with the patient. Reviewed appropriate action plan to take if red flag symptoms occur. Patient agreeable to treatment plan. Follow up in 2 months Anabelle Goldman APRN.CNP Advanced Education from the [employer] Medical Decision Making: Problems: Moderate: 1+ chronic illnesses with change Risk: Moderate: Drug management and Moderate risk from testing/treatment Medical Decision Making Level: 4 - Moderate documented in this encounter [facility] 03-01-2023 Miscellaneous Notes Received fax from [facility] Nutrition Services. They have NOT been unable to reach the patient. documented in this encounter [facility] 02-02-2023 Instructions Anabelle Goldman APRN.CNP - 02/02/2023 3:54 PM EDT B - Protein shake 30 gm S - none L - salad with vegetable, cheese chicken or steak, Dutch or Ranch, Oui yogurt S - none D - grilled meat and vegetables - peppers/green beans/potatoes S - none rarely apple Fluids - water, Propel [facility] nutrition will call you. documented in this encounter [facility] 02-02-2023 History of Present illness Narrative Some documentation from previous visit of 01/05/2023 was copied and pasted, documentation has been reviewed and edited as necessary for today's visit. Patient Summary: Geena is a 32 year old Female who presents for follow-up evaluation of obesity/weight management to treat ;ow HDL and prevent related co-morbidities. In our previous visits we have discussed lifestyle intervention including a nutrition recommendations and physical activity optimization. Her last office visit was 1 month ago. Assessment/plan from last visit: Phentermine 15 mg [facility] Jan 23- - Due to limited food choices, she had smaller portions of unhealthy foods and had mixed drinks Interval History B - Protein shake 30 gm S - none L - salad with vegetable, cheese sometimes chicken or steak, Dutch or Ranch, Oui yogurt S - none D - grilled meat and vegetables - peppers/green beans/potatoes S - none rarely apple Fluids - water, Propel She feels the medication is helping to decrease hunger and cravings Exercise: decreased pelaton bike twice week but not of past 2 weeks does not wear activity tracker Stress: stable personal, work Sleep: stable 6.5-7 hrs Weight loss since last vist:6 lbs 02/02/2023 166 lb BMI 29.91 01/05/2023 172 lb BMI 30.96 WC 37 inches Phentermine 15 mg 5% weight loss = 162 lbs, 10% weight loss = 153 lbs Phentermine Start date: ? Start weight: ?172 lbs. Dose: 15mg capsule -- Patient reports suppression of her appetite and increase in satiety since starting -- Patient reports headaches, no side effects after initial mild insomnia. Chronic constipation treated with Colon Broom daily Estimated Creatinine Clearance: 95.9 mL/min (based on SCr of 0.81 mg/dL). PAST MEDICAL HISTORY Diagnosis Date Low serum high density lipoprotein (HDL) Situational depression Lexapro 1.5 years Thyroid nodule US showed left thryroid cyst 02/2022 [facility] Current Outpatient Medications Medication Sig Dispense Refill Phentermine HCl 15 mg capsule Take 1 capsule by mouth daily before breakfast for 30 days. 30 capsule 0 No current facility-administered medications for this visit. 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 Obesity ROS/ FHx GEN: Fatigue:yes GI: GERD:intermittent if red sauce or late eating BP 108/70 Pulse 83 Wt 166 lb 3.2 oz (75.4 kg) LMP 12/17/2022 SpO2 99% BMI 29.91 kg/m Appointment on 01/11/2023 Component Date Value Ref Range Status Vitamin D 25 Hydroxy 01/11/2023 36.8 31.0 - 80.0 ng/mL Final Insulin 01/11/2023 12.7 3.0 - 25.0 mU/L Final Hemoglobin A1C 01/11/2023 5.4 4.3 - 5.6 % Final Estimated Average Glucose 01/11/2023 108 mg/dL Final WBC 01/11/2023 6.62 3.70 - 11.00 k/uL Final RBC 01/11/2023 4.91 3.90 - 5.20 m/uL Final Hemoglobin 01/11/2023 13.2 11.5 - 15.5 g/dL Final Hematocrit 01/11/2023 39.5 36.0 - 46.0 % Final MCV 01/11/2023 80.4 80.0 - 100.0 fL Final MCH 01/11/2023 26.9 26.0 - 34.0 pg Final MCHC 01/11/2023 33.4 30.5 - 36.0 g/dL Final RDW-CV 01/11/2023 12.6 11.5 - 15.0 % Final Platelet Count 01/11/2023 302 150 - 400 k/uL Final MPV 01/11/2023 10.6 9.0 - 12.7 fL Final Absolute nRBC 01/11/2023 <0.01 <0.01 k/uL Final Cholesterol, Total 01/11/2023 148 <200 mg/dL Final Triglyceride 01/11/2023 82 <150 mg/dL Final HDL Cholesterol 01/11/2023 41 >39 mg/dL Final Non HDL Cholesterol 01/11/2023 107 <130 mg/dL Final Fasting Time 01/11/2023 13.5 hrs Final VLDL Cholesterol 01/11/2023 16 <30 mg/dL Final TC:HDL Ratio 01/11/2023 3.61 <5.10 Final LDL Cholesterol 01/11/2023 91 <100 mg/dL Final LDL:HDL Ratio 01/11/2023 2.22 <2.54 Final Protein, Total 01/11/2023 7.1 6.3 - 8.0 g/dL Final Albumin 01/11/2023 4.4 3.9 - 4.9 g/dL Final Calcium, Total 01/11/2023 9.1 8.5 - 10.2 mg/dL Final Bilirubin, Total 01/11/2023 0.3 0.2 - 1.3 mg/dL Final Alkaline Phosphatase 01/11/2023 100 34 - 123 U/L Final AST 01/11/2023 18 13 - 35 U/L Final ALT 01/11/2023 25 7 - 38 U/L Final Glucose 01/11/2023 86 74 - 99 mg/dL Final BUN 01/11/2023 11 7 - 21 mg/dL Final Creatinine 01/11/2023 0.81 0.58 - 0.96 mg/dL Final Sodium 01/11/2023 137 136 - 144 mmol/L Final Potassium 01/11/2023 4.1 3.7 - 5.1 mmol/L Final Chloride 01/11/2023 102 97 - 105 mmol/L Final CO2 01/11/2023 19 (L) 22 - 30 mmol/L Final Anion Gap 01/11/2023 16 9 - 18 mmol/L Final Estimated Glomerular Filtration Ra* 01/11/2023 99 >=60 mL/min/1.73m Final Assessment/Plan: Geena Pedro is a 32 year old yo with Class I obesity who presented today for follow up for supervised weight loss to treat and prevent related co-morbidities. ASSESSMENT/PLAN: 1. Low serum HDL - ICD9: 272.9, ICD10: R74.8 (primary diagnosis) - benefits of weight loss discussed - CONSULT TO NUTRITION THERAPY - Whole food balanced protein low-carb nutrition 2. Malaise and fatigue - ICD9: 780.79, ICD10: R53.81, R53.83 - CONSULT TO NUTRITION THERAPY 3. Class 1 obesity without serious comorbidity with body mass index (BMI) of 30.0 to 30.9 in adult, unspecified obesity type - ICD9: 278.00, V85.30, ICD10: E66.9, Z68.30 Weight decreasing - PHENTERMINE 15 MG CAPSULE The patient is currently enrolled in a diet and exercise program The patient has no known history of contraindications The patient is free from drug or ETHO abuse The patient is not or and is aware not to become while using this medication OARS was reviewed. PDMP website checked and validated. All prescriptions have been APPROPRIATELY filled. No suspicious activity was identified. - CONSULT TO NUTRITION THERAPY - Whole food balanced protein low-carb nutrition - Encouraged to increase physical activity and exercise Prescription instructions reviewed with patient as applicable. Potential red flag symptoms discussed with the patient. Reviewed appropriate action plan to take if red flag symptoms occur. Patient agreeable to treatment plan. Follow up in 4 weeks. Anabelle Goldman APRN.CNP Advanced Education from the [employer] Medical Decision Making: Problems: Moderate: 1+ chronic illnesses with change Risk: Moderate: Drug management and Moderate risk from testing/treatment Medical Decision Making Level: 4 - Moderate documented in this encounter [facility] 01-21-2022 Miscellaneous Notes Called PT spoke to mom will have her call back in to schedule with Lauren RODRIGUEZ Okay for her to establish care, can see Lauren Casey to establish with 40 min visit Mark Hoyt DO Patient states she was informed by her mother that Dr. Hoyt would take her on as a new patient. Please advise. documented in this encounter [facility] Evaluation note Diagnosis Low serum HDL- Primary Malaise and fatigue Other malaise and fatigue Class 1 obesity without serious comorbidity with body mass index (BMI) of 30.0 to 30.9 in adult, unspecified obesity type [facility] Diagnosis Low serum HDL Malaise and fatigue Other malaise and fatigue Class 1 obesity without serious comorbidity with body mass index (BMI) of 30.0 to 30.9 in adult, unspecified obesity type [facility]* Diagnosis Low serum HDL- Primary Malaise and fatigue Other malaise and fatigue Class 1 obesity without serious comorbidity with body mass index (BMI) of 30.0 to 30.9 in adult, unspecified obesity type [facility]* Diagnosis Plantar fasciitis- Primary Plantar fascial fibromatosis [facility] Diagnosis Plantar fasciitis- Primary Plantar fascial fibromatosis [facility] Diagnosis Plantar fasciitis- Primary Plantar fascial fibromatosis [facility] Diagnosis Low serum HDL- Primary Malaise and fatigue Other malaise and fatigue History of obesity Personal history of other specified diseases Overweight (BMI 25.0-29.9) Overweight [facility]* Diagnosis Low serum HDL Malaise and fatigue Other malaise and fatigue History of obesity Personal history of other specified diseases documented [facility]* Diagnosis Low serum HDL- Primary Malaise and fatigue Other malaise and fatigue History of obesity Personal history of other specified diseases Overweight (BMI 25.0-29.9) Overweight [facility]* Diagnosis Low serum HDL- Primary Malaise and fatigue Other malaise and fatigue History of obesity Personal history of other specified diseases Overweight (BMI 25.0-29.9) Overweight [facility]* Diagnosis Low serum HDL- Primary Malaise and fatigue Other malaise and fatigue History of obesity Personal history of other specified diseases [facility] Diagnosis Encounter for supervision of normal first in first trimester- Primary Supervision of normal first 9 weeks gestation of state, incidental with uncertain dates in first trimester History of depression Personal history of other mental disorder Nausea and vomiting during Thyroid nodule Nontoxic uninodular goiter Heartburn during in first trimester [facility] Diagnosis Encounter for supervision of normal first in first trimester- Primary Supervision of normal first 12 weeks gestation of state, incidental [facility] Diagnosis Encounter for screening for malformation using ultrasound- Primary 12 weeks gestation of state, incidental [facility] Diagnosis 16 weeks gestation of - Primary state, incidental Encounter for supervision of normal first in first trimester Supervision of normal first [facility] Diagnosis Encounter for supervision of normal first in second trimester- Primary Supervision of normal first 20 weeks gestation of state, incidental [facility] Diagnosis Encounter for anatomic survey- Primary Encounter for supervision of normal first in first trimester Supervision of normal first with uncertain dates in first trimester History of depression Personal history of other mental disorder [facility] Diagnosis 24 weeks gestation of (HCC)- Primary state, incidental Encounter for supervision of normal first in second trimester (HCC) Supervision of normal first [facility] Diagnosis 26 weeks gestation of (HCC)- Primary state, incidental Light-headedness Dizziness and giddiness [facility] Diagnosis Encounter for supervision of normal first in first trimester (HCC)- Primary Supervision of normal first 28 weeks gestation of (HCC) state, incidental Heartburn during in first trimester (HCC) Thyroid nodule Nontoxic uninodular goiter History of depression Personal history of other mental disorder Screening for diabetes mellitus Need for vaccination Need for prophylactic vaccination and inoculation against unspecified single disease Raynaud's disease without gangrene Dizziness Dizziness and giddiness Racing heart beat Tachycardia, unspecified [facility] Diagnosis Malabsorption due to intolerance, 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 [facility] Diagnosis Dietary counseling- Primary Dietary surveillance and counseling Diet controlled gestational diabetes mellitus (GDM) in third trimester ([facility]) [facility]* Diagnosis Maternal iron deficiency anemia complicating , third trimester ([facility])- Primary [facility] Diagnosis 30 weeks gestation of ([facility])- Primary state, incidental Anemia during in third trimester ([facility]) Diet controlled gestational diabetes mellitus (GDM) in third trimester ([facility]) Encounter for supervision of normal first in third trimester ([facility]) Supervision of normal first [facility] Diagnosis Malabsorption due to intolerance, 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 Anemia during in third trimester ([facility]) [facility]* Diagnosis Diet controlled gestational diabetes mellitus (GDM) in third trimester ([facility]) [facility] Diagnosis Malabsorption due to intolerance, 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 Anemia during in third trimester ([facility]) [facility]* Diagnosis Malabsorption due to intolerance, 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 Anemia during in third trimester ([facility]) [facility] Diagnosis 32 weeks gestation of ([facility])- Primary state, incidental Diet controlled gestational diabetes mellitus (GDM) in third trimester ([facility]) Anemia during in third trimester ([facility]) Encounter for supervision of normal first in third trimester ([facility]) Supervision of normal first [facility] Diagnosis 34 weeks gestation of ([facility])- Primary state, incidental Diet controlled gestational diabetes mellitus (GDM) in third trimester ([facility]) Anemia during in third trimester ([facility]) Encounter for supervision of normal first in third trimester ([facility]) Supervision of normal first [facility] Diagnosis Diet controlled gestational diabetes mellitus (GDM) in third trimester ([facility])- Primary 36 weeks gestation of ([facility]) state, incidental Anemia during in third trimester ([facility]) [facility] Diagnosis Supervision of high risk in third trimester ([facility])- Primary Unspecified high-risk Positive GBS test Diet controlled gestational diabetes mellitus (GDM) in third trimester (HCC) Anemia during in third trimester (HCC) 37 weeks gestation of (HCC) state, incidental [facility] Diagnosis Diet controlled gestational diabetes mellitus (GDM) in third trimester (HCC) 37 weeks gestation of (HCC)- Primary state, incidental Diet controlled gestational diabetes mellitus (GDM) in third trimester (HCC) Supervision of high risk in third trimester (HCC) Unspecified high-risk [facility] Diagnosis 37 weeks gestation of (HCC)- Primary state, incidental Diet controlled gestational diabetes mellitus (GDM) in third trimester (HCC) Supervision of high risk in third trimester (HCC) Unspecified high-risk * Assessment & Plan Note - Kenyatta Guzman MD - 10/31/2024 3:37 PM EDT Associated Problem(s): Diet controlled gestational diabetes mellitus (GDM) in third trimester (HCC) BS well cotnrolled Orders: URINE OB DIP B/O documented in this encounter [facility] for referral (narrative)* Diagnostic Procedure Only (Routine) - Authorized Specialty Diagnoses / Procedures Referred By Mirela garay Referred To Contact [facility] Diagnoses Encounter for supervision of normal first in first trimester with uncertain dates in first trimester History of depression Procedures NUCHAL TRANSLUCENCY WHI US NUCHAL TRANSLUCENCY 1ST GESTATION Pat Haddad APRN.CNP [address] [place] [address] [address] Referral ID Status Reason Start Date Expiration Date Visits Requested Visits Authorized [id number] Authorized Auto-Generat ed Referral 04/14/2024 04/14/2025 1 1 * Diagnostic Procedure Only (Routine) - New Request Specialty Diagnoses / Procedures Referred By Mirela garay Referred To Contact [facility] Diagnoses Encounter for supervision of normal first in first trimester with uncertain dates in first trimester History of depression Procedures OBSTETRIC ULTRASOUND WHI US PREG UTERUS AFTER 1ST TRIMEST GESTATION Pat Haddad APRN.CNP [address] [place] [address] [facility] [address] [place] [address] Referral ID Status Reason Start Date Expiration Date Visits Requested Visits Authorized [id number] New Request Auto-Generat ed Referral 04/14/2024 04/14/2025 1 1 [facility] for visit Narrative* Consult, Test, Treat (Routine) - Closed Specialty Diagnoses / Procedures Referred By Mirela garay Referred To Contact Diagnoses Diet controlled gestational diabetes mellitus (GDM) in third trimester (HCC) Procedures CONSULT TO DIABETES EDUCATION DSME MEDICAL NUTRITION ASSMT&IVNTJ INDIV EACH 15 [place] MEDICAL NUTRITION ASSMT&IVNTJ INDIV EACH 15 [place] MEDICAL NUTRITION ASS[place]&IVNTJ INDIV EACH 15 [place] MEDICAL NUTRITION ASS[place]&IVNTJ INDIV EACH 15 [place] Pat Haddad APRN.CNP [address] [place] [address] Phone: tel: fax: Referral ID Status Reason Start Date Expiration Date V isits Requested Visits Authorized [id number] Closed PCP Requested Referral 09/01/2024 09/01/2025 1 1 [facility] Summary Purpose Family History No Family History Records Found No Known Family History Onset: 6 Status:Active No Known Family History Onset: 6 Status:Active No Known Family History Onset: 6 Status:Active No Known Family History Onset: 6 Status:Active No Known Family History Onset: 6 Status:Active No Known Family History Onset: 6 Status:Active No Known Family History Onset: 6 Status:Active No Known Family History Onset: 6 Status:Active Advance Directives No Advanced Directives Records FoundNo Advanced Directives Records FoundNo Advanced Directives Records FoundNo Advanced Directives Records FoundNo Advanced Directives Records FoundNo Advanced Directives Records FoundNo Advanced Directives Records Found Reason for Referral Specialty Diagnoses / Procedures Referred By Contac t Referred To Contact Nutrition Diagnoses Low serum HDL Malaise and fatigue Class 1 obesity without serious comorbidity with body mass index (BMI) of 30.0 to 30.9 in adult, unspecified obesity type Procedures CONSULT TO NUTRITION THERAPY MEDICAL NUTRITION ASSMT&IVNTJ INDIV EACH 15 [place] MEDICAL NUTRITION ASSMT&IVNTJ INDIV EACH 15 [place] MEDICAL NUTRITION ASS[place]&IVNTJ INDIV EACH 15 [place] MEDICAL NUTRITION ASSMT&IVNTJ INDIV EACH 15 [place] Anabelle Goldman, NET APPLICATION ARCHITECT.SPORTS PHYSICAL THERAPIST [address] [place] [address] Referral ID Status Reason Start Date Expiration Date Visits Requested Visits Authorized [id number] Pending Review PCP Requested Referral 3 02/02/2024 1 1 Specialty Diagnoses / Procedures Referred By Contac t Referred To Contact Rehabilitation Diagnoses Plantar fasciitis Ismael Joiner Jr., DPM [id number] [facility] [place] [address] [place] [address] Referral ID Status Reason Start Date Expiration Date V isits Requested Visits Authorized [id number] Authorized 06/30/2023 06/29/2024 4 4 Additional Source Comments INFORMATION SOURCE (unrecogn ized section and content) DATE CREATED AUTHOR 10/12/2018 [facility] DATE CREATED AUTHOR AUTHOR'S ORGANIZ ATION 02/21/2022 [facility] DATE CREATED AUTHOR AUTHOR'S ORGANIZ ATION 07/04/2023 [facility] DATE CREATED AUTHOR AUTHOR'S ORGANIZ ATION 08/09/2023 [facility] DATE CREATED AUTHOR AUTHOR'S ORGANIZ ATION 12/20/2023 [facility] DATE CREATED AUTHOR AUTHOR'S ORGANIZ ATION 11/01/2024 [facility] DATE CREATED AUTHOR AUTHOR'S ORGANIZ ATION 11/09/2024 [facility] Source Comments (unrecognize d section and content) In the event this informatio n is protected by the Federal Confidentiality of Alcohol and Drug Abuse Patient Records regulations: The Federal rules restrict any use of the information to criminally investigate or prosecute any alcohol or drug abuse patient.[facility] the event this information is protected by the Federal Confidentiality of Alcohol and Drug Abuse Patient Records regulations: The Federal rules restrict any use of the information to criminally investigate or prosecute any alcohol or drug abuse patient.[facility] the event this information is protected by the Federal Confidentiality of Alcohol and Drug Abuse Patient Records regulations: The Federal rules restrict any use of the information to criminally investigate or prosecute any alcohol or drug abuse patient.[facility] the event this information is protected by the Federal Confidentiality of Alcohol and Drug Abuse Patient Records regulations: The Federal rules restrict any use of the information to criminally investigate or prosecute any alcohol or drug abuse patient.[facility] the event this information is protected by the Federal Confidentiality of Alcohol and Drug Abuse Patient Records regulations: The Federal rules restrict any use of the information to criminally investigate or prosecute any alcohol or drug abuse patient.[facility] the event this information is protected by the Federal Confidentiality of Alcohol and Drug Abuse Patient Records regulations: The Federal rules restrict any use of the information to criminally investigate or prosecute any alcohol or drug abuse patient.[facility] the event this information is protected by the Federal Confidentiality of Alcohol and Drug Abuse Patient Records regulations: The Federal rules restrict any use of the information to criminally investigate or prosecute any alcohol or drug abuse patient.[facility] the event this information is protected by the Federal Confidentiality of Alcohol and Drug Abuse Patient Records regulations: The Federal rules restrict any use of the information to criminally investigate or prosecute any alcohol or drug abuse patient.[facility] the event this information is protected by the Federal Confidentiality of Alcohol and Drug Abuse Patient Records regulations: The Federal rules restrict any use of the information to criminally investigate or prosecute any alcohol or drug abuse patient.[facility] the event this information is protected by the Federal Confidentiality of Alcohol and Drug Abuse Patient Records regulations: The Federal rules restrict any use of the information to criminally investigate or prosecute any alcohol or drug abuse patient.[facility] the event this information is protected by the Federal Confidentiality of Alcohol and Drug Abuse Patient Records regulations: The Federal rules restrict any use of the information to criminally investigate or prosecute any alcohol or drug abuse patient.[facility] the event this information is protected by the Federal Confidentiality of Alcohol and Drug Abuse Patient Records regulations: The Federal rules restrict any use of the information to criminally investigate or prosecute any alcohol or drug abuse patient.[facility] CenterIn the event this information is protected by the Federal Confidentiality of Alcohol and Drug Abuse Patient Records regulations: The Federal rules restrict any use of the information to criminally investigate or prosecute any alcohol or drug abuse patient.[facility] CenterIn the event this information is protected by the Federal Confidentiality of Alcohol and Drug Abuse Patient Records regulations: The Federal rules restrict any use of the information to criminally investigate or prosecute any alcohol or drug abuse patient.[facility] CenterIn the event this information is protected by the Federal Confidentiality of Alcohol and Drug Abuse Patient Records regulations: The Federal rules restrict any use of the information to criminally investigate or prosecute any alcohol or drug abuse patient.[facility] CenterIn the event this information is protected by the Federal Confidentiality of Alcohol and Drug Abuse Patient Records regulations: The Federal rules restrict any use of the information to criminally investigate or prosecute any alcohol or drug abuse patient.[facility] CenterIn the event this information is protected by the Federal Confidentiality of Alcohol and Drug Abuse Patient Records regulations: The Federal rules restrict any use of the information to criminally investigate or prosecute any alcohol or drug abuse patient.[facility] CenterIn the event this information is protected by the Federal Confidentiality of Alcohol and Drug Abuse Patient Records regulations: The Federal rules restrict any use of the information to criminally investigate or prosecute any alcohol or drug abuse patient.[facility] CenterIn the event this information is protected by the Federal Confidentiality of Alcohol and Drug Abuse Patient Records regulations: The Federal rules restrict any use of the information to criminally investigate or prosecute any alcohol or drug abuse patient.[facility] [place] [facility] CenterIn the event this information is protected by the Federal Confidentiality of Alcohol and Drug Abuse Patient Records regulations: The Federal rules restrict any use of the information to criminally investigate or prosecute any alcohol or drug abuse patient.[facility] [place] [facility] CenterIn the event this information is protected by the Federal Confidentiality of Alcohol and Drug Abuse Patient Records regulations: The Federal rules restrict any use of the information to criminally investigate or prosecute any alcohol or drug abuse patient.[facility] [place] [facility] CenterIn the event this information is protected by the Federal Confidentiality of Alcohol and Drug Abuse Patient Records regulations: The Federal rules restrict any use of the information to criminally investigate or prosecute any alcohol or drug abuse patient.[facility] [place] [facility] CenterIn the event this information is protected by the Federal Confidentiality of Alcohol and Drug Abuse Patient Records regulations: The Federal rules restrict any use of the information to criminally investigate or prosecute any alcohol or drug abuse patient.[facility] [place] [facility] CenterIn the event this information is protected by the Federal Confidentiality of Alcohol and Drug Abuse Patient Records regulations: The Federal rules restrict any use of the information to criminally investigate or prosecute any alcohol or drug abuse patient.[facility] [place] [facility] CenterIn the event this information is protected by the Federal Confidentiality of Alcohol and Drug Abuse Patient Records regulations: The Federal rules restrict any use of the information to criminally investigate or prosecute any alcohol or drug abuse patient.[facility] [place] [facility] CenterIn the event this information is protected by the Federal Confidentiality of Alcohol and Drug Abuse Patient Records regulations: The Federal rules restrict any use of the information to criminally investigate or prosecute any alcohol or drug abuse patient.[facility] [place] [facility] CenterIn the event this information is protected by the Federal Confidentiality of Alcohol and Drug Abuse Patient Records regulations: The Federal rules restrict any use of the information to criminally investigate or prosecute any alcohol or drug abuse patient.[facility] [place] [facility] CenterIn the event this information is protected by the Federal Confidentiality of Alcohol and Drug Abuse Patient Records regulations: The Federal rules restrict any use of the information to criminally investigate or prosecute any alcohol or drug abuse patient.[facility] [place] [facility] CenterIn the event this information is protected by the Federal Confidentiality of Alcohol and Drug Abuse Patient Records regulations: The Federal rules restrict any use of the information to criminally investigate or prosecute any alcohol or drug abuse patient.[facility] [place] [facility] CenterIn the event this information is protected by the Federal Confidentiality of Alcohol and Drug Abuse Patient Records regulations: The Federal rules restrict any use of the information to criminally investigate or prosecute any alcohol or drug abuse patient.[facility] [place] [facility] CenterIn the event this information is protected by the Federal Confidentiality of Alcohol and Drug Abuse Patient Records regulations: The Federal rules restrict any use of the information to criminally investigate or prosecute any alcohol or drug abuse patient.[facility] CenterIn the event this information is protected by the Federal Confidentiality of Alcohol and Drug Abuse Patient Records regulations: The Federal rules restrict any use of the information to criminally investigate or prosecute any alcohol or drug abuse patient.[facility] CenterIn the event this information is protected by the Federal Confidentiality of Alcohol and Drug Abuse Patient Records regulations: The Federal rules restrict any use of the information to criminally investigate or prosecute any alcohol or drug abuse patient.[facility] CenterIn the event this information is protected by the Federal Confidentiality of Alcohol and Drug Abuse Patient Records regulations: The Federal rules restrict any use of the information to criminally investigate or prosecute any alcohol or drug abuse patient.[facility] CenterIn the event this information is protected by the Federal Confidentiality of Alcohol and Drug Abuse Patient Records regulations: The Federal rules restrict any use of the information to criminally investigate or prosecute any alcohol or drug abuse patient.[facility] CenterIn the event this information is protected by the Federal Confidentiality of Alcohol and Drug Abuse Patient Records regulations: The Federal rules restrict any use of the information to criminally investigate or prosecute any alcohol or drug abuse patient.[facility] CenterIn the event this information is protected by the Federal Confidentiality of Alcohol and Drug Abuse Patient Records regulations: The Federal rules restrict any use of the information to criminally investigate or prosecute any alcohol or drug abuse patient.[facility] CenterIn the event this information is protected by the Federal Confidentiality of Alcohol and Drug Abuse Patient Records regulations: The Federal rules restrict any use of the information to criminally investigate or prosecute any alcohol or drug abuse patient.[facility] CenterIn the event this information is protected by the Federal Confidentiality of Alcohol and Drug Abuse Patient Records regulations: The Federal rules restrict any use of the information to criminally investigate or prosecute any alcohol or drug abuse patient.[facility] [place] [facility] CenterIn the event this information is protected by the Federal Confidentiality of Alcohol and Drug Abuse Patient Records regulations: The Federal rules restrict any use of the information to criminally investigate or prosecute any alcohol or drug abuse patient.[facility] [place] [facility] CenterIn the event this information is protected by the Federal Confidentiality of Alcohol and Drug Abuse Patient Records regulations: The Federal rules restrict any use of the information to criminally investigate or prosecute any alcohol or drug abuse patient.[facility] CenterIn the event this information is protected by the Federal Confidentiality of Alcohol and Drug Abuse Patient Records regulations: The Federal rules restrict any use of the information to criminally investigate or prosecute any alcohol or drug abuse patient.[facility] [place] [facility] CenterIn the event this information is protected by the Federal Confidentiality of Alcohol and Drug Abuse Patient Records regulations: The Federal rules restrict any use of the information to criminally investigate or prosecute any alcohol or drug abuse patient.[facility] [place] [facility] CenterIn the event this information is protected by the Federal Confidentiality of Alcohol and Drug Abuse Patient Records regulations: The Federal rules restrict any use of the information to criminally investigate or prosecute any alcohol or drug abuse patient.[facility] [place] [facility] CenterIn the event this information is protected by the Federal Confidentiality of Alcohol and Drug Abuse Patient Records regulations: The Federal rules restrict any use of the information to criminally investigate or prosecute any alcohol or drug abuse patient.[facility] [place] [facility] CenterIn the event this information is protected by the Federal Confidentiality of Alcohol and Drug Abuse Patient Records regulations: The Federal rules restrict any use of the information to criminally investigate or prosecute any alcohol or drug abuse patient.[facility] [place] [facility] CenterIn the event this information is protected by the Federal Confidentiality of Alcohol and Drug Abuse Patient Records regulations: The Federal rules restrict any use of the information to criminally investigate or prosecute any alcohol or drug abuse patient.[facility] Reason for Visit (unrecogniz ed section and content) Reason Comments Patient Question Reason Comments Weight Management Reason Comments Patient Update [facility] Nutrition Servic es Reason Comments Weight Management Follow up Reason Comments Foot Pain Patient presents for right foot pain, mostly arch, but also some down the outside side of foot. Duration on and off 2-3 weeks Reason Comments Physical Therapy Reason Comments Weight Management Reason Onset Date Comments Refill Request 08/31/2023 Reason Comments Initial OB Visit Reason Comments Lab Orders Reason Onset Date Comments Care 05/05/2024 Reason Comments US Specialty Diagnoses / Procedures Referred By Mirela garay Referred To Contact [facility] Diagnoses Encounter for supervision of normal first in first trimester with uncertain dates in first trimester History of depression Procedures NUCHAL TRANSLUCENCY WHI US NUCHAL TRANSLUCENCY 1ST GESTATION Pat Haddad APRN.CNP [address] [place] [address] [facility] [address] [place] [address] Referral ID Status Reason Start Date Expiration Date V isits Requested Visits Authorized [id number] Closed Auto-Generate d Referral 04/14/2024 04/14/2025 1 1 Reason Comments Patient Question constipation Reason Onset Date Comments Care 06/08/2024 Reason Onset Date Comments Care 06/30/2024 Specialty Diagnoses / Procedures Referred By Mirela garay Referred To Contact [facility] Diagnoses Encounter for supervision of normal first in first trimester with uncertain dates in first trimester History of depression Procedures OBSTETRIC ULTRASOUND WHI US PREG UTERUS AFTER 1ST TRIMEST GESTATION Pat Haddad APRN.CNP [address] [place] [address] Phone: tel: fax: [facility] [address] [place] [address] Referral ID Status Reason Start Date Expiration Date V isits Requested Visits Authorized [id number] Closed Auto-Generate d Referral 04/14/2024 04/14/2025 1 1 Reason Comments Breast Pump Reason Onset Date Comments Care 07/28/2024 Reason Onset Date Comments Care 08/15/2024 Reason Onset Date Comments Care 08/25/2024 Reason Comments Assessment Patient Education Specialty Diagnoses / Procedures Referred By Contac t Referred To Contact Nutrition Diagnoses Diet controlled gestational diabetes mellitus (GDM) in third trimester (HCC) Procedures CONSULT TO NUTRITION THERAPY MEDICAL NUTRITION ASSMT&IVNTJ INDIV EACH 15 Pat Ruth, ANSHUL.SPORTS PHYSICAL THERAPIST [address] [place] [address] Phone: tel: fax: Referral ID Status Reason Start Date Expiration Date Visits Requested Visits Authorized [id number] Authorized PCP Requested Referral 09/01/2024 09/01/2025 1 4 Reason Comments Hematology Reason Onset Date Comments Care 09/08/2024 Reason Comments Non-Chemotherapy Treatment Specialty Diagnoses / Procedures Referred By Contac t Referred To Contact Diagnoses Malabsorption due to intolerance, not elsewhere classified Anemia during in third trimester (HCC) Procedures IRON SUCROSE INJECTION PER 1 MG Zully Mcclure PA-C [address] [place] [address] Phone: tel: fax: Zully Mcclure PA-C [address] [place] [address] Phone: tel: fax: Referral ID Status Reason Start Date Expiration Date Visits Requested Visits Authorized [id number] Pending Review Patient Cleared - Admin/Chair man/Directo r advise to proceed or did not respond 09/06/2024 12/05/2024 1 1 Referral ID Status Reason Start Date Expiration Date Visits Requested Visits Authorized [id number] Authorized Patient Cleared - Admin/Chairm an/Director advise to proceed or did not respond 09/06/2024 09/06/2025 3 Referral ID Status Reason Start Date Expiration Date Visits Requested Visits Authorized [id number] Authorized Patient Cleared - Admin/Chairm an/Director advise to proceed or did not respond 09/06/2024 09/06/2025 1 27 Reason Onset Date Comments Care 09/22/2024 Reason Onset Date Comments Care 10/06/2024 Reason Onset Date Comments Care 10/20/2024 Reason Onset Date Comments Care 10/27/2024 Specialty Diagnoses / Procedures Referred By Contleilani t Referred To Contact [facility] Diagnoses Diet controlled gestational diabetes mellitus (GDM) in third trimester (HCC) Procedures OBSTETRIC ULTRASOUND WHI US PREG UTERUS AFTER 1ST TRIMEST GESTATION Pta Haddad, ANSHUL.SPORTS PHYSICAL THERAPIST [address] [place] [address] Phone: tel: fax: [facility] [address] [place] [address] Referral ID Status Reason Start Date Expiration Date V isits Requested Visits Authorized [id number] Closed Auto-Generate d Referral 09/01/2024 09/01/2025 3 1 Reason Onset Date Comments Care 10/31/2024 Reason Onset Date Comments Population Health Navigation Outreach 11/08/2024 Ob/peds Care Teams (unrecognized sec tion and content) Manager Trainee Relationship Specialty Start Date End Date Anika Moore PA-C [address] [place] [address] PCP - General Family Medicine 01/05/23 Manager Trainee Relationship Specialty Start Date End Date Anika Moore PA-C [address] [address] PCP - General Family Medicine 01/05/23 Manager Trainee Relationship Specialty Start Date End Date Anika Moore [facility]-C [address] [facility] [address] [place] [address] PCP - General Family Medicine 01/05/23 Manager Trainee Relationship Specialty Start Date End Date Anika Moore PA-C [address] [place] [address] PCP - General Family Medicine 01/05/23 Manager Trainee Relationship Specialty Start Date End Date Rosario Maldonado PA-C [address] [place] [address] PCP - General Physician Administrative Representative 06/24/23 Manager Trainee Relationship Specialty Start Date End Date Rosario Maldonado PA-C [address] [place] [address] PCP - General Physician Administrative Representative 06/24/23 Manager Trainee Relationship Specialty Start Date End Date Rosario Maldonado PA-C [address] [place] [address] PCP - General Physician Administrative Representative 06/24/23 Manager Trainee Relationship Specialty Start Date End Date Anika Moore PA-C [address] [place] [address] PCP - General Family Medicine 01/05/23 Manager Trainee Relationship Specialty Start Date End Date Anika Moore PA-C [address] [place], [place] [address] PCP - General Family Medicine 01/05/23 Manager Trainee Relationship Specialty Start Date End Date Anika Moore PA-C [address] [place] [address] PCP - General Family Medicine 01/05/23 Manager Trainee Relationship Specialty Start Date End Date Rosario Maldonado [address] [place] [place] [address] PCP - General Family Medicine 02/29/24 Manager Trainee Relationship Specialty Start Date End Date Rosario Maldonado [address] [place] [address] PCP - General Family Medicine 02/29/24 Manager Trainee Relationship Specialty Start Date End Date Rosario Maldonado [address] [place] [place] [address] PCP - General Family Medicine 02/29/24 Manager Trainee Relationship Specialty Start Date End Date Rosario Maldonado [address] [facility] [place] [address] PCP - General Family Medicine 02/29/24 Manager Trainee Relationship Specialty Start Date End Date Rosario Maldonado [address] [facility] [place] [address] PCP - General Family Medicine 02/29/24 Manager Trainee Relationship Specialty Start Date End Date Rosario Maldonado [address] [place] [place] [address] PCP - General Family Medicine 02/29/24 Manager Trainee Relationship Specialty Start Date End Date Rosario Maldonado [address] [place] [address] PCP - General Family Medicine 02/29/24 Manager Trainee Relationship Specialty Start Date End Date Rosario Maldonado [address] [place] [place] [address] PCP - General Family Medicine 02/29/24 Manager Trainee Relationship Specialty Start Date End Date Rosario Maldonado [address] [facility] [place] [address] PCP - General Family Medicine 02/29/24 Manager Trainee Relationship Specialty Start Date End Date Rosario Maldonado [address] [place] [address] PCP - General Family Medicine 02/29/24 Manager Trainee Relationship Specialty Start Date End Date Rosario Maldonado [address] [facility] [place] [address] PCP - General Family Medicine 02/29/24 Manager Trainee Relationship Specialty Start Date End Date Rosario Maldonado [address] [facility] [place] [address] PCP - General Family Medicine 02/29/24 Manager Trainee Relationship Specialty Start Date End Date Rosario Maldonado [address] [facility] [place] [address] PCP - General Family Medicine 02/29/24 Manager Trainee Relationship Specialty Start Date End Date Rosario Maldonado [address] [place] [address] PCP - General Family Medicine 02/29/24 Manager Trainee Relationship Specialty Start Date End Date Rosario Maldonado [address] [place] [address] PCP - General Family Medicine 02/29/24 Manager Trainee Relationship Specialty Start Date End Date Rosario Maldonado [address] [place] [place] [address] PCP - General Family Medicine 02/29/24 Manager Trainee Relationship Specialty Start Date End Date Joel Rosario Fernanda [address] [facility] [place] [address] PCP - General Family Medicine 02/29/24 Manager Trainee Relationship Specialty Start Date End Date Rosario Maldonado [address] [facility] [place] [address] PCP - General Family Medicine 02/29/24 Manager Trainee Relationship Specialty Start Date End Date Rosario Maldonado [address] [facility] [place] [address] PCP - General [facility] 02/29/24 Manager Trainee Relationship Specialty Start Date End Date Rosario Maldonado [address] [facility] [place] [address] PCP - General [facility] 02/29/24 FOR RECORDS PERTAINING TO PATIENTS WHO ARE OR HAVE BEEN ENROLLED IN A CHEMICAL DEPENDENCY/SUBSTANCEABUSE PROGRAM, SOME INFORMATION MAY BE OMITTED. This clinical summary was aggregated from multiple sources. Caution should be exercised in using it in the provision of clinical care. This summary normalizes information from multiple sources, and as a consequence, information in this document may materially change the coding, format and clinical context of patient data. In addition, data may be omitted in some cases. CLINICAL DECISIONS SHOULD BE BASED ON THE PRIMARY CLINICAL RECORDS. [facility] [employer] [facility]. provides no warranty or guarantee of the accuracy or completeness of information in this document.
[2024-11-10] MEDS: Lactated Ringers 1,000 ML 50 ML IV ×2 (07:45→15:00)
[2024-11-10 08:09] LABS: Hematocrit 36.8 % (37-47); Hemoglobin 12.4 g/dL (12.0-15.0); Immature Granulocytes Count 0.050 X10^3/uL (0.0-0.0); Mean Corp Hgb Conc 33.7 g/dL (32-36); Mean Corpuscular Volume 83.4 fL (81-99); Mean Platelet Vol. 11.4 fl (6.2-12.0); NRBC Flagged by Analyzer 0 % (0-5); Platelet Count 197 K/mm3 (150-450); RBC Distribution Width CV 14.6 % (11.6-14.6); RBC Distribution Width SD 44.5 fl (35.1-43.9); Red Blood Count 4.41 M/mm3 (4.2-5.4); White Blood Count 10.5 K/mm3 (4.4-11.0)
[2024-11-10] MEDS: Oxytocin 15 Units/NS 250ml 15 UNITS/250 ML IV.SOLN 2 UNITS IV (08:21)
[2024-11-10] MEDS: Penicillin G Pot 5,000,000 UNITS in 0.9% Normal Saline (100mL MB+) 100 ML 150 UNITS IV (08:21)
[2024-11-10 08:44] LABS: Syphilis Antibodies Nonreactive (Nonreactive)
--- NOTE | 2024-11-10 08:58 | PCM.HP.OB ---
HPI - General General Date of Admission: 11/10/24 HPI Narrative GEENA HERMAN, is a 33 F 2 39 weeks who presents for IOL due to GDMA1 PFSH PFS Medical History (Updated 11/10/24 @ 08:[address] Kim Iqbal MD) Thyroid disorder Gestational diabetes Home Medications ?Medication ?Instructions ?Recorded ?Last Taken ?Type cetirizine 10 mg capsule (Zyrtec) 10 mg PO QDAY PRN allergies 03/17/24 Unknown History aspirin 81 mg capsule 81 mg PO DAILY 11/10/24 11/09/24 21:00 History 81 mg omeprazole 40 mg capsule,delayed 40 mg PO DAILY 11/10/24 11/10/24 05:30 History release 40 mg vit no.95-ferrous 1 tab PO DAILY 11/10/24 11/09/24 21:00 History fumarate 28 mg-folic acid 800 mcg 1 TAB tablet () Allergy/AdvReac Type Severity Reaction Status Date / Time Environmental Allergies: Allergy Other Verified 11/10/24 07:42 Uncoded (seasonal) Social History (Updated 03/17/24 @ 13:36 by Moriah Garcia) Smoking Status: Never smoker alcohol intake: never History Elective abortions Hx Para 0 Spontaneous abortions Hx # Term Pregnancies Ectopic pregnancies Hx # Pregnancies Multiple births # of living children NST FHR Rate Baby A Baseline: 135 Variability:: Moderate Accelerations:: 15 x 15 Decelerations:: None NST Reactive:: Yes FHR Category:: Category I Uterine Activity:: occasional Vital Signs Vital Signs Vital Signs: 11/10/24 07:28 11/10/24 07:28 11/10/24 07:29 Temperature Temperature Source Pulse Rate 91 98 Respiratory Rate Blood Pressure 129/80 H BP Systolic 129 BP Diastolic 80 Pulse Ox 11/10/24 07:29 11/10/24 08:48 11/10/24 08:48 Temperature Temperature Source Pulse Rate 82 Respiratory Rate Blood Pressure 126/83 H BP Systolic 126 BP Diastolic 83 Pulse Ox 99 11/10/24 08:49 11/10/24 08:49 11/10/24 08:49 Temperature 97.3 F L Temperature Source Temporal Pulse Rate Respiratory Rate 16 Blood Pressure BP Systolic BP Diastolic Pulse Ox 11/10/24 08:50 11/10/24 08:50 11/10/24 08:51 Temperature Temperature Source Pulse Rate 92 87 Respiratory Rate Blood Pressure BP Systolic BP Diastolic Pulse Ox 90 11/10/24 08:51 Temperature Temperature Source Pulse Rate Respiratory Rate Blood Pressure BP Systolic BP Diastolic Pulse Ox 98 Weight Weight: 78.1 kg Body Mass Index (BMI) 31.4 Physical Exam Narrative VE: /-2 AROM performed with small amt clear fluid Labs Labs Labs: Blood Type AB POSITIVE Antibody Screen NEGATIVE Hct 36.8 % (37-47) L Hgb 12.4 g/dL (12.0-15.0) Syphilis Total Ab Nonreactive (Nonreactive) Assessment & Plan (1) 39 weeks gestation of : (2) Anemia affecting : PLAN: Plan Admit to L&D [facility] FHR/TOCO Epidural if requested for pain Monitor VS Anticipate Pitocin and AROM
[2024-11-10] MEDS: Lactated Ringers 1,000 ML 999 ML IV (11:37)
[2024-11-10] MEDS: Penicillin G 3,000,000 Units 50 ML 100 UNITS IV ×3 (12:38→20:50)
[2024-11-10] MEDS: fentaNYL-bupivacaine (epidural) 100 ML BAG EPIDURAL ×3 (12:48→22:07)
[2024-11-10] MEDS: LACTATED RINGERS 500 ML 999 ML IV ×3 (13:11→22:35)
--- NOTE | 2024-11-10 14:20 | NURSING ---
pt requested for a fountain catheter to be place, risk and benefits explained of using a straight catheter vs a fountain to pt. Pt verbalized understanding and chose to have the fountain cathether placed. Pt stated I feel like that is less invasive for me.
--- NOTE | 2024-11-10 16:33 | PCM.PN.BLA ---
Progress Note patient seen at bedside, resting comfortably with epidural in place. VE: 4-5/80/-2 IFM placed due to low Baseline now 105 on admission 140s. Moderate variability. + accels no decels noted. Continue Pitocin at this time.
--- NOTE | 2024-11-10 19:18 | PCM.PN.BLA ---
Progress Note pt seen at bedside, resting comfortably with epidural in place. VE: /-2 - . continue pitocin, anticipate
[2024-11-10] MEDS: Lactated Ringers 1,000 ML 200 ML IV (20:29)
[2024-11-11] VITALS (39 sets, daily range): BP systolic 120–137; BP diastolic 63–80; PULSE 71–117; RESP 14–16; TEMP 36.4–37; O2SAT 96–98
--- NOTE | 2024-11-11 00:38 | EX.PCM.OBVAG ---
Maternal Data Information Final DIANE: 11/17/24 Final DIANE Source: US <20 weeks Gestational age: 39.1 Vaginal Delivery Maternal Presentation Maternal Presentation: Medically Indicated Induction Type of Induction: Pitocin and Amniotomy Medical Reason for Induction: Maternal Medical Condition: list: (GDMA1) Vaginal Delivery Information Procedure Performed: Spontaneous Vaginal Delivery Surgeon/Practitioner: Kim Iqbal Date of Procedure: 11/11/24 Pre-Procedure Diagnosis: 39 weeks, GDMA1, Anemia in Post-Procedure Diagnosis: same Type of anesthesia: Epidural Estimated Blood Loss: 150 Time of Delivery: 00:20 Findings Description of procedure: Patient progressed to fully dilated. heart rate was 70s to the low 80s for approximately 5 to 6 minutes head was on the perineum. The perineum was tight I discussed with the patient need for episiotomy to expedite delivery. Patient consented. With the next push episiotomy RML was made and the head was delivered. Loose nuchal x 1 true knot x 1 appreciated-however delivered through that. The anterior shoulder was delivered followed by the posterior shoulder and the rest the infant's body. The nuchal was then reduced. The was placed on the mother's chest for immediate skin to skin the was vigorous at time of delivery. Cord gases were obtained. Pitocin was started and placenta was delivered without complication intact. At this time the second-degree RML was repaired using 2-0 Vicryl and 3-0 Rapide. Patient Tolerated procedure well excellent hemostasis. Presentation: Vertex Amniotic Membrane Rupture Type: Artificial Amniotic Fluid Description: Clear Placental Delivery Description: Spontaneous Placenta Disposition: [facility] Specimen collected: No Cord Vessel Description: 3 Vessels Cord Entanglement: Around neck x 1, loose and True Knot(s) Nuchal Cord Compression: With compression Cord Gases: ABG and VBG A Gender: Male (1 minute): 9 (5 minute): 9 Delayed Cord Clamping: Yes Guest Services Ambassador product development technician: No Post Vaginal Deli Medications given after delivery: IV Pitocin Episiotomy Description: Right Mediolateral and 2nd degree Laceration: None Complication Complications: No
[2024-11-11] MEDS: Oxytocin 15 Units/NS 250ml 15 UNITS/250 ML IV.SOLN 83 UNITS IV (00:50)
[2024-11-12] VITALS (8 sets, daily range): BP systolic 116–130; BP diastolic 67–71; PULSE 73–89; RESP 16; TEMP 36.3–36.8; O2SAT 98
[2024-11-12] MEDS: Benzocaine/Lanolin/Aloe Vera 85 GM Spray 1 SPRAY TOPICAL (08:03)
--- NOTE | 2024-11-12 09:27 | PCM.PROGNOTE ---
Subjective Subjective patient seen at bedside, doing well. Patient reports good pain control. lochia mild. Objective Data Objective Data Vital Signs: Vital Signs Temp Pulse Resp BP Pulse Ox O2 Del Method 97.9 F 84 16 120/67 98 Room Air 11/12/24 09:14 11/12/24 09:14 11/12/24 09:14 11/12/24 09:14 11/12/24 09:14 11/12/24 09:14 Oxygen Delivery Method Room Air Weight: 78.1 kg Body Mass Index (BMI) 31.4 Intake & Output: Intake and Output for Last 24 Hours 11/10/24 11/11/24 11/12/24 23:59 23:59 23:59 Intake Total 3515.33 / 3515.33 1078.33 / 1078.33 Output Total 1850 / 1850 1300 / 1300 Balance 1665.33 / 1665.33 -221.67 / -221.67 Lab / Micro Data 11/10/24 07:45 Physical Exam Narrative Abd: fundus firm. Const alert and oriented x3 General Appearance: cooperative HEENT normocephalic Neck General: normal visual inspection GI soft to palpation and non-distended GI Narrative: Fundus firm Extremity normal to inspection and no calf tenderness Skin no rashes or lesions noted Neuro oriented x3 and CN's II-XII intact bilaterally Psych mental status grossly normal Assessment & Plan Assessment/Plan (1) Vaginal delivery: (2) Anemia affecting : PLAN: Plan PPD#1 , Doing well Routine care pain mgmt ambulation dc home time spent with patient face to face on day of discharge was <30min
--- NOTE | 2024-11-12 09:28 | DCINST_ITS ---
Discharge Instructions DC O2, CPAP, BIPAP needs Home O2 Discharge instructions: No Dressing / Incision May resume sexual activity in: 6-8 weeks Dressing / Incision Call your doctor if you observe: Fever of 101 or Higher, Inability to urinate, Using more than 1 pad per hour and Uncontrolled pain Follow Up Care Please Follow Up With: Kim Iqbal MD When: 1 week post and again at 6 weeks post . [phone]: if you had PREECLAMPSIA or other Blood pressure concerns in labor you should be seen in 48-72 hours in the office. Test Results: Test results from this visit will be discussed in further detail at your follow- up appointment, if applicable. Discharge Plan Admission Admit Date/Time: 11/10/24 07:05 Attending Provider: Kim Iqbal Primary Care Provider: Dwaine Russell Discharge Orders/Prescriptions Prescriptions: New acetaminophen 500 mg Tablet 1,000 mg PO Q6H PRN PRN (Reason: Pain 1-10 Or Fever) Qty: 0 0RF ibuprofen 600 mg Tablet 600 mg PO Q6H PRN PRN (Reason: Pain Score 1-10) Qty: 0 0RF Continued Zyrtec 10 mg capsule 10 mg PO QDAY PRN (Reason: allergies) PNV cmb#[id number]-ferrous fumarate-FA [] 28 mg iron- 800 mcg tablet 1 tab PO DAILY Discontinued aspirin 81 mg capsule 81 mg PO DAILY omeprazole 40 mg capsule,delayed release(DR/EC) 40 mg PO DAILY Referrals / Follow Up: Dwaine Russell MD [Primary Care Provider] - Disposition Disposition (needs filled in before D/C Order can be placed): Home, Self Care
--- NOTE | 2024-11-16 13:32 | NURSING ---
Here for consult on Wednesday11/15/24. Follow up phone call questions asked. Patient states that her bleeding is getting better. Denies any headaches, visual changes, baby blues, or flu like symptoms. Denies any questions or concerns. See note for feeding.
== END 2024-11-12 16:15 | disposition home or self-care (01) | DRG 807 ==
PROVIDERS: Admitting Provider Obstetrics & Gynecology; PCP Family Medicine; Referring Provider Obstetrics & Gynecology; Visit Provider Obstetrics & Gynecology
DX: O24.429 Gestational diabetes mellitus in childbirth, unspecified control (principal); Z37.0 Single live birth; O69.81X0 Labor and delivery complicated by cord around neck, without compression, not applicable or unspecified; O99.02 Anemia complicating childbirth; Z3A.39 39 weeks gestation of pregnancy; Z79.82 Long term (current) use of aspirin
CPT/HCPCS: 59025; 59050; 82962; 85025; 86780; 86850; 86900; 86901; 99221; G0378; J2405